=== PATIENT | female | born 1955 | race Caucasian/White ===

== ENCOUNTER 2020-03-09 13:46 | Emergency (ER) | payer MEDICARE, SELFPAY ==
--- NOTE | ~2020-03-09 | XR_ITS ---
XR humerus RT 03/09/2020 14:19 INDICATION: Right arm pain after fall PROCEDURE: 2 views right humerus COMPARISON: 11/25/2011 FINDINGS: Fracture, dislocation or subluxation is not identified. Osteopenia. The soft tissues appear within normal limits. No foreign bodies are identified. IMPRESSION: 1: NO ACUTE BONE OR JOINT ABNORMALITY IDENTIFIED. Reviewed, dictated and finalized at location A.
[2020-03-09 14:03] VITALS: BP 164/94; PULSE 110; RESP 16; O2SAT 99
--- NOTE | 2020-03-09 14:08 | ED.GENADULT ---
HPI - General Adult General Chief complaint: Extremity Injury, Upper Stated complaint: fell Right Shoulder pain Time Seen by Provider: 03/09/20 14:04 Source: patient and RN notes reviewed Mode of arrival: ambulatory Limitations: no limitations History of Present Illness HPI narrative: 64-year-old female presents with complaints of right shoulder and upper arm pain for 1 day. Fiorella says she fell at a gas station in [place], her foot got caught and she fell forward hitting her RT side. Denies numbness or tingling. Hurts with movement of shoulder. RT shoulder pain radiates down arm to elbow. No loss of mobility. No swelling. Exacerbating factor is movement and palpation. Relieving factor is rest. The dominant hand is the RIGHT HAND. Remains active. Denies fever, chills, headaches, weakness, fatigue, or myalgia. Denies chest pain or dyspnea. Denies cough, rhinorrhea, congestion, sore throat, nausea, vomiting, abdominal pain, and diarrhea. Tolerating po intake well. Denies recent traveling. Denies concerns for COVID-19 or exposures been home since [id number] order except for essential household needs and return home. Some parts of this dictation were generated by voice recognition software and may contain typographical and/or grammatical inaccuracies. Related Data Home Medications Medication Instructions Recorded Confirmed ketorolac 1 % OPHTHALMIC (EYE) DAILY 03/09/20 03/09/20 omeprazole 20 mg PO DAILY 03/09/20 03/09/20 triamcinolone acetonide 0.1 % TOPICAL DIRECTED 03/09/20 03/09/20 Allergies Allergy/AdvReac Type Severity Reaction Status Date / Time meperidine Allergy Mild Hives Verified 03/09/20 14:10 Review of Systems Review of Systems: Narrative: CONSTITUTIONAL: Denies fever, chills, sweats. EYES: Denies visual changes, redness, discharge. ENT: Denies rhinorrhea, congestion, sore throat, otalgia. CARDIOVASCULAR: Denies chest pain, palpitations, edema. RESPIRATORY: Denies dyspnea, wheezing, cough. GASTROINTESTINAL: Denies abdominal pain, nausea, vomiting, diarrhea. GENITOURINARY: Denies dysuria, hematuria, abnormal discharge. SKIN: Denies rash or itching. MUSCULOSKELETAL: Denies acute back pain or myalgia. Complains of RT shoulder and upper arm pain. NEUROLOGIC: Denies numbness or focal weakness. PSYCHIATRIC: Denies anxiety or depression. All other systems reviewed & are unremarkable except as noted in HPI and below. [facility] Past Medical History Medical History (Updated 03/13/20 @ 23:42 by ELIECER Dixon) Anxiety Back pain History of gastroesophageal reflux (GERD) Neck fracture Surgical History Surgical History (Updated 03/09/20 @ 14:14 by ELIECER Dixon) History of foot surgery Left History of hysterectomy Family History Family History (Updated 03/09/20 @ 14:17 by ELIECER Dixon) Father No problems noted. Mother Hypertension Social History Social History (Updated 03/09/20 @ 14:15 by ELIECER Dixon) Smoking status: Former smoker Tobacco type: cigarettes Second hand tobacco smoke exposure: No Smoking end date: 11/05/04 Alcohol intake: current Substance use: current Substance use type: marijuana Living arrangements: with family Gender identity (if verbalized by the patient): Female Comments At time of signature, agree with nurse past medical, surgical, social, and family history. There is no relevant family history pertinent to the presenting complaint. Exam Narrative: Exam Narrative: GENERAL: This is a well-nourished, well-developed patient, in no apparent distress. Talks in full sentences and ambulates with steady gait without dyspnea. HEAD: normocephalic, atraumatic. EYES: PERRL. Sclera clear/white. Vision is grossly intact. THROAT: Mucous membranes moist, posterior pharynx clear. NECK: Neck supple, non-tender without lymphadenopathy, masses or thyromegaly. Trachea is midline. Skin
[2020-03-09] MEDS: KETOROLAC (*BKC) 60 MG/2 ML VIAL IM (14:18)
[2020-03-09 15:08] VITALS: BP 142/78
== END 2020-03-09 14:48 | disposition home or self-care (01) ==
PROVIDERS: Emergency Provider Nurse Practitioner Family
DX: S43.401A Unspecified sprain of right shoulder joint, initial encounter (principal); Z87.891 Personal history of nicotine dependence; R03.0 Elevated blood-pressure reading, without diagnosis of hypertension; W01.0XXA Fall on same level from slipping, tripping and stumbling without subsequent striking against object, initial encounter
CPT/HCPCS: 73060; 99213; A4565; G0463; J1885

== ENCOUNTER 2021-04-19 09:14 | Emergency (ER) | payer MEDICARE, SELFPAY ==
--- NOTE | ~2021-04-19 | XR_ITS ---
[XR ribs RT 2V ] INDICATION: Right lateral rib pain after recent fall TECHNIQUE: Frontal projection of the upper right ribs, frontal projection of the lower right ribs, ob lique projection of all the right ribs, frontal inspiratory chest x-ray for interpretation. FINDINGS: There are no displaced rib fractures identified. There are no soft tissue abnormality see n. The lungs are clear. There are degenerative changes of the right shoulder. IMPRESSION: 1:No displaced rib fractures. Reviewed, dictated and finalized at location A.
[2021-04-19 09:41] VITALS: BP 150/89; PULSE 88; RESP 16; TEMP 36.8; O2SAT 99
--- NOTE | 2021-04-19 10:01 | ED.GENADULT ---
HPI - General Adult General Chief complaint: Unspecified Stated complaint: rib pain Time Seen by Provider: 04/19/21 09:55 Source: patient and RN notes reviewed Mode of arrival: ambulatory Limitations: no limitations History of Present Illness HPI narrative: 65-year-old female presents to [facility] with complaints of right lower lateral rib pain since tripping and falling March 27. Patient reports that she was camping and missed a step when she fell landing on her right side. Did not seek medical treatment at that time. States she had history of left-sided rib fractures and knows they cannot do much about it. Has been taking ibuprofen with some relief. States she needs something better for pain Related Data Home Medications Medication Instructions Recorded Confirmed alprazolam 1 mg PO DAILY 04/19/21 04/19/21 Allergies Allergy/AdvReac Type Severity Reaction Status Date / Time meperidine Allergy Mild Hives Verified 04/19/21 10:07 Review of Systems Review of Systems: All systems reviewed & are unremarkable except as noted in HPI and below Constitutional: Constitutional: Reports no additional constitutional complaints, Denies chills and Denies fever(s) Eyes: Eyes: Reports no additional eye complaints ENT: Reports system reviewed and no additional complaints, except as documented Cardiovascular: Cardiovascular: Reports as per HPI, Denies chest pain and Denies radiating jaw, neck or arm pain Comments: Right lower lateral rib pain Respiratory: Respiratory: Reports no additional respiratory complaints, Denies cough, Denies dyspnea and Denies wheezing Gastrointestinal: Gastrointestinal: Reports no additional gastrointestinal complaints, Denies abdominal pain, Denies nausea and Denies vomiting Genitourinary: Genitourinary: Reports no additional female genitourinary complaints Musculoskeletal: Musculoskeletal: Reports no additional musculoskeletal complaints, Denies back pain, Denies arthralgias and Denies joint swelling Integumentary/Breasts: Skin/Breast: Reports system reviewed and no additional complaints, except as docu Neurologic: Reports system reviewed and no additional complaints, except as documented Psychiatric: Psychiatric: Reports no additional psychiatric complaints Allergic/Immunologic: Allergic/Immunologic: Reports no additional allergic/immunologic complaints [facility] Past Medical History Medical History (Updated 04/19/21 @ 10:34 by Jovita Grimaldo) Anxiety Back pain History of gastroesophageal reflux (GERD) Neck fracture Surgical History Surgical History History of foot surgery Left History of hysterectomy Family History Family History Father No problems noted. Mother Hypertension Social History Social History Smoking status: Former smoker Tobacco type: cigarettes Second hand tobacco smoke exposure: No Smoking end date: 11/05/04 Alcohol intake: current Substance use: current Substance use type: marijuana Gender identity (if verbalized by the patient): Female Comments At the time of my signature, I reviewed and agree with the nursing past medical, surgical, social, and family history. There is no relevant family history pertinent to the patient complaint. Exam Const: General: no acute distress and alert Nutritional Appearance: thin Orientation/consciousness: patient oriented x3 HENMT: Head: normal to inspection Eyes: Pupils: Equal, round and reactive pupils present Neck: Neck: normal visual inspection, no lymphadenopathy and no meningeal signs Chest: Chest palpation & inspection: normal inspection of the chest Resp: Effort & Inspection: normal respiratory effort and no use of accessory muscles Auscultation: clear to auscultation bilaterally, no crackles, no rales, no rhonchi and no whe
== END 2021-04-19 10:43 | disposition home or self-care (01) ==
PROVIDERS: Emergency Provider Nurse Practitioner
DX: S20.211A Contusion of right front wall of thorax, initial encounter (principal); W10.9XXA Fall (on) (from) unspecified stairs and steps, initial encounter; K21.9 Gastro-esophageal reflux disease without esophagitis; F41.9 Anxiety disorder, unspecified
CPT/HCPCS: 71100; 99213; G0463

== ENCOUNTER 2021-10-03 11:29 | Emergency (ER) | payer MEDICARE, SELFPAY ==
[2021-10-03 11:36] VITALS: BP 147/88; PULSE 102; RESP 16; TEMP 36.9; O2SAT 100
--- NOTE | 2021-10-03 12:45 | ED.SKABFB ---
HPI - Skin/Abscess/Foreign Bdy General Chief complaint: Skin/Abscess/Foreign Body Stated complaint: Cyst on [place] Time Seen by Provider: 10/03/21 12:36 Source: patient and RN notes reviewed Mode of arrival: ambulatory Limitations: no limitations History of Present Illness HPI narrative: Patient presents today complaining of a bump to her left buttock that has been there for a month. States it started out as a pimple but has gotten larger and more painful. She has tried but has not gotten any drainage. Denies any pain at this time. Denies any history of abscesses, boils complaint: abscess/boil Related Data Home Medications Medication Instructions Recorded Confirmed alprazolam 1 mg PO DAILY 04/19/21 10/03/21 hydrochlorothiazide 12.5 mg PO DAILY 10/03/21 10/03/21 omeprazole 20 mg PO DAILY 10/03/21 10/03/21 Allergies Allergy/AdvReac Type Severity Reaction Status Date / Time No Known Allergies Allergy Verified 10/03/21 12:17 Review of Systems Review of Systems: CONSTITUTIONAL: Denies body aches, fever, chills, or sweats. EYES: Denies visual changes, redness, or discharge. ENT: Denies rhinorrhea, congestion, sore throat, or otalgia. CARDIOVASCULAR: Denies chest pain, palpitations, or edema. RESPIRATORY: Denies cough or dyspnea. GASTROINTESTINAL: Denies abdominal pain, nausea, vomiting, or diarrhea. GENITOURINARY: Denies dysuria or hematuria. SKIN: Denies rash, itching, or wounds.+ Abscess to left buttock MUSCULOSKELETAL: Denies back pain, joint pain, or myalgia. NEUROLOGIC: Denies headache, numbness, tingling, or weakness. PSYCH: Denies depression or anxiety. [facility] Past Medical History Medical History Anxiety Back pain History of gastroesophageal reflux (GERD) Neck fracture Surgical History Surgical History History of foot surgery Left History of hysterectomy Family History Family History Father No problems noted. Mother Hypertension Social History Social History Smoking status: Former smoker Tobacco type: cigarettes Second hand tobacco smoke exposure: No Smoking end date: 11/05/04 Alcohol intake: current Substance use: current Substance use type: marijuana Gender identity (if verbalized by the patient): Female Comments At time of signature, I have reviewed and agree with nursing past medical, surgical, social and family history unless otherwise noted. Please see nursing chart for further information. There is no relevant family history pertinent to the presenting complaint Exam Narrative: GENERAL: Well-appearing, well-nourished, and in no acute distress. HEAD: Normocephalic, atraumatic. EYES: EOMI. No redness or drainage. Conjunctivae normal. ENT: Mucous membranes pink and moist. NECK: Normal AROM. CHEST: No respiratory distress. EXTREMITIES: Normal range of motion. No edema. 1.5cm round fluctuant lesion surrounded in erythema to the left buttock that is non tender to palpation. SKIN: Warm, dry, no rash. Capillary refill normal. Normal skin turgor. NEURO: No focal deficits. Alert and oriented x3. Gait steady. PSYCH: Normal affect. No signs of depression or anxiety. Course Vital Signs Vital signs: Vital Signs Temperature 98.5 F 10/03/21 11:36 Pulse Rate 102 H 10/03/21 11:36 Respiratory Rate 16 10/03/21 11:36 Blood Pressure 147/88 H 10/03/21 11:36 Pulse Oximetry 100 10/03/21 11:36 Temperature 98.5 F 10/03/21 11:36 Pulse Rate 102 H 10/03/21 11:36 Respiratory Rate 16 10/03/21 11:36 Blood Pressure 147/88 H 10/03/21 11:36 Pulse Oximetry 100 10/03/21 11:36 Reviewed. Pt has been instructed to follow up with her PCP regarding her elevated blood pressure today. Tej
== END 2021-10-03 13:15 | disposition home or self-care (01) ==
PROVIDERS: Emergency Provider Nurse Practitioner
DX: L02.31 Cutaneous abscess of buttock (principal); Z87.891 Personal history of nicotine dependence; K21.9 Gastro-esophageal reflux disease without esophagitis; F41.9 Anxiety disorder, unspecified
CPT/HCPCS: 10060; 99213; G0463

== ENCOUNTER → 2022-04-08 10:09 | Outpatient (CLI) | payer MEDICARE, SELFPAY ==
--- NOTE | ~2022-04-08 | XR_ITS ---
EXAM: XR sacrum coccyx min 2V DATE: 04/08/2022 10:23 HISTORY: Contusion of lower back and pelvis . COMPARISON: None available. FINDINGS: Decreased mineralization. Anterior angulation positive transversely oriented fracture line through the distal sacral element. No other fracture. No lytic or blastic lesion. Osteitis pubis. Se fausto degenerative lumbar disc disease with a prominent right lateral marginal osteophyte. No erosion or periosteal change. Soft tissues within normal limits. IMPRESSION: Possible acute distal sacral fracture, correlate with pain/tenderness. An MR pelvis could be performed for confirmation. Reviewed, dictated and finalized at location K. IMPRESSION: Possible acute distal sacral fracture, correlate with pain/tenderne ss. An MR pelvis could be performed for confirmation.
== END ==
DX: S30.0XXA Contusion of lower back and pelvis, initial encounter (principal); M47.816 Spondylosis without myelopathy or radiculopathy, lumbar region
CPT/HCPCS: 72220

== ENCOUNTER → 2022-10-19 10:37 | Outpatient (CLI) | payer MEDICARE, SELFPAY ==
--- NOTE | ~2022-10-19 | XR_ITS ---
Clinical Indication: Cough PA and lateral views of the chest: Comparison: 04/11/2013 Findings: The lungs are clear, without evidence of focal consolidation or pleural effusion. Cardiome diastinal silhouette is within normal limits. Stable chronic left rib fracture deformities. Impression: No acute abnormality. Stable chronic left rib fracture deformities. Reviewed, dictated and finalized at location [] [facility] Impression: No acute abnormality. Stable chronic left rib fracture deformities.
== END ==
DX: R09.3 Abnormal sputum (principal)
CPT/HCPCS: 71046

== ENCOUNTER 2023-07-06 13:06 | Emergency (ER) | payer MEDICARE, SELFPAY ==
[2023-07-06 13:23] VITALS: BP 141/87; PULSE 98; RESP 16; TEMP 37; O2SAT 100
--- NOTE | 2023-07-06 14:20 | ED.SKABFB ---
HPI - Skin/Abscess/Foreign Bdy General Chief complaint: Skin/Abscess/Foreign Body Stated complaint: Insect Bite Time Seen by Provider: 07/06/23 14:14 Source: patient and RN notes reviewed Mode of arrival: ambulatory Limitations: no limitations History of Present Illness HPI narrative: Patient presents today complaining of redness and swelling to her left hand and wrist that started yesterday. She believe she may have gotten bit by an insect or spider. Currently rates her pain 3/10 and describes it as burning. She has been taking aspirin without relief. Related Data Home Medications Medication Instructions Recorded Confirmed hydrochlorothiazide 12.5 mg tablet 12.5 mg PO DAILY 10/03/21 07/06/23 omeprazole 20 mg capsule,delayed 20 mg PO DAILY 10/03/21 07/06/23 release paroxetine HCl 10 mg tablet 20 mg PO DAILY 07/06/23 07/06/23 Allergies Allergy/AdvReac Type Severity Reaction Status Date / Time No Known Allergies Allergy Verified 07/06/23 13:33 Review of Systems Review of Systems: CONSTITUTIONAL: Denies body aches, fever, chills, or sweats. EYES: Denies visual changes, redness, or discharge. ENT: Denies rhinorrhea, congestion, sore throat, or otalgia. CARDIOVASCULAR: Denies chest pain, palpitations, or edema. RESPIRATORY: Denies cough or dyspnea. GASTROINTESTINAL: Denies abdominal pain, nausea, vomiting, or diarrhea. GENITOURINARY: Denies dysuria or hematuria. SKIN: + redness and swelling to left hand. MUSCULOSKELETAL: Denies back pain, joint pain, or myalgia. NEUROLOGIC: Denies headache, numbness, tingling, or weakness. PSYCH: Denies depression or anxiety. [facility] Past Medical History Medical History Anxiety Back pain History of gastroesophageal reflux (GERD) Neck fracture Surgical History Surgical History History of foot surgery Left History of hysterectomy Family History Family History Father No problems noted. Mother Hypertension Social History Social History Smoking status: Former smoker Tobacco type: cigarettes Second hand tobacco smoke exposure: No Smoking end date: 11/05/04 Alcohol intake: current Substance use: current Substance use type: marijuana Living arrangements: with family Gender identity (if verbalized by the patient): Female Comments At time of signature, I have reviewed and agree with nursing past medical, surgical, social and family history unless otherwise noted. Please see nursing chart for further information. There is no relevant family history pertinent to the presenting complaint Exam Narrative: GENERAL: Well-appearing, well-nourished, and in no acute distress. HEAD: Normocephalic, atraumatic. EYES: EOMI. No redness or drainage. Conjunctivae normal. ENT: Mucous membranes pink and moist. NECK: Normal AROM. CHEST: No respiratory distress. EXTREMITIES: Left hand: Moderate erythema and mild edema to the thenar eminence extending to the dorsum of the hand to the base of the 2nd finger. The erythema extends proximally to the anterior wrist. Distal sensation intact. Capillary refill normal. Radial pulse normal. Full range of motion of all fingers and wrist. No obvious puncture wounds from insect or spider noted. No induration or fluctuance noted. SKIN: Warm, dry. Capillary refill normal. Normal skin turgor. NEURO: No focal deficits. Alert and oriented x3. Gait steady. PSYCH: Normal affect. No signs of depression or anxiety. Course Course Level of Care: Express Care Visit Vital Signs Vital signs: Vital Signs Temperature 98.6 F 07/06/23 13:23 Pulse Rate 98 07/06/23 13:23 Respiratory Rate 16 07/06/23 13:23 Blood Pressure 141/87 H 07/06/23 13:
== END 2023-07-06 14:26 | disposition home or self-care (01) ==
PROVIDERS: Emergency Provider Nurse Practitioner; PCP Family Medicine
DX: L03.114 Cellulitis of left upper limb (principal); Z87.891 Personal history of nicotine dependence
CPT/HCPCS: 99213; G0463

== ENCOUNTER 2023-07-26 10:45 | Emergency (ER) | payer MEDICARE, SELFPAY ==
--- NOTE | ~2023-07-26 | XR_ITS ---
EXAMINATION: XR ribs RT 2V DATE: 07/26/2023 11:04 INDICATION: Upper right rib pain post fall TECHNIQUE: 3 views of the right ribs were obtained. COMPARISON: Chest radiograph dated 10/19/2022 FINDINGS: 3 mm displacement of a fracture of the anterior right seventh rib and mildly angulated fracture of th e anterior right fifth and sixth ribs. Visualized portion of the lungs are clear. No right pleural ef fusion or pneumothorax. 18 degrees lumbar dextroscoliosis with moderate spondylosis. IMPRESSION: 1. Non to mildly displaced fractures of the anterior right fifth-seventh ribs without pneumothorax or other acute cardiopulmonary disease. Reviewed, dictated and finalized at location A. IMPRESSION: 1. Non to mildly displaced fractures of the anterior right fifth-seventh ribs w ithout pneumothorax or other acute cardiopulmonary disease.
[2023-07-26 10:54] VITALS: BP 135/90; PULSE 96; RESP 18; TEMP 36.9; O2SAT 100
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
== END 2023-07-26 11:43 | disposition home or self-care (01) ==
PROVIDERS: Emergency Provider Registered Nurse; PCP Family Medicine
DX: S22.41XA Multiple fractures of ribs, right side, initial encounter for closed fracture (principal); Z79.899 Other long term (current) drug therapy; Z87.891 Personal history of nicotine dependence; W19.XXXA Unspecified fall, initial encounter; Y92.009 Unspecified place in unspecified non-institutional (private) residence as the place of occurrence of the external cause
CPT/HCPCS: 71100; 99213; G0463

== ENCOUNTER 2023-12-18 11:40 | Emergency (ER) | payer MEDICARE, SELFPAY ==
--- NOTE | ~2023-12-18 | XR_ITS ---
XR ribs RT 2V DATE: 12/18/2023 12:30 INDICATION: Right anterior rib pain after a fall yesterday TECHNIQUE: 3 views COMPARISON: 07/26/2023 right ribs FINDINGS: There are healing fractures of the anterior right seventh, lateral right eighth and postero lateral right ninth ribs, with callus formation. No other rib fracture is noted. No right pulmonary infiltrate or consolidation, right pleural effusion or pneumothorax. Normal heart size. Bilateral hyperinflation, suggesting obstructive airways disease. Dextro scoliosis and degenerative change of the lumbar spine. Osteopenia. IMPRESSION: Healing right seventh through ninth rib fractures Reviewed, dictated and finalized at location L. RAM MANAGEMENT ANALYST
[2023-12-18 11:58] VITALS: BP 120/84; PULSE 97; RESP 16; TEMP 37.1; O2SAT 99
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
== END 2023-12-18 13:15 | disposition home or self-care (01) ==
PROVIDERS: Emergency Provider Nurse Practitioner Family; PCP Family Medicine
DX: R07.81 Pleurodynia (principal); W01.0XXA Fall on same level from slipping, tripping and stumbling without subsequent striking against object, initial encounter; Z87.891 Personal history of nicotine dependence
CPT/HCPCS: 71100; 99213; G0463

== ENCOUNTER 2024-01-11 08:59 | Emergency (ER) | payer MEDICARE, SELFPAY ==
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
[2024-01-11 09:19] VITALS: BP 130/84; PULSE 101; RESP 20; TEMP 36.6; O2SAT 99
== END 2024-01-11 09:18 | disposition short-term general hospital (02) ==
PROVIDERS: Emergency Provider Nurse Practitioner Family; PCP Family Medicine
DX: S01.81XA Laceration without foreign body of other part of head, initial encounter (principal); S05.11XA Contusion of eyeball and orbital tissues, right eye, initial encounter; Z79.899 Other long term (current) drug therapy; Z87.891 Personal history of nicotine dependence; W18.11XA Fall from or off toilet without subsequent striking against object, initial encounter
CPT/HCPCS: 99212; G0463

== ENCOUNTER 2024-01-11 09:37 | Inpatient (IN) | payer MEDICARE, SELFPAY ==
[2024-01-11] VITALS (24 sets, daily range): BP systolic 108–149; BP diastolic 70–99; PULSE 78–103; RESP 12–18; TEMP 36.6–37.3; O2SAT 98–100
--- NOTE | ~2024-01-11 | CT_ITS ---
EXAMINATION: CT thoracic spine wo con DATE: 01/11/2024 10:20 INDICATION: Right rib pain post fall TECHNIQUE: Computed tomography (CT) of the thoracic spine was performed without intravenous contrast. Automated exposure control and iterative reconstruction technique were employed. The dose-length pro duct was 253.73 mGy-cm. COMPARISON: None FINDINGS: Alignment is normal. Minimal chronic appearing anterior wedging at T8 with <10% anterior vertebral rocky dy height loss. Remaining vertebral body heights are normal. No acute fracture. There is multilevel m ild disc height loss with diffuse mild degenerative endplate changes throughout the thoracic spine. P revious noted . Extend beyond the endplate margins with no central canal stenosis. There is multileve l mild to moderate bilateral thoracic facet osteoarthritis but without significant neural foraminal s tenosis. Visualized portions of the lungs are clear. Small sliding-type hiatal hernia. Calcified left hilar lymph nodes consistent with old granulomatous disease. IMPRESSION: 1. Mild thoracic spondylosis with chronic appearing minimal anterior wedging at T8. No acute osseous abnormality. 2. Small sliding-type hiatal hernia. Reviewed, dictated and finalized at location A. ORT STAFF
--- NOTE | ~2024-01-11 | XR_ITS ---
AP and oblique views of the right ribs, and PA chest radiograph Clinical History: Pain Findings: There are acute fractures of the right eighth and ninth ribs. There are chronic left rib fr acture deformities.. Lungs are clear, without focal consolidation or pleural effusion. No pneumothora x. Cardiomediastinal contour is within normal limits. Soft tissues are unremarkable. Impression: Acute fractures of the right eighth and ninth ribs. Chronic left rib fracture deformities. Clear lungs. No pneumothorax. Reviewed, dictated and finalized at [facility]. F CUSTOMER OFFICER Impression: Acute fractures of the right eighth and ninth ribs. Chronic left rib fracture deformities. Clear lungs. No pneumothorax.
--- NOTE | ~2024-01-11 | CT_ITS ---
EXAMINATION: CT brain wo con DATE: 01/11/2024 10:20 INDICATION: Fall with head and facial injury TECHNIQUE: Computed tomography (CT) of the head was performed without intravenous contrast. Sagittal and coronal reconstructions were performed. The mA was adjusted according to patient size. Iterative reconstruction technique was employed. The dose-length product was 605.33 mGy-cm. COMPARISON: None FINDINGS: Large right frontal scalp hematoma with laceration and small focus of underlying soft tissue gas. Add itional soft tissue contusion along the lateral right orbital rim. No fracture. No acute intracranial hemorrhage, acute infarction or abnormal extra axial fluid collection. There is mild scattered white matter hypoattenuation consistent with chronic small vessel ischemic disease. Symmetric prominence o f the sulci consistent with mild age-appropriate diffuse cerebral volume loss. Ventricles are normal and symmetric. No mass/mass effect. The orbits, paranasal sinuses and mastoid air cells are normal. I ntracranial calcified cerebral atherosclerosis is noted. IMPRESSION: 1. No fracture or acute intracranial process. 2. Age related changes including mild diffuse volume loss and mild scattered white matter hypoattenua tion consistent with chronic small vessel ischemic disease. Reviewed, dictated and finalized at location A. L ARBITRATOR IMPRESSION: 1. No fracture or acute intracranial process. 2. Age related changes including mild diffuse volume loss and mild scattered wh ite matter hypoattenuation consistent with chronic small vessel ischemic diseas e.
--- NOTE | ~2024-01-11 | XR_ITS ---
EXAMINATION: XR chest 2V DATE: 01/14/2024 11:39 INDICATION: Hyponatremia. Right-sided rib fractures post fall TECHNIQUE: PA and lateral views of the chest were obtained. COMPARISON: Chest radiograph dated 12/18/2023 FINDINGS: The lungs are clear with no focal airspace opacities, pulmonary edema, pleural effusion or pneumothor ax. The cardiomediastinal silhouette is normal. Again seen are multiple old posterolateral left sided and lateral right-sided rib fractures. Mild thoracic spondylosis. No acute fractures identified. IMPRESSION: 1. No acute cardiopulmonary disease. 2. Several old bilateral rib fractures. No acute fractures identified. Reviewed, dictated and finalized at location B.
--- NOTE | ~2024-01-11 | CT_ITS ---
EXAMINATION: 1. CT facial & cervical spine wo DATE: 01/11/2024 10:20 INDICATION: Right periorbital bruising post fall with head injury and loss of consciousness TECHNIQUE: 1. Computed tomography (CT) of the maxillofacial region and of the cervical spine were performed with out intravenous contrast. Sagittal and coronal reconstructions of both regions were obtained. Automat ed exposure control and iterative reconstruction technique were employed. The dose-length product was 199.57 mGy-cm. COMPARISON: None. FINDINGS: Maxillofacial CT: Large right frontal scalp hematoma with additional smaller subcutaneous contusion the soft tissues al kirstin the lateral right periorbital rim and right malar region. No maxillofacial fractures. Specificall y the nasal bones, zygomatic arches, mandible and edwards of the orbits and paranasal sinuses are all i ntact. Orbits are normal with intact appearing globes and no post septal inflammatory stranding. Mild mucosal thickening at the left maxillary sinus and left frontoethmoidal recess. Nasal septum is midl ine. Maxilla is edentulous and there are multiple missing teeth along the mandible predominantly on t he left. Small amount of atherosclerotic calcifications at the bilateral carotid bulbs. Cervical spine CT: Mild cervical dextrocurvature. Sagittal alignment is normal. 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 Vertebral body heights are normal. No fracture. Moderate disc height loss with and de generative endplate changes and severe right and moderate left uncovertebral osteoarthritis at C6-C7. Mild disc height loss at C3-C4 and C5-C6. No evident central canal stenosis. There is multilevel mod erate to severe right and severe left cervical facet osteoarthritis. This contributes to moderate enrique ral foraminal stenosis on the left at C3-C4, mild to moderate neural from stenosis on the left at C4- C5 through C6-C7 and on the right at C6-C7 with mild neural from stenosis at many of the remaining ce rvical levels . Multinodular goiter with a few likely benign subcentimeter peripherally calcified thy roid nodules. Cervical soft tissues tissues are otherwise unremarkable. The visualized apices of the lungs are clear. IMPRESSION: 1. Prominent right frontal and right periorbital subcutaneous hematoma. No maxillofacial fractures. 2. Moderate cervical spondylosis. No acute osseous abnormality. Reviewed, dictated and finalized at location A. FILTER TANK TENDER IMPRESSION: 1. Prominent right frontal and right periorbital subcutaneous hematoma. No maxi llofacial fractures. 2. Moderate cervical spondylosis. No acute osseous abnormality.
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
--- NOTE | 2024-01-11 09:58 | ECG_ITS ---
Measurements Intervals [place] Rate: 81 P: 71 GA: 140 QRS: 17 QRSD: 104 T: 47 QT: 400 QTc: 465 Interpretive Statements SINUS RHYTHM POSSIBLE LEFT ATRIAL ENLARGEMENT INCOMPLETE RIGHT BUNDLE BRANCH BLOCK BORDERLINE T WAVE ABNORMALITY- ANTERIOR LEADS BASELINE ARTIFACT- I, III, AVR, AVL BORDERLINE ECG NO PREVIOUS ECG AVAILABLE FOR COMPARISON Electronically Signed On 01-11-2024 10:58:28 MOTION PICTURE PROJECTIONIST APPRENTICE by All Smith D.O.
[2024-01-11] MEDS: HYDROcodone/acetaminophen (*CRX) 5-325 MG TABLET 1 TAB PO ×3 (10:58→23:11)
[2024-01-11 11:13] LABS: Basophils Absolute Auto 0.1 K/mm3 (0.0-0.1); Basophils Percent Auto 0.5 % (0.2-1.2); Eosinophils Percent Auto 0.1 % (0-4.4); Hematocrit 40.1 % (37.0-47.0); Hemoglobin 14.2 g/dL (12.0-15.0); Immature Granulocyte Absolute 0.14 K/mm3 (0.00-0.031); Immature Granulocyte Percent A 1.4 % (0-0.5); Lymphocytes Absolute Auto 0.83 K/mm3 (0.9-3.2); Lymphocytes Percent Auto 8.4 % (18.3-44.2); Mean Corpuscular HGB Conc 35.4 g/dl (32-36); Mean Corpuscular Hemoglobin 33.6 pg (26-34); Mean Corpuscular Volume 94.8 fl (80-100); Mean Platelet Volume 9.3 fl (7.4-10.4); Monocytes Absolute Auto 0.5 K/mm3 (0.1-0.6); Monocytes Percent Auto 4.6 % (2.6-8.5); Neutrophils Absolute Auto 8.4 K/mm3 (1.3-6.7); Platelet Count Result 369 k/mm3 (150-375); Red Blood Count 4.23 M/mm3 (4.2-5.4); Red Cell Distribution Width 11.8 % (11.5-14.5); White Blood Count 9.8 K/mm3 (4.5-10.0)
[2024-01-11 11:14] LABS: Appearance Urine Cloudy (Clear); Bacteria Urine 4+ /hpf; Bilirubin Urine Negative (Negative); Color Urine Yellow (Yellow); Glucose Urine UA Negative (Negative); Ketones Urine Negative (Negative); Leukocyte Esterase Ur 3+ LEU/UL (Negative); Need Manual Microscopic Reviewed; Nitrate Urine Positive (Negative); Protein Urine Negative (Negative); RBC Urine 0-2 /hpf (0-2); Specific Grav Ur 1.007 (1.001-1.035); Squamous Epithelial Cell Urine Many /hpf (Few); WBC Urine >100 /hpf
[2024-01-11 11:16] LABS: Add Urine Microscopic? YES
[2024-01-11 11:30] LABS: Alanine Aminotransferase 63 U/L (6-35); Albumin Level 4.2 g/dL (3.5-5.1); Alkaline Phosphatase 245 U/L (38-126); Anion Gap 9 mmol/L (8-16); Aspartate Amino Transferase 60 U/L (14-36); Blood Urea Nitrogen 5 mg/dL (7-17); Calcium 9.5 mg/dL (8.4-10.2); Carbon Dioxide 32 mmol/L (22-30); Chloride 82 mmol/L (98-107); Estimated CRCL calculation 106 ml/min; Estimated Glomerular Filt Rate > 60; Glucose 107 mg/dL (65-110); Potassium 3.2 mmol/L (3.4-5.0); Sodium 123 mmol/L (137-145)
[2024-01-11] MEDS: LIDO 1%/EPINEPHRINE 1:100,000 20 ML VIAL 10 ML INFILTRATE (11:34)
[2024-01-11 13:19] LABS: Creatinine Urine 52.2 mg/dL
[2024-01-11 13:32] LABS: Thyroid Stimulating Hormone 0.717 uIU/mL (0.465-4.680)
--- NOTE | 2024-01-11 14:40 | PM.IMHP ---
H&P: HPI History of Present Illness Date/Time: 01/11/24 14:40 Chief Complaint: Fall. Narrative: This is a 68-year-old female with hypertension, gastroesophageal reflux disease, and anxiety who presented to the emergency department from home for evaluation after a fall. The patient provides the following history. She woke at 03:00 to use the restroom and after urinating she stood up at which time she began to fall forward. She landed on her right side and struck the right side of her head on the floor. She sustained a laceration and reports immediate swelling to the right side of her forehead as well as pain over the right ribs. She believes that she slipped on the bathroom floor and that caused her to fall however she told ED provider that she felt dizzy when she stood up and there were concerns for syncope. She tells me that ?I am 100% positive that I did not pass out.? Her significant other heard her fall and went to her up and back to bed. She reports that she has been feeling just fine and denies recent illness, vertigo, lightheadedness, visual changes, headache, confusion, chest and pleuritic pain, palpitations, racing heart, cough, shortness of breath, nausea, vomiting, diarrhea, and dysuria. In the ED: She was afebrile on arrival with stable vital signs. Labs were significant for sodium of 123, potassium 3.2, chloride 82, carbon dioxide 32, BUN 5, creatinine 0.40, calcium 9.5, total bilirubin 1.0, AST 60, ALT 63, alkaline phosphatase 245. Brain CT showed no acute findings. CT of the facial and cervical spine showed prominent right frontal and right periorbital subcutaneous hematoma without fracture. Chest and rib x-ray showed acute fractures of the right 8 and 9th ribs. She was given 10 mEq of potassium chloride and she is being admitted in this setting for further workup. Regarding her electrolyte abnormalities, she reports that she has been eating and drinking okay however has lost about 20 lb since last summer due to stressors regarding family problems. She tells me that she drinks at least 5 bottled fields a day in addition to at least 1 can of Sprite and a glass of tea with dinner. She does not drink alcohol every day but does occasionally have 2 to 3 beers on the weekends. She has been on hydrochlorothiazide and paroxetine since last fall. It is noted that she had a prescription for sodium bicarbonate tablets for a total of 15 days last September but she does not recall being told that she had low sodium levels. Review of Systems Review of Systems: Twelve systems were reviewed and are negative except for as per HPI. [facility] Past Medical History Medical History (Updated 01/11/24 @ 23:29 by Jannet Rojas PA-C) Anxiety Gastroesophageal reflux disease Hypertension Neck fracture Surgical History Surgical History History of arthroscopy of right knee History of foot surgery Left History of hysterectomy History of tonsillectomy History of vein stripping Family History Family History Father No problems noted. Mother Hypertension Social History Social History Social History: Surrogate medical decision maker: Blair Lopez, significant other. Code status: Full code. Smoking status: Former smoker Tobacco type: cigarettes Second hand tobacco smoke exposure: No Alcohol intake: current Drinks per week: 3 Substance use: former Substance use type: marijuana Do You Feel Safe in your Home?: Yes Lack of Transportation: No Lack of Food: Never True Current Housing: I Have Housing Concerned About Future Housing: No Difficulty Paying Gas/Electric Bills: No Difficulty Paying for Meds: No Currently Unemployed: No Education: High School Diploma/GED Difficulty w/ Childcare or Family Care: No Living arran
--- NOTE | 2024-01-11 15:58 | ADMGEN ---
This patient, Fiorella Baker, was admitted to Medical Room 254-01. Patient/family oriented to hospital policies and general routines including ID bracelet, bed and alarms, visiting hours, pain management, procedures, bathroom and other care routines, personal items, smoking policy, room service/diet, and visiting hours. Information on how to activate the Rapid Response Team has been discussed. Patient/Family are encouraged to report perceived risks to care and to ask questions if they do not understand what they are told or what they should do.
[2024-01-11] MEDS: POTASSIUM CHLORIDE 20 MEQ ER TABLET 40 MEQ PO ×2 (18:08→23:06)
[2024-01-11] MEDS: SODIUM CHLORIDE 0.9% IV 1,000 ML 999 ML IV CONT (18:08)
[2024-01-11 21:09] LABS: Anion Gap -1 mmol/L (8-16); Blood Urea Nitrogen 10 mg/dL (7-17); Calcium 8.3 mg/dL (8.4-10.2); Carbon Dioxide 35 mmol/L (22-30); Chloride 86 mmol/L (98-107); Creatine Kinase 42 U/L (30-135); Estimated CRCL calculation 87 ml/min; Estimated Glomerular Filt Rate > 60; Glucose 122 mg/dL (65-110); Magnesium 1.4 mg/dL (1.6-2.3); Potassium 3.1 mmol/L (3.4-5.0); Sodium 120 mmol/L (137-145)
[2024-01-11] MEDS: MAGNESIUM SULF 2 GM/WATER 50ML 2 GM/50 ML BAG IVPB (23:06)
[2024-01-11 23:16] LABS: Sodium Urine Random 15 meq/L
[2024-01-12] VITALS (13 sets, daily range): BP systolic 136–164; BP diastolic 65–93; PULSE 61–85; RESP 16; TEMP 36.6–36.8; O2SAT 100
[2024-01-12 01:14] LABS: Anion Gap -4 mmol/L (8-16); Blood Urea Nitrogen 9 mg/dL (7-17); Calcium 8.6 mg/dL (8.4-10.2); Carbon Dioxide 36 mmol/L (22-30); Chloride 88 mmol/L (98-107); Estimated CRCL calculation 106 ml/min; Estimated Glomerular Filt Rate > 60; Glucose 110 mg/dL (65-110); Potassium 3.5 mmol/L (3.4-5.0); Sodium 120 mmol/L (137-145)
[2024-01-12 01:35] LABS: Hepatitis B Surface Antigen Negative (Negative)
[2024-01-12 01:41] LABS: HAV RESULT Negative (Negative); Hepatitis B Core IgM Result Negative (Negative)
[2024-01-12 01:53] LABS: Hepatitis C Virus Antibody Negative (Negative)
[2024-01-12 05:30] LABS: Hematocrit 33.3 % (37.0-47.0); Hemoglobin 11.8 g/dL (12.0-15.0); Mean Corpuscular HGB Conc 35.4 g/dl (32-36); Mean Corpuscular Hemoglobin 34.3 pg (26-34); Mean Corpuscular Volume 96.8 fl (80-100); Mean Platelet Volume 9.5 fl (7.4-10.4); Platelet Count Result 299 k/mm3 (150-375); Red Blood Count 3.44 M/mm3 (4.2-5.4); Red Cell Distribution Width 11.9 % (11.5-14.5)
[2024-01-12 05:40] LABS: Alanine Aminotransferase 42 U/L (6-35); Albumin Level 3.3 g/dL (3.5-5.1); Alkaline Phosphatase 198 U/L (38-126); Anion Gap -1 mmol/L (8-16); Aspartate Amino Transferase 45 U/L (14-36); Bilirubin,Total 1.3 mg/dL (0.2-1.3); Blood Urea Nitrogen 7 mg/dL (7-17); Calcium 8.6 mg/dL (8.4-10.2); Carbon Dioxide 35 mmol/L (22-30); Chloride 89 mmol/L (98-107); Estimated CRCL calculation 103 ml/min; Estimated Glomerular Filt Rate > 60; Glucose 104 mg/dL (65-110); Potassium 3.5 mmol/L (3.4-5.0); Sodium 123 mmol/L (137-145)
[2024-01-12] MEDS: GABAPENTIN 100 MG CAPSULE PO (08:49)
[2024-01-12] MEDS: POTASSIUM CHLORIDE 10 MEQ ER TABLET PO (08:49)
[2024-01-12] MEDS: SODIUM CHLORIDE 0.9% IV 1,000 ML 150 ML IV CONT ×2 (08:49→20:30)
[2024-01-12] MEDS: PYRIDOXINE HCL 50 MG TABLET 100 MG PO (08:49)
[2024-01-12] MEDS: HYDROcodone/acetaminophen (*CRX) 5-325 MG TABLET 1 TAB PO ×3 (09:06→20:30)
--- NOTE | 2024-01-12 13:54 | PM.IMPN ---
Progress Note: A&P Assessment and Plan (1) Hyponatremia: Code(s): E87.1 - Hypo-osmolality and hyponatremia Status: Acute (2) Closed head injury: Code(s): S09.90XA - Unspecified injury of head, initial encounter Status: Acute (3) Fall: Code(s): W19.XXXA - Unspecified fall, initial encounter Status: Acute (4) Abnormal urinalysis: Code(s): R82.90 - Unspecified abnormal findings in urine Status: Acute (5) Right rib fracture: Code(s): S22.31XA - Fracture of one rib, right side, initial encounter for closed fracture Status: Acute (6) Elevated LFTs: Code(s): R79.89 - Other specified abnormal findings of blood chemistry Status: Acute (7) Hypertension: Code(s): I10 - Essential (primary) hypertension Status: Acute (8) Gastroesophageal reflux disease: Code(s): K21.9 - Gastro-esophageal reflux disease without esophagitis Status: Acute Plan Fall with head injury Unknown etiology cause of fall CT head with no acute intracranial process Echocardiogram pending Sodium 120 on admission Orthostatics negative Hyponatremia with hypo-osmolality NA 120 POA IV Fluids likely secondary to dehydration F/U NA 6HR possible cause of fall d/C hydrochlorothiazide UTI Urine cultures pending Nitrate/leukocyte positive Continue IV hydration. Monitor CBC, CMP watch for sepsis. Monitor vital signs. Ceftriaxone elevated Liver enzymes gentle hydration trending down hep panel negative HTN Mild hypertensive d/c HTCZ start Procardia RIB fractures 06/13 acute fractures pain control Incentive spirometer splint with pillow to cough Code status: Full code per patient DVT prophylaxis: scd's Stress ulcer prophylaxis: Protonix 40 daily PT/OT notes: PT/OT pending Disposition: Patient continues admission for treatment of UTI, fall, hyponatremia, and rib factures continue with current treatment plan will discharge to home when medically stable. Time Spent With Patient Time with patient: 25 - 35 minutes Subjective Date/time seen: 01/12/24 13:54 Interval history: (Medical Record) Chief Complaint: Fall. Narrative: This is a 68-year-old female with hypertension, gastroesophageal reflux disease, and anxiety who presented to the emergency department from home for evaluation after a fall. The patient provides the following history. She woke at 03:00 to use the restroom and after urinating she stood up at which time she began to fall forward. She landed on her right side and struck the right side of her head on the floor. She sustained a laceration and reports immediate swelling to the right side of her forehead as well as pain over the right ribs. She believes that she slipped on the bathroom floor and that caused her to fall however she told ED provider that she felt dizzy when she stood up and there were concerns for syncope. She tells me that ?I am 100% positive that I did not pass out.? Her significant other heard her fall and went to her up and back to bed. She reports that she has been feeling just fine and denies recent illness, vertigo, lightheadedness, visual changes, headache, confusion, chest and pleuritic pain, palpitations, racing heart, cough, shortness of breath, nausea, vomiting, diarrhea, and dysuria. In the ED: She was afebrile on arrival with stable vital signs. Labs were significant for sodium of 123, potassium 3.2, chloride 82, carbon dioxide 32, BUN 5, creatinine 0.40, calcium 9.5, total bilirubin 1.0, AST 60, ALT 63, alkaline phosphatase 245. Brain CT showed no acute findings. CT of the facial and cervical spine showed prominent right frontal and right periorbital subcutaneous hematoma without fracture. Chest and rib x-ray showed acute fractures of the right 8 and 9th ribs. She was given 10 mEq of potassium chloride and she is being admitted in this setting for furth
[2024-01-12 15:15] LABS: Anion Gap -1 mmol/L (8-16); Blood Urea Nitrogen 8 mg/dL (7-17); Calcium 8.3 mg/dL (8.4-10.2); Carbon Dioxide 31 mmol/L (22-30); Chloride 92 mmol/L (98-107); Estimated CRCL calculation 85 ml/min; Estimated Glomerular Filt Rate > 60; Glucose 112 mg/dL (65-110); Potassium 3.4 mmol/L (3.4-5.0); Sodium 122 mmol/L (137-145)
--- NOTE | 2024-01-12 15:26 | PC.NURSE ---
Patient sitting up in bed. Call light within reach. Patient seems a bit disoriented but answers questions appropriately. Family at bedside mid morning. Patient very focused on not liking her breakfast, ice, and putting ointment on her wounds. Vision in tact. Bed alarm on.
[2024-01-12] MEDS: NIFEdipine 30 MG TAB.ER.24 PO (15:53)
--- NOTE | 2024-01-12 18:07 | PC.NURSE ---
Patient has been repeatedly reminded and educated about the IV pump. She has not been able to comprehend that she needs to use the call light to alert the charge desk when it beeps for more than 30 seconds. Family returns this evening and he was educated about calling to get it restarted. Bag should have been infused by now.
--- NOTE | 2024-01-12 23:36 | ECHO_ITS ---
Patient Info Name: Fiorella Baker Age: 68 years : 1955 Gender: Female Ht: 69 in Wt: 135 lbs BSA: 1.72 m2 HR: 74 bpm BP: 136 / 65 mmHg Heart Rhythm: Sinus Rhythm Technical Quality: Fair Exam Date: 01/12/2024 7:43 AM Exam Location: Echo Lab Exam Room: 254 Patient Status: Outpatient Admit Date: 01/11/2024 Staff Ordering Physician: Jannet Rojas PA-C Stave Block Roller: Hillary Schmitt RDCS Attending Provider: Rene Wang MD Referring Physician: Crystal SMILEY; Exam Type: CA echo doppler color flow Study Info Indications - SYNCOPE Complete two-dimensional, color flow and Doppler transthoracic echocardiogram is performed. Summary 1. Complete two-dimensional, color flow and Doppler transthoracic echocardiogram is performed. 2. Left ventricular chamber dimension is normal. 3. Left ventricular systolic function is normal, estimated at >70%. 4. There is mildly increased left ventricular wall thickness. 5. The left ventricular diastolic function is grade I diastolic dysfunction. 6. Right ventricular systolic function is normal. 7. There is mild mitral valve regurgitation. 8. There is mild tricuspid valve regurgitation. Left Ventricle Left ventricular chamber dimension is normal. Left ventricular systolic function is normal, estimated at >70%. There is mildly increased left ventricular wall thickness. Left ventricular septal wall motion is abnormal with septal motion related to bundle branch block. The left ventricular diastolic function is grade I diastolic dysfunction. Right Ventricle Right ventricular chamber dimension is normal. Right ventricular systolic function is normal. Left Atria Left atrial chamber dimension is normal. Right Atria Right atrial chamber dimension is normal. Atrial Septum Intact interatrial septum visualized by color flow imaging. Aortic Valve The aortic valve is trileaflet. There is no aortic valve stenosis. There is no aortic valve regurgitation. There is mild aortic valve calcification. Pulmonic Valve The pulmonic valve is not well visualized. There is trace pulmonic regurgitation. Mitral Valve There is mild mitral valve regurgitation. Tricuspid Valve There is mild tricuspid valve regurgitation. Pericardium/Pleural There is no pericardial effusion. Inferior Vena Cava Normal inferior vena cava with >50% collapse upon inspiration consistent with normal right atrial pressure, 3 mmHg. Aorta The aortic root size at the sinus of Valsalva is normal. Left Ventricular Outflow Tract Name Value Normal LVOT 2D LVOT Diameter 2.0 cm LVOT Doppler LVOT Peak Gradient 4 mmHg LVOT Mean Gradient 2 mmHg LVOT VTI 21 cm LVOT VTI/AV VTI Ratio 0.8 LVOT Stroke Volume 68 ml LVOT CO 13.1 l/min LVOT CI 7.6 l/min/m2 Pulmonic Valve Name Value Normal JAMIE Contreras
[2024-01-13] VITALS (13 sets, daily range): BP systolic 116–143; BP diastolic 80–86; PULSE 73–120; RESP 16–18; TEMP 36.1–36.9; O2SAT 100
--- NOTE | 2024-01-13 03:07 | PC.NURSE ---
Daylight Savings Time For Daylight Savings Time Ending in the Fall - Clocks are moved back. For Daylight Savings Time Beginning in the Spring - Clocks are moved ahead. For [facility], the time of change occurs at 0200 hrs. Time is taken from the postbed stitcher. This entry on the patient's chart recognizes the change in time reflected during documentation. Example: 2 entries for vital signs may be charted for 0200 hrs.
[2024-01-13 05:09] LABS: Hematocrit 32.5 % (37.0-47.0); Hemoglobin 11.3 g/dL (12.0-15.0); Mean Corpuscular HGB Conc 34.8 g/dl (32-36); Mean Corpuscular Hemoglobin 34.1 pg (26-34); Mean Corpuscular Volume 98.2 fl (80-100); Mean Platelet Volume 9.3 fl (7.4-10.4); Platelet Count Result 289 k/mm3 (150-375); Red Blood Count 3.31 M/mm3 (4.2-5.4); White Blood Count 6.1 K/mm3 (4.5-10.0)
[2024-01-13 05:17] LABS: Alanine Aminotransferase 35 U/L (6-35); Albumin Level 3.1 g/dL (3.5-5.1); Alkaline Phosphatase 169 U/L (38-126); Anion Gap 0 mmol/L (8-16); Aspartate Amino Transferase 40 U/L (14-36); Bilirubin,Total 1.1 mg/dL (0.2-1.3); Blood Urea Nitrogen 2 mg/dL (7-17); Calcium 8.1 mg/dL (8.4-10.2); Carbon Dioxide 30 mmol/L (22-30); Chloride 94 mmol/L (98-107); Estimated CRCL calculation 131 ml/min; Estimated Glomerular Filt Rate > 60; Glucose 106 mg/dL (65-110); Magnesium 1.4 mg/dL (1.6-2.3); Potassium 3.1 mmol/L (3.4-5.0); Sodium 124 mmol/L (137-145)
[2024-01-13] MEDS: POTASSIUM CHLORIDE 10 MEQ ER TABLET PO (08:44)
[2024-01-13] MEDS: NIFEdipine 30 MG TAB.ER.24 PO (08:44)
[2024-01-13] MEDS: PYRIDOXINE HCL 50 MG TABLET 100 MG PO (08:44)
[2024-01-13] MEDS: GABAPENTIN 100 MG CAPSULE PO (08:44)
[2024-01-13] MEDS: SODIUM CHLORIDE 0.9% IV 1,000 ML 150 ML IV CONT (08:45)
[2024-01-13] MEDS: HYDROcodone/acetaminophen (*CRX) 5-325 MG TABLET 1 TAB PO ×2 (08:58→21:13)
[2024-01-13] MEDS: POTASSIUM CHLORIDE 20 MEQ ER TABLET 40 MEQ PO (09:10)
[2024-01-13] MEDS: MAGNESIUM SULF 1 GM/D5W 100 ML 1 GM/100 ML BAG IVPB (09:26)
--- NOTE | 2024-01-13 12:48 | PM.IMPN ---
Progress Note: A&P Assessment and Plan (1) Hyponatremia: Code(s): E87.1 - Hypo-osmolality and hyponatremia Status: Acute (2) Closed head injury: Code(s): S09.90XA - Unspecified injury of head, initial encounter Status: Acute (3) Fall: Code(s): W19.XXXA - Unspecified fall, initial encounter Status: Acute (4) Abnormal urinalysis: Code(s): R82.90 - Unspecified abnormal findings in urine Status: Acute (5) Right rib fracture: Code(s): S22.31XA - Fracture of one rib, right side, initial encounter for closed fracture Status: Acute (6) Elevated LFTs: Code(s): R79.89 - Other specified abnormal findings of blood chemistry Status: Acute (7) Hypertension: Code(s): I10 - Essential (primary) hypertension Status: Acute (8) Gastroesophageal reflux disease: Code(s): K21.9 - Gastro-esophageal reflux disease without esophagitis Status: Acute Plan Fall with head injury Unknown etiology cause of fall CT head with no acute intracranial process Echocardiogram pending Sodium 120 on admission Orthostatics negative Hyponatremia with hypo-osmolality 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 Monitor CBC, CMP watch for sepsis. Monitor vital signs. Ceftriaxone elevated Liver enzymes-IMPROVING gentle hydration trending down hep panel negative HTN Mild hypertensive d/c HTCZ start Procardia RIB fractures 06/13 acute fractures pain control Incentive spirometer splint with pillow to cough Code status: Full code per patient DVT prophylaxis: scd's Stress ulcer prophylaxis: Protonix 40 daily PT/OT notes: PT/OT pending Disposition: Patient continues admission for treatment of UTI, fall, hyponatremia, and rib factures continue with current treatment plan will discharge to home when medically stable. Time Spent With Patient Time with patient: 15 - 25 minutes Subjective Date/time seen: 01/13/24 12:48 Interval history: (Medical Record) Chief Complaint: Fall. Narrative: This is a 68-year-old female with hypertension, gastroesophageal reflux disease, and anxiety who presented to the emergency department from home for evaluation after a fall. The patient provides the following history. She woke at 03:00 to use the restroom and after urinating she stood up at which time she began to fall forward. She landed on her right side and struck the right side of her head on the floor. She sustained a laceration and reports immediate swelling to the right side of her forehead as well as pain over the right ribs. She believes that she slipped on the bathroom floor and that caused her to fall however she told ED provider that she felt dizzy when she stood up and there were concerns for syncope. She tells me that ?I am 100% positive that I did not pass out.? Her significant other heard her fall and went to her up and back to bed. She reports that she has been feeling just fine and denies recent illness, vertigo, lightheadedness, visual changes, headache, confusion, chest and pleuritic pain, palpitations, racing heart, cough, shortness of breath, nausea, vomiting, diarrhea, and dysuria. In the ED: She was afebrile on arrival with stable vital signs. Labs were significant for sodium of 123, potassium 3.2, chloride 82, carbon dioxide 32, BUN 5, creatinine 0.40, calcium 9.5, total bilirubin 1.0, AST 60, ALT 63, alkaline phosphatase 245. Brain CT showed no acute findings. CT of the facial and cervical spine showed prominent right frontal and right periorbital subcutaneous hematoma without fracture. Chest and rib x-ray showed acute fractures of the right 8 and 9th ribs. She was given 10 mEq of potassium chloride and she is being admitte
[2024-01-14] VITALS (15 sets, daily range): BP systolic 103–133; BP diastolic 74–87; PULSE 66–121; RESP 18; TEMP 36–36.6; O2SAT 100
[2024-01-14] MEDS: HYDROcodone/acetaminophen (*CRX) 5-325 MG TABLET 1 TAB PO ×3 (04:55→16:12)
[2024-01-14 05:19] LABS: Hematocrit 33.9 % (37.0-47.0); Hemoglobin 11.7 g/dL (12.0-15.0); Mean Corpuscular HGB Conc 34.5 g/dl (32-36); Mean Corpuscular Hemoglobin 33.8 pg (26-34); Mean Platelet Volume 9.5 fl (7.4-10.4); Platelet Count Result 331 k/mm3 (150-375); Red Blood Count 3.46 M/mm3 (4.2-5.4); Red Cell Distribution Width 11.9 % (11.5-14.5); White Blood Count 6.4 K/mm3 (4.5-10.0)
[2024-01-14 05:36] LABS: Alanine Aminotransferase 30 U/L (6-35); Albumin Level 3.4 g/dL (3.5-5.1); Alkaline Phosphatase 159 U/L (38-126); Anion Gap 3 mmol/L (8-16); Aspartate Amino Transferase 35 U/L (14-36); Bilirubin,Total 1.2 mg/dL (0.2-1.3); Blood Urea Nitrogen < 2 mg/dL (7-17); Calcium 8.8 mg/dL (8.4-10.2); Carbon Dioxide 28 mmol/L (22-30); Chloride 94 mmol/L (98-107); Estimated CRCL calculation 128 ml/min; Estimated Glomerular Filt Rate > 60; Glucose 100 mg/dL (65-110); Magnesium 1.6 mg/dL (1.6-2.3); Potassium 2.8 mmol/L (3.4-5.0); Sodium 125 mmol/L (137-145)
[2024-01-14] MEDS: POTASSIUM CHLORIDE INJ 40 MEQ in SODIUM CHLORIDE 0.9% IV 500 ML 130 MEQ IVPB ×2 (06:23→10:53)
--- NOTE | 2024-01-14 08:52 | P.PNIM_ITS ---
Progress Note: A&P Assessment and Plan (1) Hyponatremia: Code(s): E87.1 - Hypo-osmolality and hyponatremia Status: Acute (2) Closed head injury: Code(s): S09.90XA - Unspecified injury of head, initial encounter Status: Acute (3) Fall: Code(s): W19.XXXA - Unspecified fall, initial encounter Status: Acute (4) Abnormal urinalysis: Code(s): R82.90 - Unspecified abnormal findings in urine Status: Acute (5) Right rib fracture: Code(s): S22.31XA - Fracture of one rib, right side, initial encounter for closed fracture Status: Acute (6) Elevated LFTs: Code(s): R79.89 - Other specified abnormal findings of blood chemistry Status: Acute (7) Hypertension: Code(s): I10 - Essential (primary) hypertension Status: Acute (8) Gastroesophageal reflux disease: Code(s): K21.9 - Gastro-esophageal reflux disease without esophagitis Status: Acute (9) Syndrome of inappropriate ADH (SIADH) secretion: Code(s): E22.2 - Syndrome of inappropriate secretion of antidiuretic hormone Status: Acute Plan Fall with head injury * Unknown etiology cause of fall * CT head with no acute intracranial process * Echocardiogram EF 70% no abnormal findings * Sodium 120 on admission * Orthostatics negative Hyponatremia with hypo-osmolality appeared to be secondary to SIADH?? * could be secondary to head injury from fall * NA 120 POA * Fluid restriction 1.5 * serum osmos pending * Asymptomatic * possible cause of fall * d/C hydrochlorothiazide * Nephrology consulted * NA 125 today 01/13 Hypokalemia * 2.8 * replenished * F/U BMP UTI * Urine cultures Klebsiella * Nitrate/leukocyte positive * Continue IV hydration. * Monitor CBC, CMP watch for sepsis. * Monitor vital signs. * Ceftriaxone elevated Liver enzymes-IMPROVING * gentle hydration * trending down * hep panel negative HTN * Mild hypertensive * d/c HTCZ * start Procardia RIB fractures * 06/13 acute fractures * pain control * Incentive spirometer * splint with pillow to cough Code status: Full code per patient DVT prophylaxis: scd's Stress ulcer prophylaxis: Protonix 40 daily PT/OT notes: PT/OT pending Disposition: Patient continues admission for treatment of UTI, fall, hyponatremia, and rib factures nephrology consulted appreciated any recommendations continue with current treatment plan will discharge to home when medically stable. Time Spent With Patient Time with patient: 15 - 25 minutes Subjective Date/time seen: 01/14/24 08:52 Interval history: (Medical Record) Chief Complaint: Fall. Narrative: This is a 68-year-old female with hypertension, gastroesophageal reflux disease, and anxiety who presented to the emergency department from home for evaluation after a fall. The patient provides the following history. She woke at 03:00 to use the restroom and after urinating she stood up at which time she began to fall forward. She landed on her right side and struck the right side of her head on the floor. She sustained a laceration and reports immediate swelling to the right side of her forehead as well as pain over the right ribs. She believes that she slipped on the bathroom floor and that caused her to fall however she told ED provider that she felt dizzy when she stood up and there were concerns for syncope. Sh
--- NOTE | 2024-01-14 08:52 | PM.IMPN ---
Progress Note: A&P Assessment and Plan (1) Hyponatremia: Code(s): E87.1 - Hypo-osmolality and hyponatremia Status: Acute (2) Closed head injury: Code(s): S09.90XA - Unspecified injury of head, initial encounter Status: Acute (3) Fall: Code(s): W19.XXXA - Unspecified fall, initial encounter Status: Acute (4) Abnormal urinalysis: Code(s): R82.90 - Unspecified abnormal findings in urine Status: Acute (5) Right rib fracture: Code(s): S22.31XA - Fracture of one rib, right side, initial encounter for closed fracture Status: Acute (6) Elevated LFTs: Code(s): R79.89 - Other specified abnormal findings of blood chemistry Status: Acute (7) Hypertension: Code(s): I10 - Essential (primary) hypertension Status: Acute (8) Gastroesophageal reflux disease: Code(s): K21.9 - Gastro-esophageal reflux disease without esophagitis Status: Acute (9) Syndrome of inappropriate ADH (SIADH) secretion: Code(s): E22.2 - Syndrome of inappropriate secretion of antidiuretic hormone Status: Acute Plan Fall with head injury Unknown etiology cause of fall CT head with no acute intracranial process Echocardiogram EF 70% no abnormal findings Sodium 120 on admission Orthostatics negative Hyponatremia with hypo-osmolality appeared to be secondary to SIADH?? could be secondary to head injury from fall NA 120 POA Fluid restriction 1.5 serum osmos pending Asymptomatic possible cause of fall d/C hydrochlorothiazide Nephrology consulted NA 125 today 01/13 Hypokalemia 2.8 replenished F/U BMP UTI Urine cultures Klebsiella Nitrate/leukocyte positive Continue IV hydration. Monitor CBC, CMP watch for sepsis. Monitor vital signs. Ceftriaxone elevated Liver enzymes-IMPROVING gentle hydration trending down hep panel negative HTN Mild hypertensive d/c HTCZ start Procardia RIB fractures 06/13 acute fractures pain control Incentive spirometer splint with pillow to cough Code status: Full code per patient DVT prophylaxis: scd's Stress ulcer prophylaxis: Protonix 40 daily PT/OT notes: PT/OT pending Disposition: Patient continues admission for treatment of UTI, fall, hyponatremia, and rib factures nephrology consulted appreciated any recommendations continue with current treatment plan will discharge to home when medically stable. Time Spent With Patient Time with patient: 15 - 25 minutes Subjective Date/time seen: 01/14/24 08:52 Interval history: (Medical Record) Chief Complaint: Fall. Narrative: This is a 68-year-old female with hypertension, gastroesophageal reflux disease, and anxiety who presented to the emergency department from home for evaluation after a fall. The patient provides the following history. She woke at 03:00 to use the restroom and after urinating she stood up at which time she began to fall forward. She landed on her right side and struck the right side of her head on the floor. She sustained a laceration and reports immediate swelling to the right side of her forehead as well as pain over the right ribs. She believes that she slipped on the bathroom floor and that caused her to fall however she told ED provider that she felt dizzy when she stood up and there were concerns for syncope. She tells me that ?I am 100% positive that I did not pass out.? Her significant other heard her fall and went to her up and back to bed. She reports that she has been feeling just fine and denies recent illness, vertigo, lightheadedness, visual changes, headache, confusion, chest and pleuritic pain, palpitations, racing heart, cough, shortness of breath, nausea, vomiting, diarrhea, and dysuria. In the ED: She was afebrile on arrival with stable vital signs. Labs were significant for sodium of 123, potassium 3.2, chloride 82, carbon dioxide 32, BUN 5, crea
[2024-01-14] MEDS: GABAPENTIN 100 MG CAPSULE PO (09:34)
[2024-01-14] MEDS: PYRIDOXINE HCL 50 MG TABLET 100 MG PO (09:34)
[2024-01-14] MEDS: NIFEdipine 30 MG TAB.ER.24 PO (09:34)
[2024-01-14] MEDS: POTASSIUM CHLORIDE 10 MEQ ER TABLET PO (09:34)
[2024-01-14] MEDS: MAGNESIUM SULF 2 GM/WATER 50ML 2 GM/50 ML BAG IVPB (09:37)
--- NOTE | 2024-01-14 14:44 | PM.CNNEP ---
Assessment and Plan Assessment and plan (1) Hyponatremia: Code(s): E87.1 - Hypo-osmolality and hyponatremia Status: Acute Assessment and Plan: The patient has low sodium. It is unclear if this has been low in the past. She is on multiple medications which can do this. This includes the hydrochlorothiazide, SSRI, ppi, and her tramadol. These have all been discontinued. She is on some morphine but has not asked for any , and she is on hydrocodone which she is taking. Hypothyroidism and adrenal insufficiency can do this. Cancer can do this but she has no history of this. Lung disorders can do this but she has no history of this either. Her chest x-ray is okay. Brain disorders can do this as well. Her CT brain was negative. Her sodium level has not improved much. Will enhance fluid restriction [id number]. Will give Lasix plus saline to help bring the sodium back up. Goal is to bring sodium up to normal gradually with a 20 for improvement of less than or equal to 8 per day. I do not think she needs hypertonic saline at this point. (2) Abnormal urinalysis: Code(s): R82.90 - Unspecified abnormal findings in urine Status: Acute Assessment and Plan: The patient has leukocyturia. Her culture grew Klebsiella and she is on antibiotics. (3) Hypertension: Code(s): I10 - Essential (primary) hypertension Status: Acute Assessment and Plan: Blood pressure is under good control (4) Gastroesophageal reflux disease: Code(s): K21.9 - Gastro-esophageal reflux disease without esophagitis Status: Acute Assessment and Plan: she was on omeprazole. Will start her on famotidine if she starts getting symptoms. (5) Fall: Code(s): W19.XXXA - Unspecified fall, initial encounter Status: Acute Assessment and Plan: Possibly due to the sodium? History of Present Illness Reason for Consult Consult date: 01/14/24 Chief Complaint Chief complaint: UTI/Frequent Falls/Multiple Rib Fracture History of Present Illness Narrative: Fiorella is a very pleasant 68-year-old lady who has multiple medical problems including hypertension, GERD, anxiety, who came in the hospital because of a fall. She says that she got up at around 3:00 a.m. the night of admission and she was washing up after using the bathroom and slipped and fell. She hit her head and her right wrist. She came to the emergency room. X-rays were done which were negative. She had a laceration which was sewn up. Labs were done and showed a sodium of 123. She received some saline because she was felt to be dehydrated, and a fluid restriction, but the sodium has not corrected. So renal consultation was requested. Patient says that she has never had low sodium in the past she sees a doctor regularly but does remember having had blood drawn lately. She does not take nonsteroidal anti-inflammatory agents. She is on Tramadol, hydrochlorothiazide, paroxetine, and omeprazole. The tramadol is as needed and she does not take that much of it. Otherwise they are routine medications. She says she does drink plenty of fluid. She has been eating okay. she has not had any nausea vomiting or diarrhea. Review of Systems Constitutional: Constitutional: Reports no additional constitutional complaints Eyes: Eyes: Reports no additional eye complaints ENT: Reports system reviewed and no additional complaints, except as documented Cardiovascular: Cardiovascular: Reports no additional cardiovascular complaints Respiratory: Respiratory: Reports no additional respiratory complaints Gastrointestinal: Gastrointestinal: Reports no additional gastrointestinal complaints Genitourinary: Genitourinary: Reports no additional female genitourinary complaints Musculoskeletal: Musculoskeletal: Reports no additional musculoskeletal complaints Integumentary/Breasts: Skin/Breast: Reports system re
[2024-01-14] MEDS: FUROSEMIDE 20 MG TABLET PO (16:12)
[2024-01-14] MEDS: SODIUM CHLORIDE 1 GM TABLET PO (16:12)
[2024-01-14 18:14] LABS: Creatinine Urine 41.7 mg/dL; Total Protein Urine Random 15 mg/dL; Ur Ttl Prot Creatinine Ratio 0.36 mg/mg (0-0.20)
[2024-01-14 18:24] LABS: Sodium Urine Random 143 meq/L
[2024-01-14 18:30] LABS: Anion Gap 2 mmol/L (8-16); Blood Urea Nitrogen 4 mg/dL (7-17); Carbon Dioxide 27 mmol/L (22-30); Chloride 98 mmol/L (98-107); Estimated CRCL calculation 101 ml/min; Estimated Glomerular Filt Rate > 60; Glucose 150 mg/dL (65-110); Potassium 3.9 mmol/L (3.4-5.0); Sodium 127 mmol/L (137-145)
[2024-01-14 19:53] LABS: Osmolality, Urine 226 mOsm/kg (50-1200)
[2024-01-15] VITALS (11 sets, daily range): BP systolic 103–129; BP diastolic 70–86; PULSE 73–112; RESP 16–18; TEMP 36–36.3; O2SAT 100
[2024-01-15 05:31] LABS: Hematocrit 31.1 % (37.0-47.0); Hemoglobin 10.6 g/dL (12.0-15.0); Mean Corpuscular HGB Conc 34.1 g/dl (32-36); Mean Corpuscular Volume 99.7 fl (80-100); Mean Platelet Volume 9.5 fl (7.4-10.4); Platelet Count Result 325 k/mm3 (150-375); Red Blood Count 3.12 M/mm3 (4.2-5.4); Red Cell Distribution Width 12.2 % (11.5-14.5); White Blood Count 5.6 K/mm3 (4.5-10.0)
[2024-01-15 05:44] LABS: Alanine Aminotransferase 24 U/L (6-35); Albumin Level 3.1 g/dL (3.5-5.1); Alkaline Phosphatase 138 U/L (38-126); Anion Gap 0 mmol/L (8-16); Aspartate Amino Transferase 27 U/L (14-36); Bilirubin,Total 0.9 mg/dL (0.2-1.3); Blood Urea Nitrogen 6 mg/dL (7-17); Calcium 8.9 mg/dL (8.4-10.2); Carbon Dioxide 29 mmol/L (22-30); Chloride 97 mmol/L (98-107); Estimated CRCL calculation 103 ml/min; Estimated Glomerular Filt Rate > 60; Glucose 103 mg/dL (65-110); Magnesium 1.6 mg/dL (1.6-2.3); Potassium 3.6 mmol/L (3.4-5.0); Sodium 126 mmol/L (137-145)
[2024-01-15] MEDS: SODIUM CHLORIDE 1 GM TABLET PO ×2 (08:23→16:37)
[2024-01-15] MEDS: CEPHALEXIN 500 MG CAPSULE PO (08:23)
[2024-01-15] MEDS: PYRIDOXINE HCL 50 MG TABLET 100 MG PO (08:23)
[2024-01-15] MEDS: GABAPENTIN 100 MG CAPSULE PO (08:23)
[2024-01-15] MEDS: POTASSIUM CHLORIDE 10 MEQ ER TABLET PO (08:24)
[2024-01-15] MEDS: NIFEdipine 30 MG TAB.ER.24 PO (08:24)
[2024-01-15] MEDS: FUROSEMIDE 20 MG TABLET PO ×2 (08:24→16:37)
--- NOTE | 2024-01-15 12:37 | P.PNIM_ITS ---
Progress Note: A&P Assessment and Plan (1) Hyponatremia: Code(s): E87.1 - Hypo-osmolality and hyponatremia Status: Acute (2) Closed head injury: Code(s): S09.90XA - Unspecified injury of head, initial encounter Status: Acute (3) Fall: Code(s): W19.XXXA - Unspecified fall, initial encounter Status: Acute (4) Abnormal urinalysis: Code(s): R82.90 - Unspecified abnormal findings in urine Status: Acute (5) Right rib fracture: Code(s): S22.31XA - Fracture of one rib, right side, initial encounter for closed fracture Status: Acute (6) Elevated LFTs: Code(s): R79.89 - Other specified abnormal findings of blood chemistry Status: Acute (7) Hypertension: Code(s): I10 - Essential (primary) hypertension Status: Acute (8) Gastroesophageal reflux disease: Code(s): K21.9 - Gastro-esophageal reflux disease without esophagitis Status: Acute (9) Syndrome of inappropriate ADH (SIADH) secretion: Code(s): E22.2 - Syndrome of inappropriate secretion of antidiuretic hormone Status: Acute Plan Fall with head injury * Unknown etiology cause of fall * CT head with no acute intracranial process * Echocardiogram EF 70% no abnormal findings * Sodium 120 on admission * Orthostatics negative Hyponatremia with hypo-osmolality appeared to be secondary to SIADH?? * could be secondary to head injury from fall * NA 120 POA * Fluid restriction 1.5 * serum osmos pending * Asymptomatic * possible cause of fall * d/C hydrochlorothiazide * Nephrology consulted * NA 125 today 01/13 01/14 * NA 126 * changed fluid restriction to 1000 ML * continue with lasix BID * sodium chloride tabs Hypokalemia * 2.8 * replenished * F/U BMP UTI * Urine cultures Klebsiella * Nitrate/leukocyte positive * Continue IV hydration. * Monitor CBC, CMP watch for sepsis. * Monitor vital signs. * Ceftriaxone switched to PO Keflex elevated Liver enzymes-IMPROVING * gentle hydration * trending down * hep panel negative HTN * Mild hypertensive * d/c HTCZ * start Procardia RIB fractures * 06/13 acute fractures * pain control * Incentive spirometer * splint with pillow to cough Code status: Full code per patient DVT prophylaxis: scd's Stress ulcer prophylaxis: Protonix 40 daily PT/OT notes: PT/OT pending Disposition: Patient continues admission for treatment of UTI, fall, hyponatremia, and rib factures nephrology consulted appreciated any recommendations continue with current treatment plan will discharge to home when medically stable hope NA improved enough to discharge to home tomorrow patient re-educated on fluid restriction. Time Spent With Patient Time with patient: 15 - 25 minutes Subjective Date/time seen: 01/15/24 12:37 Interval history: (Medical Record) Chief Complaint: Fall. Narrative: This is a 68-year-old female with hypertension, gastroesophageal reflux disease, and anxiety who presented to the emergency department from home for evaluation after a fall. The patient provides the following history. She woke at 03:00 to use the restroom and after urinating she stood up at which time she began to fall forward. She landed on her right side and struck the right side of her head on the floor. She sustained a laceration and reports immediate swelling to the right side o
--- NOTE | 2024-01-15 12:37 | PM.IMPN ---
Progress Note: A&P Assessment and Plan (1) Hyponatremia: Code(s): E87.1 - Hypo-osmolality and hyponatremia Status: Acute (2) Closed head injury: Code(s): S09.90XA - Unspecified injury of head, initial encounter Status: Acute (3) Fall: Code(s): W19.XXXA - Unspecified fall, initial encounter Status: Acute (4) Abnormal urinalysis: Code(s): R82.90 - Unspecified abnormal findings in urine Status: Acute (5) Right rib fracture: Code(s): S22.31XA - Fracture of one rib, right side, initial encounter for closed fracture Status: Acute (6) Elevated LFTs: Code(s): R79.89 - Other specified abnormal findings of blood chemistry Status: Acute (7) Hypertension: Code(s): I10 - Essential (primary) hypertension Status: Acute (8) Gastroesophageal reflux disease: Code(s): K21.9 - Gastro-esophageal reflux disease without esophagitis Status: Acute (9) Syndrome of inappropriate ADH (SIADH) secretion: Code(s): E22.2 - Syndrome of inappropriate secretion of antidiuretic hormone Status: Acute Plan Fall with head injury Unknown etiology cause of fall CT head with no acute intracranial process Echocardiogram EF 70% no abnormal findings Sodium 120 on admission Orthostatics negative Hyponatremia with hypo-osmolality appeared to be secondary to SIADH?? could be secondary to head injury from fall NA 120 POA Fluid restriction 1.5 serum osmos pending Asymptomatic possible cause of fall d/C hydrochlorothiazide Nephrology consulted NA 125 today 01/13 01/14 NA 126 changed fluid restriction to 1000 ML continue with lasix BID sodium chloride tabs Hypokalemia 2.8 replenished F/U BMP UTI Urine cultures Klebsiella Nitrate/leukocyte positive Continue IV hydration. Monitor CBC, CMP watch for sepsis. Monitor vital signs. Ceftriaxone switched to PO Keflex elevated Liver enzymes-IMPROVING gentle hydration trending down hep panel negative HTN Mild hypertensive d/c HTCZ start Procardia RIB fractures 06/13 acute fractures pain control Incentive spirometer splint with pillow to cough Code status: Full code per patient DVT prophylaxis: scd's Stress ulcer prophylaxis: Protonix 40 daily PT/OT notes: PT/OT pending Disposition: Patient continues admission for treatment of UTI, fall, hyponatremia, and rib factures nephrology consulted appreciated any recommendations continue with current treatment plan will discharge to home when medically stable hope NA improved enough to discharge to home tomorrow patient re-educated on fluid restriction. Time Spent With Patient Time with patient: 15 - 25 minutes Subjective Date/time seen: 01/15/24 12:37 Interval history: (Medical Record) Chief Complaint: Fall. Narrative: This is a 68-year-old female with hypertension, gastroesophageal reflux disease, and anxiety who presented to the emergency department from home for evaluation after a fall. The patient provides the following history. She woke at 03:00 to use the restroom and after urinating she stood up at which time she began to fall forward. She landed on her right side and struck the right side of her head on the floor. She sustained a laceration and reports immediate swelling to the right side of her forehead as well as pain over the right ribs. She believes that she slipped on the bathroom floor and that caused her to fall however she told ED provider that she felt dizzy when she stood up and there were concerns for syncope. She tells me that ?I am 100% positive that I did not pass out.? Her significant other heard her fall and went to her up and back to bed. She reports that she has been feeling just fine and denies recent illness, vertigo, lightheadedness, visual changes, headache, confusion, chest and pleuritic pain, palpitations, racing heart, cough, shor
--- NOTE | 2024-01-15 13:32 | PM.PNNEP ---
Progress Note: A&P Assessment and Plan (1) Hyponatremia: Code(s): E87.1 - Hypo-osmolality and hyponatremia Status: Acute Assessment and Plan: The patient has low sodium. It is unclear if this has been low in the past. Cortisol and TSH are okay Serum and urine osmolality pending SPEP pending UA showed I saw us the A[facility] urine with a specific gravity 1.007 CT brain negative Chest x-ray negative No history of cancer Etiology is most likely related to poor intake compared with high fluid intake while on the hydrochlorothiazide, SSRI, ppi, and her tramadol. Currently she is on hydrocodone which can slow down the improvement. If there was a way to decrease this or possibly use Tylenol instead might help the sodium correct more quickly. She is not taking any morphine. Will continue fluid restriction 1000cc per day. It is noted in the hospitalist record that boyfriend was bring in sodas not realizing the problem with this. He has been educated. The patient is on salt tablets and furosemide bid. check another sodium tomorrow. (2) Abnormal urinalysis: Code(s): R82.90 - Unspecified abnormal findings in urine Status: Acute Assessment and Plan: The patient has leukocyturia. Her culture grew Klebsiella and she is on antibiotics. (3) Hypertension: Code(s): I10 - Essential (primary) hypertension Status: Acute Assessment and Plan: Blood pressure is under good control (4) Gastroesophageal reflux disease: Code(s): K21.9 - Gastro-esophageal reflux disease without esophagitis Status: Acute Assessment and Plan: she was on omeprazole. We can start her on famotidine if she starts getting symptoms. (5) Fall: Code(s): W19.XXXA - Unspecified fall, initial encounter Status: Acute Assessment and Plan: Possibly due to the sodium? Subjective Date/time seen: 01/15/24 13:32 Interval history: Fiorella is feeling about the same. No chest pain or shortness of breath Eager for discharge Review of Systems Cardiovascular: Cardiovascular: Reports no additional cardiovascular complaints Respiratory: Respiratory: Reports no additional respiratory complaints Gastrointestinal: Gastrointestinal: Reports no additional gastrointestinal complaints Genitourinary: Genitourinary: Reports no additional female genitourinary complaints Exam Narrative: WDWN in NAD skin no rash or subQ nodules head ncat lungs clear bilaterally cor reg no rub abd BS+ nontender and soft ext no edema or cyanosis. Objective Data Vital Signs Vital Signs: Vital Signs - 24 hr 01/14/24 14:00 01/14/24 16:00 01/14/24 20:00 Temperature 97.6 F 96.8 F L Pulse Rate 78 77 88 Respiratory Rate 18 18 Blood Pressure 119/74 124/78 Pulse Oximetry 100 100 Oxygen Delivery 01/14/24 20:41 01/14/24 20:00 01/14/24 20:37 Temperature 96.8 F L 96.8 F L 96.8 F L Pulse Rate 83 88 99 Respiratory Rate 18 18 18 Blood Pressure 124/78 124/78 112/75 Pulse Oximetry 100 100 100 Oxygen Delivery 01/14/24 20:39 01/14/24 20:43 01/14/24 20:43 Temperature 96.8 F L 96.8 F L 96.8 F L Pulse Rate 111 H 99 111 H Respiratory Rate 18 18 18 Blood Pressure 103/78 112/75 103/78 Pulse Oximetry 100 100 100 Oxygen Delivery 01/14/24 20:00 01/15/24 03:48 01/14/24 20:00 Temperature 97.4 F L Pulse Rate 73 83 Respiratory Rate 18 Blood Pressure 129/79 Pulse Oximetry 100 Oxygen Delivery Room Air 01/15/24 00:00 01/15/24 04:00 01/15/24 08:00 Temperature Pulse Rate 73 76 75 Respiratory Rate Blood Pressure Pulse Oximetry Oxygen Delivery 01/15/24 08:30 01/15/24 12:00 Temperature Pulse Rate 75 Respiratory Rate Blood Pressure Pulse Oximetry Oxygen Delivery Room Air Intake/Output Intake/Output: Intake & Output 01/12/24 01/13/24 01/14/24 01/15/24 22:59 23:59 23:59 23:59 Intake Total 632 480 Output Total
[2024-01-16 04:51] VITALS: BP 136/86; PULSE 80; RESP 18; TEMP 35.9; O2SAT 92
[2024-01-16 05:42] LABS: Hematocrit 32.9 % (37.0-47.0); Hemoglobin 11.1 g/dL (12.0-15.0); Mean Corpuscular HGB Conc 33.7 g/dl (32-36); Mean Corpuscular Hemoglobin 33.3 pg (26-34); Mean Corpuscular Volume 98.8 fl (80-100); Mean Platelet Volume 9.4 fl (7.4-10.4); Platelet Count Result 367 k/mm3 (150-375); Red Blood Count 3.33 M/mm3 (4.2-5.4); Red Cell Distribution Width 11.9 % (11.5-14.5); White Blood Count 5.5 K/mm3 (4.5-10.0)
[2024-01-16 06:00] LABS: Alanine Aminotransferase 23 U/L (6-35); Albumin Level 3.4 g/dL (3.5-5.1); Alkaline Phosphatase 127 U/L (38-126); Anion Gap 1 mmol/L (8-16); Aspartate Amino Transferase 29 U/L (14-36); Bilirubin,Total 0.9 mg/dL (0.2-1.3); Blood Urea Nitrogen 7 mg/dL (7-17); Calcium 9.1 mg/dL (8.4-10.2); Carbon Dioxide 31 mmol/L (22-30); Chloride 96 mmol/L (98-107); Estimated CRCL calculation 125 ml/min; Estimated Glomerular Filt Rate > 60; Glucose 100 mg/dL (65-110); Magnesium 1.5 mg/dL (1.6-2.3); Phosphorus 3.6 mg/dL (2.5-4.5); Potassium 3.2 mmol/L (3.4-5.0); Sodium 128 mmol/L (137-145)
[2024-01-16 08:00] VITALS: PULSE 93
--- NOTE | 2024-01-16 08:00 | PC.NURSE ---
[facility] shift lead RN, Sara Philip She stated she gave 2100 dose of cephalexin but scan did not save.
[2024-01-16] MEDS: CEPHALEXIN 500 MG CAPSULE PO ×2 (08:37→08:38)
[2024-01-16] MEDS: POTASSIUM CHLORIDE 20 MEQ ER TABLET 40 MEQ PO (08:38)
[2024-01-16] MEDS: GABAPENTIN 100 MG CAPSULE PO (08:38)
[2024-01-16] MEDS: NIFEdipine 30 MG TAB.ER.24 PO (08:38)
[2024-01-16] MEDS: PYRIDOXINE HCL 50 MG TABLET 100 MG PO (08:38)
[2024-01-16] MEDS: POTASSIUM CHLORIDE 10 MEQ ER TABLET PO (08:38)
[2024-01-16] MEDS: MAGNESIUM SULFATE 3GM/D5W100ML 3 GM/100 ML BAG IVPB (08:39)
--- NOTE | 2024-01-16 08:53 | PM.PNNEP ---
Progress Note: A&P Assessment and Plan (1) Hyponatremia: Code(s): E87.1 - Hypo-osmolality and hyponatremia Status: Acute Assessment and Plan: The patient has low sodium. It is unclear if this has been low in the past. Cortisol and TSH are okay Serum and urine osmolality pending SPEP pending UA showed I saw us the Aicha urine with a specific gravity 1.007 CT brain negative Chest x-ray negative No history of cancer Etiology is most likely related to poor intake compared with high fluid intake while on the hydrochlorothiazide, SSRI, ppi, and her tramadol. Currently she is on hydrocodone which can slow down the improvement. If there was a way to decrease this or possibly use Tylenol instead might help the sodium correct more quickly. The patient's sodium level is improved today. We can stop the Lasix and salt tablets. Ago by fluid restriction alone. Okay for discharge whenever others are ready. (2) Abnormal urinalysis: Code(s): R82.90 - Unspecified abnormal findings in urine Status: Acute Assessment and Plan: The patient has leukocyturia. Her culture grew Klebsiella and she is on oral antibiotics. (3) Hypertension: Code(s): I10 - Essential (primary) hypertension Status: Acute Assessment and Plan: Blood pressure is under good control (4) Gastroesophageal reflux disease: Code(s): K21.9 - Gastro-esophageal reflux disease without esophagitis Status: Acute Assessment and Plan: she was on omeprazole. We can start her on famotidine if she starts getting symptoms. (5) Fall: Code(s): W19.XXXA - Unspecified fall, initial encounter Status: Acute Assessment and Plan: Possibly due to the sodium? Subjective Date/time seen: 01/16/24 08:53 Interval history: Patient is feeling okay. Eager for discharge today. Exam Narrative: WDWN in NAD skin no rash or subQ nodules head ncat lungs clear to auscultation cor reg no rub or gallop abd BS+ nontender and soft ext no edema or cyanosis. Objective Data Vital Signs Vital Signs: Vital Signs - 24 hr 01/15/24 12:00 01/15/24 14:00 01/15/24 17:19 Temperature 97.3 F L Pulse Rate 75 84 98 Respiratory Rate 16 Blood Pressure 128/70 Pulse Oximetry 100 Oxygen Delivery 01/15/24 19:37 01/15/24 19:43 01/15/24 19:40 Temperature 96.8 F L 96.8 F L 96.8 F L Pulse Rate 97 97 100 Respiratory Rate 18 18 18 Blood Pressure 126/86 126/82 118/74 Pulse Oximetry 100 100 100 Oxygen Delivery 01/15/24 19:41 01/15/24 20:00 01/16/24 04:51 Temperature 96.8 F L 96.6 F L Pulse Rate 112 H 80 Respiratory Rate 18 18 Blood Pressure 103/73 136/86 Pulse Oximetry 100 92 Oxygen Delivery Room Air Intake/Output Intake/Output: Intake & Output 01/13/24 01/14/24 01/15/24 01/16/24 23:59 23:59 23:59 23:59 Intake Total 632 840 240 Output Total 600 Balance 32 840 240 Meds/Results Medications: Active Medications Generic Name Dose Route Start Last Admin Trade Name Freq PRN Reason Stop Dose Admin Acetaminophen 650 mg 01/11/24 18:04 Acetaminophen 325 Mg Tablet PO Q6H PRN Mild Pain (1-3) or Fever Hydrocodone Bitart/Acetaminophen 1 tab 01/15/24 14:49 Hydrocodone/Acetaminophen (*Crx) 5-325 Mg Tablet PO Q8HR PRN Pain Rated 6 or Greater Cephalexin HCl 500 mg 01/15/24 09:00 01/16/24 08:38 Cephalexin 500 Mg Capsule PO 01/16/24 21:01 500 mg Q12HR ELEAZAR Administration Furosemide 20 mg 01/14/24 17:00 01/15/24 16:37 Furosemide 20 Mg Tablet PO 20 mg BID ELEAZAR Administration Gabapentin 100 mg 01/12/24 09:00 01/16/24 08:38 Gabapentin 100 Mg Capsule PO 100 mg DAILY ELEAZAR Administration Magnesium Sulfate/Dextrose 3 gm in 100 mls @ 33.333 mls/hr 01/16/24 07:45 01/16/24 08:39 Magnesium Sulfate 3gm/[id number] IVPB 01/16/24 10:44 33.33 mls/hr ONCE ONE Administration Morphine Sulfate 4 mg 03
--- NOTE | 2024-01-16 10:03 | PC.NURSE ---
Dr. Abrams saw patient while this RN in room doing morning med pass. Verbal orders to hold lasix and sodium tablet. See nephrology progress note.
[2024-01-16 10:43] VITALS: BP 151/80; PULSE 73; RESP 16; TEMP 36.2; O2SAT 100
[2024-01-16 10:48] VITALS: BP 145/90; PULSE 74; RESP 16; TEMP 36.3; O2SAT 100
[2024-01-16 10:53] VITALS: BP 131/97; PULSE 97; RESP 16; TEMP 36.3; O2SAT 100
--- NOTE | 2024-01-16 11:20 | PM.DS ---
DS: Admitting Diagnosis Discharge Date 01/16/24 Admitting Diagnosis Fall, hyponatremia, rib fractures, UTI DS: Discharge Diagnosis Discharge Diagnosis (1) Hyponatremia: Code(s): E87.1 - Hypo-osmolality and hyponatremia Status: Acute (2) Closed head injury: Code(s): S09.90XA - Unspecified injury of head, initial encounter Status: Acute (3) Fall: Code(s): W19.XXXA - Unspecified fall, initial encounter Status: Acute (4) Abnormal urinalysis: Code(s): R82.90 - Unspecified abnormal findings in urine Status: Acute (5) Right rib fracture: Code(s): S22.31XA - Fracture of one rib, right side, initial encounter for closed fracture Status: Acute (6) Elevated LFTs: Code(s): R79.89 - Other specified abnormal findings of blood chemistry Status: Acute (7) Hypertension: Code(s): I10 - Essential (primary) hypertension Status: Acute (8) Gastroesophageal reflux disease: Code(s): K21.9 - Gastro-esophageal reflux disease without esophagitis Status: Acute (9) Syndrome of inappropriate ADH (SIADH) secretion: Code(s): E22.2 - Syndrome of inappropriate secretion of antidiuretic hormone Status: Acute DS: Summary Hospital Course Hospital Course: This is an 68-year-old female with past medical history of hypertension, GERD and anxiety the presented to the ED after having a fall at home. She sustained laceration on the right side of her forehead as well on the right side of her ribs. Patient denies syncope. In the ED: She was afebrile on arrival with stable vital signs. Labs were significant for sodium of 123, potassium 3.2, chloride 82, carbon dioxide 32, BUN 5, creatinine 0.40, calcium 9.5, total bilirubin 1.0, AST 60, ALT 63, alkaline phosphatase 245. Brain CT showed no acute findings. CT of the facial and cervical spine showed prominent right frontal and right periorbital subcutaneous hematoma without fracture. Chest and rib x-ray showed acute fractures of the right 8 and 9th ribs. Urine suspicious for infection. Patient was also found to have a sodium of 120. Patient's hydrochlorothiazide was discontinued and she was put on a fluid restriction. Antibiotics started the patient for UTI. Patient's sodium improved with salt tabs and fluid restriction. Nephrology did consult on patient's case.Discharge patient to complete antibiotics. Sodium tabs discontinued. Needs repeat labs in a week. Discontinue hydrochlorothiazide and start Procardia. Patient is stable her labs and vital signs stable and medically clear for discharge. Time Spent with Patient Time attestation: Total time spent providing and/or coordinating discharge services: Exam Narrative: GENERAL: Comfortable, no acute distress HENMT: moist mucous membranes, ecchymosis on bilateral eyes and forehead. EYES: EOM intact b/l NECK: no lymphadenopathy RESPIRATORY: clear to auscultation CARDIO: RRR GI: soft, nontender, bowel sounds present SKIN: no rashes EXTREMITIES: no edema, redness or tenderness DS: Data Data Completed and Pending Labs on day of discharge: Labs from last 24 hours 01/16/24 05:17 WBC 5.5 RBC 3.33 L Hgb 11.1 L Hct 32.9 L MCV 98.8 MCH 33.3 MCHC 33.7 RDW 11.9 Plt Count 367 MPV 9.4 Sodium 128 L Potassium 3.2 L Chloride 96 L Carbon Dioxide 31 H Anion Gap 1 L BUN 7 Creatinine 0.30 L Estim Creat Clear Calc 125 Estimated GFR > 60 Glucose 100 Calcium 9.1 Phosphorus 3.6 Magnesium 1.5 L Total Bilirubin 0.9 AST 29 ALT 23 Alkaline Phosphatase 127 H Total Protein 6.0 L Albumin 3.4 L Discharge Plan Discharge Attending physician on discharge: Shan Storm Consulting providers: Zach Palmer; Abner Abrams Discharging Clinician: Maxine Fairchild Patient Disposition: Home Health Service Activity: as tolerated Diet: regular Discharge Instructions: Per Care Coordination: Abhijit
[2024-01-16 13:24] LABS: Osmolality, Urine 413 mOsm/kg (50-1200)
== END 2024-01-16 13:20 | disposition home health service (06) | DRG 644 ==
LOC: ANHED 11:58 → ANH3MEDSUR 14:09 → ANH2MED 15:44
PROVIDERS: Internal Medicine Nephrology; Nurse Practitioner Family; Physician Assistant; Admitting Provider Internal Medicine; Emergency Provider Physician Assistant; PCP Family Medicine; Visit Provider Internal Medicine Critical Care Medicine
DX: E22.2 Syndrome of inappropriate secretion of antidiuretic hormone (principal); N39.0 Urinary tract infection, site not specified; S22.41XA Multiple fractures of ribs, right side, initial encounter for closed fracture; S01.81XA Laceration without foreign body of other part of head, initial encounter; E87.6 Hypokalemia; W19.XXXA Unspecified fall, initial encounter; F41.9 Anxiety disorder, unspecified; B96.1 Klebsiella pneumoniae [K. pneumoniae] as the cause of diseases classified elsewhere; K21.9 Gastro-esophageal reflux disease without esophagitis; I10 Essential (primary) hypertension; E86.0 Dehydration; Z87.891 Personal history of nicotine dependence
CPT/HCPCS: 12011; 36415; 70450; 70486; 71046; 71101; 72125; 72128; 80048; 80053; 80074; 81001; 82533; 82550; 82570; 83735; 83930; 83935; 84100; 84156; 84300; 84443; 85025; 85027; 87077; 87086; 87088; 87186; 93005; 93306; 96361; 96374; 97161; 97165; 99212; 99285; A9270; G0378; G0463; J0696; J3475; J3480; J7030; J7040

== ENCOUNTER 2024-01-23 09:25 | Outpatient (CLI) | payer MEDICARE, SELFPAY ==
[2024-01-23 10:13] LABS: Anion Gap 4 mmol/L (8-16); Blood Urea Nitrogen 5 mg/dL (7-17); Calcium 9.5 mg/dL (8.4-10.2); Carbon Dioxide 30 mmol/L (22-30); Chloride 99 mmol/L (98-107); Estimated Glomerular Filt Rate > 60; Glucose 86 mg/dL (65-110); Sodium 133 mmol/L (137-145)
== END 2024-01-23 09:26 | disposition home or self-care (01) ==
LOC: ANHLAB 09:27
PROVIDERS: PCP Family Medicine; Visit Provider Internal Medicine Critical Care Medicine
DX: E87.1 Hypo-osmolality and hyponatremia (principal)
CPT/HCPCS: 36415; 80048

== ENCOUNTER 2024-04-03 13:42 | Emergency (ER) | payer MEDICARE, SELFPAY ==
[2024-04-03] VITALS (24 sets, daily range): BP systolic 165–179; BP diastolic 102–128; PULSE 83–105; RESP 11–21; TEMP 36.8; O2SAT 93–100
--- NOTE | ~2024-04-03 | CT_ITS ---
EXAMINATION: CT abdomen pelvis w con DATE: 04/03/2024 15:10 INDICATION: Abnormal liver function tests. TECHNIQUE: Computed tomography (CT) of the abdomen and pelvis was performed with 100 mL Omnipaque 350 intravenous contrast. Automated exposure control and iterative reconstruction technique were employe d. The dose-length product was 220.43 mGy-cm. COMPARISON: Thoracic spine CT 01/11/2024 FINDINGS: The visualized portions of the lung bases demonstrate mild atelectasis. A calcified left ely ng nodule is consistent with old granulomatous disease. No pleural effusion. The heart size is normal . No pericardial effusion. There is a moderate-sized sliding hiatal hernia. There is diffuse hepatic steatosis. The gallbladder is normal. Calcifications in the spleen are consistent with old granulomat ous disease. The pancreas and adrenal glands are normal. There is a 6 mm cyst in right kidney. Left k idney is normal. There is calcified atherosclerosis of the aorta and many of the other arteries. Ther e is diverticulosis of the colon without evidence of diverticulitis. There are no dilated loops of [place]. The appendix is normal. There are no pathologically enlarged lymph nodes. There is no free intra peritoneal fluid. There is lumbar dextroscoliosis and severe spondylosis. There is a chronic compress ion fracture of L2. IMPRESSION: 1. Diffuse hepatic steatosis. 2. Moderate-sized sliding hiatal hernia. Reviewed, dictated and finalized at location A.
--- NOTE | 2024-04-03 13:48 | ECG_ITS ---
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 Measurements Intervals [place] Rate: 99 P: 54 NV: 152 QRS: 9 QRSD: 94 T: 40 QT: 358 QTc: 460 Interpretive Statements SINUS RHYTHM INCOMPLETE RIGHT BUNDLE BRANCH BLOCK BORDERLINE T WAVE ABNORMLITY- ANTERIOR LEADS BASELINE ARTIFACT- I, II, III, AVR, AVL, AVF, V1-V3 BORDERLINE ECG No previous ECG available for comparison Electronically Signed On 04-03-2024 16:47:39 CDT by All Smith D.O.
[2024-04-03 14:17] LABS: Basophils Percent Auto 0.4 % (0.2-1.2); Eosinophils Percent Auto 0.1 % (0-4.4); Hematocrit 37.7 % (37.0-47.0); Immature Granulocyte Absolute 0.02 K/mm3 (0.00-0.031); Immature Granulocyte Percent A 0.3 % (0-0.5); Lymphocytes Absolute Auto 0.93 K/mm3 (0.9-3.2); Lymphocytes Percent Auto 12.8 % (18.3-44.2); Mean Corpuscular HGB Conc 34.5 g/dl (32-36); Mean Corpuscular Hemoglobin 33.3 pg (26-34); Mean Corpuscular Volume 96.7 fl (80-100); Mean Platelet Volume 9.5 fl (7.4-10.4); Monocytes Absolute Auto 0.4 K/mm3 (0.1-0.6); Monocytes Percent Auto 5.8 % (2.6-8.5); Neutrophils Absolute Auto 5.9 K/mm3 (1.3-6.7); Neutrophils Percent Auto 80.6 % (45.5-73.1); Platelet Count Result 240 k/mm3 (150-375); Red Cell Distribution Width 12.8 % (11.5-14.5); White Blood Count 7.3 K/mm3 (4.5-10.0)
--- NOTE | 2024-04-03 14:24 | ED.SYNCOPE ---
HPI - Syncope General Chief Complaint: Syncope Stated Complaint: pt states she blackouted Time Seen by Provider: 04/03/24 13:44 History of Present Illness HPI narrative: 68-year-old female presenting to the emergency department for evaluation for a near syncopal episode. Patient states that for the last few days she has been eating and drinking well and has had no episodes of illness. Patient states after walking into a convenience store she felt dizzy and lightheaded. Patient states she did fall down to her bottom but had no loss of consciousness. Patient was able to be assisted to her feet by her boyfriend was brought in by private transport to the emergency department. Upon arrival the ED patient states she feels tired but denies any pain or injury. Patient denies any chest pain or shortness of breath. Patient denies any nausea vomiting or diarrhea. Patient denies any previous cardiac history. Patient is not a smoker Related Data Home Medications Medication Instructions Recorded Confirmed omeprazole 20 mg capsule,delayed 20 mg PO DAILY 10/03/21 01/11/24 release paroxetine HCl 10 mg tablet 10 mg PO DAILY 07/06/23 01/11/24 gabapentin 100 mg capsule 100 mg PO DAILY 01/11/24 01/11/24 hydrochlorothiazide 25 mg tablet 12.5 mg PO DAILY 01/11/24 01/11/24 potassium chloride 10 mEq 10 meq PO DAILY 01/11/24 01/11/24 tablet,extended release pyridoxine (vitamin B6) 100 mg 100 mg PO DAILY 01/11/24 01/11/24 tablet tramadol 50 mg tablet 50 mg PO Q6H PRN Pain 01/11/24 01/11/24 Allergies Allergy/AdvReac Type Severity Reaction Status Date / Time No Known Allergies Allergy Verified 04/03/24 13:52 Review of Systems Review of Systems: All systems reviewed & are unremarkable except as noted in HPI and below PMFSH Past Medical History Medical History Anxiety Gastroesophageal reflux disease Hypertension Neck fracture Surgical History Surgical History History of arthroscopy of right knee History of foot surgery Left History of hysterectomy History of tonsillectomy History of vein stripping Family History Family History Father No problems noted. Mother Hypertension Social History Social History Social History: Surrogate medical decision maker: Blair Lopez, significant other. Code status: Full code. Smoking status: Former smoker Tobacco type: cigarettes Second hand tobacco smoke exposure: No Alcohol intake: current Drinks per week: 3 Substance use: former Substance use type: marijuana Do You Feel Safe in your Home?: Yes Lack of Transportation: No Lack of Food: Never True Current Housing: I Have Housing Concerned About Future Housing: No Difficulty Paying Gas/Electric Bills: No Difficulty Paying for Meds: No Currently Unemployed: No Education: High School Diploma/GED Difficulty w/ Childcare or Family Care: No Living arrangements: with family Spiritual care concerns: No Exam Narrative: APPEARANCE: Well appearing, no pain, no distress, well-nourished. HEAD: normocephalic, atraumatic. EYES: PERRLA/EOMI, conjunctivae clear. NOSE: Normal no drainage EARS:TMS clear with good light reflex. THROAT: Pharynx clear, no exudate. NECK: Supple. No adenopathy, no masses. RESPIRATORY: Airway patent, respirations nonlabored. Clear to auscultation bilaterally, no rales, rhonchi, wheezing. CARDIOVASCULAR: Regular rate and rhythm without murmurs rubs or gallops. ABDOMINAL: Soft, nontender, nondistended, normal bowel sounds MUSCULOSKELETAL: Moves all extremities. Strength/ROM intact, No edema, No calf tenderness. NEURO: Alert. Cranial nerves II through XII intact. Grossly intact SKIN: Warm, dry. Normal Color Course Course Emergen
[2024-04-03 14:28] LABS: INR 0.9; Prothrombin Time 12.6 Seconds (11.1-14.7)
[2024-04-03 14:29] LABS: Partial Thromboplastin Time 30.4 Seconds (22.3-36.8)
[2024-04-03 14:30] LABS: Alanine Aminotransferase 135 U/L (6-35); Albumin Level 4.4 g/dL (3.5-5.1); Alkaline Phosphatase 81 U/L (38-126); Anion Gap 9 mmol/L (4-12); Aspartate Amino Transferase 308 U/L (14-36); Bilirubin,Total 0.7 mg/dL (0.2-1.3); Blood Urea Nitrogen 7 mg/dL (7-17); Carbon Dioxide 28 mmol/L (22-30); Chloride 89 mmol/L (98-107); Estimated CRCL calculation 90 ml/min; Estimated Glomerular Filt Rate > 60; Glucose 111 mg/dL (65-110); Potassium 3.5 mmol/L (3.4-5.0); Sodium 126 mmol/L (137-145)
[2024-04-03 14:35] LABS: Lactic Acid Reflex 2.6 mmol/L (0.7-2.0)
[2024-04-03 14:53] LABS: Influenza A QL RT-PCR Negative (Negative); Influenza B QL RT-PCR Negative (Negative); RSV RNA, RT-PCR Negative (Negative); SARS-CoV-2 RNA PCR Negative (Negative)
[2024-04-03] MEDS: SODIUM CHLORIDE 0.9% IV 1,000 ML 999 ML IV CONT ×2 (15:25→16:31)
[2024-04-03 15:29] LABS: Appearance Urine Cloudy (Clear); Bacteria Urine 4+ /hpf; Bilirubin Urine Negative (Negative); Blood Urine Negative (Negative); Color Urine Yellow (Yellow); Glucose Urine UA Negative (Negative); Ketones Urine Negative (Negative); Leukocyte Esterase Ur 2+ LEU/UL (Negative); Nitrate Urine Positive (Negative); Non Pathogenic Casts 0-2; Protein Urine Negative (Negative); RBC Urine 0-2 /hpf (0-2); Specific Grav Ur 1.008 (1.001-1.035); Squamous Epithelial Cell Urine Few /hpf (Few); pH Urine 7.5 (5.0-9.0)
[2024-04-03 15:33] LABS: Add Urine Microscopic? YES
[2024-04-03 15:42] LABS: Ethanol 41 mg/dL (<10)
[2024-04-03 15:53] LABS: Amphetamine Screen Urine Negative (Negative); Barbiturate Screen Urine Negative (Negative); Benzodiazepines Screen Urine Negative (Negative); Cannabinoid Screen Urine Negative (Negative); Cocaine Screen Urine Negative (Negative); Methadone Screen Urine Negative (Negative); Opiate Screen Urine Negative (Negative); Phencyclidine Screen Urine Negative (Negative)
[2024-04-03 17:21] LABS: Reflex Lactic Acid Yes or No Add Lactic
== END 2024-04-03 18:05 | disposition home or self-care (01) ==
PROVIDERS: Emergency Provider Emergency Medicine; PCP Family Medicine
DX: N39.0 Urinary tract infection, site not specified (principal); I95.1 Orthostatic hypotension; Z20.822 Contact with and (suspected) exposure to COVID-19; I10 Essential (primary) hypertension; K21.9 Gastro-esophageal reflux disease without esophagitis; F41.9 Anxiety disorder, unspecified; Z79.899 Other long term (current) drug therapy; Z90.710 Acquired absence of both cervix and uterus; Z87.891 Personal history of nicotine dependence; K44.9 Diaphragmatic hernia without obstruction or gangrene; K76.0 Fatty (change of) liver, not elsewhere classified
CPT/HCPCS: 36415; 74177; 80053; 80307; 81001; 83605; 85025; 85610; 85730; 87077; 87086; 87088; 87186; 87637; 93005; 96361; 96365; 99284; J0696; J7030; Q9967

== ENCOUNTER 2024-04-10 09:54 | Outpatient (CLI) | payer MEDICARE, SELFPAY ==
--- NOTE | ~2024-04-10 | XR_ITS ---
Left ankle Technique: AP, oblique, and lateral views were obtained. Clinical History: Sprain Findings: No acute fracture or dislocation is seen. Osseous alignment is anatomic. Ankle mortise and other visualized joint spaces are preserved. Soft tissues are otherwise unremarkable. Impression: Unremarkable left ankle. Reviewed, dictated and finalized at location . Impression: Unremarkable left ankle.
== END 2024-04-10 09:55 ==
PROVIDERS: PCP Family Medicine; Visit Provider Family Medicine
DX: S93.402A Sprain of unspecified ligament of left ankle, initial encounter (principal)
CPT/HCPCS: 73610

== ENCOUNTER 2024-04-29 12:00 | Outpatient (CLI) | payer MEDICARE, SELFPAY ==
--- NOTE | ~2024-04-29 | XR_ITS ---
Left Shoulder Technique: AP and scapular Y views were obtained. Clinical History: Pain Findings: No acute fracture or dislocation is seen. Old, healed left rib fracture deformities are not ed. Osseous alignment is anatomic. Small enchondroma present at the proximal humerus. The glenohumera l joint is intact. There is mild AC joint degenerative change. Soft tissues are unremarkable. Impression: Mild AC joint degenerative change. Reviewed, dictated and finalized at location . Impression: Mild AC joint degenerative change.
== END 2024-04-29 12:01 ==
LOC: MICIMG 12:02
PROVIDERS: PCP Family Medicine; Visit Provider Family Medicine
DX: M19.012 Primary osteoarthritis, left shoulder (principal); Z91.81 History of falling
CPT/HCPCS: 73030

== ENCOUNTER 2024-06-16 14:42 | Emergency (ER) | payer MEDICARE, SELFPAY ==
--- NOTE | ~2024-06-16 | XR_ITS ---
XR tibia fibula RT 2V Ordering provider: Reyna Urbina III, DO History: . MID SHAFT ANTERIOR PAIN AFTER FALL . Comparison: None. FINDINGS: BONES: No acute fracture or dislocation. JOINT SPACES: Normal. SOFT TISSUES: Normal. Radiopaque shadow is projected over the lateral view may be artifacts or soft tissue calcifications. IMPRESSION: No acute osseous abnormality right leg. Reviewed, dictated and finalized at location A.
--- NOTE | ~2024-06-16 | CT_ITS ---
EXAMINATION: 1. CT facial & cervical spine wo DATE: 06/16/2024 16:02 INDICATION: Fall with facial injury and abrasions about the right eye. TECHNIQUE: 1. Computed tomography (CT) of the maxillofacial region and of the cervical spine were performed with out intravenous contrast. Sagittal and coronal reconstructions of both regions were obtained. Automat ed exposure control and iterative reconstruction technique were employed. The dose-length product was 167.09 mGy-cm. COMPARISON: 01/11/2024 FINDINGS: Maxillofacial CT: Nondisplaced fracture involving the lateral wall of the right orbit. There are also minimally displac ed fractures involving the anterior and lateral edwards of the right maxillary sinus, the former extend ing cephalad to involve the superior wall/floor of the right orbit along the infraorbital canal. Ther e is no evident herniation of the inferior rectus muscle which extends along the fracture. There is a lso a nondisplaced fracture along the lamina papyracea/medial wall of the right orbit. Minimal amount of intraorbital gas along the inferior and medial wall fractures. The right globe appears intact. Mo derate amount of blood in the dependent aspect of the right maxillary sinus and in the right ethmoid air cell along side the lamina papyracea fracture. No other acute maxillofacial fractures identified. Unchanged possible old healed fracture of the left nasal bone. Nasal septum is midline. Small amount of mucosal thickening at the floor of the left maxillary sinus and at the right frontoethmoidal rece ss. Left orbit is normal. Visualized portion of the mastoid air cells and middle ear cavities are aileen ar. There is soft tissue swelling in the right malar region. Cervical spine CT: Mild cervical dextrocurvature. Sagittal alignment is normal. 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 Vertebral body heights are normal. No fracture. Moderate disc height loss with and de generative endplate changes and severe right and moderate left uncovertebral osteoarthritis at C6-C7. Mild disc height loss at C3-C4 and C5-C6. No evident central canal stenosis. There is multilevel moderate to severe right and severe left cervical facet osteoarthritis. This con tributes to moderate neural foraminal stenosis on the left at C3-C4, mild to moderate neural from alana nosis on the left at C4-C5 through C6-C7 and on the right at C6-C7 with mild neural foraminal stenosi s at many of the remaining cervical levels. Atherosclerotic calcification is at the bilateral carotid bulbs. Multinodular goiter with a few likely benign subcentimeter peripherally calcified thyroid nodules. Cervical soft tissues tissues are otherwise unremarkable. The visualized apices of the lungs are clear. IMPRESSION: 1. Non to minimally displaced fractures of the inferior and medial edwards of the right orbit and the s uperior, anterior and lateral edwards of the right maxillary sinus. No evident herniation of the adjace nt right inferior rectus muscle but would correlate for evidence of entrapment on ophthalmic exam. 2. Moderate cervical spondylosis. No acute osseous abnormality. Reviewed, dictated and finalized at location A. IMPRESSION: 1. Non to minimally displaced fractures of the inferior and medial edwards of the right orbit and the superior, anterior and lateral edwards of the right maxillar y sinus. No evident herniation of the adjacent right inferior rectus muscle but would correlate for evidence of entrapment on ophthalmic exam. 2. Moderate cervical spondylosis. No acute osseous abnormality.
--- NOTE | ~2024-06-16 | CT_ITS ---
EXAMINATION: CT brain wo con DATE: 06/16/2024 17:40 INDICATION: fall, head injury . TECHNIQUE: Computed tomography (CT) of the head was performed without intravenous contrast. The mA wa s adjusted according to patient size. Iterative reconstruction technique was employed. The dose-lengt h product was 605.33 mGy-cm. COMPARISON: 01/11/2024. FINDINGS: No acute intracranial hemorrhage or extra-axial fluid collection. No hydrocephalus, mass, or herniation. No acute ischemic infarct. Unremarkable dural venous sinus attenuation. Possible minimally displaced fracture of the right anterior maxillary wall, right lateral maxillary w all, and right orbital floor. Soft tissue swelling over the right cheek. Mild ethmoid mucosal thickening, mucosal thickening and an air-fluid level in the right maxillary sin us, the remaining aerated spaces are clear. Moderate atrophy and chronic white matter change. Atherosclerotic intracranial calcification. IMPRESSION: No acute intracranial process. Possible right orbital floor, anterior maxillary wall, and lateral maxillary wall fractures, air-flui d level in the right maxillary sinus, likely hemorrhage in the setting of trauma. Consider CT of the face for further evaluation Reviewed, dictated and finalized at location K. IMPRESSION: No acute intracranial process. Possible right orbital floor, anterior maxillary wall, and lateral maxillary wa ll fractures, air-fluid level in the right maxillary sinus, likely hemorrhage i n the setting of trauma. Consider CT of the face for further evaluation
[2024-06-16 15:41] VITALS: BP 142/91; PULSE 96; RESP 18; TEMP 36.7; O2SAT 100
--- NOTE | 2024-06-16 17:10 | ED.FALL ---
HPI - Fall General Chief Complaint: Fall <SUGEY Cuellar Last Filed: 06/16/24 17:19> Stated Complaint: fall <SUGEY Cuellar Last Filed: 06/16/24 17:19> Time Seen by Provider: 06/16/24 17:10 <SUGEY Cuellar Last Filed: 06/16/24 17:19> Focused HPI: Patient is a 69 y/o female who presents to the ED with report of head injury. Patient reports she had a fall around 1:00 a.m. this morning which she was walking throughout her bedroom an slipped on the foot upon rocking chair. She fell forward hitting her right-sided face on the ground. Sustain injury to her right-sided face. at bedside did here the fall and reported that patient had a positive LOC for approximately 15-20 seconds. Patient also sustained injury to her right gilbert. She is not on any blood thinners. Denies dizziness, lightheadedness, vision changes. GENERAL: Elderly, well-nourished, and in no acute distress. HEAD: Normocephalic. Diffuse ecchymosis to right-sided face and periorbital region. EYES: PERRL/EOMI, no significant discomfort with extra ocular movements. R eye conjunctiva injection. ENT: R lower lac contusion with bruising and swelling. CHEST: Clear to auscultation. ?No respiratory distress. HEART: Regular rate and rhythm.? NEURO: ?Alert and oriented x2, unsure of year or president. Patient screened in triage and initial orders placed.? ?Additional care and disposition to be based upon?diagnostic testing and treatment. <SUGEY Cuellar Last Filed: 06/16/24 17:19> Source: patient <SUGEY Cuellar Last Filed: 06/16/24 17:19> Mode of arrival: ambulatory <SUGEY Cuellar Last Filed: 06/16/24 17:19> Limitations: no limitations <SUGEY Cuellar Last Filed: 06/16/24 17:19> Related Data Home Medications: Home Medications Medication Instructions Recorded Confirmed omeprazole 20 mg capsule,delayed 20 mg PO DAILY 10/03/21 01/11/24 release paroxetine HCl 10 mg tablet 10 mg PO DAILY 07/06/23 01/11/24 gabapentin 100 mg capsule 100 mg PO DAILY 01/11/24 01/11/24 hydrochlorothiazide 25 mg tablet 12.5 mg PO DAILY 01/11/24 01/11/24 potassium chloride 10 mEq 10 meq PO DAILY 01/11/24 01/11/24 tablet,extended release pyridoxine (vitamin B6) 100 mg 100 mg PO DAILY 01/11/24 01/11/24 tablet tramadol 50 mg tablet 50 mg PO Q6H PRN Pain 01/11/24 01/11/24 <Christina Barahona PA-C - Last Filed: 06/16/24 17:19> Allergies/Adverse Reactions: Allergies Allergy/AdvReac Type Severity Reaction Status Date / Time No Known Allergies Allergy Verified 04/03/24 13:52 <Christina Barahona PA-C - Last Filed: 06/16/24 17:19> [facility] Past Medical History Medical History: Medical History Anxiety Gastroesophageal reflux disease Hypertension Neck fracture <SUGEY Cuellar Last Filed: 06/16/24 17:19> Surgical History Surgical History: Surgical History History of arthroscopy of right knee History of foot surgery Left History of hysterectomy History of tonsillectomy History of vein stripping <Christina Barahona PA-C - Last Filed: 06/16/24 17:19> Family History Family History: Family History Father No problems noted. Mother Hypertension <Christina Barahona PA-C - Last Filed: 06/16/24 17:19> Social History Social History: Social History Social History: Surrogate medical decision maker: Blair Lopez, significant other. Code status: Full code. Smoking status: Former smoker Tobacco type: cigarettes Second hand tobacco smoke exposure: No Alcohol intake: current Drinks per week: 3 Substance use: former Substance use typ
[2024-06-16 19:28] VITALS: BP 119/75; PULSE 77; RESP 14; O2SAT 99
[2024-06-16 20:38] VITALS: BP 118/73; PULSE 69; RESP 15; TEMP 36.7; O2SAT 100
== END 2024-06-16 20:39 | disposition home or self-care (01) ==
PROVIDERS: Emergency Provider Emergency Medicine; PCP Family Medicine
DX: S02.31XA Fracture of orbital floor, right side, initial encounter for closed fracture (principal); S02.831A Fracture of medial orbital wall, right side, initial encounter for closed fracture; S02.40CA Maxillary fracture, right side, initial encounter for closed fracture; S80.11XA Contusion of right lower leg, initial encounter; I10 Essential (primary) hypertension; K21.9 Gastro-esophageal reflux disease without esophagitis; F41.9 Anxiety disorder, unspecified; Z87.891 Personal history of nicotine dependence; Z90.710 Acquired absence of both cervix and uterus; Z79.899 Other long term (current) drug therapy; M47.812 Spondylosis without myelopathy or radiculopathy, cervical region; W01.0XXA Fall on same level from slipping, tripping and stumbling without subsequent striking against object, initial encounter
CPT/HCPCS: 70450; 70486; 72125; 73590; 99284

== ENCOUNTER 2024-07-26 13:19 | Emergency (ER) | payer MEDICARE, SELFPAY ==
--- NOTE | ~2024-07-26 | XR_ITS ---
EXAMINATION: XR foot RT min 3V DATE: 07/26/2024 13:48 INDICATION: Right foot pain. Fall. TECHNIQUE: 4 views of right foot were obtained. COMPARISON: None. FINDINGS: There is moderate hallux valgus. There is an old healed fracture of fifth proximal phalanx. No acute fracture. There is mild osteoarthritis of first metatarsophalangeal joint and some of the m idfoot joints. There is an enthesophyte at plantar aspect of calcaneal tuberosity. IMPRESSION: 1. Mild polyarticular osteoarthritis. 2. Moderate hallux valgus. Reviewed, dictated and finalized at location A.
[2024-07-26 13:35] VITALS: BP 132/83; PULSE 87; RESP 16; TEMP 36.9; O2SAT 99
--- NOTE | 2024-07-26 13:53 | ED.LOWEXIN ---
HPI - Extremity Injury (Lower) General Chief Complaint: Extremity Injury, Lower Stated Complaint: FALL Time Seen by Provider: 07/26/24 13:53 Source: patient, RN notes reviewed and old records reviewed Mode of arrival: ambulatory Limitations: no limitations History of Present Illness HPI Narrative: 69-year-old female presents to the [facility] with complaints of right foot bruising, swelling and discomfort. States that she was walking, stumbled over a rocking chair and fell on her foot last night. Related Data Home Medications Medication Instructions Recorded Confirmed omeprazole 20 mg capsule,delayed 20 mg PO DAILY 10/03/21 07/26/24 release paroxetine HCl 10 mg tablet 10 mg PO DAILY 07/06/23 07/26/24 gabapentin 100 mg capsule 100 mg PO DAILY 01/11/24 07/26/24 hydrochlorothiazide 25 mg tablet 12.5 mg PO DAILY 01/11/24 07/26/24 potassium chloride 10 mEq 10 meq PO DAILY 01/11/24 07/26/24 tablet,extended release pyridoxine (vitamin B6) 100 mg 100 mg PO DAILY 01/11/24 07/26/24 tablet tramadol 50 mg tablet 50 mg PO Q6H PRN Pain 01/11/24 07/26/24 Allergies Allergy/AdvReac Type Severity Reaction Status Date / Time No Known Allergies Allergy Verified 07/26/24 13:57 Review of Systems Review of Systems: All systems reviewed & are unremarkable except as noted in HPI and below Constitutional: Constitutional: Reports no additional constitutional complaints Eyes: Eyes: Reports no additional eye complaints ENT: Reports system reviewed and no additional complaints, except as documented Cardiovascular: Cardiovascular: Reports no additional cardiovascular complaints, Denies chest pain and Denies dyspnea Respiratory: Respiratory: Reports no additional respiratory complaints, Denies chest congestion, Denies cough and Denies dyspnea Gastrointestinal: Gastrointestinal: Reports no additional gastrointestinal complaints, Denies abdominal pain, Denies nausea and Denies vomiting Musculoskeletal: Musculoskeletal: Reports as per HPI Integumentary/Breasts: Skin/Breast: Reports system reviewed and no additional complaints, except as docu Neurologic: Reports system reviewed and no additional complaints, except as documented Psychiatric: Psychiatric: Reports no additional psychiatric complaints Allergic/Immunologic: Allergic/Immunologic: Reports no additional allergic/immunologic complaints PMFSH Past Medical History Medical History Anxiety Gastroesophageal reflux disease Hypertension Neck fracture Surgical History Surgical History History of arthroscopy of right knee History of foot surgery Left History of hysterectomy History of tonsillectomy History of vein stripping Family History Family History Father No problems noted. Mother Hypertension Social History Social History Social History: Surrogate medical decision maker: Blair Lopez, significant other. Code status: Full code. Smoking status: Former smoker Tobacco type: cigarettes Second hand tobacco smoke exposure: No Alcohol intake: current Drinks per week: 3 Substance use: former Substance use type: marijuana Do You Feel Safe in your Home?: Yes Lack of Transportation: No Lack of Food: Never True Current Housing: I Have Housing Concerned About Future Housing: No Difficulty Paying Gas/Electric Bills: No Difficulty Paying for Meds: No Currently Unemployed: No Education: High School Diploma/GED Difficulty w/ Childcare or Family Care: No Living arrangements: with family Spiritual care concerns: No Comments At the time of my signature, I reviewed and agree with the nursing past medical, surgical, social, and family history. There is no relevant family history pertinent to t
== END 2024-07-26 14:05 | disposition home or self-care (01) ==
PROVIDERS: Emergency Provider Nurse Practitioner; PCP Family Medicine
DX: S90.31XA Contusion of right foot, initial encounter (principal); W18.09XA Striking against other object with subsequent fall, initial encounter; I10 Essential (primary) hypertension; K21.9 Gastro-esophageal reflux disease without esophagitis; F41.9 Anxiety disorder, unspecified; Z87.891 Personal history of nicotine dependence
CPT/HCPCS: 73630; 99213; G0463

== ENCOUNTER 2025-05-04 08:41 | Outpatient (CLI) | payer MEDICARE, SELFPAY ==
--- NOTE | ~2025-05-04 | US_ITS ---
RIGHT UPPER QUADRANT ABDOMINAL ULTRASOUND (Doppler ultrasound interrogation techniques used as needed for this exam.) Ordering provider: Eri Summers, [employer] History: . Abn laboratory tests . Comparison: None. FINDINGS: PANCREAS: Normal echotexture and size of the visualized portions. PORTAL VEIN: Hepatopedal flow demonstrated. LIVER: Normal size and increased echogenicity. No focal hepatic lesions or perihepatic fluid collecti ons are identified. BILIARY DUCTS: No intra or extrahepatic biliary dilation. Common bile duct measures 5 mm in diameter which is normal for patient's age. GALLBLADDER: Distended. No stones, sludge, gallbladder wall thickening or pericholecystic fluid. Wall thicknesses 2.9 mm. Negative sonographic Taylro's sign. RIGHT KIDNEY: Normal size. Measures 9.6 cm. No hydronephrosis, solid renal mass, renal calculi or per inephric fluid collections. No renal cysts. Plaques are seen in the aorta. IVC is not well demonstrated. FREE FLUID: None visualized within the upper abdomen. IMPRESSION: Fat infiltration of the liver. Otherwise, normal right upper quadrant ultrasound. Reviewed, dictated and finalized at location A. IMPRESSION: Fat infiltration of the liver. Otherwise, normal right upper quadrant ultrasoun d.
== END 2025-05-04 08:42 | disposition home or self-care (01) ==
LOC: MICIMG 08:42
PROVIDERS: PCP Family Medicine; Visit Provider Midwife
DX: K76.0 Fatty (change of) liver, not elsewhere classified (principal); R79.89 Other specified abnormal findings of blood chemistry; R29.6 Repeated falls
CPT/HCPCS: 76705

== ENCOUNTER 2025-05-11 11:20 | Outpatient (CLI) | payer MEDICARE, SELFPAY ==
--- NOTE | ~2025-05-11 | XR_ITS ---
Left ankle Technique: AP, oblique, and lateral views were obtained. Clinical History: Pain Findings: No acute fracture or dislocation is seen. Osseous alignment is anatomic. Ankle mortise and other visualized joint spaces are preserved. Soft tissues are otherwise unremarkable. Impression: Unremarkable left ankle. Reviewed, dictated and finalized at location . Impression: Unremarkable left ankle.
== END 2025-05-11 11:21 | disposition home or self-care (01) ==
LOC: MICIMG 11:22
PROVIDERS: PCP Family Medicine; Visit Provider Midwife
DX: M25.572 Pain in left ankle and joints of left foot (principal)
CPT/HCPCS: 73610

== ENCOUNTER 2025-06-18 12:11 | Inpatient (IN) | payer MEDICARE, SELFPAY ==
--- NOTE | ~2025-06-18 | CT_ITS ---
EXAMINATION: CT chest abdomen pelvis w con DATE: 06/18/2025 17:02 INDICATION: Weakness, failure to thrive . TECHNIQUE: Computed tomography (CT) of the chest, abdomen, and pelvis was performed with 100 mL Omnip aque-350 intravenous contrast. Automated exposure control and iterative reconstruction technique were employed. The dose-length product was 266.33 mGy-cm. COMPARISON: X-ray chest, same date; CT abdomen pelvis 04/03/2024 FINDINGS: CHEST: Scan performed with normal portal venous timing however resulting images are mostly arterial phase. Thoracic aorta: Mild dilation of the descending thoracic aorta to 3.2 cm. No dissection. Atherosclero tic calcifications. Lung parenchyma and airways: Emphysematous change. Granulomatous calcifications. Left lower lobe scar . Scattered sub-6 mm pulmonary nodules. Patent airways. Thoracic inlet, axillae and chest wall: Calcified thyroid nodules. No axillary lymphadenopathy. Mediastinum: No mass or lymphadenopathy. Esophageal wall edema. Heart and pericardium: Normal heart size. No pericardial effusion. Coronary artery calcifications: Absent. Pleura: No effusion or mass. Thoracic bones: No acute osseous finding in the chest. ABDOMEN/PELVIS: Liver: Hepatomegaly. Irregular and geographic areas of hyperenhancement along the falciform ligament and adjacent to the gallbladder fossa. Heterogeneous liver parenchymal enhancement, without well-defi shirley mass. Biliary/Gallbladder: Hyperemic gallbladder wall in an otherwise normal-appearing gallbladder. No bile duct dilation or inflammatory changes. Pancreas: Moderate atrophy. Spleen: Normal. Adrenals:No mass. Kidneys: No suspicious mass, obstructing stone, or hydronephrosis. Subcentimeter right upper pole hyp odensity, too small to characterize but likely represents a cyst. GI tract: Moderate hiatal hernia. Moderate gastric wall edema. No small or large bowel dilation. Norm al appendix. Diverticulosis without diverticulitis. Mesentery/Peritoneum: No ascites, mass, or free air. Retroperitoneum: No mass Atherosclerotic calcifications of intra-abdominal arterial vessels. Pelvis: Distended urinary bladder with moderate wall edema. Absent uterus. Bilateral ovaries not conf idently identified. Soft Tissues: Possible soft tissue defect overlying the sacrum. Abdominopelvic bones: Lumbar scoliosis. Multilevel severe degenerative disc disease and facet arthro dionna. Severe left neural foraminal narrowing at L2-3, severe right neural foraminal narrowing at L5- S1, and severe central canal narrowing at L4-5, all secondary to degenerative changes. Chronic inferi or endplate deformity at L2. Chronic angular deformity at L5. IMPRESSION: Mild descending thoracic aortic ectasia. Scattered sub-6 mm pulmonary nodules, requiring no additional follow-up unless the patient is at high risk, in which case consider low-dose noncontrast CT of the chest in one year. Diffuse esophagitis. Moderate gastritis. Hepatomegaly. Hyperenhancing areas along the falciform ligament and gallbladder fossa may represent t ransient hepatic attenuation differences and/or irregular parenchymal enhancement from steatosis. No discrete mass identified. Recommend MRI of the liver. Hyperemic gallbladder wall may reflect a component of mild/early inflammatory change versus artifact from contrast phase. No biliary duct dilatation or inflammation to suggest cholangitis. Cystitis. Possible sacral soft tissue defect, correlate clinically for decubitus ulcer. Reviewed, dictated and finalized at [facility]. IMPRESSION: Mild descending thoracic aortic ectasia. Scattered sub-6 mm pulmonary nodules, requiring no additional follow-up unless the patient is at high risk, in which case consider low-dose noncontrast CT of the chest in one year. Diffuse esophagitis. Moderate gastritis. Hepatomegaly. Hyperenhancing areas along the falciform ligament and gallbladder fossa may represent transient hepatic attenuation differences and/or irregular parenchymal enhancement from steatosis. No discrete mass identified. Recommend MRI of the liver. Hyperemic gallbladder wall may reflect a component of mild/early inflammatory c hange versus artifact from contrast phase. No biliary duct dilatation or inflam mation to suggest cholangitis. Cystitis. Possible sacral soft tissue defect, correlate clinically for decubitus ulcer.
--- NOTE | ~2025-06-18 | CT_ITS ---
EXAMINATION: CT thoracic spine wo con DATE: 06/22/2025 15:54 CDT INDICATION: Fall. TECHNIQUE: Computed tomography (CT) of the thoracic spine was performed without intravenous contrast. The dose-length product was 169.93 mGy-cm. COMPARISON: CT chest, abdomen and pelvis 06/18/2025 FINDINGS: Thoracic vertebral body heights and alignment are within normal limits. No compression fracture in th e thoracic spine. Evaluation of the spinal canal contents and bilateral neural foramen is limited due to CT technique.Bones appear osteopenic. No CT evidence for significant narrowing of the spinal madeline l or bilateral neural foramen. Liver is heterogeneous. Mild degenerative change scattered throughout the thoracic spine. IMPRESSION: 1. No compression fracture in the thoracic spine. 2. Mild degenerative change scattered throughout the thoracic spine. If symptoms persist or worsen, consider an MRI of the thoracic spine for further assessment. Reviewed, dictated and finalized at location A. IMPRESSION: 1. No compression fracture in the thoracic spine. 2. Mild degenerative change scattered throughout the thoracic spine. If symptoms persist or worsen, consider an MRI of the thoracic spine for furthe r assessment.
--- NOTE | ~2025-06-18 | US_ITS ---
EXAMINATION: US biopsy liver DATE: 06/29/2025 11:56 INDICATION: Hepatic lesion concerning for cholangiocarcinoma TECHNIQUE: The procedure including the risks and benefits was discussed with the patient. Risks discussed included bleeding and infection. The patient understood the risks and agreed to proceed. The skin overlying the liver was prepped and draped in usual sterile fashion. Anesthetic was administered with 1% lidocaine subcutaneously. An 18 gauge core biopsy needle was advanced under continuous ultrasound observation to the lesion of interest. 3 core biopsy specimens were obtained. The needle was removed and the entry site was cleaned and dressed. Post procedure ultrasound demonstrated no hemorrhage. FINDINGS: Ultrasound images demonstrate hepatic steatosis with diffuse increased parenchymal echogenicity. There is a geographic region of decreased echogenicity in segment 4A and 4B of the liver corresponding to the lesion of concern on prior ultrasound and MRI subsequent images demonstrate biopsy needle advanced into this hypoechoic region. IMPRESSION: 1. Successful Ultrasound-guided biopsy of an indeterminate hypoechoic region in segment 4A and 4B of the liver along the falciform ligament. Reviewed, dictated and finalized at location A.
--- NOTE | ~2025-06-18 | XR_ITS ---
EXAMINATION: XR chest 1V Exam Date/Time: 06/18/2025 15:40 CDT HISTORY: Weakness Comparison: 01/14/2024. RESULT: Lines, tubes, and devices: None. Lungs and pleura: Clear. Cardiomediastinal silhouette: Stable. Other: No acute osseous or upper abdominal finding. Degenerative changes in the bilateral shoulders. Multiple old healed bilateral rib fractures. Small enchondroma versus bone infarct in the left humer al head. IMPRESSION: No acute cardiopulmonary process. Reviewed, dictated and finalized at location K.
--- NOTE | ~2025-06-18 | MR_ITS ---
MRI of the cervical spine Clinical History: Multiple falls, urinary retention Technique: Axial T2-weighted and gradient images, and sagittal T1-weighted, T2- weighted, and STIR images were acquired. Following intravenous administration of 9 cc ProHance gadolinium, T1-weighted fat-sat imaging was performed in the axial and sagittal planes. Findings: There is no fracture or subluxation of the cervical spine. Vertebral bodies maintain normal height and alignment. No bone marrow signal abnormality seen. There is advanced degenerative changes at the articulation of the odontoid process with the anterior arch of C1. At C2-C3, there is no disc bulge or herniation. No spinal canal stenosis, cord compression, or neural foraminal narrowing identified. C3-C4, there is no disc bulge or herniation. There is bilateral facet arthropathy. There is probable bilateral neural foraminal narrowing, left worse than right. No canal stenosis or cord compression. At C4-C5, there is no significant disc bulge or herniation. There is bilateral facet arthropathy. There is mild bilateral neural foraminal narrowing. No spinal canal stenosis or cord compression. At C5-C6, there is minimal disc osteophyte complex with bilateral facet arthropathy. There is mild bilateral neural foraminal narrowing, right worse than left. No canal stenosis or cord compression. At C6-C7, there is degenerative disc narrowing without significant disc bulge or herniation. No spinal canal stenosis, cord compression, or neural foraminal narrowing. No abnormal signal seen in the spinal cord. Paravertebral soft tissues are unremarkable. No abnormal postcontrast enhancement. Impression: Mild degenerative spondylitic changes overall, as detailed above. Reviewed, dictated and finalized at location M. Impression: Mild degenerative spondylitic changes overall, as detailed above.
--- NOTE | ~2025-06-18 | MR_ITS ---
MRI of the lumbar spine Clinical History: Radiculopathy Technique: Axial T2-weighted images, and sagittal T1-weighted, T2-weighted, and T2 fat-sat images were acquired. Following intravenous administration of 9 cc ProHance gadolinium, T1-weighted fat-sat imaging was performed in the axial and sagittal planes. Findings: There is acute, mild compression fracture deformity at the supervision of L5, with mild loss of height and associated marrow edema and postcontrast enhancement.. There is a chronic mild compression deformity of the inferior endplate of L2, and at the superior endplate of L5. There is 6 mm retrolisthesis of L2 over L3. No suspicious bone marrow signal abnormality seen. At L1-L2, there is no disc bulge or herniation. There is mild to moderate facet arthropathy. No central canal stenosis or neural foraminal narrowing. At L2-L3, there is minimal disc bulge with moderate facet arthropathy. No central canal stenosis. There is severe left neural foraminal narrowing. There is mild right neural foraminal narrowing. At L3-L4, there is disc bulge and severe facet arthropathy. No central canal stenosis. There is moderate left neural foraminal narrowing and advanced right neural foraminal narrowing. At L4-L5, there is degenerative disc narrowing with diffuse disc bulge and severe facet arthropathy. There is mild central canal stenosis. There is severe right neural foraminal narrowing. Left neural foramen mildly narrowed. At L5-S1, there is minimal disc bulge with moderate facet arthropathy. No central canal stenosis. There is severe right neural foraminal narrowing, and mild left neural foraminal narrowing. Paravertebral soft tissues are unremarkable. Impression: Acute mild compression fracture at the superior endplate region of L5, as detailed above. Mild chronic compression deformity of L2, as detailed above. 6 mm retrolisthesis of L2 over L3. Moderate degenerative spondylosis overall throughout the lumbar spine, as above. Reviewed, dictated and finalized at location M. Impression: Acute mild compression fracture at the superior endplate region of L5, as detai led above. Mild chronic compression deformity of L2, as detailed above. 6 mm retrolisthesis of L2 over L3. Moderate degenerative spondylosis overall throughout the lumbar spine, as above .
--- NOTE | ~2025-06-18 | MR_ITS ---
MRI of the thoracic spine Clinical History: Weakness Technique: Axial T2-weighted and gradient images, and sagittal T1-weighted, T2- weighted, and STIR images were acquired. Following intravenous administration of 9 cc ProHance gadolinium, T1-weighted fat-sat imaging was performed in the axial and sagittal planes. Findings: There is no fracture or subluxation of the thoracic spine. Vertebral bodies maintain normal height and alignment. No suspicious bone marrow signal abnormality seen. Intervertebral disc spaces are relatively well preserved throughout the thoracic spine with multilevel minimal degenerative disc narrowing. No significant disc bulge or herniation seen at any thoracic level. No spinal canal stenosis or cord compression identified. Neural foramina are preserved throughout the thoracic spine. No abnormal signal seen in the spinal cord. Paravertebral soft tissues are unremarkable. No suspicious postcontrast enhancement identified. Impression: No significant abnormality. Reviewed, dictated and finalized at [facility]. Impression: No significant abnormality.
--- NOTE | ~2025-06-18 | MR_ITS ---
MRI of the sacrum Clinical history multiple falls, urinary retention TECHNIQUE: Sagittal proton-density fat-sat images, axial T1-weighted and T2- weighted images, and coronal T2-weighted and T2 fat-sat images were performed. Following intravenous administration of 9 cc MultiHance gadolinium, T1-weighted fat-sat imaging was performed in the axial and coronal planes. FINDINGS: There is acute mild compression fracture deformity at the superior endplate region of L5, hypodense fracture line, minimal loss of height, and extensive marrow edema. No sacral fracture identified. SI joints are intact. There is mild heterogeneous marrow signal the sacrum, compatible areas of red marrow conversion, but no suspicious bone marrow signal abnormality seen. Visualized musculature about the sacrum and visualized pelvis is unremarkable. No soft tissue mass or fluid collection evident. There is enhancement at the area of the compression fracture L5. No other abnormal postcontrast enhancement identified. IMPRESSION: Acute, mild compression fracture deformity of L5, as above. No other significant findings. Reviewed, dictated and finalized at [facility].
--- NOTE | ~2025-06-18 | CT_ITS ---
EXAMINATION: CT brain wo con DATE: 06/18/2025 15:45 INDICATION: Weakness . TECHNIQUE: Computed tomography (CT) of the head was performed without intravenous contrast. The mA wa s adjusted according to patient size. Iterative reconstruction technique was employed. The dose-lengt h product was 605.33 mGy-cm. COMPARISON: 06/16/2024. FINDINGS: No acute intracranial hemorrhage or extra-axial fluid collection. No hydrocephalus, mass, or herniation. No acute ischemic infarct. Unremarkable dural venous sinus attenuation. No acute osseous abnormality. The aerated spaces are clear. Moderate atrophy and chronic white matter change. Atherosclerotic intracranial calcification. Minimal right basal ganglia calcification. IMPRESSION: No acute intracranial process. Reviewed, dictated and finalized at location K.
--- NOTE | ~2025-06-18 | US_ITS ---
EXAMINATION: US Abdomen limited INDICATION: Fatty liver PROCEDURE: Realtime High Resolution abdomen ultrasound. COMPARISON: No prior studies for comparison FINDINGS: The liver is hyperechoic likely due to fatty infiltration and/or hepatocellular disease.There is a 2.9 x 2.2 cm hypoechoic region in the left lobe of the liver. Differential includes focal fatty sparing versus liver mass. A liver mass MRI is recommended. No sonographic Taylor's sign indicated by the technologist. The study is limited due to the patient's imaging characteristics an overlying bowel gas. Pancreas was not adequately visualized for evaluation. No gallbladder wall thickening.No gallstones. Common duct measures 6 mm. IMPRESSION: 1: The liver is hyperechoic likely due to fatty infiltration and/or hepatocellular disease. 2. There is a 2.9 x 2.2 cm hypoechoic region in the left lobe of the liver. Differential includes focal fatty sparing versus liver mass. A liver mass MRI is recommended. Reviewed, dictated and finalized at location A. IMPRESSION: 1: The liver is hyperechoic likely due to fatty infiltration and/or hepatocellu lar disease. 2. There is a 2.9 x 2.2 cm hypoechoic region in the left lobe of the liver. Dif ferential includes focal fatty sparing versus liver mass. A liver mass MRI is r ecommended.
--- NOTE | ~2025-06-18 | MR_ITS ---
EXAMINATION: MR abdomen wo/w con DATE: 06/26/2025 09:12 INDICATION: Liver mass TECHNIQUE: Magnetic resonance imaging (MRI) of the abdomen was performed without and with 9 mL Multihance intravenous contrast. Sequences included coronal T2- weighted SS-FSE, coronal and axial FS [id number], axial STIR FSE, axial T2- weighted SS-FSE, axial T2-weighted FS SS-FSE, axial diffusion-weighted SE, axial dual-echo T1-weighted FSPGR, and axial and coronal T1-weighted LAVA. Postcontrast axial T1-weighted LAVA images were obtained in a time course. Postcontrast coronal T1-weighted LAVA images were obtained. COMPARISON: Ultrasound dated 06/23/[address] dated 06/18/2025 FINDINGS: Small right and tiny left dependent layering bilateral pleural effusions with adjacent mild dependent atelectasis in the lower lobes. Heart size is normal. No pericardial or pleural effusion. Small sliding-type hiatal hernia. Diffuse hepatic steatosis with increased T1 signal and signal dropout on opposed phase imaging. There is a geographic region of relatively decreased T1 signal, subtly increased T2 signal and without associated signal dropout along the right side of the ligamentum teres and extending caudally along the gallbladder fossa. This measures approximately 4.4 x 3.3 cm entrance axial dimensions along the ligamentum teres and approximately 3.4 x 1.9 cm more caudally along the gallbladder fossa. This is a typical location for focal fatty sparing. There is however associated increased enhancement which persists and becomes progressively more prominent on the 5 and 10 minute delayed images. This would be difficult to explain by hepatic steatosis but could be seen with focal nodular hyperplasia or cholangiocarcinoma. No enhancing lesions demonstrating washout on the delayed imaging. Gallbladder, spleen, pancreas, bilateral adrenal glands and kidneys are normal. Common bile duct measures up to 6 and 7 mm which is within normal limits for age. No evident cholelithiasis or choledocholith iasis. Visualized portions of bowels are unremarkable. No pathologically enlarged abdominal lymphadenopathy. Mild lumbar dextroscoliosis with severe spondylosis. There is marrow edema and enhancement extending along a recent transverse compression fracture plane underlying the superior endplate of L5. No bone lesions suspicious for metastatic disease. IMPRESSION: 1. Diffuse hepatic steatosis with geographic region differing signal intensity on T1 and T2 imaging and without the signal loss on opposed phase imaging as a be seen with hepatic steatosis. This would be atypical pattern for focal fatty sparing however there is significant enhancement persisting well beyond all be expected for focal transient hepatic intensity difference which persists through the 5 and 10 minutes of imaging which would not be atypical feature for focal hepatic steatosis for which differential would include focal nodular hyperplasia or cholangiocarcinoma. Recommend ultrasound-guided biopsy for more definitive determination. 2. Acute to subacute L5 compression fracture. 3. Small right and tiny left pleural effusions. Reviewed, dictated and finalized at location A. IMPRESSION: 1. Diffuse hepatic steatosis with geographic region differing signal intensity on T1 and T2 imaging and without the signal loss on opposed phase imaging as a be seen with hepatic steatosis. This would be atypical pattern for focal fatty sparing however there is significant enhancement persisting well beyond all be expected for focal transient hepatic intensity difference which persists throug h the 5 and 10 minutes of imaging which would not be atypical feature for focal hepatic steatosis for which differential would include focal nodular hyperplas ia or cholangiocarcinoma. Recommend ultrasound-guided biopsy for more definitiv e determination. 2. Acute to subacute L5 compression fracture. 3. Small right and tiny left pleural effusions.
--- OUTSIDE RECORDS SUMMARY | 2025-06-18 12:15 | XMS_ITS | Encounter Summary ---
Author Organization [facility] Address [address] [place] [address] Phone Care Team Providers Care Endocrinology Nurse Name Role Phone ParentRadha Unavailable [phone] Blair Littlejohn MD Primary Care Provider [phone] Reason for Visit * Consultation (Routine) - Closed Specialty Diagnoses / Procedures Referred By Contac t Referred To Contact Neurosurgery Diagnoses Abnormal findings on diagnostic imaging of other specified body structures Blair Littlejohn MD [address] [address] Phone: tel: fax: [facility] (All Locations) Referral ID Status Reason Start Date Expiration Date V isits Requested Visits Authorized [id number] Closed Specialty Services Required 05/28/2025 06/27/2026 1 1 Encounter Details Date Type Department Care Team (Late st Contact Info) Description 06/17/2025 9:30 AM CDT Telemedicine [facility] Neurosurgery [address] [facility] 6th [place] [address] [place] [id number] Liliana Lowry NP [address] [place] [address] Stenosis of right vertebral artery (Primary Dx) Social History Tobacco Use Types Packs/Day Years Used Date Smoking Tobacco: Former AUDIT-C Answer Date Recorded Q1: How often do you have a drink containing alcohol? 4 or more times a week 05/21/2025 Q2: How many drinks containi ng alcohol do you have on a typical day when you are drinking? 10 or more Frequency of Binge Drinking Not on file 05/05 Comments No Sex and Gender Information Value Date Recorded Sex Assigned at Not on file Legal Sex Female 1:00 AM [employer] Gender Identity Female 05/25/2020 12:54 PM CDT Sexual Orientation Not on file documented as of this encounter Progress Notes * Liliana Lowry, MIS - 06/17/2025 9:30 AM CDT Images from the original note were not included. Department of Neurological Surgery Return Patient Visit Patient Name: Fiorella Baker Medical Record Number (MRN): [id number] Date of (): 1955 Encounter Date: 06/17/2025 PRIMARY CARE PROVIDER: Blair Littlejohn MD REFERRING PROVIDER: Blair Littlejohn MD [address] [place] [address] HISTORY OF THE PRESENT ILLNESS Fiorella Baker is a 70 y.o. female with a history of right vertebral artery stenosis, who presents today for follow up. Clinically, the patient and her state that she has been the same in regards to her dizziness and falls. Her also states that her memory has very much declined, and she is quite weak and has a decreased appetite. She is to undergo a CT of her abdomen incomingweeks, and presents today with an MRA for evaluation. Allergies Allergen Reactions Hydrochlorothiazide Other (See comments) Hyponatremia hydrochlorothiazide Nifedipine Edema Meperidine Mental status changes and Other (See comments) Reaction: Confusion, Reaction: Other Methylprednisolone Redness Tramadol Dizziness Current Outpatient Medications on File Prior to Visit Medication Sig Dispense Refill ALPRAZolam (XANAX) 0.25 mg tablet TK 1 T PO D PRN (Patient not taking: Reported on 02/27/2022) 5 ALPRAZolam (XANAX) 0.5 mg tablet Take 1 tablet (0.5 mg total) by mouth nightly as needed for anxiety 2 tablet 0 amoxicillin 500 mg tablet TAKE 1 TABLET BY MOUTH EVERY 6 HOURS UNTIL ALL GONE calcium carbonate-vitamin D3 (CALTRATE 600 + D) 1500 mg (600 mg elemental) -400 units per tablet Take 2 tablets by mouth daily folic acid (FOLVITE) 1 mg tablet Take 1 tablet every day by oral route for 30 days. gabapentin (NEURONTIN) 100 mg capsule Take 1 capsule (100 mg total) by mouth 3 (three) times a day ibuprofen (ADVIL,MOTRIN) 600 mg tablet Take by mouth every 6 (six) hours as needed losartan (COZAAR) 50 mg tablet Take 1 tablet (50 mg total) by mouth daily metoprolol XL (TOPROL-XL) 50 mg extended release tablet TAKE 1 TABLET EVERY DAY BY ORAL ROUTE, FOR BLOOD PRESSURE. omeprazole (PriLOSEC) 20 mg capsule TAKE 1 CAPSULE BY MOUTH TWICE A DAY *NEEDS APPT* PARoxetine (PAXIL) 10 mg tablet Take 1 tablet (10 mg total) by mouth daily potassium chloride ER 10 mEq CR tablet Take 1 tablet/capsule (10 mEq total) by mouth daily potassium chloride ER 10 mEq CR tablet Take 1 tablet/capsule (10 mEq total) by mouth daily predniSONE (DELTASONE) 20 mg tablet pyridoxine (VITAMIN B-6) 100 mg tablet Take 1 tablet (100 mg total) by mouth daily sodium chloride 1 gram tablet Take 1 tablet (1 g total) by mouth 2 (two) times a day sodium chloride 1,000 mg tablet TAKE 1 TABLET (1 GRAM TOTAL) BY MOUTH IN THE MORNING AND IN THE EVENING sucralfate (CARAFATE) 1 gram tablet TAKE 1 TABLET BY MOUTH THREE TIMES A DAY DIRECTED traMADoL (ULTRAM) 50 mg tablet TAKE 1 TABLET 3 TIMES A DAY BY ORAL ROUTE NEEDED, FOR PAIN. traMADoL 100 mg tablet Take 1 tablet every 4-6 hours by oral route. triamcinolone (KENALOG) 0.1 % ointment APPLY THIN LAYER TO THE AFFECTED AREA(S) 2 TIMES DAILY NEEDED FOR LESS THAN 2 WEEKS (Patient not taking: Reported on 02/27/2022) No current facility-administered medications on file prior to visit. 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 with pain Primary hypertension Abscess of right foot Cellulitis of right lower limb Arteriosclerotic vascular disease Brachial neuritis Cellulitis of left foot Cervical spondylosis without myelopathy Contusion Edema of foot Disorder of bursae of shoulder region Disorder of rotator cuff Enthesopathy Fibromyositis Ganglion of joint Gastro-esophageal reflux disease with esophagitis Hematoma of right lower leg Low bone density Hyponatremia Infection of skin and subcutaneous tissue Methicillin resistant Staphylococcus aureus infection Multiple open wounds of lower leg Nonvenomous insect bite of face Onychomycosis of toenail Open wound of finger Pain in left foot Pain in right foot Recurrent dislocation of shoulder region Residual foreign body in soft tissue Shoulder joint pain Spondylosis Syndrome of inappropriate vasopressin secretion Vasospasm Past Medical History: Diagnosis Date 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 (Added by TW Conv) Fracture of cervical vertebra (HCC) Closed fracture of cervical vertebra - nondisplaced stress injury to the base of the odontoid process (Added by TW Conv) Gastric reflux Mass of breast Breast lump in female - (Added by TW Conv) Other nonspecific abnormal finding HPV test positive - (Added by TW Conv) Past Surgical History: Procedure Laterality Date FOOT SURGERY Foot Repair - nerve taken from back of left leg and repaired cut in foot 1992 (Added by TW Conv) HYSTERECTOMY 2015 LOOP ELECTROSURGICAL EXCISION PROCEDURE Cervical Loop Electrosurgical Excision (LEEP) - 03/15/2016 (Added by TW Conv) [place] BX BREAST NEEDLE CORE W/O IMAGING GUIDANCE SPX Biopsy Breast Percutaneous Needle Core - Right (2002) (Added by TW Conv) [place] DILATION & CURETTAGE DX&/THER NONOBSTETRIC Dilation And Curettage - 03/15/2016 (Added by TW Conv) [place] LAPS TOTAL HYSTERECT 250 GM/< W/RMVL TUBE/OVARY Lap Total Hysterect Uterus < 250g With Removal Of Tubes/Ovary - 05/2016 (Added by TW Conv) [place] LIG/TRNSXJ FLP TUBE ABDL/VAG APPR UNI/BI Tubal Ligation - 1980 (Added by TW Conv) [place] LIGJ DIVJ &/EXCJ VARICOSE VEIN CLUSTER 1 LEG Varicose Vein Ligation - with laser/07-08-09 (Added by TW Conv) [place] TONSILLECTOMY PRIMARY/SECONDARY <AGE 12 Tonsillectomy - 1961 (Added by TW Conv) TUBAL LIGATION Family History Problem Relation Age of Onset Breast cancer Neg Hx Ovarian cancer Neg Hx Social History Tobacco Use Smoking status: Former Smokeless tobacco: Not on file Substance and Sexual Activity Drug use: Defer Sexual activity: Defer Alcohol Use: Alcohol Misuse (05/21/2025) AUDIT-C Frequency of Alcohol Consumption: 4 or more times a week Average Number of Drinks: 10 or more Frequency of Binge Drinking: Not on file VITAL SIGNS There were no vitals filed for this visit. PHYSICAL EXAM -Unable to assess due to telemedicine visit via telephone OBJECTIVE: REVIEW OF IMAGING: I have available for my independent review a MRA of head and neck dated 06/14/2025 and brain MRI dated 05/07/2025. I also reviewed the patient's impression of the imaging per the radiology report. 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 Dictated by: Mook Hurst MD The radiology attending physician has personally reviewed this study, and had reviewed and/or edited this written report and agrees with it. Electronically signed by: Duy eLach M.D, PHD ASSESSMENT AND PLAN: Fiorella Baker is a 70 y.o. female being seen today in our neurosurgery clinic for follow up. Clinically, the patient appears to be doing the same as she was when I last evaluated her. In reviewing her most recent MRA of her head and neck, as well as her brain MRI from early May, I do not note any reason for her symptoms. There is some stenosis within the right vertebral artery, however, this is not dominant, and is likely not contributing to her dizziness. She has an appointment with Neurology coming up soon, I have reinforced the importance of this appointment. She is also continuing to follow with her PCP. Patient can return to us on an as-needed basis. I discussed with the patientand her , and they are agreeable to this plan. Strict return precautions were reviewed with the patient. Thank you for allowing me to participate in the care of your patient. If you have any questions, feel free to contact me at [phone]. Liliana Lowry [facility] I have spent at least 29 minutes in reviewing the patient's electronic medical chart, reviewing intake paperwork, interviewing and assessing patient, documentation, interpreting imaging, and making further recommendations in terms of developing an individualized care plan for the patient. This was a telemedicine visit with Fiorella Baker and her which took place via Telephone No Internet/Computer. During the visit, I was located in the office and the patient was located at home in the state of [place]. The patient visit started at 0930 and ended at 0940. My total encounter time on 06/17/2025 was 29 minutes which was spent in the activities documented in the note. This includes time spent prior to the visit and after the visit in direct care of the patient. This time does not include time spent in any separately reportable services. The patient: has been informed that the visit may not be secure and acknowledged the information. The option of participating in a telephone or video visit during the [address] emergencywas explained to them. After being given an opportunity to ask questions about and discuss this type of visit, they verbally consented to proceeding with the telephone/video visit and understand thatthis service replaces an office visit. documented in this encounter Plan of Treatment Not on file documented as of this encounter Visit Diagnoses Diagnosis Stenosis of right vertebral artery- Primary documented in this encounter Orders Outpatient Referral Count Last Ordered Date Fir st Ordered Date AMB REFERRAL TO NEUROSURGERY 1 06/17/2025 documented in this encounter Care Teams Endocrinology Nurse Relationship Specialty Start Date End Date Blair Littlejohn MD [address] [address] PCP - General Emergency Medicine 01/21/24 Radha Hilliard PA Family Practice 04/23/20 documented as of this encounter
--- OUTSIDE RECORDS SUMMARY | 2025-06-18 12:15 | XMS_ITS | Clinical Summary ---
Author Organization [facility] Address [facility] [place] [address] Care Team Providers Care Flight Control Tower Operator Name Role Phone Blair Littlejohn MD Primary Care Provider [phone] Encounters Date Type Department Care Team Description 05/07/2025 2:00 PM CDT - 05/07/2025 11:59 PM CDT Hospital Encounter [facility] [place] [place] [address] Chiquis Walters, ELIECER Discharge Disposition: Home or Self Care (Routine Discharge) 05/07/2025 Travel from Last 3 Months Social History Tobacco Use Types Packs/Day Years Used Date Smoking Tobacco: Never Assessed Comments Unknown Sex and Gender Information Value Date Recorded Sex Assigned at Female 05/07/2025 2:04 PM CDT Legal Sex Female 5:54 PM CDT Gender Identity Not on file Sexual Orientation Not on file Last Filed Vital Signs Vital Sign Reading Time Taken Comments Blood Pressure 118/105 02/21/2013 10:40 AM CDT Pulse 86 02/21/2013 10:40 AM CDT Temperature - - Respiratory Rate - - Oxygen Saturation - - Inhaled Oxygen Concentration - - Weight 72.6 kg (160 lb) 02/21/2013 10:40 AM CDT Height 175.3 cm (5' 9) 02/21/2013 10:40 AM CDT Body Mass Index 23.63 02/21/2013 10:40 AM CDT Plan of Treatment Health Maintenance Due Date Last Done Comments Colorectal Cancer Screening Colonoscopy (10 Years) 1955 Hepatitis C 1973 Mammogram Screening 1995 Zoster Vaccines (2 of 2) 02/15/2023 12/21/2022 DTaP, Tdap and Td Vaccines ( 2 - Td or Tdap) 01/06/2025 01/06/2015, 08/04/2005 COVID-19 Vaccine (2 - 2023-2 5 season) 2025 07/29/2024 RSV Immunization or 60+ Years (1 - 1-dose 75+ series) 2030 Pneumococcal Vaccine: 50+ Years Completed 08/10/2021, 08/09/2020 Dexa Scan (General) Completed 03/19/2024, 03/19/2024 Meningococcal B Vaccine Aged Out No l onger eligible based on patient's age to complete this topic Meningococcal Vaccine Aged Out No myke jessica eligible based on patient's age to complete this topic RSV Immunizations Under 20 Months Aged Out No longer eligible b ased on patient's age to complete this topic Procedures Procedure Name Priority Date/Time Associated Diagnosis Comments MRI BRAIN WO CON Routine 05/07/2025 3:18 PM CDT Other specified forms of tremor from Last 3 Months Results * MRI BRAIN WO CON (05/07/2025 3:18 PM CDT) Anatomical Region Laterality Modality Head Magnetic Resonan ce 05/08/2025 8:52 AM CDT Impressions 05/08/2025 8:58 AM CDT IMPRESSION: 1. No acute intracranial abnormality. 2. Generalized atrophy, slightly greater than expected for age. 3. Mild nonspecific chronic periventricular and deep cerebral white matter microvascular disease in bilateral cerebral hemispheres. 4. Diminutive intracranial right vertebral artery may be due to developmental hypoplasia or proximal right vertebral artery stenosis. Referred By: CHIQUIS WALTERS Interpreted By: Shaneka Christine MD, 05/08/2025 8:52 AM Narrative 05/08/2025 8:58 AM CDT [address] [address] EXAMINATION: MRI BRAIN WO CONTRAST. Multiplanar, multisequence MR imaging of the brain was performed without intravenous contrast. INDICATION: Resting tremor. COMPARISON: None. FINDINGS: No acute ischemia, infarct, or intracranial hemorrhage. No mass effect, midline shift, or acute osseous abnormality. Generalized prominence of ventricles and sulci related to atrophy, which may be slightly greater than expected for age. No abnormal extra-axial fluid collections. Mild nonspecific confluent and nodular foci of FLAIR and T2 hyperintensity in the periventricular and deep cerebral white matter in bilateral cerebral hemispheres without edema or mass effect, likely nonspecific chronic white matter microvascular disease. Diminutive intracranial right vertebral artery may be due to developmental hypoplasia or proximal right vertebral artery stenosis. 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 Appropriate flow-voids are seen in the remaining major vessels of the [place]. No significant paranasal sinus or mastoid air cell disease. Postoperative changes of bilateral lens replacement surgery in the orbits. Procedure Note Shaneka Christine MD - 05/08/2025 [place] [address] EXAMINATION: MRI BRAIN WO CONTRAST. Multiplanar, multisequence MR imagingof the brain was performed without intravenous contrast. INDICATION: Resting tremor. COMPARISON: None. FINDINGS: No acute ischemia, infarct, or intracranial hemorrhage. No masseffect, midline shift, or acute osseous abnormality. Generalizedprominence of ventricles and sulci related to atrophy, which may beslightly greater than expected for age. No abnormal extra-axial fluidcollections. Mild nonspecific confluent and nodular foci of FLAIR and [id number] in the periventricular and deep cerebral white matter inbilateral cerebral hemispheres without edema or mass effect, likelynonspecific chronic white matter microvascular disease. Diminutiveintracranial right vertebral artery may be due to developmental hypoplasiaor proximal right vertebral artery stenosis. Mild developmentalhypoplasia of A1 segment of the right anterior cerebral artery.Appropriate flow-voids are seen in the remaining major vessels of the[place] of [place]. No significant paranasal sinus or mastoid air celldisease. Postoperative changes of bilateral lens replacement surgery inthe orbits. IMPRESSION: 1. No acute intracranial abnormality. 2. Generalized atrophy, slightly greater than expected for age. 3. Mild nonspecific chronic periventricular and deep cerebral whitematter microvascular disease in bilateral cerebral hemispheres. 4. Diminutive intracranial right vertebral artery may be due todevelopmental hypoplasia or proximal right vertebral artery stenosis. Referred By: CHIQUIS WALTERS Interpreted By: Shaneka Christine MD, 05/08/2025 8:52 AM us Chiquis Walters [employer] MRI Final Resul t from Last 3 Months Insurance [employer] Care Teams Flight Control Tower Operator Relationship Specialty Start Date End Date Blair Littlejohn MD [address] [id number] PCP - General FAMILY PRACTICE 05/07/25
--- OUTSIDE RECORDS SUMMARY | 2025-06-18 12:15 | XMS_ITS | Clinical Summary ---
Author Organization [facility] [address] Address [address] [address] [facility] [place] [address] Care Team Providers Care Treating Engineer Helper Name Role Phone Parent, Radha BARCENAS Unavailable [phone] Blair Littlejohn MD Primary Care Provider [phone] Allergies Active Allergy Reactions Criticality Noted Date Comments Hydrochlorothiazide Other (See comments) High 2023 Hyponatremia hydrochlorothiazide Meperidine Mental status changes,Other (See comments) Low Reaction: Confusion, Reaction: Other Methylprednisolone Redness Low 03/20/2019 Nifedipine Edema Medium 07/14/2024 Tramadol Dizziness Low 03/20/2019 Medications ALPRAZolam (XANAX) 0.25 mg tablet TK 1 T PO D PRN 5 9 Active omeprazole (PriLOSEC) 20 mg capsule TAKE 1 CAPSULE BY MOUTH TWICE A DAY *NEEDS APPT* Active ALPRAZolam (XANAX) 0.5 mg tablet Take 1 tablet (0.5 mg total) by mouth nightly as needed for anxiety 2 tablet 2 Active amoxicillin 500 mg tablet TAKE 1 TABLET BY MOUTH EVERY 6 HOURS UNTIL ALL GONE 2 Active ibuprofen (ADVIL,MOTRIN) 600 mg tablet Take by mouth every 6 (six) hours as needed 2 Active triamcinolone (KENALOG) 0.1 % ointment APPLY THIN LAYER TO THE AFFECTED AREA(S) 2 TIMES DAILY NEEDED FOR LESS THAN 2 WEEKS 2 Active calcium carbonate-nando min D3 (CALTRATE 600 + D) 1500 mg (600 mg elemental) -400 units per tablet Take 2 tablets by mouth daily Active folic acid (FOLVITE) 1 mg tablet Take 1 tablet every day by oral route for 30 days. 5 Active gabapentin (NEURONTIN) 100 mg capsule Take 1 capsule (100 mg total) by mouth 3 (three) times a day Active losartan (COZAAR) 50 mg tablet Take 1 tablet (50 mg total) by mouth daily Active metoprolol XL (TOPROL-XL) 50 mg extended release tablet TAKE 1 TABLET EVERY DAY BY ORAL ROUTE, FOR BLOOD PRESSURE. Active PARoxetine (PAXIL) 10 mg tablet Take 1 tablet (10 mg total) by mouth daily Active potassium chloride ER 10 mEq CR tablet Take 1 tablet/capsule (10 mEq total) by mouth daily 5 Active potassium chloride ER 10 mEq CR tablet Take 1 tablet/capsule (10 mEq total) by mouth daily Active predniSONE (DELTASONE) 20 mg tablet Active pyridoxine (VITAMIN B-6) 100 mg tablet Take 1 tablet (100 mg total) by mouth daily Active sodium chloride 1,000 mg tablet TAKE 1 TABLET (1 GRAM TOTAL) BY MOUTH IN THE MORNING AND IN THE EVENING Active sodium chloride 1 gram tablet Take 1 tablet (1 g total) by mouth 2 (two) times a day 4 Active sucralfate (CARAFATE) 1 gram tablet TAKE 1 TABLET BY MOUTH THREE TIMES A DAY DIRECTED Active traMADoL 100 mg tablet Take 1 tablet every 4-6 hours by oral route. 5 Active traMADoL (ULTRAM) 50 mg tablet TAKE 1 TABLET 3 TIMES A DAY BY ORAL ROUTE NEEDED, FOR PAIN. Active hydroCHLOROthi azide (HYDRODIURIL) 12.5 mg tablet Take 1 tablet by mouth daily 05/21/20 25 Discontin ued(Other ) albuterol HFA (PROVENTIL HFA,VENTOLIN HFA,PROAIR HFA) 90 mcg/actuation inhaler Inhale 2 puffs 4 times a day by inhalation route as needed. 05/21/20 25 Discontin ued(Other ) amoxicillin-cl avulanate (AUGMENTIN) 500-125 mg per tablet Take 1 tablet by mouth every 12 (twelve) hours 05/21/20 25 Discontin ued(Other ) azithromycin (ZITHROMAX) 500 mg tablet 05/21/20 25 Discontin ued(Other ) baclofen (LIORESAL) 10 mg tablet 05/21/20 25 Discontin ued(Other ) cefadroxil (DURICEF) 500 mg capsule 05/21/20 25 Discontin ued(Other ) cephalexin (KEFLEX) 500 mg capsule TAKE 1 CAPSULE BY MOUTH EVERY 8 HOURS FOR 7 DAYS 05/21/20 25 Discontin ued(Other ) clindamycin (CLEOCIN) 150 mg capsule 05/21/20 Discontin ued(Other ) diazePAM (VALIUM) 10 mg tablet TK 1 T PO 30 MINUTES PRIOR TO PROCEDURE 05/21/20 Discontin ued(Other ) fluconazole (DIFLUCAN) 150 mg tablet Take 1 tablet (150 mg total) by mouth once a week 05/21/20 Discontin ued(Other ) fluticasone propionate (FLONASE) 50 mcg/actuation nasal spray 05/21/20 Discontin ued(Other ) gabapentin (NEURONTIN) 300 mg capsule TAKE 1 CAPSULE BY MOUTH EVERY DAY NEEDED AT BEDTIME FOR FOOT PAIN 05/21/20 Discontin ued(Other ) gentamicin (GARAMYCIN) 0.1 % cream APPLY 1 APPLICATION ONTO THE AFFECTED AREA(S) ON THE SKIN 3 TIMES DAILY 05/21/20 Discontin ued(Other ) gentamicin (GARAMYCIN) 0.1 % ointment APPLY A SMALL AMOUNT TO THE AFFECTED AREA BY TOPICAL ROUTE 3 TIMES PER DAY 5 05/21/20 25 Discontin ued(Other ) HYDROcodone-ac etaminophen (NORCO) 5-325 mg per tablet 3 05/21/20 25 Discontin ued(Other ) HYDROcodone-ac etaminophen (NORCO) 7.5-325 mg per tablet Take 1 tablet every 6 hours by oral route as needed. 5 05/21/20 25 Discontin ued(Other ) ketorolac (TORADOL) 10 mg tablet 05/21/20 25 Discontin ued(Other ) losartan (COZAAR) 100 mg tablet Take 1 tablet (100 mg total) by mouth daily 05/21/20 25 Discontin ued(Other ) NIFEdipine (NIFEdipine XL) 30 mg 24 hr tablet Take 1 tablet (30 mg total) by mouth every morning 05/21/20 25 Discontin ued(Other ) predniSONE (DELTASONE) 10 mg tablet TK 6 TS PO WITH FOOD D FOR 3 DAYS THEN 4 TS FOR 3 DAYS THEN 2 TS FOR 3 DAYS THEN 1 T D FOR 3 DAYS 05/21/20 25 Discontin ued(Other ) polyethylene glycol (polyethylene glycol-electro lytes) 236-22.74-6.74 -5.86 gram solution 05/21/20 25 Discontin ued(Other ) Active Problems Problem Noted Date Diagnosed Date Cellulitis of right lower limb 05/20/2025 Brachial neuritis 05/20/2025 Methicillin resistant Staphylococcus aureus infe ction 05/20/2025 Recurrent dislocation of shoulder region 025 Multiple open wounds of lower leg 01/15/2025 Cellulitis of left foot 11/23/2024 Pain in left foot 11/23/2024 Infection of skin and subcutaneous tissue 2024 Abscess of right foot 11/02/2024 Arteriosclerotic vascular disease 10/21/2024 Vasospasm 10/21/2024 Pain in right foot 08/26/2024 Onychomycosis of toenail 08/25/2024 Edema of foot 08/21/2024 Hematoma of right lower leg 08/21/2024 Hyponatremia 07/14/2024 Low bone density 03/27/2024 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 She is doing well and her phlebectomy sites well healed. She can follow-up as needed. Assessment & Plan (11/14/2021 12:24 PM OFFICE TECHNOLOGY INSTRUCTOR): Patient has varicose veins of the right lower extremity with dilation or reflux of the great saphenous vein. Plan will be for right great saphenous vein endovenous laser ablation and phlebectomies. I discussed this with the patient and she understands and is willing to proceed. She will continue to wear her compression stockings. Risks, benefits and alternatives of the procedure were explained to the patient which include but are not limited to: Bleeding, infection, damage to the vein or nerve, risk of DVT or PE and therefore possible need for further intervention or blood thinners. Patient understands and is willing to proceed. Assessment & Plan (10/26/2021 12:00 PM OFFICE TECHNOLOGY INSTRUCTOR): Patient had previously varicose veins of the right lower extremity and phlebectomies done at an outside facility. She is now noticing more veins of her right lower extremity that are bothering her. I will have her get a standing venous reflux study and will determine what needs to be done. I told her if the great saphenous vein is dilated refluxing she would be a good candidate for laser ablation along with phlebectomies and if not then just phlebectomies. She understands and will follow up in 2 weeks with a venous reflux study. Primary hypertension 10/26/2021 Assessment & Plan (02/27/2022 9:27 AM CDT): Followed by her PCP. Chronic and stable. I recommend she continue her hydrochlorothiazide for blood pressure control. Assessment & Plan (11/14/2021 12:22 PM OFFICE TECHNOLOGY INSTRUCTOR): Followed by her PCP and chronic and stable. I recommend she continue her hydrochlorothiazide as per her PCP. Assessment & Plan (10/26/2021 12:00 PM OFFICE TECHNOLOGY INSTRUCTOR): Patient has hypertension that is chronic and stable. She will continue her hydrochlorothiazide as per her PCP. Chronic contact dermatitis 12/08/2020 Corneal ulcer 04/26/2020 Assessment & Plan (05/25/2020 1:23 PM CDT): Patient with history of CTL misuse, slept in contacts and over next several days developed corneal ulcer left eye (OS). Doing well today. Discontinue PF and moxifloxacin. Okay to follow up locally at regular eyecare provider Dr. Abida Peoples in [place], [place]. Consider scleral CL fitting given likely irregular astigmatism. Call if any worsening of vision or new concerns. 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 Doing well today without epi defect. Will start PF qid OS and continue moxifloxacin qid OS. Can d/c erythromycin emery or use qhs prn. Return in 2 weeks for IOP, K check. 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 - Continue Moxi QID - Add E-mycin emery bid Plan for course of PF once epithelium is smoothed out/fully healed. 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 --Started initially on Besivance q1h by outside optom. Seen by Dr. 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 --Started initially on Besivance q1h by outside optom. Seen by Dr. Kamara 04/23 where cultures were obtained and patient started on fortified cefazolin and tobramycin q1 hours, q2 hrs overnight --Cultures NGTD --Decrease Cef/Tobra to 8x per day for two days, then decrease to 6x/day until f/u. If runs out of drops (gtts) start Moxifloxacin drops (gtts). --F/U for K check. Neck pain 02/11/2019 Chondromalacia, left knee 01/16/2019 Complex tear of medial menis cus of left knee as current injury 01/16/2019 Synovial cyst of left popliteal space 01/16/2019 Chronic anxiety 08/27/2018 Generalized anxiety disorder 10/02/2016 Primary malignant neoplasm of cervix 07/07/2016 Nonvenomous insect bite of face 04/07/2016 Overview (05/20/2025): Location: None;Severity: Moderate;Progress: Stable;Added By: Heather Kunz;Add to Current Problems: YES Open wound of finger 03/10/2016 Overview (05/20/2025): Location: None;Severity: Moderate;Progress: Stable;Added By: Radha Hilliard;Add to Current Problems: YES Residual foreign body in soft tissue 03/10/2016 Overview (05/20/2025): Location: None;Severity: Moderate;Progress: Stable;Added By: Radha Hilliard;Add to Current Problems: YES Arthritis 02/22/2016 Anxiety 02/22/2016 Assessment & Plan (11/14/2021 12:25 PM OFFICE TECHNOLOGY INSTRUCTOR): Followed by her PCP and chronic and stable. She takes Xanax as needed which controlled her anxiety. Assessment & Plan (10/26/2021 12:00 PM OFFICE TECHNOLOGY INSTRUCTOR): Followed by her PCP. Chronic and stable and she will continue taking her Xanax and Valium as needed. Gastroesophageal reflux disease 02/17/2016 Disorder of rotator cuff 08/02/2015 Overview (05/20/2025): Location: None;Severity: Moderate;Progress: Stable;Added By: Avinash Myers;Add to Current Problems: YES Shoulder joint pain 08/02/2015 Overview (05/20/2025): Location: None;Severity: Moderate;Progress: Stable;Added By: Estrellita Kamara;Add to Current Problems: YES Generalized osteoarthritis 06/25/2015 Disorder of bursae of shoulder region 09/20/2014 Overview (05/20/2025): Location: None;Severity: Moderate;Progress: Stable;Added By: Avinash Myers;Add to Current Problems: YES Enthesopathy 12/21/2013 Overview (05/20/2025): Location: None;Severity: Moderate;Progress: Stable;Added By: Avinash Myers;Add to Current Problems: NO Fibromyositis 11/16/2013 Overview (05/20/2025): Location: None;Severity: Moderate;Progress: Stable;Added By: Yessica Shaw;Add to Current Problems: NO Contusion 06/10/2013 Overview (05/20/2025): Location: None;Severity: Moderate;Progress: Stable;Added By: Elvi Guadarrama;Add to Current Problems: NO Ganglion of joint 11/26/2012 Overview (05/20/2025): Location: None;Severity: Moderate;Progress: Stable;Added By: Avinash Myers;Add to Current Problems: NO Cervical spondylosis without myelopathy 07/24/20 Overview (05/20/2025): Location: None;Severity: Moderate;Progress: Stable;Added By: Avinash Myers;Add to Current Problems: YES Spondylosis 05/21/2012 Overview (05/20/2025): Location: None;Severity: Moderate;Progress: Stable;Added By: Kiesha Mayen;Add to Current Problems: YES Encounters Date Type Department Care Team Description 06/17/2025 9:30 AM CDT Telemedicine [facility] Neuro[facility] [address] [place] [address] Advanced Medicine 6th [place] [address] [place] [address] Liliana Lowry NP Stenosis of right vertebral artery (Primary Dx) 06/14/2025 2:12 PM CDT - 06/14/2025 11:59 PM CDT Hospital Encounter [facility] ([facility]) [address] [place] [id number] Stenosis of right vertebral artery Discharge Disposition: Discharge to home or self care 05/21/2025 8:44 PM CDT - 05/21/2025 11:59 PM CDT Hospital Encounter [facility] ([facility]) [address] [place] [address] Discharge Disposition: Discharge to home or self care 05/21/2025 12:30 PM CDT Office Visit [facility] [address] [facility] Medicine 6th [place] [address] [place] [id number] Liliana Lowry NP Stenosis of right vertebral artery (Primary Dx); Abnormal findings on diagnostic imaging of other specified body structures 05/21/2025 Telephone [facility] [address]th [place] [address] [place] [address] Liliana Lowry NP 05/15/2025 Telephone [facility] Scheduling [address] [place], [place] [id number] Elsa Mcpherson from Last 3 Months Immunizations Immunization Administration Dates Next Due Influenza Virus Vaccine Trivalent Mdv 07/29/2024 Influenza, Quadrivalent, Split, Intramuscular Influenza, Trivalent, IM (MDV) 08/17/2014,2009 Influenza, Unspecified 08/05/2022 Pneumococcal Conjugate PCV 13 08/09/2020 Pneumococcal Polysaccharide PPV23 08/10/2021 Td, adsorbed 08/04/2005 Tdap 01/06/2015 ZOSTER Recombinant 12/21/2022 Surgical History Surgery Date Site/Laterality Comments SD LIG/TRNSXJ FLP TUBE ABDL/VAG APPR UNI/BI Tubal Ligation - 1980 (Added by TW Conv) SD LIGJ DIVJ &/EXCJ VARICOSE VEIN CLUSTER 1 LEG Varicose Vein Ligation - with laser/07-08-09 (Added by TW Conv) SD TONSILLECTOMY PRIMARY/SECONDARY <AGE 12 Tonsillectomy - 1961 (Added by TW Conv) FOOT SURGERY Foot Repair - nerve taken from back of left leg and repaired cut in foot 1992 (Added by TW Conv) SD BX BREAST NEEDLE CORE W/O IMAGING GUIDANCE SPX Biopsy Breast Percutaneous Needle Core - Right (2002) (Added by TW Conv) SD DILATION & CURETTAGE DX&/THER NONOBSTETRIC Dilation And Curettage - 03/15/2016 (Added by TW Conv) LOOP ELECTROSURGICAL EXCISION PROCEDURE Cervical Loop Electrosurgical Excision (LEEP) - 03/15/2016 (Added by TW Conv) SD LAPS TOTAL HYSTERECT 250 GM/< W/RMVL TUBE/OVARY Lap Total Hysterect Uterus < 250g With Removal Of Tubes/Ovary - 05/2016 (Added by TW Conv) TUBAL LIGATION HYSTERECTOMY 11/05/2014 - 11/04/2015 Medical History Medical History Date Comments Mass of breast Breast lump in f emale - (Added by TW Conv) Fracture of cervical vertebra (HCC) Closed fracture of cervical vertebra - nondisplaced stress injury to the base of the odontoid process (Added by TW Conv) 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 (Added by TW Conv) Other nonspecific abnormal finding HPV test positive - (Added by TW Conv) Gastric reflux Family History Medical History Relation Name Comments Breast cancer Neg Hx Ovarian cancer Neg Hx Social History Tobacco Use Types Packs/Day Years [...] on file Legal Sex Female 1:00 AM OFFICE TECHNOLOGY INSTRUCTOR Gender Identity Female 05/25/2020 12:54 PM CDT Sexual Orientation Not on file Obstetrics History Para Term AB IAB SAB Ectopic Multiple Livin g Live Births 3 2 1 1 Date Outcome GA Total Labor Labor/2nd/3rd Weight Sex Type Anes PTL Giovana A1 A5 Name Clin Para Para SAB Comments Last Filed Vital Signs Vital Sign Reading Time Taken Comments Blood Pressure 109/78 05/21/2025 12:46 PM CDT Pulse 64 05/21/2025 12:46 PM CDT Temperature - - Respiratory Rate - - Oxygen Saturation 97% 05/17/2016 7:24 AM CDT Inhaled Oxygen Concentration - - Weight 47.6 kg (105 lb) 06/14/2025 2:15 PM CDT Height 172.7 cm (5' 8) 06/14/2025 2:15 PM CDT Body Mass Index 15.97 06/14/2025 2:15 PM CDT Plan of Treatment Health Maintenance Due Date Last Done Comments Breast Cancer Screening-Mammogram 1955 Colon Cancer Screening-Colonoscopy 1955 Depression Screening 1955 Fall Risk Assessment 1955 Hepatitis C Screening 1955 Hepatitis B Screening 1973 Well Visit 65+ 2020 Zoster Vaccine (2 of 2) 02/15/2023 12/21/2022 DTaP/Tdap/Td Vaccine (2 - Td or Tdap) 01/06/2025 01/06/2015, 08/04/2005 Influenza Vaccine (#1) 2025 , 08/05/2022, 08/09/2020, Additional history exists Osteoporosis Screening-Bone Density Scan 03/19/2026 03/19/2024 Pneumococcal vaccine 65+ Completed 08/10/2021, 03/2020 Procedures Procedure Name Priority Date/Time Associated Diagnosis Comments MRA NECK W WO CONTRAST Schedule Routine, Read Routine (OP Routine) 06/14/2025 3:20 PM CDT Stenosis of right vertebral artery MRA HEAD W WO CONTRAST Schedule Routine, Read Routine (OP Routine) 06/14/2025 3:20 PM CDT Stenosis of right vertebral artery NEURO MR OUTSIDE REFERENCE Routine 05/21/2025 8:45 PM CDT DEXA AXIAL SKELETON BONE DENSITY 1 OR MORE SITES Schedule Routine, Read Routine (OP Routine) 03/19/2024 11:06 AM CDT Encounter for screening for osteoporosis from Last 3 Months or Most Recently Relevant to Health Maintenance Results * MRA Neck W WO Contrast (06/14/2025 3:20 PM CDT) Anatomical Region Laterality Modality Head and Neck N/A Magnetic Resonan ce 06/15/2025 10:5 4 AM CDT Impressions 06/15/2025 11:02 AM CDT Stenosis within the nondominant right vertebral artery mid V4 segment with preserved signal within the basilar artery and bilateral posterior cerebral arteries. Dictated by: Mook Hurst MD The radiology attending physician has personally reviewed this study, and had reviewed and/or edited this written report and agrees with it. Electronically signed by: Duy Leach M.D, PHD Narrative 06/15/2025 11:02 AM CDT EXAMINATION: 1. Magnetic resonance angiography (MRA) of the qdfopm-xl-Oibrya without and with contrast 2. Magnetic resonance angiography (MRA) of the neck without and with contrast HISTORY: Dizziness and falls. Hypoplastic versus stenosis of the right vertebral artery. TECHNIQUE: Magnetic resonance angiography of the bgvmnq-qx-Enofns was performed using a separate data acquisition with a non-contrast bbnr-uq-uyomrg technique and a post-contrast technique to produce axial thin-slice source images. These images were then used to generate maximum intensity projection (MIP) images. Magnetic resonance angiography of the neck was performed using a separate data acquisition with a non-contrast vubc-cg-yuuocq technique and a post-contrast technique to produce thin-slice source images. These images were then used to generate maximum intensity projection (MIP) images. Contrast information: 8 mL Gadoterate Meglumine IV COMPARISON: No prior MRA available for comparison. Comparison is made to MRI 05/07/2025. FINDINGS: NECK: The aortic arch and origins of the great vessels are normal. A typical three-vessel arch is present. The common carotid and cervical internal carotid arteries of the neck are of normal caliber. The carotid bifurcations are of normal caliber without vascular narrowing. Cervical vertebral arteries are of normal caliber. The vertebral arteries are codominant. Although MRA is a screening examination, catheter angiography remains the definitive study for small aneurysms, vasculitis, and other vascular abnormalities. There is no soft tissue abnormality in the neck on limited imaging of the neck included in this MR angiogram. HEAD: There is diminished kqoo-wq-gtmbit signal within the right distal V3 and proximal to mid right V4 segment. This corresponds to an area of diminished signal on the postcontrast time resolved MRA sequences within the mid right V4 segment. The left vertebral artery is dominant. There is no distal oligemia within the posterior circulation. The internal carotid arteries in the head are of normal caliber. The hucekp-rp-Xsentq is complete. The anterior and middle cerebral arteries are normal. The basilar artery is normal. The posterior cerebral arteries are normal. There is no aneurysm or vascular malformation identified. Although MRA is a screening examination, catheter angiography remains the definitive study for small aneurysms, vasculitis, and other vascular abnormalities. Procedure Note Duy Leach MD PhD - 06/15/2025 EXAMINATION: 1. Magnetic resonance angiography (MRA) of the dncloi-ff-Pgjokb without and with contrast 2. Magnetic resonance angiography (MRA) of the neck without and with contrast HISTORY: Dizziness and falls. Hypoplastic versus stenosis of the right vertebral artery. TECHNIQUE: Magnetic resonance angiography of the ibkkap-yl-Bazlyw was performed using a separate data acquisition with a non-contrast ihuu-oj-yiyyht technique and a post-contrast technique to produce axial thin-slice source images. These images were then used to generate maximum intensity projection (MIP) images. Magnetic resonance angiography of the neck was performed using a separate data acquisition with a non-contrast rird-me-vxcres technique and a post-contrast technique to produce thin-slice source images. These images were then used to generate maximum intensity projection (MIP) images. Contrast information: 8 mL Gadoterate Meglumine IV COMPARISON: No prior MRA available for comparison. Comparison is made to MRI 05/07/2025. FINDINGS: NECK: The aortic arch and origins of the great vessels are normal. A typical three-vessel arch is present. The common carotid and cervical internal carotid arteries of the neck are of normal caliber. The carotid bifurcations are of normal caliber without vascular narrowing. Cervical vertebral arteries are of normal caliber. The vertebral arteries are codominant. Although MRA is a screening examination, catheter angiography remains the definitive study for small aneurysms, vasculitis, and other vascular abnormalities. There is no soft tissue abnormality in the neck on limited imaging of the neck included in this MR angiogram. HEAD: There is diminished ghcm-zr-oxwnwu signal within the right distal V3 and proximal to mid right V4 segment. This corresponds to an area of diminished signal on the postcontrast time resolved MRA sequences within the mid right V4 segment. The left vertebral artery is dominant. There is no distal oligemia within the posterior circulation. The internal carotid arteries in the head are of normal caliber. The wtgigu-pv-Exbpsd is complete. The anterior and middle cerebral arteries are normal. The basilar artery is normal. The posterior cerebral arteries are normal. There is no aneurysm or vascular malformation identified. Although MRA is a screening examination, catheter angiography remains the definitive study for small aneurysms, vasculitis, and other vascular abnormalities. 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 Dictated by: Mook Hurst MD The radiology attending physician has personally reviewed this study, and had reviewed and/or edited this written report and agrees with it. Electronically signed by: Duy Leach M.D, PHD Liliana Lowry NP IM MRI PROCEDURES Final R esult * MRA Head W WO Contrast (06/14/2025 3:20 PM CDT) Anatomical Region Laterality Modality Head and Neck N/A Magnetic Resonan ce 06/15/2025 10:5 4 AM CDT Impressions 06/15/2025 11:02 AM CDT Stenosis within the nondominant right vertebral artery mid V4 segment with preserved signal within the basilar artery and bilateral posterior cerebral arteries. Dictated by: Mook Hurst MD The radiology attending physician has personally reviewed this study, and had reviewed and/or edited this written report and agrees with it. Electronically signed by: Duy Leach M.D, PHD Narrative 06/15/2025 11:02 AM CDT EXAMINATION: 1. Magnetic resonance angiography (MRA) of the kllsln-jo-Etklyn without and with contrast 2. Magnetic resonance angiography (MRA) of the neck without and with contrast HISTORY: Dizziness and falls. Hypoplastic versus stenosis of the right vertebral artery. TECHNIQUE: Magnetic resonance angiography of the hvpicb-qp-Clpivj was performed using a separate data acquisition with a non-contrast mhpx-xc-jsduua technique and a post-contrast technique to produce axial thin-slice source images. These images were then used to generate maximum intensity projection (MIP) images. Magnetic resonance angiography of the neck was performed using a separate data acquisition with a non-contrast ckim-yt-erymdl technique and a post-contrast technique to produce thin-slice source images. These images were then used to generate maximum intensity projection (MIP) images. Contrast information: 8 mL Gadoterate Meglumine IV COMPARISON: No prior MRA available for comparison. Comparison is made to MRI 05/07/2025. FINDINGS: NECK: The aortic arch and origins of the great vessels are normal. A typical three-vessel arch is present. The common carotid and cervical internal carotid arteries of the neck are of normal caliber. The carotid bifurcations are of normal caliber without vascular narrowing. Cervical vertebral arteries are of normal caliber. The vertebral arteries are codominant. Although MRA is a screening examination, catheter angiography remains the definitive study for small aneurysms, vasculitis, and other vascular abnormalities. There is no soft tissue abnormality in the neck on limited imaging of the neck included in this MR angiogram. HEAD: There is diminished rppb-uu-zloork signal within the right distal V3 and proximal to mid right V4 segment. This corresponds to an area of diminished signal on the postcontrast time resolved MRA sequences within the mid right V4 segment. The left vertebral artery is dominant. There is no distal oligemia within the posterior circulation. The internal carotid arteries in the head are of normal caliber. The qraljh-ng-Buknez is complete. The anterior and middle cerebral arteries are normal. The basilar artery is normal. The posterior cerebral arteries are normal. There is no aneurysm or vascular malformation identified. Although MRA is a screening examination, catheter angiography remains the definitive study for small aneurysms, vasculitis, and other vascular abnormalities. Procedure Note Duy Leach MD PhD - 06/15/2025 EXAMINATION: 1. Magnetic resonance angiography (MRA) of the thijaq-zk-Edwakv without and with contrast 2. Magnetic resonance angiography (MRA) of the neck without and with contrast HISTORY: Dizziness and falls. Hypoplastic versus stenosis of the right vertebral artery. TECHNIQUE: Magnetic resonance angiography of the ovpxfb-bz-Shfrou was performed using a separate data acquisition with a non-contrast yafk-uz-wpcves technique and a post-contrast technique to produce axial thin-slice source images. These images were then used to generate maximum intensity projection (MIP) images. Magnetic resonance angiography of the neck was performed using a separate data acquisition with a non-contrast qppf-xo-athouo technique and a post-contrast technique to produce thin-slice source images. These images were then used to generate maximum intensity projection (MIP) images. Contrast information: 8 mL Gadoterate Meglumine IV COMPARISON: No prior MRA available for comparison. Comparison is made to MRI 05/07/2025. FINDINGS: NECK: The aortic arch and origins of the great vessels are normal. A typical three-vessel arch is present. The common carotid and cervical internal carotid arteries of the neck are of normal caliber. The carotid bifurcations are of normal caliber without vascular narrowing. Cervical vertebral arteries are of normal caliber. The vertebral arteries are codominant. Although MRA is a screening examination, catheter angiography remains the definitive study for small aneurysms, vasculitis, and other vascular abnormalities. There is no soft tissue abnormality in the neck on limited imaging of the neck included in this MR angiogram. HEAD: There is diminished wtot-rh-wenngl signal within the right distal V3 and proximal to mid right V4 segment. This corresponds to an area of diminished signal on the postcontrast time resolved MRA sequences within the mid right V4 segment. The left vertebral artery is dominant. There is no distal oligemia within the posterior circulation. The internal carotid arteries in the head are of normal caliber. The opzxah-gp-Wksmme is complete. The anterior and middle cerebral arteries are normal. The basilar artery is normal. The posterior cerebral arteries are normal. There is no aneurysm or vascular malformation identified. Although MRA is a screening examination, catheter angiography remains the definitive study for small aneurysms, vasculitis, and other vascular abnormalities. 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 Dictated by: Mook Hurst MD The radiology attending physician has personally reviewed this study, and had reviewed and/or edited this written report and agrees with it. Electronically signed by: Duy Leach M.D, PHD Liliana Lowry NP IMG MRI PROCEDURES Final R esult * Neuro MR Outside Reference (05/21/2025 8:45 PM CDT) Impressions [facility] - 05/21/2025 8:45 PM CDT These images are for Reference purposes only and have not been reviewed by [facility]. There will be no report generated by a [facility] Radiologist. Narrative [facility] - 05/21/2025 8:45 PM CDT EXAMINATION: Images For Reference Purposes Only us Liliana Lowry NP IMG MRI PROCEDURES Final R esult RAD_PACS_[facility] * Dexa Axial Skeleton Bone Density 1 or 2 Site (03/19/2024 11:06 AM CDT) Anatomical Region Laterality Modality Body N/A Mammography 03/19/2024 7:38 PM CDT Narrative 03/19/2024 7:39 PM CDT EXAM DESCRIPTION: DEXA AXIAL SKELETON BONE DENSITY 1 OR MORE SITES REASON FOR STUDY: 68 y/o year old F with given history of: Z13.820 Postmenopausal Warrant Clerk/Model: DermApproved A (S/N [id number]) CLINICAL INFORMATION: Current height: 67.4 inches Maximum height: 69 inches Weight: 129 pounds Risk factors: Postmenopausal COMPARISON: None available FINDINGS: AP LUMBAR SPINE L1-L4: Total BMD is 1.111 g/cm2 T-score is 0.6 LEFT HIP: Total BMD is 0.762 g/cm2 T-score is -1.5 Femoral neck BMD is 0.745 g/cm2 T-score is -0.9 FRAX: 10 year risk for a major osteoporotic fracture is 7.3 %, 10 year risk for a hip fracture is 0.7 % IMPRESSION: Low Bone Mass. REFERENCE: Bone mineral density: T-Score: Normal (T-score above or = -1.0) Low bone mass (T-score between -1.0 and -2.5) replaces the previously used term osteopenia Osteoporosis (T-score = or below -2.5) Z-Score: Within the expected range for age (Z-score above -2.0) Below the expected range for age (Z-score is -2.0 or below) Please see below follow up recommendations. Medical evaluation for secondary causes of low bone mineral density may be appropriate. FRAX is a World Health Organization validated fracture risk assessment tool that calculates a person's 10 year probability of a major osteoporosis related fracture and hip fracture. According to the National Osteoporosis Foundation guidelines, postmenopausal women and men age 50 or older with low bone mass and a 10 year probability of a major osteoporosis related fracture = or greater than 20% or a 10 year probability of a hip fracture = or greater than 3% should be considered for pharmacological treatment for the prevention of osteoporosis. For further information, including treatment recommendations, please refer to the 2019 ISCD Official Positions (http://www.iscd.org) and the NOF's Clinician's Guide to Prevention and Treatment of Osteoporosis (http://www.nof.org/professionals/clinical-guidelines) THIS IS AN ELECTRONICALLY VERIFIED FINAL REPORT 03/19/2024 7:39 PM - Electronically signed by Atif Gonzalez M.D. MF: TERRI Report ID: [id number] Reading Location: [id number] [facility] Note Atif Gonzalez MD - 03/19/2024 EXAM DESCRIPTION: DEXA AXIAL SKELETON BONE DENSITY 1 OR MORE SITES REASON FOR STUDY: 68 y/o year old F with given history of: Z13.820 Postmenopausal Warrant Clerk/Model: DermApproved A (S/N [id number]) CLINICAL INFORMATION: Current height: 67.4 inches Maximum height: 69 inches Weight: 129 pounds Risk factors: Postmenopausal COMPARISON: None available FINDINGS: AP LUMBAR SPINE L1-L4: Total BMD is 1.111 g/cm2 T-score is 0.6 LEFT HIP: Total BMD is 0.762 g/cm2 T-score is -1.5 Femoral neck BMD is 0.745 g/cm2 T-score is -0.9 FRAX: 10 year risk for a major osteoporotic fracture is 7.3 %, 10 year risk fora hip fracture is 0.7 % IMPRESSION: Low Bone Mass. REFERENCE: Bone mineral density: T-Score: Normal (T-score above or = -1.0) Low bone mass (T-score between -1.0 and -2.5) replaces thepreviously used term osteopenia Osteoporosis (T-score = or below -2.5) Z-Score: Within the expected range for age (Z-score above -2.0) Below the expected range for age (Z-score is -2.0 or below) Please see below follow up recommendations. Medical evaluation forsecondary causes of low bone mineral density may be appropriate. FRAX is a World Health Organization validated fracture risk assessmenttool that calculates a person's 10 year probability of a major osteoporosisrelated fracture and hip fracture. According to the National OsteoporosisFoundation guidelines, postmenopausal women and men age 50 or older with low bonemass and a 10 year probability of a major osteoporosis related fracture = or greater than 20% or a 10 year probability of a hip fracture = or greaterthan 3% should be considered for pharmacological treatment for the preventionof osteoporosis. For further information, including treatment recommendations, please referto the 2019 ISCD Official Positions (http://www.iscd.org) and the NOF's Clinician's Guide to Prevention and Treatment of Osteoporosis (http://www.nof.org/professionals/clinical-guidelines) THIS IS AN ELECTRONICALLY VERIFIED FINAL REPORT 03/19/2024 7:39 PM - Electronically signed by Atif Gonzalez M.D. MF: TERRI Report ID: [id number] Reading Location: [place] [address] Blair Littlejohn MD IMG DXA PROCEDURES Final Resu lt from Last 3 Months or Most Recently Relevant to Health Maintenance Insurance TNA MEDICARE GOLD AETNA MEDICARE GOLD AETNA MEDICARE GOLD Care Teams Treating Engineer Helper Relationship Specialty Start Date End Date Blair Littlejohn MD [address] [address] PCP - General Emergency Medicine 01/21/24 Radha Hilliard PA Family Practice 04/23/20
--- OUTSIDE RECORDS SUMMARY | 2025-06-18 12:15 | XMS_ITS | Clinical Summary ---
Author Organization [facility] Address [address], [place] [address] Phone Care Team Providers Care Funeral Car Chauffeur Name Role Phone Blair Littlejohn MD Primary Care Provider [phone] Allergies Active Allergy Reactions Criticality Noted Date Comments Codeine nausea Medium 07/14/2024 Meperidine 07/14/2024 Fluticasone Headache 07/14/2024 Hydrochlorothiazide Hypokalemia High 07/14/2024 Hyponatremia Nifedipine Edema Low 07/14/2024 Medications Calcium Carbonate-Vitam in D 600-10 MG-MCG tablet Take 2 tablets by mouth 1 (one) time each day Active potassium chloride (KLOR-CON M10) 10 MEQ CR tablet Take 10 mEq by mouth 1 (one) time each day Active pyridoxine (VITAMIN B-6) 100 MG tablet Take 100 mg by mouth 1 (one) time each day Active sodium chloride 1 g tabletIndicatio ns:Hyponatremia Take 1 tablet (1 g total) by mouth in the morning and 1 tablet (1 g total) in the evening. 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/16/2024 Hyponatremia 07/14/2024 Resolved Problems Problem Noted Date Diagnosed Date Resolved Date Essential hypertension 07/14/202412/15 Family History Medical History Relation Comments Hypertension Father Dementia Mother Osteoporosis Mother Depression Sister Disorder of thyroid gland Sister Relation Status Comments Father Mother Sister Social History Tobacco Use Types Packs/Day Years Used Date Smoking Tobacco: Every Day Cigarettes 1 30 Tobacco Cessation:Ready to Q uit: Not Asked; Counseling Given: Not Answered Alcohol Use Standard Drinks/Week Comments Yes 0 (1 standard drink = 0.6 oz pur e alcohol) occasional Comments Unknown Sex and Gender Information Value Date Recorded Sex Assigned at Not on file Legal Sex Female 9:05 AM MDT Gender Identity Not on file Sexual Orientation Not on file Last Filed Vital Signs Vital Sign Reading Time Taken Comments Blood Pressure 127/89 12/16/2024 11:12 AM DENTAL TREATMENT COORDINATOR Pulse 79 12/16/2024 11:12 AM DENTAL TREATMENT COORDINATOR Temperature - - Respiratory Rate - - Oxygen Saturation - - Inhaled Oxygen Concentration - - Weight 54.4 kg (120 lb) 12/16/2024 11:12 AM DENTAL TREATMENT COORDINATOR Height 175.3 cm (5' 9) 12/16/2024 11:12 AM DENTAL TREATMENT COORDINATOR Body Mass Index 17.72 12/16/2024 11:12 AM DENTAL TREATMENT COORDINATOR Plan of Treatment Upcoming Encounters Date Type Department Care Team (Late st Contact Info) Description 08/18/2025 1:40 PM CDT Office Visit [facility] [address], [address] [place] [address] Serg Lam MD [address] [address] Health Maintenance Due Date Last Done Comments Pneumococcal PPSV23/PCV13 65 + Years / High and Highest Risk (2 of 4 - PPSV23, PCV20, or PCV21) 10/04/2020 08/09/2020 Influenza Vaccine (#1) 2025 4, 08/05/2022, 08/17/2014, Additional history exists Insurance PM INTERFACED INSURANCE Care Teams Funeral Car Chauffeur Relationship Specialty Start Date End Date Blair Littlejohn MD [address] [place] [address] PCP - General 05/22/24
--- OUTSIDE RECORDS SUMMARY | 2025-06-18 12:15 | XMS_ITS | Continuity of Care Document ---
Author Organization [facility] Address [address] [place] [address] Phone Care Team Providers Care Graduate Research Assistant Name Role Phone Calvin Carrasco DO Unavailable Unavailable Advance Directives Directive Yes / No Effective Date File Name No Information Encounters Encounter Description Practice Location Reason(s) For Visit Diagnoses Date Provider Providers Copied on Encounter [facility], [address], [place], [place], [id number], [place] tel:[phone] [facility] No Information Luna Meire. [address] [place], [address], [place]. tel: [phone] Family History Family Member Type Diagnosis Age At Onset No Information Payers Payer name Insurance type Covered democrat ID Authoriza tion(s) No Information Social History Type Description Quantity Date Captured Comments Sex Female Smoking Status No Information Chief Complaint And Reason For Visit No Information Reason For Referral Reason For Referral No Information History Of Present Illness Encounter Date Complaint History Of Prese nt Illness No Information Functional Status Date Functional Assessmen t No Information Instructions Date Instruction Additional Infor mation No Information Assessments Type Assessment Date No Information Patient Care Teams Name Effective Dates (start - stop) Status Members No Information
--- OUTSIDE RECORDS SUMMARY | 2025-06-18 12:15 | XMS_ITS | Clinical Summary ---
Author Organization [facility] Address [address] [place] [address] Care Team Providers Care Central Office Technician Name Role Phone Blair Littlejohn MD Primary Care Provider [phone] Source Comments [facility],non-owned Affiliates and Associated Physician Practices is amultiple site organization consisting of ambulatory clinics and hospital sitesin [place], [place], [place] and [place]. This disclosure is being madepursuant to the Care Everywhere program and may not contain all information available regarding this patient. Last updated 18.[facility] [place] Allergies No known active allergies Medications * Be aware that medications may not be up to date on this document. Alwaysverify current medications with the patient. diclofenac sodium (VOLTAREN) 1 % gel Apply 2 g to affected area 4 times daily. APPLY 2g to afftected area 3-4x/daily 3 5 0 Active diazepam (VALIUM) 2 MG tabletIndicatio ns:Muscle Spasm Take 1 Tab by mouth 3 times daily as needed. Indications: Muscle Spasm 90 Tab 3 2 Active Social History Tobacco Use Types Packs/Day Years Used Date Smoking Tobacco: Never Assessed Comments Unknown Sex and Gender Information Value Date Recorded Sex Assigned at Not on file Legal Sex Female 9:07 AM ROADS AND PARKING LOTS SWEEPER OPERATOR Gender Identity Not on file Sexual Orientation Not on file Last Filed Vital Signs Vital Sign Reading Time Taken Comments Blood Pressure 172/105 08/07/2024 4:00 PM CDT Pulse 79 08/07/2024 12:01 PM CDT Temperature 36.3 C (97.4 F) 08/07/2024 12:01 PM CDT Respiratory Rate 16 08/07/2024 12:01 PM CDT Oxygen Saturation 99% 08/07/2024 4:00 PM CDT Inhaled Oxygen Concentration - - Weight 54.4 kg (120 lb) 08/07/2024 10:34 AM CDT Height 175.3 cm (5' 9) 08/07/2024 10:34 AM CDT Body Mass Index 17.72 08/07/2024 10:34 AM CDT Plan of Treatment Health Maintenance Due Date Last Done Comments COLON MONITORING 1955 COLONOSCOPY - COLON CA SCREENING 1955 CT COLONOGRAPHY - COLON CA SCREENING 1955 FIT - COLON CA SCREENING 1955 FLEX SIG - COLON CA SCREENING 1955 LIPID TESTING 1955 MAMMOGRAM 1955 HEPATITIS C SCREENING 05/31/1973 DTAP/TDAP/TD VACCINES (1 - Tdap) 1974 PNEUMOCOCCAL VACCINE 50+ (1 of 1 - PCV) 2005 ZOSTER VACCINE (1 of 2) 2005 DEPRESSION SCREENING 11/05/2024 MEDICARE AWV CALENDAR YEAR 2024 COVID-19 VACCINE (2 - 2023- season) 2025 07/29/2024 INFLUENZA VACCINE (#1) 2025 4, 08/15/2022, 08/05/2022, Additional history exists COLOGUARD (AGES 45-75) - COLON CA SCREENING 10/19/2026 10/19/2023 Colorectal Cancer Screening 10/19/2026 Respiratory Syncytial Virus (RSV) Vaccine Pt: or over 60 yrs (1 - 1-dose 75+ series) 2030 BONE DENSITY TESTING Completed 03/19/2024 HEPATITIS B VACCINE Aged Out No longe r eligible based on patient's age to complete this topic HIB VACCINE Aged Out No longer eligi ble based on patient's age to complete this topic HPV VACCINE Aged Out No longer eligi ble based on patient's age to complete this topic MENINGOCOCCAL (Group B) VACCINE SHARED DECISION-MAKING Aged Out No longer eligible based on patient's age to complete this topic MENINGOCOCCAL GROUPS A/C/Y/W VACCINE Aged Out No longer eligible based on patient's age to complete this topic Insurance AETNA MEDICARE ADV Care Teams Central Office Technician Relationship Specialty Start Date End Date Blair Littlejohn MD [address] [address] PCP - General Emergency Medicine 08/07/24
[2025-06-18 12:24] VITALS: BP 113/82; PULSE 88; RESP 18; TEMP 36.1; O2SAT 100
--- NOTE | 2025-06-18 15:29 | ECG_ITS ---
Test Date: 2025-06-18 16:24:04 Measurements Intervals [place] Rate: 73 P: 70 NE: 151 QRS: -30 QRSD: 84 T: 229 QT: 400 QTc: 442 Interpretive Statements SINUS RHYTHM POSSIBLE LEFT ATRIAL ENLARGEMENT POSSIBLE RIGHT VENTRICULAR CONDUCTION DELAY ST-T WAVE ABNORMALITY IN ANTEROLAT/INF LEADS- CONSIDER ISCHEMIA BASELINE ARTIFACT- I, II, III, AVR, AVL, AVF, V1-V6 ABNORMAL ECG Compared to ECG 04/03/2024 13:55:14 HEART RATE HAS DECREASED ST-T WAVE ABNORMALITY NOW PRESENT POSSIBLE ISCHEMIA NOW PRESENT Electronically Signed On 06-18-2025 18:59:40 CDT by All Smith D.O.
--- OUTSIDE RECORDS SUMMARY | 2025-06-18 15:30 | XMS_ITS | Clinical Summary ---
Author Organization [facility] Address [facility] [place] [address] Care Team Providers Care Geospatial Systems Integrator Name Role Phone Blair Littlejohn MD Primary Care Provider [phone] Encounters Date Type Department Care Team Description 05/07/2025 2:00 PM CDT - 05/07/2025 11:59 PM CDT Hospital Encounter [facility] [place] [address] Chiquis Walters, ELIECER Discharge Disposition: Home or [...] 8:52 AM Narrative 05/08/2025 8:58 AM CDT [address] [address] EXAMINATION: MRI BRAIN WO CONTRAST. Multiplanar, multisequence [...] in the remaining major vessels of the [place]. No significant paranasal sinus or mastoid air cell disease. Postoperative changes of bilateral lens replacement surgery in the orbits. Procedure Note Shaneka Christine MD - 05/08/2025 [place] [address] EXAMINATION: MRI BRAIN WO CONTRAST. Multiplanar, multisequence [...] confluent and nodular foci of FLAIR and [id number] in the periventricular and deep cerebral white [...] MD, 05/08/2025 8:52 AM us Chiquis Walters DARKROOM TECHNICIAN MRI Final Resul t from Last 3 Months Insurance AETNA Care Teams Geospatial Systems Integrator Relationship Specialty Start Date End Date Blair Littlejohn MD [address] [phone] PCP - General FAMILY PRACTICE 05/07/25
--- OUTSIDE RECORDS SUMMARY | 2025-06-18 15:30 | XMS_ITS | Clinical Summary ---
Author Organization [facility] Address [address] [place] [address] Care Team Providers Care Veterinary Medicine Teacher Name Role Phone Blair Littlejohn MD Primary Care Provider [phone] Source Comments [facility],non-owned Affiliates and Associated Physician Practices is amultiple site organization consisting of ambulatory clinics and hospital sitesin [place], [place], [place] and [place]. This disclosure is being madepursuant to the Care Everywhere program and may not contain all information available regarding this patient. Last updated 18.[facility] [employer] Allergies No known active allergies Medications * [...] on file Legal Sex Female 9:07 AM PRACTICE CONSULTANT Gender Identity Not on file Sexual Orientation [...] topic Insurance AETNA MEDICARE ADV Care Teams Veterinary Medicine Teacher Relationship Specialty Start Date End Date Blair Littlejohn MD [address] [phone] PCP - General Emergency Medicine 08/07/24
--- OUTSIDE RECORDS SUMMARY | 2025-06-18 15:30 | XMS_ITS | Encounter Summary ---
Author Organization [facility] Address [address] [place] [address] Phone Care Team Providers Care Pre School Manager Name Role Phone ParentRadha Unavailable [phone] Blair Littlejohn MD Primary Care Provider [phone] Reason for Visit * Consultation (Routine) - Closed Specialty Diagnoses / Procedures Referred By Contac t Referred To Contact Neurosurgery Diagnoses Abnormal findings on diagnostic imaging of other specified body structures Blair Littlejohn MD [address] [address] Phone: tel: fax: [facility] (All Locations) Referral ID Status Reason Start Date Expiration Date V isits Requested Visits Authorized [id number] Closed Specialty Services Required 05/28/2025 06/27/2026 1 1 Encounter Details Date Type Department Care Team (Late st Contact Info) Description 06/17/2025 9:30 AM CDT Telemedicine [facility] Neurosurgery [address] [facility] Advanced Medicine 6th [place] [address] [place] [id number] Liliana Lowry NP [address] [place] [address] Stenosis of right vertebral artery [...] on file Legal 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 Department of Neurological Surgery Return Patient Visit Patient Name: Fiorella Baker Medical Record Number (MRN): [id number] Date of (): 1955 Encounter Date: 06/17/2025 PRIMARY CARE PROVIDER: Blair Littlejohn MD REFERRING PROVIDER: Blair Littlejohn MD [address] [place] [address] HISTORY OF THE PRESENT ILLNESS Fiorella Baker [...] (LEEP) - 03/15/2016 (Added by TW Conv) [place] BX BREAST NEEDLE CORE W/O IMAGING GUIDANCE SPX Biopsy Breast Percutaneous Needle Core - Right (2002) (Added by TW Conv) [place] DILATION & CURETTAGE DX&/THER NONOBSTETRIC Dilation And Curettage - 03/15/2016 (Added by TW Conv) [place] LAPS TOTAL HYSTERECT 250 GM/< W/RMVL TUBE/OVARY Lap Total Hysterect Uterus < 250g With Removal Of Tubes/Ovary - 05/2016 (Added by TW Conv) [place] LIG/TRNSXJ FLP TUBE ABDL/VAG APPR UNI/BI Tubal Ligation - 1980 (Added by TW Conv) [place] LIGJ DIVJ &/EXCJ VARICOSE VEIN CLUSTER 1 LEG Varicose Vein Ligation - with laser/07-08-09 (Added by TW Conv) [place] TONSILLECTOMY PRIMARY/SECONDARY <AGE 12 Tonsillectomy - 1961 [...] Electronically signed by: Duy Leach M.D, PHD ASSESSMENT AND PLAN: Fiorella Baker [...] questions, feel free to contact me at [phone]. Liliana Lowry [facility] I have spent at least 29 [...] located [place]. The patient visit started at 0930 and [...] a telephone or video visit during the [address]was explained to them. After being [...] 06/17/2025 documented in this encounter Care Teams Pre School Manager Relationship Specialty Start Date End Date Blair Littlejohn MD [address] [address] PCP - General Emergency Medicine 01/21/24 Radha Hilliard PA Family Practice 04/23/20 documented as of this encounter
--- OUTSIDE RECORDS SUMMARY | 2025-06-18 15:30 | XMS_ITS | Continuity of Care Document ---
Author Organization [facility] Address [address] [place] [address] Phone Care Team Providers Care Mine Engineering Manager Name Role Phone Calvin Carrasco DO Unavailable Unavailable Advance Directives Directive Yes / No Effective Date File Name No Information Encounters Encounter Description Practice Location Reason(s) For Visit Diagnoses Date Provider Providers Copied on Encounter [facility], [address], [place], [place], [id number], [place] tel:[phone] [facility] No Information Luna Meier. [address] [place], [address], [place]. tel: [phone] Family History Family Member Type Diagnosis Age At Onset No Information Payers Payer name Insurance type Covered republican [place] Authoriza tion(s) No Information Social History [...]
--- OUTSIDE RECORDS SUMMARY | 2025-06-18 15:30 | XMS_ITS | Clinical Summary ---
Author Organization [facility] Address [address] [facility] [place] [address] Care Team Providers Care Typing Secretary Name Role Phone Parent, Radha BARCENAS Unavailable Blair Littlejohn MD Primary Care Provider [phone] Allergies Active Allergy Reactions Criticality Noted Date [...] needed. Assessment & Plan (11/14/2021 12:24 PM WINDOW REPAIRER): Patient has varicose veins of the right [...] proceed. Assessment & Plan (10/26/2021 12:00 PM WINDOW REPAIRER): Patient had previously varicose veins of the [...] control. Assessment & Plan (11/14/2021 12:22 PM WINDOW REPAIRER): Followed by her PCP and chronic and stable. I recommend she continue her hydrochlorothiazide as per her PCP. Assessment & Plan (10/26/2021 12:00 PM WINDOW REPAIRER): Patient has hypertension that is chronic and [...] regular eyecare provider Dr. Abida Peoples in [place], [place]. Consider scleral CL fitting given likely [...] or worsening symptoms- pt will be in [place], [place] for the weekend RTC Sunday for [...] 02/22/2016 Assessment & Plan (11/14/2021 12:25 PM WINDOW REPAIRER): Followed by her PCP and chronic and stable. She takes Xanax as needed which controlled her anxiety. Assessment & Plan (10/26/2021 12:00 PM WINDOW REPAIRER): Followed by her PCP. Chronic and stable [...] Team Description 06/17/2025 9:30 AM CDT Telemedicine [facility] Neurosurgery [address] [place] [address] Advanced Medicine 6th [place] [address] [place] [address] Liliana Lowry NP Stenosis of right vertebral artery (Primary Dx) 06/14/2025 2:12 PM CDT - 06/14/2025 11:59 PM CDT Hospital Encounter [facility] [address] [place] [address] Stenosis of right vertebral artery Discharge Disposition: Discharge to home or self care 05/21/2025 8:44 PM CDT - 05/21/2025 11:59 PM CDT Hospital Encounter [facility] ([facility]) [address] [place] [address] Discharge Disposition: Discharge to home or self care 05/21/2025 12:30 PM CDT Office Visit [facility] Neurosurgery [address] [facility] Medicine 6th [place] [address] [place] [address] Liliana Lowry NP Stenosis of right vertebral artery (Primary Dx); Abnormal findings on diagnostic imaging of other specified body structures 05/21/2025 Telephone [facility] 6th [place] [address] [place] [address] Liliana Lowry NP 05/15/2025 Telephone [facility] Scheduling [address] [place], [place] [id number] Elsa Mcpherson from Last 3 Months Immunizations Immunization Administration Dates Next Due Influenza Virus Vaccine Trivalent Mdv 07/29/2024 Influenza, Quadrivalent, Split, Intramuscular Influenza, Trivalent, IM (MDV) 08/17/2014,2009 Influenza, Unspecified 08/05/2022 Pneumococcal Conjugate PCV 13 08/09/2020 Pneumococcal Polysaccharide PPV23 08/10/2021 Td, adsorbed 08/04/2005 Tdap 01/06/2015 ZOSTER Recombinant 12/21/2022 Surgical History Surgery Date Site/Laterality Comments [place] LIG/TRNSXJ FLP TUBE ABDL/VAG APPR UNI/BI Tubal Ligation - 1980 (Added by TW Conv) [place] LIGJ DIVJ &/EXCJ VARICOSE VEIN CLUSTER 1 LEG Varicose Vein Ligation - with laser/07-08-09 (Added by TW Conv) [place] TONSILLECTOMY PRIMARY/SECONDARY <AGE 12 Tonsillectomy - 1961 (Added by TW Conv) FOOT SURGERY Foot Repair - nerve taken from back of left leg and repaired cut in foot 1992 (Added by TW Conv) [place] BX BREAST NEEDLE CORE W/O IMAGING GUIDANCE SPX Biopsy Breast Percutaneous Needle Core - Right (2002) (Added by TW Conv) [place] DILATION & CURETTAGE DX&/THER NONOBSTETRIC Dilation And Curettage - 03/15/2016 (Added by TW Conv) LOOP ELECTROSURGICAL EXCISION PROCEDURE Cervical Loop Electrosurgical Excision (LEEP) - 03/15/2016 (Added by TW Conv) [place] LAPS TOTAL HYSTERECT 250 GM/< W/RMVL TUBE/OVARY [...] on file Legal Sex Female 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 Magnetic resonance angiography (MRA) of the hdbwmi-lx-Qeihds without and with contrast 2. Magnetic resonance angiography (MRA) of the neck without and with contrast HISTORY: Dizziness and falls. Hypoplastic versus stenosis of the right vertebral artery. TECHNIQUE: Magnetic resonance angiography of the edajey-sh-Dkkzrv was performed using a separate data acquisition with a non-contrast wvjj-pc-wmosgz technique and a post-contrast technique to produce axial thin-slice source images. These images were then used to generate maximum intensity projection (MIP) images. Magnetic resonance angiography of the neck was performed using a separate data acquisition with a non-contrast clwr-hb-udlaif technique and a post-contrast technique to produce [...] this MR angiogram. HEAD: There is diminished lzbf-xo-dxnkvd signal within the right distal V3 and proximal to mid right V4 segment. This corresponds to an area of diminished signal on the postcontrast time resolved MRA sequences within the mid right V4 segment. The left vertebral artery is dominant. There is no distal oligemia within the posterior circulation. The internal carotid arteries in the head are of normal caliber. The efnloi-cd-Zhhyry is complete. The anterior and middle cerebral [...] 1. Magnetic resonance angiography (MRA) of the rrwvir-dd-Dttsvo without and with contrast 2. Magnetic resonance angiography (MRA) of the neck without and with contrast HISTORY: Dizziness and falls. Hypoplastic versus stenosis of the right vertebral artery. TECHNIQUE: Magnetic resonance angiography of the wtylyf-ft-Qljvfp was performed using a separate data acquisition with a non-contrast sajc-mw-slcmlp technique and a post-contrast technique to produce axial thin-slice source images. These images were then used to generate maximum intensity projection (MIP) images. Magnetic resonance angiography of the neck was performed using a separate data acquisition with a non-contrast treq-mv-cfvgaq technique and a post-contrast technique to produce [...] this MR angiogram. HEAD: There is diminished gkwx-kk-ercxjj signal within the right distal V3 and proximal to mid right V4 segment. This corresponds to an area of diminished signal on the postcontrast time resolved MRA sequences within the mid right V4 segment. The left vertebral artery is dominant. There is no distal oligemia within the posterior circulation. The internal carotid arteries in the head are of normal caliber. The saacid-rn-Akmwjs is complete. The anterior and middle cerebral [...] 1. Magnetic resonance angiography (MRA) of the wmegcy-ah-Cpmknj without and with contrast 2. Magnetic resonance angiography (MRA) of the neck without and with contrast HISTORY: Dizziness and falls. Hypoplastic versus stenosis of the right vertebral artery. TECHNIQUE: Magnetic resonance angiography of the myqkng-ke-Tlcwqr was performed using a separate data acquisition with a non-contrast dvbx-mx-brbvub technique and a post-contrast technique to produce axial thin-slice source images. These images were then used to generate maximum intensity projection (MIP) images. Magnetic resonance angiography of the neck was performed using a separate data acquisition with a non-contrast tjqg-ac-eaujnj technique and a post-contrast technique to produce [...] this MR angiogram. HEAD: There is diminished iohn-wn-snigdx signal within the right distal V3 and proximal to mid right V4 segment. This corresponds to an area of diminished signal on the postcontrast time resolved MRA sequences within the mid right V4 segment. The left vertebral artery is dominant. There is no distal oligemia within the posterior circulation. The internal carotid arteries in the head are of normal caliber. The usobwz-if-Iuvljf is complete. The anterior and middle cerebral [...] 1. Magnetic resonance angiography (MRA) of the ddxrqq-ew-Lnqnqm without and with contrast 2. Magnetic resonance angiography (MRA) of the neck without and with contrast HISTORY: Dizziness and falls. Hypoplastic versus stenosis of the right vertebral artery. TECHNIQUE: Magnetic resonance angiography of the rgyxak-ba-Ywiuud was performed using a separate data acquisition with a non-contrast dfjt-rf-tbjjok technique and a post-contrast technique to produce axial thin-slice source images. These images were then used to generate maximum intensity projection (MIP) images. Magnetic resonance angiography of the neck was performed using a separate data acquisition with a non-contrast bdye-xm-jjsgos technique and a post-contrast technique to produce [...] this MR angiogram. HEAD: There is diminished dkbz-zb-bonqzs signal within the right distal V3 and proximal to mid right V4 segment. This corresponds to an area of diminished signal on the postcontrast time resolved MRA sequences within the mid right V4 segment. The left vertebral artery is dominant. There is no distal oligemia within the posterior circulation. The internal carotid arteries in the head are of normal caliber. The alaeon-hp-Zoifzl is complete. The anterior and middle cerebral [...] Outside Reference (05/21/2025 8:45 PM CDT) Impressions [facility] - 05/21/2025 8:45 PM CDT These images are for Reference purposes only and have not been reviewed by [facility] Radiology. There will be no report generated by a [facility] Radiologist. 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 MF: TERRI Report ID: [id number] Reading Location: [place] [address] Blair Littlejohn MD IMG DXA PROCEDURES Final Resu lt from Last 3 Months or Most Recently Relevant to Health Maintenance Insurance TNA MEDICARE GOLD AETNA MEDICARE GOLD AETNA MEDICARE GOLD Care Teams Typing Secretary Relationship Specialty Start Date End Date Blair Littlejohn MD [address] [address] PCP - General Emergency Medicine 01/21/24 Radha Hilliard PA Family Practice 04/23/20
--- OUTSIDE RECORDS SUMMARY | 2025-06-18 15:30 | XMS_ITS | Clinical Summary ---
Author Organization [facility] Address [address], [place] [address] Phone Care Team Providers Care Blue Leather Setter Name Role Phone Blair Littlejohn MD Primary Care Provider [phone] Allergies Active Allergy Reactions Criticality Noted Date [...] Comments Blood Pressure 127/89 12/16/2024 11:12 AM ARTIST REPRESENTATIVE Pulse 79 12/16/2024 11:12 AM ARTIST REPRESENTATIVE Temperature - - Respiratory Rate - - Oxygen Saturation - - Inhaled Oxygen Concentration - - Weight 54.4 kg (120 lb) 12/16/2024 11:12 AM ARTIST REPRESENTATIVE Height 175.3 cm (5' 9) 12/16/2024 11:12 AM ARTIST REPRESENTATIVE Body Mass Index 17.72 12/16/2024 11:12 AM ARTIST REPRESENTATIVE Plan of Treatment Upcoming Encounters Date Type Department Care Team (Late st Contact Info) Description 08/18/2025 1:40 PM CDT Office Visit [facility] [address] [facility], [address] [place] [address] Serg Lam MD [address] [address] Health Maintenance Due Date Last Done Comments Pneumococcal PPSV23/PCV13 65 + Years / High and Highest Risk (2 of 4 - PPSV23, PCV20, or PCV21) 10/04/2020 08/09/2020 Influenza Vaccine (#1) 2025 4, 08/05/2022, 08/17/2014, Additional history exists Insurance PM [employer] INSURANCE Care Teams Blue Leather Setter Relationship Specialty Start Date End Date Blair Littlejohn MD [address] [place] [address] PCP - General 05/22/24
--- NOTE | 2025-06-18 16:00 | ED.GENADULT ---
HPI - General Adult General Chief complaint: Weakness Stated complaint: hasn't eaten in 3 days, dehydrated Time Seen by Provider: 06/18/25 15:11 History of Present Illness HPI narrative: This is a 70-year-old female presenting for failure to thrive. The patient's boyfriend of 22 years is at bedside. He says that he is very concerned because she has stopped eating or drinking over the last 3-4 months. She has lost close to 50 lb. He tries to feed her and then he will turn around in the food will be a fed to the dogs. The patient herself says that she thinks that she is eating the food. She cannot give any reason for why she is not eating. Patient is A&O times 1-2. She is being evaluated by 4 [facility] dementia by her primary care physician. She had an outpatient MRI at [facility] one week previous which the family reports as normal. The patient denies any complaints at this time. She is A&O times 1-2. Related Data Home Medications ?Medication ?Instructions ?Recorded ?Confirmed ?Last Taken ?Type omeprazole 20 mg capsule,delayed 20 mg PO DAILY 10/03/21 02/19/25 Unknown History release paroxetine HCl 10 mg tablet 10 mg PO DAILY 07/06/23 02/19/25 Unknown History gabapentin 100 mg capsule 100 mg PO DAILY 01/11/24 02/19/25 Unknown History hydrochlorothiazide 25 mg tablet 12.5 mg PO DAILY 01/11/24 02/19/25 Unknown History potassium chloride 10 mEq 10 meq PO DAILY 01/11/24 02/19/25 Unknown History tablet,extended release pyridoxine (vitamin B6) 100 mg 100 mg PO DAILY 01/11/24 02/19/25 Unknown History tablet tramadol 50 mg tablet 50 mg PO Q6H PRN Pain 01/11/24 02/19/25 Unknown History Allergies Allergy/AdvReac Type Severity Reaction Status Date / Time No Known Allergies Allergy Verified 07/26/24 13:57 [facility] Past Medical History Medical History Gastroesophageal reflux disease Hypertension Anxiety Neck fracture Surgical History Surgical History History of vein stripping History of arthroscopy of right knee History of tonsillectomy History of foot surgery Left History of hysterectomy Family History Family History Father No problems noted. Mother Hypertension Social History Social History Social History: Surrogate medical decision maker: Blair Lopez, significant other. Code status: Full code. Smoking status: Former smoker Tobacco type: cigarettes Second hand tobacco smoke exposure: No Alcohol intake: current Drinks per week: 3 Substance use: former Substance use type: marijuana Do You Feel Safe in your Home?: Yes Lack of Transportation: No Lack of Food: Never True Current Housing: I Have Housing Concerned About Future Housing: No Difficulty Paying Gas/Electric Bills: No Difficulty Paying for Meds: No Currently Unemployed: No Education: High School Diploma/GED Difficulty w/ Childcare or Family Care: No Living arrangements: with family Spiritual care concerns: No Exam Narrative: APPEARANCE: No apparent distress. emaciated, AO x1-2 Head: atraumatic. EYES: EOMI, NOSE: Atraumatic NECK: Trachea midline RESPIRATORY: No increased rate of breathing, CTAB CARDIOVASCULAR: RRR, no peripheral edema ABDOMINAL: Non-distended soft nontender MUSCULOSKELETAl: No obvious deformities, muscle wasting NEURO: Alert. Moving 4/4 extremities SKIN:: Warm, dry. Normal color Course Vital Signs Vital signs: Vital Signs Temperature 97.0 F L 06/18/25 12:24 Pulse Rate 88 06/18/25 12:24 Respiratory Rate 18 06/18/25 12:24 Blood Pressure 113/82 06/18/25 12:24 Pulse Oximetry 100 06/18/25 12:24 Oxygen Delivery Room Air 06/18/25 12:24 Temperature 97.0 F L 06/18/25 12:24 Pulse Rate 70 06/18/25 16:26 Respiratory Rate 13 06/18/25 16:26 Blood Pressure 128/95 H 06/18/25 16:26 Pulse Oximetry 100 06/18/25 16:26 Oxygen Delivery Room Air 06/18/25 16:26 Medical Decision Making MDM Narrative Medical decision making narrative: -Course: 70-year-old female presenting with failure to thrive. Broad workup obtained. Patient given 30 cc/kilogram fluid bolus. Workup showed multiple lecture light abnormalities which are being repleted. Urinalysis was indicative of infection. Patient be started on ceftriaxone. Patient also had elevation in her liver enzymes. No pain over the right quadrant is likely due to her dehydration. Will continue to monitor. Patient will be admitted the hospital for failure to thrive, dehydration urinary tract infection. -DDX includes but is not limited to: Failure to thrive, dementia, urinary tract infection Vital Signs Vital Signs: Vital Signs Temperature 97.0 F L 06/18/25 12:24 Pulse Rate 88 06/18/25 12:24 Respiratory Rate 18 06/18/25 12:24 Blood Pressure 113/82 06/18/25 12:24 Pulse Oximetry 100 06/18/25 12:24 Oxygen Delivery Room Air 06/18/25 12:24 Temperature 97.0 F L 06/18/25 12:24 Pulse Rate 70 06/18/25 16:26 Respiratory Rate 13 06/18/25 16:26 Blood Pressure 128/95 H 06/18/25 16:26 Pulse Oximetry 100 06/18/25 16:26 Oxygen Delivery Room Air 06/18/25 16:26 Lab Data 06/18/25 16:17 06/18/25 16:46 Labs: Lab Results 06/18/25 06/18/25 06/18/25 Range/Units 16:17 16:46 17:01 WBC 7.7 (4.5-10.0) K/mm3 RBC 3.52 L (4.2-5.4) M/mm3 Hgb 12.4 (12.0-15.0) g/dL Hct 35.2 L (37.0-47.0) % MCV 100.0 (80-100) fl MCH 35.2 H (26-34) pg MCHC 35.2 (32-36) g/dl RDW 13.6 (11.5-14.5) % Plt Count 373 D (150-375) k/mm3 MPV 10.4 (7.4-10.4) fl Immature Gran % (Auto) 0.3 (0-0.5) % Neut % (Auto) 83.9 H (45.5-73.1) % Lymph % (Auto) 11.5 L (18.3-44.2) % [place] % (Auto) 4.0 (2.6-8.5) % Eos % (Auto) 0.0 (0-4.4) % Baso % (Auto) 0.3 (0.2-1.2) % Lymph # (Auto) 0.88 L (0.9-3.2) K/mm3 [place] # (Auto) 0.3 (0.1-0.6) K/mm3 Eos # (Auto) 0.0 (0-0.3) K/mm3 Baso # (Auto) 0.0 (0.0-0.1) K/mm3 Abs Immat Gran (auto) 0.02 (0.00-0.031) K/mm3 Absolute Neuts (auto) 6.5 (1.3-6.7) K/mm3 Absolute Nucleated RBC 0.000 (0.0-0.012) K/mm3 Nucleated RBC % 0.0 (0.0-0.2) % PT 14.0 (11.1-14.7) Seconds INR 1.1 APTT 30.5 (22.3-36.8) Seconds Sodium 124 L (137-145) mmol/L Potassium 3.3 L (3.4-5.0) mmol/L Chloride 86 L (98-107) mmol/L Carbon Dioxide 26 (22-30) mmol/L Anion Gap 12 (4-12) mmol/L BUN 12 D (7-17) mg/dL Creatinine 0.43 L 0.50 L (0.7-1.0) mg/dL Estim Creat Clear Calc 71 62 ml/min Estimated GFR > 60 > 60 (59 - ) Glucose 97 (65-110) mg/dL POC Capillary Glucose 81 (65-105) mg/dl Lactic Acid 2.2 H (0.7-2.0) mmol/L Calcium 9.8 (8.4-10.2) mg/dL Phosphorus 3.2 (2.5-4.5) mg/dL Magnesium 1.5 L (1.6-2.3) mg/dL Total Bilirubin 2.9 H (0.2-1.3) mg/dL AST 85 H (14-36) U/L ALT 51 H (6-35) U/L Alkaline Phosphatase 171 H (38-126) U/L Troponin I 0.039 H* (0.000-0.034) ng/mL Total Protein 6.7 (6.3-8.2) g/dL Albumin 4.1 (3.5-5.1) g/dL Lipase 138 (23-300) U/L TSH (Reflex) Pending Urine Color (Yellow) Urine Appearance (Clear) Urine pH (5.0-9.0) Ur Specific [place] (1.001-1.035) Urine Protein (Negative) mg/dL Urine Glucose (UA) (Negative) mg/dL Urine Ketones (Negative) mg/dL Ur Blood (Man) (Negative) Urine Nitrate (Negative) Urine Bilirubin (Negative) Urine Urobilinogen (<2.0) mg/dL Add Ur Microanalysis Leukocyte Esterase Rfl (Negative) URIEL/UL Urine RBC (0-2) /hpf Urine WBC (0-3) /hpf Ur Squamous Epith Cells (Few) /hpf Urine Bacteria /hpf Urine Casts Urine Opiates Screen (Negative) Urine Methadone Screen (Negative) Ur Barbiturates Screen (Negative) Ur Phencyclidine Scrn (Negative) Ur Amphetamine Screen (Negative) U Benzodiazepines Scrn (Negative) Urine Cocaine Screen (Negative) U Cannabinoids Screen (Negative) Ethyl Alcohol < 10 (<10) mg/dL Influenza A (RT-PCR) Negative (Negative) Influenza B (RT-PCR) Negative (Negative) RSV (RT-PCR) Negative (Negative) SARS-CoV-2 RNA (RT-PCR) Negative (Negative) 06/18/25 Range/Units 17:08 WBC (4.5-10.0) K/mm3 RBC (4.2-5.4) M/mm3 Hgb (12.0-15.0) g/dL Hct (37.0-47.0) % MCV (80-100) fl MCH (26-34) pg MCHC (32-36) g/dl RDW (11.5-14.5) % Plt Count (150-375) k/mm3 MPV (7.4-10.4) fl Immature Gran % (Auto) (0-0.5) % Neut % (Auto) (45.5-73.1) % Lymph % (Auto) (18.3-44.2) % [place] % (Auto) (2.6-8.5) % Eos % (Auto) (0-4.4) % Baso % (Auto) (0.2-1.2) % Lymph # (Auto) (0.9-3.2) K/mm3 [place] # (Auto) (0.1-0.6) K/mm3 Eos # (Auto) (0-0.3) K/mm3 Baso # (Auto) (0.0-0.1) K/mm3 Abs Immat Gran (auto) (0.00-0.031) K/mm3 Absolute Neuts (auto) (1.3-6.7) K/mm3 Absolute Nucleated RBC (0.0-0.012) K/mm3 Nucleated RBC % (0.0-0.2) % PT (11.1-14.7) Seconds INR APTT (22.3-36.8) Seconds Sodium (137-145) mmol/L Potassium (3.4-5.0) mmol/L Chloride (98-107) mmol/L Carbon Dioxide (22-30) mmol/L Anion Gap (4-12) mmol/L BUN (7-17) mg/dL Creatinine (0.7-1.0) mg/dL Estim Creat Clear Calc ml/min Estimated GFR (59 - ) Glucose (65-110) mg/dL POC Capillary Glucose (65-105) mg/dl Lactic Acid (0.7-2.0) mmol/L Calcium (8.4-10.2) mg/dL Phosphorus (2.5-4.5) mg/dL Magnesium (1.6-2.3) mg/dL Total Bilirubin (0.2-1.3) mg/dL AST (14-36) U/L ALT (6-35) U/L Alkaline Phosphatase (38-126) U/L Troponin I (0.000-0.034) ng/mL Total Protein (6.3-8.2) g/dL Albumin (3.5-5.1) g/dL Lipase (23-300) U/L TSH (Reflex) Urine Color Yellow (Yellow) Urine Appearance Cloudy H (Clear) Urine pH >=9.0 H (5.0-9.0) Ur Specific [place] 1.007 (1.001-1.035) Urine Protein 1+ H (Negative) mg/dL Urine Glucose (UA) Negative (Negative) mg/dL Urine Ketones Negative (Negative) mg/dL Ur Blood (Man) 2+ H (Negative) Urine Nitrate Negative (Negative) Urine Bilirubin Negative (Negative) Urine Urobilinogen 2.0 H (<2.0) mg/dL Add Ur Microanalysis Reviewed Leukocyte Esterase Rfl 3+ H (Negative) URIEL/UL Urine RBC 0-2 (0-2) /hpf Urine WBC >100 H (0-3) /hpf Ur Squamous Epith Cells None seen (Few) /hpf Urine Bacteria 4+ /hpf Urine Casts 0-2 Urine Opiates Screen Negative (Negative) Urine Methadone Screen Negative (Negative) Ur Barbiturates Screen Negative (Negative) Ur Phencyclidine Scrn Negative (Negative) Ur Amphetamine Screen Negative (Negative) U Benzodiazepines Scrn Negative (Negative) Urine Cocaine Screen Negative (Negative) U Cannabinoids Screen Negative (Negative) Ethyl Alcohol (<10) mg/dL Influenza A (RT-PCR) (Negative) Influenza B (RT-PCR) (Negative) RSV (RT-PCR) (Negative) SARS-CoV-2 RNA (RT-PCR) (Negative) ABG Data ABG results: 06/18/25 16:15 VBG pH 7.461 H* VBG pCO2 34.8 L VBG pO2 < 27.0 L VBG HCO3 24.3 O2 Delivery Device Room air O2 Liters/Min Not Reportable FiO2 21 Critical Care Time Critical Care Time Critical Care Time: Yes Total Critical Care Time: 35 Discharge Plan Discharge Clinical Impression: Adult failure to thrive, Acute UTI, Acute dehydration, Electrolyte abnormality Patient Disposition: Still a Patient Condition: Stable Patient Language: Irish Prescriptions: No Action paroxetine HCl 10 mg tablet 10 mg PO DAILY potassium chloride 10 mEq tablet extended release 10 meq PO DAILY hydrochlorothiazide 25 mg tablet 12.5 mg PO DAILY pyridoxine (vitamin B6) 100 mg tablet 100 mg PO DAILY gabapentin 100 mg capsule 100 mg PO DAILY omeprazole 20 mg capsule,delayed release(DR/EC) 20 mg PO DAILY tramadol 50 mg Tablet 50 mg PO Q6H PRN (Reason: Pain) nifedipine [Procardia XL] 30 mg Tablet Extended Release 24hr 30 mg PO QAM Qty: 30 0RF Follow-up/Referrals: Annetta,Blair Calvin MD [Primary Care Provider] -
[2025-06-18 16:18] LABS: Fractional Inspired Oxygen 21 %; HCO3 VBG 24.3 mEq/l (24.0-30.0); PCO2 VBG 34.8 mmHg (42.0-48.0)
[2025-06-18] MEDS: SODIUM CHLORIDE 0.9% IV 1,500 ML 999 ML IV CONT (16:24)
[2025-06-18 16:26] VITALS: BP 128/95; PULSE 70; RESP 13; O2SAT 100
[2025-06-18 16:28] LABS: PO2 VBG < 27.0 mmHg (35.0-45.0); pH VBG 7.461 (7.300-7.400)
[2025-06-18 16:47] LABS: Estimated CRCL calculation 62 ml/min; Estimated Glomerular Filt Rate > 60
[2025-06-18 17:07] LABS: Alanine Aminotransferase 51 U/L (6-35); Albumin Level 4.1 g/dL (3.5-5.1); Alkaline Phosphatase 171 U/L (38-126); Anion Gap 12 mmol/L (4-12); Aspartate Amino Transferase 85 U/L (14-36); Bilirubin,Total 2.9 mg/dL (0.2-1.3); Blood Urea Nitrogen 12 mg/dL (7-17); Calcium 9.8 mg/dL (8.4-10.2); Carbon Dioxide 26 mmol/L (22-30); Chloride 86 mmol/L (98-107); Estimated CRCL calculation 71 ml/min; Estimated Glomerular Filt Rate > 60; Glucose 97 mg/dL (65-110); Lipase 138 U/L (23-300); Magnesium 1.5 mg/dL (1.6-2.3); Potassium 3.3 mmol/L (3.4-5.0); Sodium 124 mmol/L (137-145); Total Protein 6.7 g/dL (6.3-8.2)
[2025-06-18 17:10] LABS: Hematocrit 35.2 % (37.0-47.0); Hemoglobin 12.4 g/dL (12.0-15.0); Immature Granulocyte Percent A 0.3 % (0-0.5); Lymphocytes Absolute Auto 0.88 K/mm3 (0.9-3.2); Mean Corpuscular HGB Conc 35.2 g/dl (32-36); Mean Corpuscular Hemoglobin 35.2 pg (26-34); Mean Corpuscular Volume 100.0 fl (80-100); Nucleated Red Blood Cells Absolute Auto 0.000 K/mm3 (0.0-0.012); Nucleated Red Blood Cells Perc 0.0 % (0.0-0.2); Platelet Count Result 373 k/mm3 (150-375); Red Blood Count 3.52 M/mm3 (4.2-5.4); White Blood Count 7.7 K/mm3 (4.5-10.0)
[2025-06-18 17:15] LABS: INR 1.1; Partial Thromboplastin Time 30.5 Seconds (22.3-36.8); Prothrombin Time 14.0 Seconds (11.1-14.7)
[2025-06-18 17:24] LABS: Troponin I 0.039 ng/mL (0.000-0.034)
[2025-06-18 17:26] LABS: Add Urine Microscopic? YES; Appearance Urine Cloudy (Clear); Glucose Urine UA Negative (Negative); Leukocyte Esterase Ur 3+ LEU/UL (Negative); Need Manual Microscopic Reviewed; Nitrate Urine Negative (Negative); Non Pathogenic Casts 0-2; Specific Grav Ur 1.007 (1.001-1.035)
[2025-06-18 17:35] LABS: Influenza A QL RT-PCR Negative (Negative); Influenza B QL RT-PCR Negative (Negative); RSV RNA, RT-PCR Negative (Negative); SARS-CoV-2 RNA PCR Negative (Negative)
[2025-06-18 17:46] LABS: Cannabinoid Screen Urine Negative (Negative)
[2025-06-18 18:04] LABS: Thyroid Stimulating Hormone Reflex 1.420 uIU/mL (0.465-4.68)
[2025-06-18] MEDS: POTASSIUM CHLORIDE 20 MEQ PACKET (FOR LIQUID) 40 MEQ PO (18:15)
[2025-06-18] MEDS: cefTRIAXone 1 GM in SODIUM CHLORIDE 0.9% IV 50 ML 100 ML IVPB (18:18)
--- NOTE | 2025-06-18 18:49 | ECG_ITS ---
Test Date: 2025-06-18 18:54:25 Measurements Intervals Holt Rate: 87 P: 75 MN: 146 QRS: -28 QRSD: 87 T: 141 QT: 374 QTc: 451 Interpretive Statements SINUS RHYTHM POSSIBLE LEFT ATRIAL ENLARGEMENT POSSIBLE RIGHT VENTRICULAR CONDUCTION DELAY ST-T WAVE ABNORMALITY IN ANTEROLAT/INF LEADS- CONSIDER ISCHEMIA BASELINE ARTIFACT- I, II, III, AVR, AVL, AVF, V1-V6 ABNORMAL ECG Compared to ECG 06/18/2025 16:24:04 No significant changes Electronically Signed On 06-18-2025 18:57:55 CDT by All Smith D.O.
[2025-06-18] MEDS: MAGNESIUM SULF 2 GM/WATER 50ML 2 GM/50 ML BAG IVPB (19:05)
[2025-06-18 19:27] VITALS: BP 144/82; PULSE 85; RESP 19; O2SAT 97
[2025-06-18 19:38] LABS: Troponin I 0.046 ng/mL (0.000-0.034)
[2025-06-18] MEDS: PANTOPRAZOLE SODIUM IV 40 MG VIAL IV PUSH (21:31)
[2025-06-18 21:44] VITALS: BP 136/79; PULSE 79; RESP 16; O2SAT 98
[2025-06-18 22:00] VITALS: PULSE 99
[2025-06-18 22:01] VITALS: BMI 14.3
[2025-06-18 22:02] VITALS: BP 136/95; PULSE 92; RESP 16; TEMP 36.6; O2SAT 98
--- NOTE | 2025-06-18 22:04 | ADMGEN ---
This patient, Fiorella Baker, was admitted to IMU Room 209-01. Patient/family oriented to hospital policies and general routines including ID bracelet, bed and alarms, visiting hours, pain management, procedures, bathroom and other care routines, personal items, smoking policy, room service/diet, and visiting hours. Information on how to activate the Rapid Response Team has been discussed. Patient/Family are encouraged to report perceived risks to care and to ask questions if they do not understand what they are told or what they should do. Received report from VALERIO Philippe in ED. Patient arrived to floor at 2150.
--- NOTE | 2025-06-18 22:39 | P.HP_ITS ---
H&P: HPI History of Present Illness Date/Time: 06/18/25 22:39 Chief Complaint: Fall yesterday and today due to legs being weak Narrative: 70-year-old female with a medical history of essential hypertension, peripheral neuropathy, GERD, chronic hyponatremia due to SIADH and suspected dementia who was brought to the ER by her due to a fall yesterday and again today. The patient's reports that the patient has lost over 50 lb and fell yesterday and today due to her legs giving out. Patient is evidently been undergoing outpatient evaluation for dementia and recent outpatient MRI the brain that was reportedly negative for significant process. At the time of my evaluation the patient was alert oriented only to self. She states that she goes by Cherise instead of Kristin. She asked nursing staff to her ex- instead of calling Blair who is her life partner. She could not recall her life partner's name. She thought the month was January and could not gas as to the year. She could not tell me who the president was and actually told nursing staff that the president was neck is in. She reports that she just does not have an appetite. She denies any pain in his pleasantly confused. She is otherwise unable to provide any meaningful history. Remainder of history was obtained from review of past medical records ER report and nursing report. Labs in the ER demonstrated normal white count and hemoglobin with respiratory alkalosis on VBG, stable chronic hyponatremia, mild hypokalemia, hypo magnesemia, chronic transaminitis and mildly elevated bilirubin. Her urine was also suspicious for possible UTI with greater than 100 wbc's 3+ leukocyte esterase and 4+ bacteria. Her urine drug screen was negative under alcohol level is less than 10. The patient reports that she does like to drink alcohol in drinks beer but she cannot tell me how much beer that she drinks. Review of Systems 2 Review of Systems: Review of systems is not reliable due to the patient's mental status. [facility] Past Medical History Medical History (Updated 06/19/25 @ 09:38 by Lori Carias DO) Syndrome of inappropriate ADH (SIADH) secretion Chronic hyponatremia Gastroesophageal reflux disease Hypertension Anxiety Neck fracture Surgical History Surgical History History of vein stripping History of arthroscopy of right knee History of tonsillectomy History of foot surgery Left History of hysterectomy Family History Family History Father No problems noted. Mother Hypertension Social History Social History Social History: Surrogate medical decision maker: Blair Lopez, significant other. Code status: Full code. Smoking packs per day: 0.5 Smoking cigarettes per day: 10.0 Years smoked: 20 Smoking pack-years: 10.00 Smoking status: Former smoker Tobacco type: cigarettes Second hand tobacco smoke exposure: No Alcohol intake: current Drinks per week: 14 Substance use: never Substance use type: does not use Do You Feel Safe in your Home?: Yes Lack of Transportation: No Lack of Food: Never True Current Housing: I Have Housing Concerned About Future Housing: No Difficulty Paying Gas/Electric Bills: No Difficulty Paying for Meds: No Currently Unemployed: No Education: High School Diploma/GED Difficulty w/ Childcare or Family Care: No Living arrangements: with family Spiritual care concerns: No Meds Home Medications and Allergies Home Medications ?Medication ?Instructions ?Recorded ?Confirmed ?Type omeprazole 20 mg capsule,delayed 20 mg PO DAILY 10/03/21 06/19/25 History release paroxetine HCl 10 mg tablet 10 mg PO DAILY 07/06/23 06/19/25 History potassium chloride 10 mEq 10 meq PO DAILY 01/11/24 06/19/25 History tablet,extended release pyridoxine (vitamin B6) 100 mg 100 mg PO DAILY 01/11/24 06/19/25 History tablet tramadol 50 mg tablet 50 mg PO Q6H PRN Pain 01/11/24 06/19/25 History metoprolol succinate 50 mg 50 mg PO DAILY 06/19/25 06/19/25 History tablet,extended release 24 hr sodium chloride 1,000 mg soluble 1,000 mg PO BID 06/19/25 06/19/25 History tablet sucralfate 1 gram tablet 1 g PO TIDWM 06/19/25 06/19/25 History Allergies Allergy/AdvReac Type Severity Reaction Status Date / Time No Known Allergies Allergy Verified 07/26/24 13:57 Vital Signs Vital Signs - 24 hr 06/18/25 12:24 06/18/25 16:26 06/18/25 19:27 Temperature 97.0 F L Pulse Rate 88 70 85 Respiratory Rate 18 13 19 Blood Pressure 113/82 128/95 H 144/82 H Pulse Oximetry 100 100 97 Oxygen Delivery Room Air Room Air 06/18/25 21:44 06/18/25 21:44 06/18/25 22:02 Temperature 98 F Pulse Rate 79 79 92 Respiratory Rate 16 16 16 Blood Pressure 136/79 136/79 136/95 H Pulse Oximetry 98 98 98 Oxygen Delivery Exam 2 Narrative: Weight 43.9 kg BMI 14.3 Const: Other: Chronically ill-appearing, frail, appears older than stated age HENMT: Other: Upper and lower dentures in place, mucous membranes are tacky, no oral pharyngeal erythema, head is normocephalic atraumatic, temporal wasting Eyes: Other: Pupils are equal and reactive, no scleral icterus, positive conjunctival pallor Neck: Other: No JVD, no lymphadenopathy, trachea midline Resp: Other: Clear to auscultation bilaterally, no increased work of breathing Cardio: Other: Regular rate, regular rhythm, no murmurs, 2+ bilateral radial and pedal pulses, no JVD GI: Other: Soft, nontender, nondistended, normoactive bowel sounds Skin: Other: Generalized pallor, non jaundice, cold to touch feet greater than hands Neuro: Other: Alert oriented to self only, conversational and pleasantly confused, follow simple commands, no localizing neurologic deficits noted, normal tone Extrem: Other: Generalized muscle wasting, moves all extremities equally Psych: Other: Pleasantly confused, cooperative, poor judgment and insight H&P: Results Labs Labs: Laboratory Tests 06/18/25 16:17 06/18/25 16:46 06/18/25 06/18/25 06/18/25 16:15 16:17 16:46 WBC 7.7 RBC 3.52 L Hgb 12.4 Hct 35.2 L MCV 100.0 MCH 35.2 H MCHC 35.2 RDW 13.6 Plt Count 373 D MPV 10.4 Immature Gran % (Auto) 0.3 Neut % (Auto) 83.9 H Lymph % (Auto) 11.5 L [place] % (Auto) 4.0 Eos % (Auto) 0.0 Baso % (Auto) 0.3 Lymph # (Auto) 0.88 L [place] # (Auto) 0.3 Eos # (Auto) 0.0 Baso # (Auto) 0.0 Abs Immat Gran (auto) 0.02 Absolute Neuts (auto) 6.5 Absolute Nucleated RBC 0.000 Nucleated RBC % 0.0 PT 14.0 INR 1.1 APTT 30.5 VBG pH 7.461 H* VBG pCO2 34.8 L VBG pO2 < 27.0 L VBG HCO3 24.3 O2 Delivery Device Room air O2 Liters/Min Not Reportable FiO2 21 Sodium 124 L Potassium 3.3 L Chloride 86 L Carbon Dioxide 26 Anion Gap 12 BUN 12 D Creatinine 0.43 L 0.50 L Estim Creat Clear Calc 71 62 Estimated GFR > 60 > 60 Glucose 97 POC Capillary Glucose Lactic Acid 2.2 H Calcium 9.8 Phosphorus 3.2 Magnesium 1.5 L Total Bilirubin 2.9 H AST 85 H ALT 51 H Alkaline Phosphatase 171 H Troponin I 0.039 H* Total Protein 6.7 Albumin 4.1 Lipase 138 TSH (Reflex) 1.420 Urine Color Urine Appearance Urine pH Ur Specific [place] Urine Protein Urine Glucose (UA) Urine Ketones Ur Blood (Man) Urine Nitrate Urine Bilirubin Urine Urobilinogen Add Ur Microanalysis Leukocyte Esterase Rfl Urine RBC Urine WBC Ur Squamous Epith Cells Urine Bacteria Urine Casts Urine Opiates Screen Urine Methadone Screen Ur Barbiturates Screen Ur Phencyclidine Scrn Ur Amphetamine Screen U Benzodiazepines Scrn Urine Cocaine Screen U Cannabinoids Screen Ethyl Alcohol < 10 Influenza A (RT-PCR) Negative Influenza B (RT-PCR) Negative RSV (RT-PCR) Negative SARS-CoV-2 RNA (RT-PCR) Negative 06/18/25 06/18/25 06/18/25 17:01 17:08 18:52 WBC RBC Hgb Hct MCV MCH MCHC RDW Plt Count MPV Immature Gran % (Auto) Neut % (Auto) Lymph % (Auto) [place] % (Auto) Eos % (Auto) Baso % (Auto) Lymph # (Auto) [place] # (Auto) Eos # (Auto) Baso # (Auto) Abs Immat Gran (auto) Absolute Neuts (auto) Absolute Nucleated RBC Nucleated RBC % PT INR APTT VBG pH VBG pCO2 VBG pO2 VBG HCO3 O2 Delivery Device O2 Liters/Min FiO2 Sodium Potassium Chloride Carbon Dioxide Anion Gap BUN Creatinine Estim Creat Clear Calc Estimated GFR Glucose POC Capillary Glucose 81 Lactic Acid 2.2 H Calcium Phosphorus Magnesium Total Bilirubin AST ALT Alkaline Phosphatase Troponin I 0.046 H* Total Protein Albumin Lipase TSH (Reflex) Urine Color Yellow Urine Appearance Cloudy H Urine pH >=9.0 H Ur Specific [place] 1.007 Urine Protein 1+ H Urine Glucose (UA) Negative Urine Ketones Negative Ur Blood (Man) 2+ H Urine Nitrate Negative Urine Bilirubin Negative Urine Urobilinogen 2.0 H Add Ur Microanalysis Reviewed Leukocyte Esterase Rfl 3+ H Urine RBC 0-2 Urine WBC >100 H Ur Squamous Epith Cells None seen Urine Bacteria 4+ Urine Casts 0-2 Urine Opiates Screen Negative Urine Methadone Screen Negative Ur Barbiturates Screen Negative Ur Phencyclidine Scrn Negative Ur Amphetamine Screen Negative U Benzodiazepines Scrn Negative Urine Cocaine Screen Negative U Cannabinoids Screen Negative Ethyl Alcohol Influenza A (RT-PCR) Influenza B (RT-PCR) RSV (RT-PCR) SARS-CoV-2 RNA (RT-PCR) Impressions Head CT 06/18/25 15:47 IMPRESSION: No acute intracranial process. Chest X-Ray 06/18/25 15:51 IMPRESSION: No acute cardiopulmonary process. Chest/Abdomen/Pelvis CT 06/18/25 17:06 IMPRESSION: Mild descending thoracic aortic ectasia. Scattered sub-6 mm pulmonary nodules, requiring no additional follow-up unless the patient is at high risk, in which case consider low-dose noncontrast CT of the chest in one year. Diffuse esophagitis. Moderate gastritis. Hepatomegaly. Hyperenhancing areas along the falciform ligament and gallbladder fossa may represent transient hepatic attenuation differences and/or irregular parenchymal enhancement from steatosis. No discrete mass identified. Recommend MRI of the liver. Hyperemic gallbladder wall may reflect a component of mild/early inflammatory change versus artifact from contrast phase. No biliary duct dilatation or inflammation to suggest cholangitis. Cystitis. Possible sacral soft tissue defect, correlate clinically for decubitus ulcer. EKG:Test Date: 2025-06-18 18:54:25 Measurements Intervals [place] Rate: 87 P: 75 CO: 146 QRS: -28 QRSD: 87 T: 141 QT: 374 QTc: 451 Interpretive Statements SINUS RHYTHM POSSIBLE LEFT ATRIAL ENLARGEMENT POSSIBLE RIGHT VENTRICULAR CONDUCTION DELAY ST-T WAVE ABNORMALITY IN ANTEROLAT/INF LEADS- CONSIDER ISCHEMIA BASELINE ARTIFACT- I, II, III, AVR, AVL, AVF, V1-V6 ABNORMAL ECG Compared to ECG 06/18/2025 16:24:04 No significant changes All imaging and EKGs personally reviewed and interpreted. And unless stated otherwise agree with radiologic and cardiology interpretation. Assessment and Plan Assessment and plan (1) Adult failure to thrive: Code(s): R62.7 - Adult failure to thrive Status: Acute (2) Severe protein-calorie malnutrition: Code(s): E43 - Unspecified severe protein-calorie malnutrition Status: Acute (3) Acute UTI: Code(s): N39.0 - Urinary tract infection, site not specified Status: Acute (4) Hypomagnesemia: Code(s): E83.42 - Hypomagnesemia Status: Acute (5) Chronic hyponatremia: Code(s): E87.1 - Hypo-osmolality and hyponatremia Status: Acute (6) Syndrome of inappropriate ADH (SIADH) secretion: Code(s): E22.2 - Syndrome of inappropriate secretion of antidiuretic hormone Status: Acute (7) Lactic acidosis: Code(s): E87.20 - Acidosis, unspecified Status: Acute (8) Acute hypokalemia: Code(s): E87.6 - Hypokalemia Status: Acute (9) Transaminitis: Code(s): R74.01 - Elevation of levels of liver transaminase levels Status: Acute (10) Hyperbilirubinemia: Code(s): E80.6 - Other disorders of bilirubin metabolism Status: Acute (11) Elevated troponin: Code(s): R79.89 - Other specified abnormal findings of blood chemistry Status: Acute (12) Urinary retention with incomplete bladder emptying: Code(s): R33.9 - Retention of urine, unspecified Status: Acute (13) GERD (gastroesophageal reflux disease): Qualifiers: Esophagitis presence: with esophagitis Esophagitis bleeding: without hemorrhage Qualified Code(s): K21.00 - Gastro-esophageal reflux disease with esophagitis, without bleeding Code(s): K21.9 - Gastro-esophageal reflux disease without esophagitis Status: Acute Plan Patient has failure to thrive with severe protein calorie malnutrition. Underlying causes likely multifactorial due to memory loss from likely dementia and or some component of gastritis and esophagitis given findings on CT scan. Will place patient on Protonix 40 mg p.o. b.i.d. and Carafate. Will request dietitian consult for nutritional supplements. Patient does have some hyponatremia likely due to SIADH in component of hypovolemic hyponatremia. Will place patient on maintenance IV fluids at 100 mL hour for 1 bag then repeat electrolyte panel and re-evaluate fluid status. Patient does have evidence of transaminitis with hyperbilirubinemia. Her transaminitis including AST and ALT appear to be chronically elevated in somewhat improved from prior values. However bilirubin is acutely elevated. Patient does have hepatomegaly with some hyper enhancing areas. Patient may benefit from MRI of liver if values do not improve with hydration. Patient also has some hyperemia to the gallbladder but no localizing pain to the right upper quadrant to suggest acute cholecystitis or cholangitis. Could be due to phase of contrast on imaging. Will repeat CMP in a.m.. Patient does have evidence of cystitis on imaging and abnormal urinalysis. She has been placed on empiric antibiotic therapy with Rocephin. Urine cultures have been obtained and are pending. Patient does have some lactic acidosis which could be due to her hepatomegaly and or starvation ketosis/dehydration. Will place patient on IV fluid hydration and repeat lactic acid level with a.m. labs. Will liberalize diet to regular diet. Patient did have hypo magnesium and hypokalemia with replacement given in the ER. Will repeat levels in a.m. give further supplementation if indicated Patient does have some mildly elevated troponin but troponin profile is flat. Values not indicative of acute myocardial ischemia. The patient was reporting that she felt like she needed to urinate but was unable to urinate. Bladder scan demonstrated 700 mL of retained urine. Nursing staff reports immediate return of 1.2 L of urine after Fuentes catheter placement. director of instruction protocol has been ordered. Patient's home medication reconciliation was not available for my review at the time of finishing this documentation. Will defer further management to daytime hospitalist service. MEDICAL DECISION MAKING NARRATIVE -Spoke with the ED provider in detail regarding patient's evaluation, workup and management -Patient seen and examined at bedside -Collaborated with patient's nurse at the bedside in detail and addressed all concerns -Labs, electrolytes, radiology, investigations and test results reviewed -ED/Consult/Nursing/Ancilliary notes on the chart reviewed and appreciated Quality VTE Prophylaxis VTE prophylaxis: mechanical ordered (SCDs) Hospitalist MIPS Advance Care Plan I have confirmed that the patient's Advanced Care Plan is present, code status is documented, or surrogate decision maker is listed in patient medical record.: Yes Medication Reconciliation I have utilized all available resources to obtain, update and review the patients current medications (includes all prescriptions, OTC, herbals, cannabis, and nutritional supplements).: Yes
[2025-06-18 23:19] LABS: Alanine Aminotransferase 46 U/L (6-35); Albumin Level 3.5 g/dL (3.5-5.1); Alkaline Phosphatase 135 U/L (38-126); Anion Gap 14 mmol/L (4-12); Aspartate Amino Transferase 74 U/L (14-36); Bilirubin,Total 2.3 mg/dL (0.2-1.3); Blood Urea Nitrogen 10 mg/dL (7-17); Calcium 8.4 mg/dL (8.4-10.2); Carbon Dioxide 19 mmol/L (22-30); Chloride 93 mmol/L (98-107); Estimated CRCL calculation 81 ml/min; Estimated Glomerular Filt Rate > 60; Glucose 94 mg/dL (65-110); Magnesium 2.3 mg/dL (1.6-2.3); Potassium 3.2 mmol/L (3.4-5.0); Sodium 126 mmol/L (137-145); Total Protein 5.8 g/dL (6.3-8.2)
[2025-06-18 23:29] LABS: Troponin I 0.049 ng/mL (0.000-0.034)
--- NOTE | 2025-06-18 23:43 | PM.IMHP ---
H&P: HPI History of Present Illness Date/Time: 06/18/25 23:43 Chief Complaint: Increased weakness with fall PMFSH Past Medical History Medical History (Updated 06/18/25 @ 22:51 by Lori Carias DO) Syndrome of inappropriate ADH (SIADH) secretion Chronic hyponatremia Gastroesophageal reflux disease Hypertension Anxiety Neck fracture Surgical History Surgical History History of vein stripping History of arthroscopy of right knee History of tonsillectomy History of foot surgery Left History of hysterectomy Family History Family History Father No problems noted. Mother Hypertension Social History Social History Social History: Surrogate medical decision maker: Blair Lopez, significant other. Code status: Full code. Smoking packs per day: 0.5 Smoking cigarettes per day: 10.0 Years smoked: 20 Smoking pack-years: 10.00 Smoking status: Former smoker Tobacco type: cigarettes Second hand tobacco smoke exposure: No Alcohol intake: current Drinks per week: 14 Substance use: never Substance use type: does not use Do You Feel Safe in your Home?: Yes Lack of Transportation: No Lack of Food: Never True Current Housing: I Have Housing Concerned About Future Housing: No Difficulty Paying Gas/Electric Bills: No Difficulty Paying for Meds: No Currently Unemployed: No Education: High School Diploma/GED Difficulty w/ Childcare or Family Care: No Living arrangements: with family Spiritual care concerns: No Meds Home Medications and Allergies Home Medications ?Medication ?Instructions ?Recorded ?Confirmed ?Type omeprazole 20 mg capsule,delayed 20 mg PO DAILY 10/03/21 02/19/25 History release paroxetine HCl 10 mg tablet 10 mg PO DAILY 07/06/23 02/19/25 History gabapentin 100 mg capsule 100 mg PO DAILY 01/11/24 02/19/25 History hydrochlorothiazide 25 mg tablet 12.5 mg PO DAILY 01/11/24 02/19/25 History potassium chloride 10 mEq 10 meq PO DAILY 01/11/24 02/19/25 History tablet,extended release pyridoxine (vitamin B6) 100 mg 100 mg PO DAILY 01/11/24 02/19/25 History tablet tramadol 50 mg tablet 50 mg PO Q6H PRN Pain 01/11/24 02/19/25 History nifedipine 30 mg tablet,extended 30 mg PO QAM #30 tabs 01/16/24 02/19/25 Rx release 24 hr (Procardia XL) Allergies Allergy/AdvReac Type Severity Reaction Status Date / Time No Known Allergies Allergy Verified 07/26/24 13:57 Vital Signs Vital Signs - 24 hr 06/18/25 12:24 06/18/25 16:26 06/18/25 19:27 Temperature 97.0 F L Pulse Rate 88 70 85 Respiratory Rate 18 13 19 Blood Pressure 113/82 128/95 H 144/82 H Pulse Oximetry 100 100 97 Oxygen Delivery Room Air Room Air 06/18/25 21:44 06/18/25 21:44 06/18/25 22:02 Temperature 98 F Pulse Rate 79 79 92 Respiratory Rate 16 16 16 Blood Pressure 136/79 136/79 136/95 H Pulse Oximetry 98 98 98 Oxygen Delivery H&P: Results Labs Labs: Short CBC 06/18/25 Range/Units 16:17 WBC 7.7 (4.5-10.0) K/mm3 Hgb 12.4 (12.0-15.0) g/dL Hct 35.2 L (37.0-47.0) % Plt Count 373 D (150-375) k/mm3 BMP 06/18/25 06/18/25 06/18/25 16:17 16:46 22:53 Sodium 124 L 126 L Potassium 3.3 L 3.2 L Chloride 86 L 93 L Carbon Dioxide 26 19 L BUN 12 D 10 Creatinine 0.43 L 0.50 L 0.36 L Glucose 97 94 Calcium 9.8 8.4 Cardiac Enzymes 06/18/25 06/18/25 06/18/25 Range/Units 16:17 18:52 22:53 Troponin I 0.039 H* 0.046 H* 0.049 H* (0.000-0.034) ng/mL Liver Function 06/18/25 06/18/25 Range/Units 16:17 22:53 Total Bilirubin 2.9 H 2.3 H (0.2-1.3) mg/dL AST 85 H 74 H (14-36) U/L ALT 51 H 46 H (6-35) U/L Alkaline Phosphatase 171 H 135 H (38-126) U/L Albumin 4.1 3.5 (3.5-5.1) g/dL Urine 06/18/25 Range/Units 17:08 Urine Color Yellow (Yellow) Urine Appearance Cloudy H (Clear) Urine pH >=9.0 H (5.0-9.0) Ur Specific [place] 1.007 (1.001-1.035) Urine Protein 1+ H (Negative) mg/dL Urine Glucose (UA) Negative (Negative) mg/dL
[2025-06-19] VITALS (16 sets, daily range): BP systolic 123–141; BP diastolic 80–90; PULSE 68–103; RESP 15–18; TEMP 36.6–37; O2SAT 95–100; BMI 14.4
[2025-06-19] MEDS: SUCRALFATE SUSP 100 MG/ML 10 ML UDC 1000 MG PO ×5 (00:56→20:25)
[2025-06-19] MEDS: SODIUM CHLORIDE 0.9% IV 1,000 ML 100 ML IV CONT (00:57)
[2025-06-19 05:51] LABS: Hematocrit 27.8 % (37.0-47.0); Hemoglobin 9.6 g/dL (12.0-15.0); Immature Granulocyte Percent A 0.4 % (0-0.5); Lymphocytes Absolute Auto 0.85 K/mm3 (0.9-3.2); Mean Corpuscular HGB Conc 34.5 g/dl (32-36); Mean Corpuscular Hemoglobin 34.5 pg (26-34); Mean Corpuscular Volume 100.0 fl (80-100); Nucleated Red Blood Cells Absolute Auto 0.000 K/mm3 (0.0-0.012); Nucleated Red Blood Cells Perc 0.0 % (0.0-0.2); Platelet Count Result 311 k/mm3 (150-375); Red Blood Count 2.78 M/mm3 (4.2-5.4); White Blood Count 11.2 K/mm3 (4.5-10.0)
[2025-06-19 06:00] LABS: Alanine Aminotransferase 37 U/L (6-35); Albumin Level 2.8 g/dL (3.5-5.1); Alkaline Phosphatase 117 U/L (38-126); Anion Gap 8 mmol/L (4-12); Aspartate Amino Transferase 65 U/L (14-36); Bilirubin,Total 1.5 mg/dL (0.2-1.3); Blood Urea Nitrogen 9 mg/dL (7-17); Calcium 8.2 mg/dL (8.4-10.2); Carbon Dioxide 23 mmol/L (22-30); Chloride 96 mmol/L (98-107); Estimated CRCL calculation 78 ml/min; Estimated Glomerular Filt Rate > 60; Glucose 89 mg/dL (65-110); Potassium 3.1 mmol/L (3.4-5.0); Sodium 127 mmol/L (137-145); Total Protein 5.0 g/dL (6.3-8.2)
[2025-06-19] MEDS: PANTOPRAZOLE SODIUM IV 40 MG VIAL IV PUSH ×2 (08:50→20:25)
[2025-06-19] MEDS: POTASSIUM CHLORIDE 20 MEQ PACKET (FOR LIQUID) 40 MEQ PO (10:47)
[2025-06-19] MEDS: SODIUM CHLORIDE 1 GM TABLET PO ×2 (10:48→17:01)
[2025-06-19] MEDS: THIAMINE HCL 100 MG TABLET PO (10:48)
[2025-06-19] MEDS: PYRIDOXINE HCL 50 MG TABLET 100 MG PO (10:48)
[2025-06-19] MEDS: VITAMIN B COMPLEX CAPSULE 1 CAP PO (10:48)
[2025-06-19 11:26] LABS: Vitamin B12 > 1000.0 pg/mL (239-931)
[2025-06-19] MEDS: cefTRIAXone 1 GM in SODIUM CHLORIDE 0.9% IV 50 ML 100 ML IVPB (17:02)
--- NOTE | 2025-06-19 18:41 | P.PNIM_ITS ---
Progress Note: A&P Assessment and Plan (1) Adult failure to thrive: Code(s): R62.7 - Adult failure to thrive Status: Acute (2) Severe protein-calorie malnutrition: Code(s): E43 - Unspecified severe protein-calorie malnutrition Status: Acute (3) Acute UTI: Code(s): N39.0 - Urinary tract infection, site not specified Status: Acute (4) Hypomagnesemia: Code(s): E83.42 - Hypomagnesemia Status: Acute (5) Chronic hyponatremia: Code(s): E87.1 - Hypo-osmolality and hyponatremia Status: Acute (6) Syndrome of inappropriate ADH (SIADH) secretion: Code(s): E22.2 - Syndrome of inappropriate secretion of antidiuretic hormone Status: Acute (7) Lactic acidosis: Code(s): E87.20 - Acidosis, unspecified Status: Acute (8) Acute hypokalemia: Code(s): E87.6 - Hypokalemia Status: Acute (9) Transaminitis: Code(s): R74.01 - Elevation of levels of liver transaminase levels Status: Acute (10) Hyperbilirubinemia: Code(s): E80.6 - Other disorders of bilirubin metabolism Status: Acute (11) Elevated troponin: Code(s): R79.89 - Other specified abnormal findings of blood chemistry Status: Acute (12) Urinary retention with incomplete bladder emptying: Code(s): R33.9 - Retention of urine, unspecified Status: Acute (13) GERD (gastroesophageal reflux disease): Qualifiers: Esophagitis presence: with esophagitis Esophagitis bleeding: without hemorrhage Qualified Code(s): K21.00 - Gastro-esophageal reflux disease with esophagitis, without bleeding Code(s): K21.9 - Gastro-esophageal reflux disease without esophagitis Status: Acute Plan Patient has failure to thrive with severe protein calorie malnutrition. Underlying causes likely multifactorial due to memory loss from likely dementia and or some component of gastritis and esophagitis given findings on CT scan. Will place patient on Protonix 40 mg p.o. b.i.d. and Carafate. Will request dietitian consult for nutritional supplements. Patient does have some hyponatremia likely due to SIADH in component of hypovolemic hyponatremia. Will place patient on maintenance IV fluids at 100 mL hour for 1 bag then repeat electrolyte panel and re-evaluate fluid status. Patient does have evidence of transaminitis with hyperbilirubinemia. Her transaminitis including AST and ALT appear to be chronically elevated in somewhat improved from prior values. However bilirubin is acutely elevated. Patient does have hepatomegaly with some hyper enhancing areas. Patient may benefit from MRI of liver if values do not improve with hydration. Patient also has some hyperemia to the gallbladder but no localizing pain to the right upper quadrant to suggest acute cholecystitis or cholangitis. Could be due to phase of contrast on imaging. Will repeat CMP in a.m.. Patient does have evidence of cystitis on imaging and abnormal urinalysis. She has been placed on empiric antibiotic therapy with Rocephin. Urine cultures have been obtained and are pending. Patient does have some lactic acidosis which could be due to her hepatomegaly and or starvation ketosis/dehydration. Will place patient on IV fluid hydration and repeat lactic acid level with a.m. labs. Will liberalize diet to regular diet. Patient did have hypo magnesium and hypokalemia with replacement given in the ER. Will repeat levels in a.m. give further supplementation if indicated Patient does have some mildly elevated troponin but troponin profile is flat. Values not indicative of acute myocardial ischemia. The patient was reporting that she felt like she needed to urinate but was unable to urinate. Bladder scan demonstrated 700 mL of retained urine. Nursing staff reports immediate return of 1.2 L of urine after Fuentes catheter placement. director of plant operations protocol has been ordered. Patient's home medication reconciliation was not available for my review at the time of finishing this documentation. Will defer further management to daytime hospitalist service. Patient appears undernourished, stats just does not feel like eating and no appetite, patient is encourage to increase food intake to gain strength seen by bone char kiln operator and added ensure and will add mulitple vitamins, denies any pain, patient urine is suspicious for UTI and being treated with ceftriaxone, will follow up on urine culture. Subjective Date/time seen: 06/19/25 18:41 Interval history: Fall yesterday and today due to legs being weak Narrative: 70-year-old female with a medical history of essential hypertension, peripheral neuropathy, GERD, chronic hyponatremia due to SIADH and suspected dementia who was brought to the ER by her due to a fall yesterday and again today. The patient's reports that the patient has lost over 50 lb and fell yesterday and today due to her legs giving out. Patient is evidently been undergoing outpatient evaluation for dementia and recent outpatient MRI the brain that was reportedly negative for significant process. At the time of my evaluation the patient was alert oriented only to self. She states that she goes by Cherise instead of Kristin. She asked nursing staff to her ex- instead of calling Blair who is her life partner. She could not recall her life partner's name. She thought the month was January and could not gas as to the year. She could not tell me who the president was and actually told nursing staff that the president was neck is in. She reports that she just does not have an appetite. She denies any pain in his pleasantly confused. She is otherwise unable to provide any meaningful history. Remainder of history was obtained from review of past medical records ER report and nursing report. Labs in the ER demonstrated normal white count and hemoglobin with respiratory alkalosis on VBG, stable chronic hyponatremia, mild hypokalemia, hypo magnesem ia, chronic transaminitis and mildly elevated bilirubin. Her urine was also suspicious for possible UTI with greater than 100 wbc's 3+ leukocyte esterase and 4+ bacteria. Her urine drug screen was negative under alcohol level is less than 10. The patient reports that she does like to drink alcohol in drinks beer but she cannot tell me how much beer that she drinks. Patient appears undernourished, stats just does not feel like eating and no appetite, patient is encourage to increase food intake to gain strength seen by bone char kiln operator and added ensure and will add mulitple vitamins, denies any pain, patient urine is suspicious for UTI and being treated with ceftriaxone, will follow up on urine culture. Review of Systems Review of Systems: Review of systems is not reliable due to the patient's mental status. Exam Narrative: Appears malnourished Patient is comfortable, NAD HEENT: eyes are clear and none icteric LUNGS:CTA HEART: RR S1S2 ABD: BS+, Soft and nontender Lower extremities: no edema SKIN: nonjaundiced Neuro: grossly intact. Somewhat confused Objective Data Vital Signs Vital Signs: Vital Signs - 24 hr 06/18/25 19:27 06/18/25 21:44 06/18/25 21:44 Temperature Pulse Rate 85 79 79 Respiratory Rate 19 16 16 Blood Pressure 144/82 H 136/79 136/79 Pulse Oximetry 97 98 98 Oxygen Delivery 06/18/25 22:00 06/18/25 22:02 06/19/25 00:00 Temperature 36.6 C 36.6 C Pulse Rate 99 92 83 Respiratory Rate 16 16 Blood Pressure 136/95 H 136/85 Pulse Oximetry 98 100 Oxygen Delivery 06/19/25 00:00 06/19/25 04:00 06/19/25 05:04 Temperature 36.6 C Pulse Rate 88 88 88 Respiratory Rate 16 Blood Pressure 123/82 Pulse Oximetry 100 Oxygen Delivery 06/19/25 06:00 06/19/25 08:00 06/19/25 08:00 Temperature 36.6 C Pulse Rate 68 94 Respiratory Rate 16 Blood Pressure 133/90 Pulse Oximetry 100 100 Oxygen Delivery Room Air 06/19/25 08:00 06/19/25 10:00 06/19/25 11:47 Temperature 37.0 C Pulse Rate 92 90 90 Respiratory Rate 18 Blood Pressure 129/80 Pulse Oximetry 100 Oxygen Delivery 06/19/25 12:00 06/19/25 12:00 06/19/25 14:00 Temperature Pulse Rate 97 94 Respiratory Rate Blood Pressure Pulse Oximetry 100 Oxygen Delivery Room Air 06/19/25 16:00 06/19/25 16:00 06/19/25 16:00 Temperature 36.8 C Pulse Rate 103 H 94 Respiratory Rate 16 Blood Pressure 134/88 Pulse Oximetry 100 100 Oxygen Delivery Room Air 06/19/25 18:00 Temperature Pulse Rate 96 Respiratory Rate Blood Pressure Pulse Oximetry Oxygen Delivery Intake/Output Intake/Output: Intake & Output 06/16/25 06/17/25 06/18/25 06/19/25 23:59 23:59 23:59 23:59 Intake Total 1600 60 Output Total 1000 Balance 1600 -940 Meds/Results Medications: Active Medications Generic Name Dose Route Start Last Admin Trade Name Freq PRN Reason Stop Dose Admin Ceftriaxone Sodium 1 gm/ 50 mls @ 100 mls/hr 06/19/25 18:00 06/19/25 17:02 Sodium Chloride IVPB 100 mls/hr Q24H ELEAZAR Administration Pantoprazole Sodium 40 mg 06/18/25 21:00 06/19/25 08:50 Pantoprazole Sodium Iv 40 Mg Vial IV PUSH 40 mg Q12HR ELEAZAR Administration Paroxetine HCl 10 mg 06/19/25 10:00 06/19/25 10:48 Paroxetine 10 Mg Tablet PO 10 mg DAILY ELEAZAR Administration Potassium Chloride 10 meq 06/19/25 10:00 06/19/25 10:45 Potassium Chloride 10 Meq Er Tablet PO Not Given DAILY ELEAZAR Pyridoxine HCl 100 mg 06/19/25 10:05 06/19/25 10:48 Pyridoxine Hcl 50 Mg Tablet PO 07/20/25 10:04 100 mg DAILY ELEAZAR Administration Sodium Chloride 1 gm 06/19/25 10:05 06/19/25 17:01 Sodium Chloride 1 Gm Tablet PO 1 gm BID ELEAZAR Administration Sucralfate 1,000 mg 06/18/25 21:00 06/19/25 17:01 Sucralfate Susp 100 Mg/Ml 10 Ml Udc PO 1,000 mg ACHS ELEAZAR Administration Thiamine HCl 100 mg 06/19/25 09:45 06/19/25 10:48 Thiamine Hcl 100 Mg Tablet PO 100 mg QAM ELEAZAR Administration Vitamin B Complex 1 cap 06/19/25 09:45 06/19/25 10:48 Vitamin B Complex Capsule PO 1 cap QAM ELEAZAR Administration Radiology Results: ITS Impressions Head CT 06/18/25 15:47 IMPRESSION: No acute intracranial process. Chest X-Ray 06/18/25 15:51 IMPRESSION: No acute cardiopulmonary process. Chest/Abdomen/Pelvis CT 06/18/25 17:06 IMPRESSION: Mild descending thoracic aortic ectasia. Scattered sub-6 mm pulmonary nodules, requiring no additional follow-up unless the patient is at high risk, in which case consider low-dose noncontrast CT of the chest in one year. Diffuse esophagitis. Moderate gastritis. Hepatomegaly. Hyperenhancing areas along the falciform ligament and gallbladder fossa may represent transient hepatic attenuation differences and/or irregular parenchymal enhancement from steatosis. No discrete mass identified. Recommend MRI of the liver. Hyperemic gallbladder wall may reflect a component of mild/early inflammatory change versus artifact from contrast phase. No biliary duct dilatation or inflammation to suggest cholangitis. Cystitis. Possible sacral soft tissue defect, correlate clinically for decubitus ulcer. Labs Labs: Laboratory Results - last 24 hr 06/18/25 06/18/25 06/19/25 18:52 22:53 03:58 WBC RBC Hgb Hct MCV MCH MCHC RDW Plt Count MPV Immature Gran % (Auto) Neut % (Auto) Lymph % (Auto) [place] % (Auto) Eos % (Auto) Baso % (Auto) Lymph # (Auto) [place] # (Auto) Eos # (Auto) Baso # (Auto) Abs Immat Gran (auto) Absolute Neuts (auto) Absolute Nucleated RBC Nucleated RBC % Sodium 126 L Potassium 3.2 L Chloride 93 L Carbon Dioxide 19 L Anion Gap 14 H BUN 10 Creatinine 0.36 L Estim Creat Clear Calc 81 Estimated GFR > 60 Glucose 94 Lactic Acid 2.2 H 2.3 H Calcium 8.4 Phosphorus 2.6 Magnesium 2.3 Total Bilirubin 2.3 H AST 74 H ALT 46 H Alkaline Phosphatase 135 H Troponin I 0.046 H* 0.049 H* Total Protein 5.8 L Albumin 3.5 Vitamin B12 > 1000.0 H Folate 3.1 06/19/25 05:00 WBC 11.2 H RBC 2.78 L Hgb 9.6 L Hct 27.8 L MCV 100.0 MCH 34.5 H MCHC 34.5 RDW 13.2 Plt Count 311 MPV 10.4 Immature Gran % (Auto) 0.4 Neut % (Auto) 86.8 H Lymph % (Auto) 7.6 L [place] % (Auto) 4.8 Eos % (Auto) 0.1 Baso % (Auto) 0.3 Lymph # (Auto) 0.85 L [place] # (Auto) 0.5 Eos # (Auto) 0.0 Baso # (Auto) 0.0 Abs Immat Gran (auto) 0.04 H Absolute Neuts (auto) 9.8 H Absolute Nucleated RBC 0.000 Nucleated RBC % 0.0 Sodium 127 L Potassium 3.1 L Chloride 96 L Carbon Dioxide 23 Anion Gap 8 BUN 9 Creatinine 0.38 L Estim Creat Clear Calc 78 Estimated GFR > 60 Glucose 89 Lactic Acid Calcium 8.2 L Phosphorus Magnesium Total Bilirubin 1.5 H AST 65 H ALT 37 H Alkaline Phosphatase 117 Troponin I Total Protein 5.0 L Albumin 2.8 L Vitamin B12 Folate Quality VTE Prophylaxis VTE prophylaxis: mechanical ordered (SCDs)
[2025-06-20] VITALS (10 sets, daily range): BP systolic 135–145; BP diastolic 89–94; PULSE 82–94; RESP 15–18; TEMP 36.5–36.8; O2SAT 99–100
[2025-06-20 04:11] LABS: Hematocrit 27.8 % (37.0-47.0); Hemoglobin 9.6 g/dL (12.0-15.0); Mean Corpuscular HGB Conc 34.5 g/dl (32-36); Mean Corpuscular Hemoglobin 34.9 pg (26-34); Mean Corpuscular Volume 101.1 fl (80-100); Platelet Count Result 294 k/mm3 (150-375); Red Blood Count 2.75 M/mm3 (4.2-5.4); White Blood Count 5.3 K/mm3 (4.5-10.0)
[2025-06-20 04:36] LABS: Alanine Aminotransferase 36 U/L (6-35); Albumin Level 2.9 g/dL (3.5-5.1); Alkaline Phosphatase 118 U/L (38-126); Anion Gap 5 mmol/L (4-12); Aspartate Amino Transferase 74 U/L (14-36); Bilirubin,Total 1.3 mg/dL (0.2-1.3); Blood Urea Nitrogen 9 mg/dL (7-17); Calcium 8.7 mg/dL (8.4-10.2); Carbon Dioxide 28 mmol/L (22-30); Chloride 98 mmol/L (98-107); Estimated CRCL calculation 88 ml/min; Estimated Glomerular Filt Rate > 60; Glucose 93 mg/dL (65-110); Magnesium 1.7 mg/dL (1.6-2.3); Potassium 3.0 mmol/L (3.4-5.0); Sodium 131 mmol/L (137-145); Total Protein 5.0 g/dL (6.3-8.2)
[2025-06-20] MEDS: SUCRALFATE SUSP 100 MG/ML 10 ML UDC 1000 MG PO ×4 (05:47→22:45)
[2025-06-20] MEDS: VITAMIN B COMPLEX CAPSULE 1 CAP PO (09:17)
[2025-06-20] MEDS: PYRIDOXINE HCL 50 MG TABLET 100 MG PO (09:17)
[2025-06-20] MEDS: PANTOPRAZOLE SODIUM IV 40 MG VIAL IV PUSH ×2 (09:17→22:14)
[2025-06-20] MEDS: POTASSIUM CHLORIDE 10 MEQ ER TABLET PO (09:17)
[2025-06-20] MEDS: SODIUM CHLORIDE 1 GM TABLET PO ×2 (09:18→16:51)
[2025-06-20] MEDS: THIAMINE HCL 100 MG TABLET PO (09:18)
[2025-06-20] MEDS: POTASSIUM CHLORIDE 20 MEQ ER TABLET 40 MEQ PO (12:29)
--- NOTE | 2025-06-20 16:14 | P.PNIM_ITS ---
Progress Note: A&P Assessment and Plan (1) Adult failure to thrive: Code(s): R62.7 - Adult failure to thrive Status: Acute (2) Severe protein-calorie malnutrition: Code(s): E43 - Unspecified severe protein-calorie malnutrition Status: Acute (3) Acute UTI: Code(s): N39.0 - Urinary tract infection, site not specified Status: Acute (4) Hypomagnesemia: Code(s): E83.42 - Hypomagnesemia Status: Acute (5) Chronic hyponatremia: Code(s): E87.1 - Hypo-osmolality and hyponatremia Status: Acute (6) Syndrome of inappropriate ADH (SIADH) secretion: Code(s): E22.2 - Syndrome of inappropriate secretion of antidiuretic hormone Status: Acute (7) Lactic acidosis: Code(s): E87.20 - Acidosis, unspecified Status: Acute (8) Acute hypokalemia: Code(s): E87.6 - Hypokalemia Status: Acute (9) Transaminitis: Code(s): R74.01 - Elevation of levels of liver transaminase levels Status: Acute (10) Hyperbilirubinemia: Code(s): E80.6 - Other disorders of bilirubin metabolism Status: Acute (11) Elevated troponin: Code(s): R79.89 - Other specified abnormal findings of blood chemistry Status: Acute (12) Urinary retention with incomplete bladder emptying: Code(s): R33.9 - Retention of urine, unspecified Status: Acute (13) GERD (gastroesophageal reflux disease): Qualifiers: Esophagitis presence: with esophagitis Esophagitis bleeding: without hemorrhage Qualified Code(s): K21.00 - Gastro-esophageal reflux disease with esophagitis, without bleeding Code(s): K21.9 - Gastro-esophageal reflux disease without esophagitis Status: Acute Plan Patient has failure to thrive with severe protein calorie malnutrition. Underlying causes likely multifactorial due to memory loss from likely dementia and or some component of gastritis and esophagitis given findings on CT scan. Will place patient on Protonix 40 mg p.o. b.i.d. and Carafate. Will request dietitian consult for nutritional supplements. Patient does have some hyponatremia likely due to SIADH in component of hypovolemic hyponatremia. Will place patient on maintenance IV fluids at 100 mL hour for 1 bag then repeat electrolyte panel and re-evaluate fluid status. Patient does have evidence of transaminitis with hyperbilirubinemia. Her transaminitis including AST and ALT appear to be chronically elevated in somewhat improved from prior values. However bilirubin is acutely elevated. Patient does have hepatomegaly with some hyper enhancing areas. Patient may benefit from MRI of liver if values do not improve with hydration. Patient also has some hyperemia to the gallbladder but no localizing pain to the right upper quadrant to suggest acute cholecystitis or cholangitis. Could be due to phase of contrast on imaging. Will repeat CMP in a.m.. Patient does have evidence of cystitis on imaging and abnormal urinalysis. She has been placed on empiric antibiotic therapy with Rocephin. Urine cultures have been obtained and are pending. Patient does have some lactic acidosis which could be due to her hepatomegaly and or starvation ketosis/dehydration. Will place patient on IV fluid hydration and repeat lactic acid level with a.m. labs. Will liberalize diet to regular diet. Patient did have hypo magnesium and hypokalemia with replacement given in the ER. Will repeat levels in a.m. give further supplementation if indicated Patient does have some mildly elevated troponin but troponin profile is flat. Values not indicative of acute myocardial ischemia. The patient was reporting that she felt like she needed to urinate but was unable to urinate. Bladder scan demonstrated 700 mL of retained urine. Nursing staff reports immediate return of 1.2 L of urine after Fuentes catheter placement. supplier relationship director protocol has been ordered. Patient's home medication reconciliation was not available for my review at the time of finishing this documentation. Will defer further management to daytime hospitalist service. Patient appears undernourished, stats just does not feel like eating and no appetite, patient is encourage to increase food intake to gain strength seen by packager or packer and weigher and added ensure and will add multiple vitamins, encourage family members to bring food from home, denies any pain, patient urine is suspicious for UTI and being treated with ceftriaxone, will follow up on urine culture. patient has history of depression and taking Paxil 10mg PO qd, will consult psychiatrist for further recommendation, will monitor. Subjective Date/time seen: 06/20/25 16:14 Interval history: Fall yesterday and today due to legs being weak Narrative: 70-year-old female with a medical history of essential hypertension, peripheral neuropathy, GERD, chronic hyponatremia due to SIADH and suspected dementia who was brought to the ER by her due to a fall yesterday and again today. The patient's reports that the patient has lost over 50 lb and fell yesterday and today due to her legs giving out. Patient is evidently been undergoing outpatient evaluation for dementia and recent outpatient MRI the brain that was reportedly negative for significant process. At the time of my evaluation the patient was alert oriented only to self. She states that she goes by Cherise instead of Kristin. She asked nursing staff to her ex- instead of calling Blair who is her life partner. She could not recall her life partner's name. She thought the month was January and could not gas as to the year. She could not tell me who the president was and actually told nursing staff that the president was neck is in. She reports that she just does not have an appetite. She denies any pain in his pleasantly confused. She is otherwise unable to provide any meaningful history. Remainder of history was obtained from review of past medical records ER report and nursing report. Labs in the ER demonstrated normal white count and hemoglobin with respiratory alkalosis on VBG, stable chronic hyponatremia, mild hypokalemia, hypo magnesemia, chronic transaminitis and mildly elevated bilirubin. Her urine was also suspicious for possible UTI with greater than 100 wbc's 3+ leukocyte esterase and 4+ bacteria. Her urine drug screen was negative under alcohol level is less than 10. The patient reports that she does like to drink alcohol in drinks beer but she cannot tell me how much beer that she drinks. Patient appears undernourished, stats just does not feel like eating and no appetite, patient is encourage to increase food intake to gain strength seen by packager or packer and weigher and added ensure and will add multiple vitamins, encourage family members to bring food from home, denies any pain, patient urine is suspicious for UTI and being treated with ceftriaxone, will follow up on urine culture. patient has history of depression and taking Paxil 10mg PO qd, will consult psychiatrist for further recommendation, will monitor. Review of Systems Review of Systems: Review of systems is not reliable due to the patient's mental status. Exam Narrative: Appears malnourished Patient is comfortable, NAD HEENT: eyes are clear and none icteric LUNGS:CTA HEART: RR S1S2 ABD: BS+, Soft and nontender Lower extremities: no edema SKIN: nonjaundiced Neuro: grossly intact. Somewhat confused Objective Data Vital Signs Vital Signs: Vital Signs - 24 hr 06/19/25 18:00 06/19/25 20:00 06/19/25 20:18 Temperature 37.0 C Pulse Rate 96 98 99 Respiratory Rate 15 Blood Pressure 138/87 Pulse Oximetry 100 Oxygen Delivery 06/19/25 22:00 06/19/25 23:25 06/19/25 23:48 Temperature 36.7 C Pulse Rate 91 93 Respiratory Rate 16 Blood Pressure 141/90 H Pulse Oximetry 95 99 Oxygen Delivery Room Air 06/20/25 00:00 06/20/25 02:00 06/20/25 04:00 Temperature Pulse Rate 91 85 82 Respiratory Rate Blood Pressure Pulse Oximetry Oxygen Delivery 06/20/25 04:24 06/20/25 06:00 06/20/25 07:21 Temperature 36.5 C 36.8 C Pulse Rate 88 88 89 Respiratory Rate 15 18 Blood Pressure 135/94 H 139/89 Pulse Oximetry 100 99 Oxygen Delivery 06/20/25 08:00 06/20/25 08:00 06/20/25 10:00 Temperature Pulse Rate 88 84 Respiratory Rate Blood Pressure Pulse Oximetry Oxygen Delivery Room Air 06/20/25 12:00 06/20/25 16:00 Temperature 36.6 C 36.5 C Pulse Rate 94 89 Respiratory Rate 18 18 Blood Pressure 145/92 H 141/94 H Pulse Oximetry 100 100 Oxygen Delivery Intake/Output Intake/Output: Intake & Output 06/17/25 06/18/25 06/19/25 06/20/25 23:59 23:59 23:59 23:59 Intake Total 1600 110 75 Output Total 1000 350 Balance 9014 -406 -314 Meds/Results Medications: Active Medications Generic Name Dose Route Start Last Admin Trade Name Freq PRN Reason Stop Dose Admin Ceftriaxone Sodium 1 gm/ 50 mls @ 100 mls/hr 06/19/25 18:00 06/19/25 17:02 Sodium Chloride IVPB 100 mls/hr Q24H ELEAZAR Administration Pantoprazole Sodium 40 mg 06/18/25 21:00 06/20/25 09:17 Pantoprazole Sodium Iv 40 Mg Vial IV PUSH 40 mg Q12HR ELEAZAR Administration Paroxetine HCl 10 mg 06/19/25 10:00 06/20/25 09:17 Paroxetine 10 Mg Tablet PO 10 mg DAILY ELEAZAR Administration Potassium Chloride 10 meq 06/19/25 10:00 06/20/25 09:17 Potassium Chloride 10 Meq Er Tablet PO 10 meq DAILY ELEAZAR Administration Pyridoxine HCl 100 mg 06/19/25 10:05 06/20/25 09:17 Pyridoxine Hcl 50 Mg Tablet PO 07/20/25 10:04 100 mg DAILY ELEAZAR Administration Sodium Chloride 1 gm 06/19/25 10:05 06/20/25 09:18 Sodium Chloride 1 Gm Tablet PO 1 gm BID ELEAZAR Administration Sucralfate 1,000 mg 06/18/25 21:00 06/20/25 12:29 Sucralfate Susp 100 Mg/Ml 10 Ml Udc PO 1,000 mg ACHS ELEAZAR Administration Thiamine HCl 100 mg 06/19/25 09:45 06/20/25 09:18 Thiamine Hcl 100 Mg Tablet PO 100 mg QAM ELEAZAR Administration Vitamin B Complex 1 cap 06/19/25 09:45 06/20/25 09:17 Vitamin B Complex Capsule PO 1 cap QAM ELEAZAR Administration Radiology Results: ITS Impressions Head CT 06/18/25 15:47 IMPRESSION: No acute intracranial process. Chest X-Ray 06/18/25 15:51 IMPRESSION: No acute cardiopulmonary process. Chest/Abdomen/Pelvis CT 06/18/25 17:06 IMPRESSION: Mild descending thoracic aortic ectasia. Scattered sub-6 mm pulmonary nodules, requiring no additional follow-up unless the patient is at high risk, in which case consider low-dose noncontrast CT of the chest in one year. Diffuse esophagitis. Moderate gastritis. Hepatomegaly. Hyperenhancing areas along the falciform ligament and gallbladder fossa may represent transient hepatic attenuation differences and/or irregular parenchymal enhancement from steatosis. No discrete mass identified. Recommend MRI of the liver. Hyperemic gallbladder wall may reflect a component of mild/early inflammatory change versus artifact from contrast phase. No biliary duct dilatation or inflammation to suggest cholangitis. Cystitis. Possible sacral soft tissue defect, correlate clinically for decubitus ulcer. Labs Labs: Laboratory Results - last 24 hr 06/20/25 03:54 WBC 5.3 RBC 2.75 L Hgb 9.6 L Hct 27.8 L MCV 101.1 H MCH 34.9 H MCHC 34.5 RDW 13.8 Plt Count 294 MPV 9.7 Sodium 131 L Potassium 3.0 L Chloride 98 Carbon Dioxide 28 Anion Gap 5 BUN 9 Creatinine 0.33 L Estim Creat Clear Calc 88 Estimated GFR > 60 Glucose 93 Calcium 8.7 Magnesium 1.7 Total Bilirubin 1.3 AST 74 H ALT 36 H Alkaline Phosphatase 118 Total Protein 5.0 L Albumin 2.9 L Quality VTE Prophylaxis VTE prophylaxis: mechanical ordered (SCDs)
[2025-06-20] MEDS: cefTRIAXone 1 GM in SODIUM CHLORIDE 0.9% IV 50 ML 100 ML IVPB (16:51)
--- NOTE | 2025-06-20 20:40 | PC.NURSE ---
Received this patient form IMU, stable with all vital signs stable, langley catheter in place and draining well. No pain reported on admission.
--- NOTE | 2025-06-20 20:59 | PC.NURSE ---
This patient, Fiorella Baker, was transferred to [facility][ ] on 06/20/25 at 2036. Personal belongings sent with patient. Report given to [Jubi ]. Appropriate documentation sent with patient.
[2025-06-21 06:00] VITALS: BP 154/98; PULSE 85; RESP 18; TEMP 36.6; O2SAT 100
[2025-06-21] MEDS: SUCRALFATE SUSP 100 MG/ML 10 ML UDC 1000 MG PO ×4 (06:09→20:27)
[2025-06-21 06:39] LABS: Hematocrit 26.9 % (37.0-47.0); Hemoglobin 9.1 g/dL (12.0-15.0); Mean Corpuscular HGB Conc 33.8 g/dl (32-36); Mean Corpuscular Hemoglobin 35.0 pg (26-34); Mean Corpuscular Volume 103.5 fl (80-100); Platelet Count Result 315 k/mm3 (150-375); Red Blood Count 2.60 M/mm3 (4.2-5.4); White Blood Count 5.7 K/mm3 (4.5-10.0)
[2025-06-21 07:03] LABS: Alanine Aminotransferase 36 U/L (6-35); Albumin Level 2.8 g/dL (3.5-5.1); Alkaline Phosphatase 113 U/L (38-126); Anion Gap 2 mmol/L (4-12); Aspartate Amino Transferase 64 U/L (14-36); Bilirubin,Total 1.3 mg/dL (0.2-1.3); Blood Urea Nitrogen 5 mg/dL (7-17); Calcium 8.4 mg/dL (8.4-10.2); Carbon Dioxide 28 mmol/L (22-30); Chloride 97 mmol/L (98-107); Estimated CRCL calculation 102 ml/min; Estimated Glomerular Filt Rate > 60; Glucose 81 mg/dL (65-110); Magnesium 1.6 mg/dL (1.6-2.3); Potassium 3.1 mmol/L (3.4-5.0); Sodium 127 mmol/L (137-145); Total Protein 4.8 g/dL (6.3-8.2)
[2025-06-21] MEDS: PYRIDOXINE HCL 50 MG TABLET 100 MG PO (09:10)
[2025-06-21] MEDS: POTASSIUM CHLORIDE 10 MEQ ER TABLET PO (09:10)
[2025-06-21] MEDS: THIAMINE HCL 100 MG TABLET PO (09:10)
[2025-06-21] MEDS: VITAMIN B COMPLEX CAPSULE 1 CAP PO (09:10)
[2025-06-21] MEDS: SODIUM CHLORIDE 1 GM TABLET PO ×2 (09:10→17:08)
[2025-06-21] MEDS: PANTOPRAZOLE SODIUM IV 40 MG VIAL IV PUSH ×2 (09:11→20:27)
--- NOTE | 2025-06-21 11:11 | P.PSYCH_ITS ---
Assessment and Plan Assessment and plan (1) Altered mental state: Qualifiers: Altered mental status type: delirium Qualified Code(s): R41.0 - Disorientation, unspecified Code(s): R41.82 - Altered mental status, unspecified Status: Acute Assessment and Plan: Assessment: Patient demonstrates significant cognitive deficits, including disorientation to time, place, and situation. 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 Unable to identify the current year or president. Demonstrates impaired recent memory, failing to recall any of 5 objects after a brief delay. Shows deficits in attention and calculation. Exhibits poor recall of a brief story. Patient lacks insight into her memory difficulties, stating I don't think I have difficulty remembering, actually. These symptoms are concerning for possible dementia or delirium, though further evaluation is needed to determine the etiology. likely causes: -cystitis -abnormal urinalysis -dehydration -electrolyte imbalance -urinary retention plan: - treat underlying causes of acute mental status change. - have patient follow up as outpatient to reassess diagnosis of dementia- unable to determine until medical causes ruled out. - Implement fall precautions and provide supervision as needed - Monitor for changes in mental status - Ensure safe environment during hospitalization HPI Data of Consult Date/Time: 06/21/25 11:11 Requesting Physician: Ac Lawrence MD Primary Care Provider: Blair Littlejohn, Consult Narrative Narrative: Fiorella Baker is a 70 year old female that presents with confusion and disorientation. She appears to have significant cognitive impairment, as evidenced by her inability to recognize that she is a patient in the hospital and her belief that she works there. Cherise demonstrates difficulty with orientation to time, person, and situation. She is unable to recall the current year or the name of the president. hCerise's cognitive deficits extend to her memory function. She struggles to remember recent events, such as what she ate for breakfast, and has difficulty with short-term recall tasks. When asked to remember five objects (apple, pen, tie, house, car), she was unable to recall any of them after a brief delay. She also showed impaired ability to comprehend and retain information from a short story that was read to her. Despite these apparent cognitive issues, Cherise does not believe she has any difficulty remembering things, stating, I don't think I have difficulty remembering, actually. This lack of insight into her condition is noteworthy. She was able to perform some cognitive tasks, such as spelling world forwards and backward. Cherise reports living alone, though she mentions someone who is there majority of the days. She correctly identified that she is in [place]. When asked about her educational background, she reported that she completed high school. Cherise denies any history of mental illness diagnoses such as depression, anxiety, or dementia. She also denies feelings of hopelessness or helplessness in the past two weeks, as well as any thoughts of harming herself or others. Cherise reports feeling safe at home and does not express any concerns when asked. she denied anxiety/depression/SI/HI/AH/VH/Safety concerns. Review of Systems 2 Constitutional: Constitutional: Reports frequent falls Psychiatric: Psychiatric: Reports confusion, Reports difficulty concentrating and Reports memory loss PMFSH Past Medical History Medical History (Updated 06/21/25 @ 11:15 by Evelio Schreiber APRN) Syndrome of inappropriate ADH (SIADH) secretion Chronic hyponatremia Gastroesophageal reflux disease Hypertension Anxiety Neck fracture Surgical History Surgical History History of vein stripping History of arthroscopy of right knee History of tonsillectomy History of foot surgery Left History of hysterectomy Family History Family History Father No problems noted. Mother Hypertension Social History Social History Social History: Surrogate medical decision maker: Blair Lopez, significant other. Code status: Full code. Smoking packs per day: 0.5 Smoking cigarettes per day: 10.0 Years smoked: 20 Smoking pack-years: 10.00 Smoking status: Former smoker Tobacco type: cigarettes Second hand tobacco smoke exposure: No Alcohol intake: current Drinks per week: 14 Substance use: never Substance use type: does not use Do You Feel Safe in your Home?: Yes Lack of Transportation: No Lack of Food: Never True Current Housing: I Have Housing Concerned About Future Housing: No Difficulty Paying Gas/Electric Bills: No Difficulty Paying for Meds: No Currently Unemployed: No Education: High School Diploma/GED Difficulty w/ Childcare or Family Care: No Living arrangements: with family Spiritual care concerns: No Meds Home Medications and Allergies Home Medications ?Medication ?Instructions ?Recorded ?Confirmed ?Type omeprazole 20 mg capsule,delayed 20 mg PO DAILY 10/03/21 06/19/25 History release paroxetine HCl 10 mg tablet 10 mg PO DAILY 07/06/23 06/19/25 History potassium chloride 10 mEq 10 meq PO DAILY 01/11/24 06/19/25 History tablet,extended release pyridoxine (vitamin B6) 100 mg 100 mg PO DAILY 01/11/24 06/19/25 History tablet tramadol 50 mg tablet 50 mg PO Q6H PRN Pain 01/11/24 06/19/25 History metoprolol succinate 50 mg 50 mg PO DAILY 06/19/25 06/19/25 History tablet,extended release 24 hr sodium chloride 1,000 mg soluble 1,000 mg PO BID 06/19/25 06/19/25 History tablet sucralfate 1 gram tablet 1 g PO TIDWM 06/19/25 06/19/25 History Allergies Allergy/AdvReac Type Severity Reaction Status Date / Time No Known Allergies Allergy Verified 07/26/24 13:57 Vital Signs Vital Signs - 24 hr 06/20/25 12:00 06/20/25 16:00 06/20/25 20:00 Temperature 98 F 97.7 F Pulse Rate 94 89 Respiratory Rate 18 18 Blood Pressure 145/92 H 141/94 H Pulse Oximetry 100 100 Oxygen Delivery Room Air 06/21/25 06:00 06/21/25 08:00 Temperature 97.9 F Pulse Rate 85 Respiratory Rate 18 Blood Pressure 154/98 H Pulse Oximetry 100 Oxygen Delivery Room Air Exam 2 Const: General: cooperative, comfortable, awake and confusion O rientation/consciousness: oriented to person Limitations: altered mental status Neuro: General: oriented to person and confusion Cognition (Neuro): a bnormal cognition Speech: normal speech Psych: Speech and movement: Normal speech and movement present and Clear speech present Affect: normal affect Attitude: cooperative Thought content: Yes Normal thought content present Insight: Poor insight present (Psych) Judgement: Limited judgement present (Psych) Other: Patient is in a hospital gown. Patient appears confused about their status as a patient. Some evidence of disorganized thinking, as patient believes they work at the hospital rather than being a patient. Cognition: Disoriented to time (unable to state current year). Oriented to place (correctly identifies being in [place]). Attention and concentration intact (able to spell WORLD forwards and backwards). Immediate recall impaired (unable to remember any of the 5 objects). Remote memory appears impaired (unable to name current president). Insight: Poor insight. Patient does not believe they have difficulty remembering things, despite evidence to the contrary. Results Labs 06/21/25 06:14 06/21/25 06:14 Labs: Short CBC 06/21/25 Range/Units 06:14 WBC 5.7 (4.5-10.0) K/mm3 Hgb 9.1 L (12.0-15.0) g/dL Hct 26.9 L (37.0-47.0) % Plt Count 315 (150-375) k/mm3 BMP 06/21/25 06:14 Sodium 127 L Potassium 3.1 L Chloride 97 L Carbon Dioxide 28 BUN 5 L Creatinine 0.28 L Glucose 81 Calcium 8.4 Liver Function 06/21/25 Range/Units 06:14 Total Bilirubin 1.3 (0.2-1.3) mg/dL AST 64 H (14-36) U/L ALT 36 H (6-35) U/L Alkaline Phosphatase 113 (38-126) U/L Albumin 2.8 L (3.5-5.1) g/dL
[2025-06-21] MEDS: POTASSIUM CHLORIDE 20 MEQ ER TABLET 40 MEQ PO (12:14)
--- NOTE | 2025-06-21 13:09 | P.PNIM_ITS ---
Progress Note: A&P Assessment and Plan (1) Adult failure to thrive: Code(s): R62.7 - Adult failure to thrive Status: Acute (2) Severe protein-calorie malnutrition: Code(s): E43 - Unspecified severe protein-calorie malnutrition Status: Acute (3) Acute UTI: Code(s): N39.0 - Urinary tract infection, site not specified Status: Acute (4) Hypomagnesemia: Code(s): E83.42 - Hypomagnesemia Status: Acute (5) Chronic hyponatremia: Code(s): E87.1 - Hypo-osmolality and hyponatremia Status: Acute (6) Syndrome of inappropriate ADH (SIADH) secretion: Code(s): E22.2 - Syndrome of inappropriate secretion of antidiuretic hormone Status: Acute (7) Lactic acidosis: Code(s): E87.20 - Acidosis, unspecified Status: Acute (8) Acute hypokalemia: Code(s): E87.6 - Hypokalemia Status: Acute (9) Transaminitis: Code(s): R74.01 - Elevation of levels of liver transaminase levels Status: Acute (10) Hyperbilirubinemia: Code(s): E80.6 - Other disorders of bilirubin metabolism Status: Acute (11) Elevated troponin: Code(s): R79.89 - Other specified abnormal findings of blood chemistry Status: Acute (12) Urinary retention with incomplete bladder emptying: Code(s): R33.9 - Retention of urine, unspecified Status: Acute (13) GERD (gastroesophageal reflux disease): Qualifiers: Esophagitis presence: with esophagitis Esophagitis bleeding: without hemorrhage Qualified Code(s): K21.00 - Gastro-esophageal reflux disease with esophagitis, without bleeding Code(s): K21.9 - Gastro-esophageal reflux disease without esophagitis Status: Acute Plan Patient has failure to thrive with severe protein calorie malnutrition. Underlying causes likely multifactorial due to memory loss from likely dementia and or some component of gastritis and esophagitis given findings on CT scan. Will place patient on Protonix 40 mg p.o. b.i.d. and Carafate. Will request dietitian consult for nutritional supplements. Patient does have some hyponatremia likely due to SIADH in component of hypovolemic hyponatremia. Will place patient on maintenance IV fluids at 100 mL hour for 1 bag then repeat electrolyte panel and re-evaluate fluid status. Patient does have evidence of transaminitis with hyperbilirubinemia. Her transaminitis including AST and ALT appear to be chronically elevated in somewhat improved from prior values. However bilirubin is acutely elevated. Patient does have hepatomegaly with some hyper enhancing areas. Patient may benefit from MRI of liver if values do not improve with hydration. Patient also has some hyperemia to the gallbladder but no localizing pain to the right upper quadrant to suggest acute cholecystitis or cholangitis. Could be due to phase of contrast on imaging. Will repeat CMP in a.m.. Patient does have evidence of cystitis on imaging and abnormal urinalysis. She has been placed on empiric antibiotic therapy with Rocephin. Urine cultures have been obtained and are pending. Patient does have some lactic acidosis which could be due to her hepatomegaly and or starvation ketosis/dehydration. Will place patient on IV fluid hydration and repeat lactic acid level with a.m. labs. Will liberalize diet to regular diet. Patient did have hypo magnesium and hypokalemia with replacement given in the ER. Will repeat levels in a.m. give further supplementation if indicated Patient does have some mildly elevated troponin but troponin profile is flat. Values not indicative of acute myocardial ischemia. The patient was reporting that she felt like she needed to urinate but was unable to urinate. Bladder scan demonstrated 700 mL of retained urine. Nursing staff reports immediate return of 1.2 L of urine after Fuentes catheter placement. director of sleep protocol has been ordered. Patient's home medication reconciliation was not available for my review at the time of finishing this documentation. Will defer further management to daytime hospitalist service. Patient appears undernourished, stats just does not feel like eating and no appetite, patient is encourage to increase food intake to gain strength seen by gas welding equipment mechanic and added ensure and will add multiple vitamins, encourage family members to bring food from home, denies any pain, patient urine is suspicious for UTI and being treated with ceftriaxone, will follow up on urine culture. patient has history of depression and taking Paxil 10mg PO qd, patient was seen by a psychiatrist and suspect patient has dementia and lacks insight of her current illness, CT scan of the head was negative, will consult neurologist for further recommendation. patient is present in the room. Subjective Date/time seen: 06/21/25 13:09 Interval history: Fall yesterday and today due to legs being weak Narrative: 70-year-old female with a medical history of essential hypertension, peripheral neuropathy, GERD, chronic hyponatremia due to SIADH and suspected dementia who was brought to the ER by her due to a fall yesterday and again today. The patient's reports that the patient has lost over 50 lb and fell yesterday and today due to her legs giving out. Patient is evidently been undergoing outpatient evaluation for dementia and recent outpatient MRI the brain that was reportedly negative for significant process. At the time of my evaluation the patient was alert oriented only to self. She states that she goes by Cherise instead of Kristin. She asked nursing staff to her ex- instead of calling Blair who is her life partner. She could not recall her life partner's name. She thought the month was January and could not gas as to the year. She could not tell me who the president was and actually told nursing staff that the president was neck is in. She reports that she just does not have an appetite. She denies any pain in his pleasantly confused. She is otherwise unable to provide any meaningful history. Remainder of history was obtained from review of past medical records ER report and nursing report. Labs in the ER demonstrated normal white count and hemoglobin with respiratory alkalosis on VBG, stable chronic hyponatremia, mild hypokalemia, hypo magnesemia, chronic transaminitis and mildly elevated bilirubin. Her urine was also suspicious for possible UTI with greater than 100 wbc's 3+ leukocyte esterase and 4+ bacteria. Her urine drug screen was negative under alcohol level is less than 10. The patient reports that she does like to drink alcohol in drinks beer but she cannot tell me how much beer that she drinks. Patient appears undernourished, stats just does not feel like eating and no appetite, patient is encourage to increase food intake to gain strength seen by gas welding equipment mechanic and added ensure and will add multiple vitamins, encourage family members to bring food from home, denies any pain, patient urine is suspicious for UTI and being treated with ceftriaxone, will follow up on urine culture. patient has history of depression and taking Paxil 10mg PO qd, patient was seen by a psychiatrist and suspect patient has dementia and lacks insight of her current illness, CT scan of the head was negative, will consult neurologist for further recommendation. patient is present in the room. Review of Systems Review of Systems: Review of systems is not reliable due to the patient's mental status. Exam Narrative: Appears malnourished Patient is comfortable, NAD HEENT: eyes are clear and none icteric LUNGS:CTA HEART: RR S1S2 ABD: BS+, Soft and nontender Lower extremities: no edema SKIN: nonjaundiced Neuro: grossly intact. Somewhat confused Objective Data Vital Signs Vital Signs: Vital Signs - 24 hr 06/20/25 16:00 06/20/25 20:00 06/21/25 06:00 Temperature 36.5 C 36.6 C Pulse Rate 89 85 Respiratory Rate 18 18 Blood Pressure 141/94 H 154/98 H Pulse Oximetry 100 100 Oxygen Delivery Room Air 06/21/25 08:00 Temperature Pulse Rate Respiratory Rate Blood Pressure Pulse Oximetry Oxygen Delivery Room Air Intake/Output Intake/Output: Intake & Output 06/18/25 06/19/25 06/20/25 06/21/25 23:59 23:59 23:59 23:59 Intake Total 1600 160 175 220 Output Total 1000 1000 900 Balance 1600 -840 -825 -680 Meds/Results Medications: Active Medications Generic Name Dose Route Start Last Admin Trade Name Freq PRN Reason Stop Dose Admin Ceftriaxone Sodium 1 gm/ 50 mls @ 100 mls/hr 06/19/25 18:00 06/20/25 16:51 Sodium Chloride IVPB 100 mls/hr Q24H ELEAZAR Administration Pantoprazole Sodium 40 mg 06/18/25 21:00 06/21/25 09:11 Pantoprazole Sodium Iv 40 Mg Vial IV PUSH 40 mg Q12HR ELEAZAR Administration Paroxetine HCl 10 mg 06/19/25 10:00 06/21/25 09:10 Paroxetine 10 Mg Tablet PO 10 mg DAILY ELEAZAR Administration Potassium Chloride 10 meq 06/19/25 10:00 06/21/25 09:10 Potassium Chloride 10 Meq Er Tablet PO 10 meq DAILY ELEAZAR Administration Pyridoxine HCl 100 mg 06/19/25 10:05 06/21/25 09:10 Pyridoxine Hcl 50 Mg Tablet PO 07/20/25 10:04 100 mg DAILY ELEAZAR Administration Sodium Chloride 1 gm 06/19/25 10:05 06/21/25 09:10 Sodium Chloride 1 Gm Tablet PO 1 gm BID ELEAZAR Administration Sucralfate 1,000 mg 06/18/25 21:00 06/21/25 12:14 Sucralfate Susp 100 Mg/Ml 10 Ml Udc PO 1,000 mg ACHS ELEAZAR Administration Thiamine HCl 100 mg 06/19/25 09:45 06/21/25 09:10 Thiamine Hcl 100 Mg Tablet PO 100 mg QAM ELEAZAR Administration Vitamin B Complex 1 cap 06/19/25 09:45 06/21/25 09:10 Vitamin B Complex Capsule PO 1 cap QAM ELEAZAR Administration Radiology Results: ITS Impressions Head CT 06/18/25 15:47 IMPRESSION: No acute intracranial process. Chest X-Ray 06/18/25 15:51 IMPRESSION: No acute cardiopulmonary process. Chest/Abdomen/Pelvis CT 06/18/25 17:06 IMPRESSION: Mild descending thoracic aortic ectasia. Scattered sub-6 mm pulmonary nodules, requiring no additional follow-up unless the patient is at high risk, in which case consider low-dose noncontrast CT of the chest in one year. Diffuse esophagitis. Moderate gastritis. Hepatomegaly. Hyperenhancing areas along the falciform ligament and gallbladder fossa may represent transient hepatic attenuation differences and/or irregular parenchymal enhancement from steatosis. No discrete mass identified. Recommend MRI of the liver. Hyperemic gallbladder wall may reflect a component of mild/early inflammatory change versus artifact from contrast phase. No biliary duct dilatation or inflammation to suggest cholangitis. Cystitis. Possible sacral soft tissue defect, correlate clinically for decubitus ulcer. Labs Labs: Laboratory Results - last 24 hr 06/21/25 06:14 WBC 5.7 RBC 2.60 L Hgb 9.1 L Hct 26.9 L MCV 103.5 H MCH 35.0 H MCHC 33.8 RDW 13.8 Plt Count 315 MPV 9.6 Sodium 127 L Potassium 3.1 L Chloride 97 L Carbon Dioxide 28 Anion Gap 2 L BUN 5 L Creatinine 0.28 L Estim Creat Clear Calc 102 Estimated GFR > 60 Glucose 81 Calcium 8.4 Magnesium 1.6 Total Bilirubin 1.3 AST 64 H ALT 36 H Alkaline Phosphatase 113 Total Protein 4.8 L Albumin 2.8 L Quality VTE Prophylaxis VTE prophylaxis: mechanical ordered (SCDs)
[2025-06-21 14:00] VITALS: BP 135/97; PULSE 91; RESP 16; TEMP 36.8; O2SAT 99
--- NOTE | 2025-06-21 14:10 | P.CONNEU_ITS ---
Consult date: 06/21/25 [facility] Past Medical History Medical History (Updated 06/21/25 @ 11:15 by Evelio Schreiber APRN) Syndrome of inappropriate ADH (SIADH) secretion Chronic hyponatremia Gastroesophageal reflux disease Hypertension Anxiety Neck fracture Surgical History Surgical History History of vein stripping History of arthroscopy of right knee History of tonsillectomy History of foot surgery Left History of hysterectomy Family History Family History Father No problems noted. Mother Hypertension Social History Social History Social History: Surrogate medical decision maker: Blair Lopez, significant other. Code status: Full code. Smoking packs per day: 0.5 Smoking cigarettes per day: 10.0 Years smoked: 20 Smoking pack-years: 10.00 Smoking status: Former smoker Tobacco type: cigarettes Second hand tobacco smoke exposure: No Alcohol intake: current Drinks per week: 14 Substance use: never Substance use type: does not use Do You Feel Safe in your Home?: Yes Lack of Transportation: No Lack of Food: Never True Current Housing: I Have Housing Concerned About Future Housing: No Difficulty Paying Gas/Electric Bills: No Difficulty Paying for Meds: No Currently Unemployed: No Education: High School Diploma/GED Difficulty w/ Childcare or Family Care: No Living arrangements: with family Spiritual care concerns: No Meds Home Medications and Allergies Home Medications ?Medication ?Instructions ?Recorded ?Confirmed ?Type omeprazole 20 mg capsule,delayed 20 mg PO DAILY 10/03/21 06/19/25 History release paroxetine HCl 10 mg tablet 10 mg PO DAILY 07/06/23 06/19/25 History potassium chloride 10 mEq 10 meq PO DAILY 01/11/24 06/19/25 History tablet,extended release pyridoxine (vitamin B6) 100 mg 100 mg PO DAILY 01/11/24 06/19/25 History tablet tramadol 50 mg tablet 50 mg PO Q6H PRN Pain 01/11/24 06/19/25 History metoprolol succinate 50 mg 50 mg PO DAILY 06/19/25 06/19/25 History tablet,extended release 24 hr sodium chloride 1,000 mg soluble 1,000 mg PO BID 06/19/25 06/19/25 History tablet sucralfate 1 gram tablet 1 g PO TIDWM 06/19/25 06/19/25 History Allergies Allergy/AdvReac Type Severity Reaction Status Date / Time No Known Allergies Allergy Verified 07/26/24 13:57 Vital Signs Vital Signs - 24 hr 06/20/25 16:00 06/20/25 20:00 06/21/25 06:00 Temperature 36.5 C 36.6 C Pulse Rate 89 85 Respiratory Rate 18 18 Blood Pressure 141/94 H 154/98 H Pulse Oximetry 100 100 Oxygen Delivery Room Air 06/21/25 08:00 Temperature Pulse Rate Respiratory Rate Blood Pressure Pulse Oximetry Oxygen Delivery Room Air Results Labs 06/21/25 06:14 06/21/25 06:14 Labs: Short CBC 06/21/25 Range/Units 06:14 WBC 5.7 (4.5-10.0) K/mm3 Hgb 9.1 L (12.0-15.0) g/dL Hct 26.9 L (37.0-47.0) % Plt Count 315 (150-375) k/mm3 [facility] 06/21/25 06:14 Sodium 127 L Potassium 3.1 L Chloride 97 L Carbon Dioxide 28 BUN 5 L Creatinine 0.28 L Glucose 81 Calcium 8.4 Liver Function 06/21/25 Range/Units 06:14 Total Bilirubin 1.3 (0.2-1.3) mg/dL AST 64 H (14-36) U/L ALT 36 H (6-35) U/L Alkaline Phosphatase 113 (38-126) U/L Albumin 2.8 L (3.5-5.1) g/dL
[2025-06-21] MEDS: cefTRIAXone 1 GM in SODIUM CHLORIDE 0.9% IV 50 ML 100 ML IVPB (17:08)
[2025-06-21 22:00] VITALS: BP 144/99; PULSE 93; RESP 18; TEMP 36.3; O2SAT 100
[2025-06-22 06:00] VITALS: BP 149/98; PULSE 88; RESP 16; TEMP 36.3; O2SAT 99
[2025-06-22] MEDS: SUCRALFATE SUSP 100 MG/ML 10 ML UDC 1000 MG PO ×3 (06:13→20:55)
[2025-06-22 07:29] LABS: Hematocrit 28.8 % (37.0-47.0); Hemoglobin 10.0 g/dL (12.0-15.0); Mean Corpuscular HGB Conc 34.7 g/dl (32-36); Mean Corpuscular Hemoglobin 34.8 pg (26-34); Mean Corpuscular Volume 100.3 fl (80-100); Platelet Count Result 357 k/mm3 (150-375); Red Blood Count 2.87 M/mm3 (4.2-5.4); White Blood Count 6.8 K/mm3 (4.5-10.0)
[2025-06-22 07:49] LABS: Alanine Aminotransferase 38 U/L (6-35); Albumin Level 3.0 g/dL (3.5-5.1); Alkaline Phosphatase 106 U/L (38-126); Anion Gap 2 mmol/L (4-12); Aspartate Amino Transferase 63 U/L (14-36); Bilirubin,Total 1.1 mg/dL (0.2-1.3); Blood Urea Nitrogen 4 mg/dL (7-17); Calcium 8.6 mg/dL (8.4-10.2); Carbon Dioxide 29 mmol/L (22-30); Chloride 93 mmol/L (98-107); Estimated CRCL calculation 93 ml/min; Estimated Glomerular Filt Rate > 60; Glucose 90 mg/dL (65-110); Magnesium 1.5 mg/dL (1.6-2.3); Potassium 3.9 mmol/L (3.4-5.0); Sodium 124 mmol/L (137-145); Total Protein 5.2 g/dL (6.3-8.2)
[2025-06-22] MEDS: MAGNESIUM SULF 2 GM/WATER 50ML 2 GM/50 ML BAG IVPB (09:36)
[2025-06-22] MEDS: THIAMINE HCL 100 MG TABLET PO (09:36)
[2025-06-22] MEDS: VITAMIN B COMPLEX CAPSULE 1 CAP PO (09:36)
[2025-06-22] MEDS: PYRIDOXINE HCL 50 MG TABLET 100 MG PO (09:36)
[2025-06-22] MEDS: PANTOPRAZOLE SODIUM IV 40 MG VIAL IV PUSH ×2 (09:36→20:55)
[2025-06-22] MEDS: POTASSIUM CHLORIDE 10 MEQ ER TABLET PO (09:36)
[2025-06-22] MEDS: SODIUM CHLORIDE 1 GM TABLET PO ×2 (09:36→16:04)
--- NOTE | 2025-06-22 12:23 | WPDNEURCNPN ---
Assessment and Plan Assessment and plan (1) Dementia: Code(s): F03.90 - Unspecified dementia, unspecified severity, without behavioral disturbance, psychotic disturbance, mood disturbance, and anxiety Status: Acute Assessment and Plan: the patient memory has declined over the last 1/2 years according to her boyfriend. MRI of the brain was performed at [facility] and 1 not available for me to review. The family was told that there was nothing significant. This does raise possibility of primary degenerative dementia such as Alzheimer's disease as at least 1 of the possibilities. Her vitamin B12 was within normal limits. (2) Frequent falls: Code(s): R29.6 - Repeated falls Status: Acute Assessment and Plan: The patient has had falls and also retention of urine and hence MRI of the cervical thoracic and lumbosacral spine are recommended. (3) Severe protein-calorie malnutrition: Code(s): E43 - Unspecified severe protein-calorie malnutrition Status: Acute Assessment and Plan: The patient has lost 57 lb in weight over the past year or so. Possibility of underlying malignancy should be considered. Other systemic problem also should be explored. I believe this is already in progress. (4) Syndrome of inappropriate ADH (SIADH) secretion: Code(s): E22.2 - Syndrome of inappropriate secretion of antidiuretic hormone Status: Acute Assessment and Plan: Her serum sodium has ranged from 124-127 on this admission. (5) Hyponatremia: Code(s): E87.1 - Hypo-osmolality and hyponatremia Status: Acute (6) Urinary retention with incomplete bladder emptying: Code(s): R33.9 - Retention of urine, unspecified Status: Acute Assessment and Plan: Patient has retention of urine and upon catheterizations 700 cc of urine was obtained. (7) Abnormal liver enzymes: Code(s): R74.8 - Abnormal levels of other serum enzymes Status: Acute Assessment and Plan: I noted that her AST and ALT elevated at today 63 in 38 respectively. Total bilirubin was initially high at 1.5 but is now 1.1. Total protein was low at 5 2 and total albumin was also low at 3.0. At the time of admission her a history of a high as 308 ALT was high at 135. Plan the patient has been following up with a neurologist in [place] and they have done some investigation so [facility]. I would suggest MRI of the cervical thoracic and lumbosacral spine in view of the weakness and retention of urine although I do not see a clear evidence for myelopathy this possibility cannot be ruled out. The degree of weight loss does make me wonder about underlying malignancy and a of course this is being investigated by the hospitalist group. Consult date: 06/22/25 HPI: Fiorella Baker is a 70 year old female With history of difficulty with ambulation, deterioration the memory and significant weight loss over the last 1/2 years. She has been to see a neurologist at [facility] and has a pending appointment with Them later this week. In the meanwhile the patient was admitted to the hospital on account of significant deterioration in her condition. It was noted that she has had MRI of the brain done at [facility] which according to the or significant other there told the was no significant [address] scan of brain was performed which did not show any abnormality. The patient feels weak. Her boyfriend has to help her with dressing and showering and to get around. Her memory has been declining over the last 1/2 years. No diagnosis or treatment has been offered so far Through the other neurologists. However the waiting for follow-up. Current medications include Paxil 10 mg a day and a vitamin supplements and magnesium. Patient does not offer much in the way of history but a her boyfriend was very helpful. Review of Systems Review of Systems: Lack of appetite and she has lost about 57 lb in her weight over the past year or so. She used to be 155 lb. No nausea or vomiting. She is known to have SIADH and her serum sodium on admission was low at 2 127 and today is 124. She has retention of urine and when a catheter was placed 700 cc was released. Her AST and ALT have been elevated and a bilirubin has also been high. All systems reviewed & are unremarkable except as noted in HPI and below PMFSH Past Medical History Medical History (Updated 06/22/25 @ 12:38 by Meliza Joseph MD) Abnormal liver enzymes Frequent falls Dementia Syndrome of inappropriate ADH (SIADH) secretion Chronic hyponatremia Gastroesophageal reflux disease Hypertension Anxiety Neck fracture Surgical History Surgical History History of vein stripping History of arthroscopy of right knee History of tonsillectomy History of foot surgery Left History of hysterectomy Family History Family History Father No problems noted. Mother Hypertension Social History Social History Social History: Surrogate medical decision maker: Blair Lopez, significant other. Code status: Full code. Smoking packs per day: 0.5 Smoking cigarettes per day: 10.0 Years smoked: 20 Smoking pack-years: 10.00 Smoking status: Former smoker Tobacco type: cigarettes Second hand tobacco smoke exposure: No Alcohol intake: current Drinks per week: 14 Substance use: never Substance use type: does not use Do You Feel Safe in your Home?: Yes Lack of Transportation: No Lack of Food: Never True Current Housing: I Have Housing Concerned About Future Housing: No Difficulty Paying Gas/Electric Bills: No Difficulty Paying for Meds: No Currently Unemployed: No Education: High School Diploma/GED Difficulty w/ Childcare or Family Care: No Living arrangements: with family Spiritual care concerns: No Meds Home Medications and Allergies Home Medications ?Medication ?Instructions ?Recorded ?Confirmed ?Type omeprazole 20 mg capsule,delayed 20 mg PO DAILY 10/03/21 06/19/25 History release paroxetine HCl 10 mg tablet 10 mg PO DAILY 07/06/23 06/19/25 History potassium chloride 10 mEq 10 meq PO DAILY 01/11/24 06/19/25 History tablet,extended release pyridoxine (vitamin B6) 100 mg 100 mg PO DAILY 01/11/24 06/19/25 History tablet tramadol 50 mg tablet 50 mg PO Q6H PRN Pain 01/11/24 06/19/25 History metoprolol succinate 50 mg 50 mg PO DAILY 06/19/25 06/19/25 History tablet,extended release 24 hr sodium chloride 1,000 mg soluble 1,000 mg PO BID 06/19/25 06/19/25 History tablet sucralfate 1 gram tablet 1 g PO TIDWM 06/19/25 06/19/25 History Allergies Allergy/AdvReac Type Severity Reaction Status Date / Time No Known Allergies Allergy Verified 07/26/24 13:57 Vital Signs Vital Signs - 24 hr 06/21/25 14:00 06/21/25 20:00 06/21/25 22:00 Temperature 98.3 F 97.4 F L Pulse Rate 91 93 Respiratory Rate 16 18 Blood Pressure 135/97 H 144/99 H Pulse Oximetry 99 100 Oxygen Delivery Room Air 06/22/25 06:00 06/22/25 08:00 Temperature 97.4 F L Pulse Rate 88 Respiratory Rate 16 Blood Pressure 149/98 H Pulse Oximetry 99 Oxygen Delivery Room Air Exam Narrative: The patient is awake and alert however has a flat affect. Unable to tell me the month or the year. She has significant cognitive impairment. No aphasia or dysarthria. When asked to name 5 colors she managed to do so. When asked to name 5 cities she managed to give me too she has sent [facility] and [place]. Examination head and neck shows no evidence of external trauma. No carotid bruit. Heart sounds were normal. The nerves pupils were equal react to light. Visual [place] by confrontation were normal. There is no facial asymmetry. Tongue was midline. Other cranial nerves within normal limits. Motor system normal power and tone in both upper and lower limbs. Deep tendon reflexes appear decreased at ankles and were 0 to 1/4 on both sides without any significant asymmetry. No spasticity or involuntary movements or cogwheeling or tremor were noted. However told that she can walk with supervision and a walker. Results Labs 06/22/25 07:22 06/22/25 07:22 Labs: Short CBC 06/22/25 Range/Units 07:22 WBC 6.8 (4.5-10.0) K/mm3 Hgb 10.0 L (12.0-15.0) g/dL Hct 28.8 L (37.0-47.0) % Plt Count 357 (150-375) k/mm3 BMP 06/22/25 07:22 Sodium 124 L Potassium 3.9 Chloride 93 L Carbon Dioxide 29 BUN 4 L Creatinine 0.31 L Glucose 90 Calcium 8.6 Liver Function 06/22/25 Range/Units 07:22 Total Bilirubin 1.1 (0.2-1.3) mg/dL AST 63 H (14-36) U/L ALT 38 H (6-35) U/L Alkaline Phosphatase 106 (38-126) U/L Albumin 3.0 L (3.5-5.1) g/dL Imaging Attestation: I personally reviewed and interpreted this imaging study as follows: ( CT scan of brain) My impression: CT scan of brain shows atrophy however no other acute findings were noted. No hydrocephalus. Radiologist's impression: Same
--- NOTE | 2025-06-22 12:38 | PCNFU ---
Nutrition Follow-Up Complete: Severe protein calorie malnutrition related to loss of appetite as evidenced by intakes <75% needs >1 month; weight loss 30%/4 months; severe muscle wasting and fat loss Improve PO intake at least 50% - Not progressing. Continue with same goal Goal: Pt current nutrition is Regular diet, Ensure +HP TID (350 kcal, 20 g protein) and nutritional ice cream TID (270 kcal, 9 g protein each). Nutrition recommendation: No new recommendations. May consider appetite stimulant if appropriate. Last recorded weight is 44.5 kg. Bowel Motility: +1 BM 06/22 Labs Reviewed: Hgb 10.0, Hct 28.8, Alb 3.0, Na 124, BUN 4, Cre 0.31 Meds Not ed: Protonix, carafate, B complex, B6, thiamine Skin: No pressure injuries Additional Notes: Appetite and intakes remain poor, 0-30. Pt says she does not feel like eating. Drinking some Ensure HP+. Continue current orders. Monitoring intakes, weights, labs, supplement intake, plan of care Follow up in 3 days
[2025-06-22 14:00] VITALS: BP 135/98; PULSE 98; RESP 16; TEMP 36.8; O2SAT 100
--- NOTE | 2025-06-22 15:19 | PM.IMPN ---
Progress Note: A&P Assessment and Plan (1) Adult failure to thrive: Code(s): R62.7 - Adult failure to thrive Status: Acute (2) Severe protein-calorie malnutrition: Code(s): E43 - Unspecified severe protein-calorie malnutrition Status: Acute (3) Acute UTI: Code(s): N39.0 - Urinary tract infection, site not specified Status: Acute (4) Hypomagnesemia: Code(s): E83.42 - Hypomagnesemia Status: Acute (5) Chronic hyponatremia: Code(s): E87.1 - Hypo-osmolality and hyponatremia Status: Acute (6) Syndrome of inappropriate ADH (SIADH) secretion: Code(s): E22.2 - Syndrome of inappropriate secretion of antidiuretic hormone Status: Acute (7) Lactic acidosis: Code(s): E87.20 - Acidosis, unspecified Status: Acute (8) Acute hypokalemia: Code(s): E87.6 - Hypokalemia Status: Acute (9) Transaminitis: Code(s): R74.01 - Elevation of levels of liver transaminase levels Status: Acute (10) Hyperbilirubinemia: Code(s): E80.6 - Other disorders of bilirubin metabolism Status: Acute (11) Elevated troponin: Code(s): R79.89 - Other specified abnormal findings of blood chemistry Status: Acute (12) Urinary retention with incomplete bladder emptying: Code(s): R33.9 - Retention of urine, unspecified Status: Acute (13) GERD (gastroesophageal reflux disease): Qualifiers: Esophagitis presence: with esophagitis Esophagitis bleeding: without hemorrhage Qualified Code(s): K21.00 - Gastro-esophageal reflux disease with esophagitis, without bleeding Code(s): K21.9 - Gastro-esophageal reflux disease without esophagitis Status: Acute Plan Patient has failure to thrive with severe protein calorie malnutrition. Underlying causes likely multifactorial due to memory loss from likely dementia and or some component of gastritis and esophagitis given findings on CT scan. Will place patient on Protonix 40 mg p.o. b.i.d. and Carafate. Will request dietitian consult for nutritional supplements. Patient does have some hyponatremia likely due to SIADH in component of hypovolemic hyponatremia. Will place patient on maintenance IV fluids at 100 mL hour for 1 bag then repeat electrolyte panel and re-evaluate fluid status. Patient does have evidence of transaminitis with hyperbilirubinemia. Her transaminitis including AST and ALT appear to be chronically elevated in somewhat improved from prior values. However bilirubin is acutely elevated. Patient does have hepatomegaly with some hyper enhancing areas. Patient may benefit from MRI of liver if values do not improve with hydration. Patient also has some hyperemia to the gallbladder but no localizing pain to the right upper quadrant to suggest acute cholecystitis or cholangitis. Could be due to phase of contrast on imaging. Will repeat CMP in a.m.. Patient does have evidence of cystitis on imaging and abnormal urinalysis. She has been placed on empiric antibiotic therapy with Rocephin. Urine cultures have been obtained and are pending. Patient does have some lactic acidosis which could be due to her hepatomegaly and or starvation ketosis/dehydration. Will place patient on IV fluid hydration and repeat lactic acid level with a.m. labs. Will liberalize diet to regular diet. Patient did have hypo magnesium and hypokalemia with replacement given in the ER. Will repeat levels in a.m. give further supplementation if indicated Patient does have some mildly elevated troponin but troponin profile is flat. Values not indicative of acute myocardial ischemia. The patient was reporting that she felt like she needed to urinate but was unable to urinate. Bladder scan demonstrated 700 mL of retained urine. Nursing staff reports immediate return of 1.2 L of urine after Fuentes catheter placement. hr director protocol has been ordered. Patient's home medication reconciliation was not available for my review at the time of finishing this documentation. Will defer further management to daytime hospitalist service. Patient appears undernourished, stats just does not feel like eating and no appetite, patient is encourage to increase food intake to gain strength seen by vp legal affairs and added ensure and will add multiple vitamins, encourage family members to bring food from home, denies any pain, patient urine is suspicious for UTI and being treated with ceftriaxone, will follow up on urine culture. patient has history of depression and taking Paxil 10mg PO qd, patient was seen by a psychiatrist and suspect patient has dementia and lacks insight of her current illness, CT scan of the head was negative, will consult neurologist for further recommendation. patient is present in the room. Patient remain at her baseline and was seen by the neurologist suspect patient has dementia, also concerning for recent fall and urinary retention recommended to MRI of Cervical and thoracic spine, will follow up and further recommendation to follow. Subjective Date/time seen: 06/22/25 15:19 Interval history: Fall yesterday and today due to legs being weak Narrative: 70-year-old female with a medical history of essential hypertension, peripheral neuropathy, GERD, chronic hyponatremia due to SIADH and suspected dementia who was brought to the ER by her due to a fall yesterday and again today. The patient's reports that the patient has lost over 50 lb and fell yesterday and today due to her legs giving out. Patient is evidently been undergoing outpatient evaluation for dementia and recent outpatient MRI the brain that was reportedly negative for significant process. At the time of my evaluation the patient was alert oriented only to self. She states that she goes by Cherise instead of Kristin. She asked nursing staff to her ex- instead of calling Blair who is her life partner. She could not recall her life partner's name. She thought the month was January and could not gas as to the year. She could not tell me who the president was and actually told nursing staff that the president was neck is in. She reports that she just does not have an appetite. She denies any pain in his pleasantly confused. She is otherwise unable to provide any meaningful history. Remainder of history was obtained from review of past medical records ER report and nursing report. Labs in the ER demonstrated normal white count and hemoglobin with respiratory alkalosis on VBG, stable chronic hyponatremia, mild hypokalemia, hypo magnesemia, chronic transaminitis and mildly elevated bilirubin. Her urine was also suspicious for possible UTI with greater than 100 wbc's 3+ leukocyte esterase and 4+ bacteria. Her urine drug screen was negative under alcohol level is less than 10. The patient reports that she does like to drink alcohol in drinks beer but she cannot tell me how much beer that she drinks. Patient appears undernourished, stats just does not feel like eating and no appetite, patient is encourage to increase food intake to gain strength seen by vp legal affairs and added ensure and will add multiple vitamins, encourage family members to bring food from home, denies any pain, patient urine is suspicious for UTI and being treated with ceftriaxone, will follow up on urine culture. patient has history of depression and taking Paxil 10mg PO qd, patient was seen by a psychiatrist and suspect patient has dementia and lacks insight of her current illness, CT scan of the head was negative, will consult neurologist for further recommendation. patient is present in the room. Patient remain at her baseline and was seen by the neurologist suspect patient has dementia, also concerning for recent fall and urinary retention recommended to MRI of Cervical and thoracic spine, will follow up and further recommendation to follow. Review of Systems Review of Systems: Review of systems is not reliable due to the patient's mental status. Exam Narrative: Appears malnourished Patient is comfortable, NAD HEENT: eyes are clear and none icteric LUNGS:CTA HEART: RR S1S2 ABD: BS+, Soft and nontender Lower extremities: no edema SKIN: nonjaundiced Neuro: grossly intact. Somewhat confused Objective Data Vital Signs Vital Signs: Vital Signs - 24 hr 06/21/25 20:00 06/21/25 22:00 06/22/25 06:00 Temperature 36.3 C L 36.3 C L Pulse Rate 93 88 Respiratory Rate 18 16 Blood Pressure 144/99 H 149/98 H Pulse Oximetry 100 99 Oxygen Delivery Room Air 06/22/25 08:00 06/22/25 14:00 Temperature 36.8 C Pulse Rate 98 Respiratory Rate 16 Blood Pressure 135/98 H Pulse Oximetry 100 Oxygen Delivery Room Air Intake/Output Intake/Output: Intake & Output 06/19/25 06/20/25 06/21/25 06/22/25 23:59 23:59 23:59 23:59 Intake Total 160 225 280 520 Output Total 1000 1000 1400 600 [facility] -840 -775 -1120 -80 Meds/Results Medications: Active Medications Generic Name Dose Route Start Last Admin Trade Name Freq PRN Reason Stop Dose Admin Ceftriaxone Sodium 1 gm/ 50 mls @ 100 mls/hr 06/19/25 18:00 06/21/25 17:08 Sodium Chloride IVPB 100 mls/hr Q24H ELEAZAR Administration Pantoprazole Sodium 40 mg 06/18/25 21:00 06/22/25 09:36 Pantoprazole Sodium Iv 40 Mg Vial IV PUSH 40 mg Q12HR ELEAZAR Administration Paroxetine HCl 10 mg 06/19/25 10:00 06/22/25 09:36 Paroxetine 10 Mg Tablet PO 10 mg DAILY ELEAZAR Administration Potassium Chloride 10 meq 06/19/25 10:00 06/22/25 09:36 Potassium Chloride 10 Meq Er Tablet PO 10 meq DAILY ELEAZAR Administration Pyridoxine HCl 100 mg 06/19/25 10:05 06/22/25 09:36 Pyridoxine Hcl 50 Mg Tablet PO 07/20/25 10:04 100 mg DAILY ELEAZAR Administration Sodium Chloride 1 gm 06/19/25 10:05 06/22/25 09:36 Sodium Chloride 1 Gm Tablet PO 1 gm BID ELEAZAR Administration Sucralfate 1,000 mg 06/18/25 21:00 06/22/25 10:53 Sucralfate Susp 100 Mg/Ml 10 Ml Udc PO Not Given ACHS ELEAZAR Thiamine HCl 100 mg 06/19/25 09:45 06/22/25 09:36 Thiamine Hcl 100 Mg Tablet PO 100 mg QAM ELEAZAR Administration Vitamin B Complex 1 cap 06/19/25 09:45 06/22/25 09:36 Vitamin B Complex Capsule PO 1 cap QAM ELEAZAR Administration Radiology Results: ITS Impressions Head CT 06/18/25 15:47 IMPRESSION: No acute intracranial process. Chest X-Ray 06/18/25 15:51 IMPRESSION: No acute cardiopulmonary process. Chest/Abdomen/Pelvis CT 06/18/25 17:06 IMPRESSION: Mild descending thoracic aortic ectasia. Scattered sub-6 mm pulmonary nodules, requiring no additional follow-up unless the patient is at high risk, in which case consider low-dose noncontrast CT of the chest in one year. Diffuse esophagitis. Moderate gastritis. Hepatomegaly. Hyperenhancing areas along the falciform ligament and gallbladder fossa may represent transient hepatic attenuation differences and/or irregular parenchymal enhancement from steatosis. No discrete mass identified. Recommend MRI of the liver. Hyperemic gallbladder wall may reflect a component of mild/early inflammatory change versus artifact from contrast phase. No biliary duct dilatation or inflammation to suggest cholangitis. Cystitis. Possible sacral soft tissue defect, correlate clinically for decubitus ulcer. Labs Labs: Laboratory Results - last 24 hr 06/22/25 07:22 WBC 6.8 RBC 2.87 L Hgb 10.0 L Hct 28.8 L MCV 100.3 H MCH 34.8 H MCHC 34.7 RDW 13.8 Plt Count 357 MPV 9.4 Sodium 124 L Potassium 3.9 Chloride 93 L Carbon Dioxide 29 Anion Gap 2 L BUN 4 L Creatinine 0.31 L Estim Creat Clear Calc 93 Estimated GFR > 60 Glucose 90 Calcium 8.6 Magnesium 1.5 L Total Bilirubin 1.1 AST 63 H ALT 38 H Alkaline Phosphatase 106 Total Protein 5.2 L Albumin 3.0 L Quality VTE Prophylaxis VTE prophylaxis: mechanical ordered (SCDs)
[2025-06-22] MEDS: cefTRIAXone 1 GM in SODIUM CHLORIDE 0.9% IV 50 ML 100 ML IVPB (17:15)
[2025-06-22 21:59] VITALS: BP 155/81; PULSE 69; RESP 18; TEMP 36.6; O2SAT 95
[2025-06-23] MEDS: SUCRALFATE SUSP 100 MG/ML 10 ML UDC 1000 MG PO ×4 (05:29→20:10)
[2025-06-23 06:00] VITALS: BP 124/97; PULSE 94; RESP 18; TEMP 36.6; O2SAT 99
[2025-06-23 06:15] LABS: Hematocrit 32.1 % (37.0-47.0); Hemoglobin 10.9 g/dL (12.0-15.0); Mean Corpuscular HGB Conc 34.0 g/dl (32-36); Mean Corpuscular Hemoglobin 34.5 pg (26-34); Mean Corpuscular Volume 101.6 fl (80-100); Platelet Count Result 397 k/mm3 (150-375); Red Blood Count 3.16 M/mm3 (4.2-5.4); White Blood Count 6.3 K/mm3 (4.5-10.0)
[2025-06-23 06:47] LABS: Alanine Aminotransferase 37 U/L (6-35); Albumin Level 3.1 g/dL (3.5-5.1); Alkaline Phosphatase 116 U/L (38-126); Anion Gap 3 mmol/L (4-12); Aspartate Amino Transferase 63 U/L (14-36); Bilirubin,Total 0.9 mg/dL (0.2-1.3); Blood Urea Nitrogen 8 mg/dL (7-17); Calcium 8.8 mg/dL (8.4-10.2); Carbon Dioxide 27 mmol/L (22-30); Chloride 96 mmol/L (98-107); Estimated CRCL calculation 81 ml/min; Estimated Glomerular Filt Rate > 60; Glucose 91 mg/dL (65-110); Magnesium 1.8 mg/dL (1.6-2.3); Potassium 3.7 mmol/L (3.4-5.0); Sodium 126 mmol/L (137-145); Total Protein 5.5 g/dL (6.3-8.2)
[2025-06-23] MEDS: SODIUM CHLORIDE 1 GM TABLET PO ×2 (09:37→16:22)
[2025-06-23] MEDS: PYRIDOXINE HCL 50 MG TABLET 100 MG PO (09:37)
[2025-06-23] MEDS: VITAMIN B COMPLEX CAPSULE 1 CAP PO (09:37)
[2025-06-23] MEDS: PANTOPRAZOLE SODIUM IV 40 MG VIAL IV PUSH ×2 (09:37→20:10)
[2025-06-23] MEDS: THIAMINE HCL 100 MG TABLET PO (09:38)
[2025-06-23] MEDS: POTASSIUM CHLORIDE 10 MEQ ER TABLET PO (09:38)
[2025-06-23] MEDS: MAGNESIUM OXIDE 400 MG TABLET PO (09:38)
--- NOTE | 2025-06-23 13:18 | PM.IMPN ---
Progress Note: A&P Assessment and Plan (1) Adult failure to thrive: Code(s): R62.7 - Adult failure to thrive Status: Acute (2) Severe protein-calorie malnutrition: Code(s): E43 - Unspecified severe protein-calorie malnutrition Status: Acute (3) Acute UTI: Code(s): N39.0 - Urinary tract infection, site not specified Status: Acute (4) Hypomagnesemia: Code(s): E83.42 - Hypomagnesemia Status: Acute (5) Chronic hyponatremia: Code(s): E87.1 - Hypo-osmolality and hyponatremia Status: Acute (6) Syndrome of inappropriate ADH (SIADH) secretion: Code(s): E22.2 - Syndrome of inappropriate secretion of antidiuretic hormone Status: Acute (7) Lactic acidosis: Code(s): E87.20 - Acidosis, unspecified Status: Acute (8) Acute hypokalemia: Code(s): E87.6 - Hypokalemia Status: Acute (9) Transaminitis: Code(s): R74.01 - Elevation of levels of liver transaminase levels Status: Acute (10) Hyperbilirubinemia: Code(s): E80.6 - Other disorders of bilirubin metabolism Status: Acute (11) Elevated troponin: Code(s): R79.89 - Other specified abnormal findings of blood chemistry Status: Acute (12) Urinary retention with incomplete bladder emptying: Code(s): R33.9 - Retention of urine, unspecified Status: Acute (13) GERD (gastroesophageal reflux disease): Qualifiers: Esophagitis presence: with esophagitis Esophagitis bleeding: without hemorrhage Qualified Code(s): K21.00 - Gastro-esophageal reflux disease with esophagitis, without bleeding Code(s): K21.9 - Gastro-esophageal reflux disease without esophagitis Status: Acute Plan Patient has failure to thrive with severe protein calorie malnutrition. Underlying causes likely multifactorial due to memory loss from likely dementia and or some component of gastritis and esophagitis given findings on CT scan. Will place patient on Protonix 40 mg p.o. b.i.d. and Carafate. Will request dietitian consult for nutritional supplements. Patient does have some hyponatremia likely due to SIADH in component of hypovolemic hyponatremia. Will place patient on maintenance IV fluids at 100 mL hour for 1 bag then repeat electrolyte panel and re-evaluate fluid status. Patient does have evidence of transaminitis with hyperbilirubinemia. Her transaminitis including AST and ALT appear to be chronically elevated in somewhat improved from prior values. However bilirubin is acutely elevated. Patient does have hepatomegaly with some hyper enhancing areas. Patient may benefit from MRI of liver if values do not improve with hydration. Patient also has some hyperemia to the gallbladder but no localizing pain to the right upper quadrant to suggest acute cholecystitis or cholangitis. Could be due to phase of contrast on imaging. Will repeat CMP in a.m.. Patient does have evidence of cystitis on imaging and abnormal urinalysis. She has been placed on empiric antibiotic therapy with Rocephin. Urine cultures have been obtained and are pending. Patient does have some lactic acidosis which could be due to her hepatomegaly and or starvation ketosis/dehydration. Will place patient on IV fluid hydration and repeat lactic acid level with a.m. labs. Will liberalize diet to regular diet. Patient did have hypo magnesium and hypokalemia with replacement given in the ER. Will repeat levels in a.m. give further supplementation if indicated Patient does have some mildly elevated troponin but troponin profile is flat. Values not indicative of acute myocardial ischemia. The patient was reporting that she felt like she needed to urinate but was unable to urinate. Bladder scan demonstrated 700 mL of retained urine. Nursing staff reports immediate return of 1.2 L of urine after Fuentes catheter placement. creative services director protocol has been ordered. Patient's home medication reconciliation was not available for my review at the time of finishing this documentation. Will defer further management to daytime hospitalist service. Patient appears undernourished, stats just does not feel like eating and no appetite, patient is encourage to increase food intake to gain strength seen by strategic partnership representative and added ensure and will add multiple vitamins, encourage family members to bring food from home, denies any pain, patient urine is suspicious for UTI and being treated with ceftriaxone, will follow up on urine culture. patient has history of depression and taking Paxil 10mg PO qd, patient was seen by a psychiatrist and suspect patient has dementia and lacks insight of her current illness, CT scan of the head was negative, will consult neurologist for further recommendation. patient is present in the room. Patient remain at her baseline and was seen by the neurologist suspect patient has dementia, also concerning for recent fall and urinary retention recommended to MRI of Cervical and thoracic spine, which are pending, CT scan of thoracic spine was concerning for a liver mass, to further evaluate will do MRI of the liver will follow up and further recommendation to follow. patient's is present in the room gave updates. Subjective Date/time seen: 06/23/25 13:18 Interval history: Fall yesterday and today due to legs being weak Narrative: 70-year-old female with a medical history of essential hypertension, peripheral neuropathy, GERD, chronic hyponatremia due to SIADH and suspected dementia who was brought to the ER by her due to a fall yesterday and again today. The patient's reports that the patient has lost over 50 lb and fell yesterday and today due to her legs giving out. Patient is evidently been undergoing outpatient evaluation for dementia and recent outpatient MRI the brain that was reportedly negative for significant process. At the time of my evaluation the patient was alert oriented only to self. She states that she goes by Cherise instead of Kristin. She asked nursing staff to her ex- instead of calling Blair who is her life partner. She could not recall her life partner's name. She thought the month was January and could not gas as to the year. She could not tell me who the president was and actually told nursing staff that the president was neck is in. She reports that she just does not have an appetite. She denies any pain in his pleasantly confused. She is otherwise unable to provide any meaningful history. Remainder of history was obtained from review of past medical records ER report and nursing report. Labs in the ER demonstrated normal white count and hemoglobin with respiratory alkalosis on VBG, stable chronic hyponatremia, mild hypokalemia, hypo magnesemia, chronic transaminitis and mildly elevated bilirubin. Her urine was also suspicious for possible UTI with greater than 100 wbc's 3+ leukocyte esterase and 4+ bacteria. Her urine drug screen was negative under alcohol level is less than 10. The patient reports that she does like to drink alcohol in drinks beer but she cannot tell me how much beer that she drinks. Patient appears undernourished, stats just does not feel like eating and no appetite, patient is encourage to increase food intake to gain strength seen by strategic partnership representative and added ensure and will add multiple vitamins, encourage family members to bring food from home, denies any pain, patient urine is suspicious for UTI and being treated with ceftriaxone, will follow up on urine culture. patient has history of depression and taking Paxil 10mg PO qd, patient was seen by a psychiatrist and suspect patient has dementia and lacks insight of her current illness, CT scan of the head was negative, will consult neurologist for further recommendation. patient is present in the room. Patient remain at her baseline and was seen by the neurologist suspect patient has dementia, also concerning for recent fall and urinary retention recommended to MRI of Cervical and thoracic spine, which are pending, CT scan of thoracic spine was concerning for a liver mass, to further evaluate will do MRI of the liver will follow up and further recommendation to follow. patient's is present in the room gave updates. Review of Systems Review of Systems: Review of systems is not reliable due to the patient's mental status. Exam Narrative: Appears malnourished Patient is comfortable, NAD HEENT: eyes are clear and none icteric LUNGS:CTA HEART: RR S1S2 ABD: BS+, Soft and nontender Lower extremities: no edema SKIN: nonjaundiced Neuro: grossly intact. Somewhat confused Objective Data Vital Signs Vital Signs: Vital Signs - 24 hr 06/22/25 14:00 06/22/25 20:00 06/22/25 21:59 Temperature 36.8 C 36.6 C Pulse Rate 98 69 Respiratory Rate 16 18 Blood Pressure 135/98 H 155/81 H Pulse Oximetry 100 95 Oxygen Delivery Room Air 06/23/25 06:00 06/23/25 08:00 Temperature 36.6 C Pulse Rate 94 Respiratory Rate 18 Blood Pressure 124/97 H Pulse Oximetry 99 Oxygen Delivery Room Air Intake/Output Intake/Output: Intake & Output 06/20/25 06/21/25 06/22/25 06/23/25 23:59 23:59 23:59 23:59 Intake Total 225 330 570 560 Output Total 1000 1400 1150 400 Balance -775 1070 -580 160 Meds/Results Medications: Active Medications Generic Name Dose Route Start Last Admin Trade Name Freq PRN Reason Stop Dose Admin Ceftriaxone Sodium 1 gm/ 50 mls @ 100 mls/hr 06/19/25 18:00 06/22/25 17:45 Sodium Chloride IVPB 06/24/25 18:29 Infused Q24H ELEAZAR Infusion Magnesium Oxide 400 mg 06/23/25 09:00 06/23/25 09:38 Magnesium Oxide 400 Mg Tablet PO 400 mg QAM ELEAZAR Administration Pantoprazole Sodium 40 mg 06/18/25 21:00 06/23/25 09:37 Pantoprazole Sodium Iv 40 Mg Vial IV PUSH 40 mg Q12HR ELEAZAR Administration Paroxetine HCl 10 mg 06/19/25 10:00 06/23/25 09:38 Paroxetine 10 Mg Tablet PO 10 mg DAILY ELEAZAR Administration Potassium Chloride 10 meq 06/19/25 10:00 06/23/25 09:38 Potassium Chloride 10 Meq Er Tablet PO 10 meq DAILY ELEAZAR Administration Pyridoxine HCl 100 mg 06/19/25 10:05 06/23/25 09:37 Pyridoxine Hcl 50 Mg Tablet PO 07/20/25 10:04 100 mg DAILY ELEAZAR Administration Sodium Chloride 1 gm 06/19/25 10:05 06/23/25 09:37 Sodium Chloride 1 Gm Tablet PO 1 gm BID ELEAZAR Administration Sucralfate 1,000 mg 06/18/25 21:00 06/23/25 11:21 Sucralfate Susp 100 Mg/Ml 10 Ml Udc PO 1,000 mg ACHS ELEAZAR Administration Thiamine HCl 100 mg 06/19/25 09:45 06/23/25 09:38 Thiamine Hcl 100 Mg Tablet PO 100 mg QAM ELEAZAR Administration Vitamin B Complex 1 cap 06/19/25 09:45 06/23/25 09:37 Vitamin B Complex Capsule PO 1 cap QAM ELEAZAR Administration Radiology Results: ITS Impressions Head CT 06/18/25 15:47 IMPRESSION: No acute intracranial process. Chest X-Ray 06/18/25 15:51 IMPRESSION: No acute cardiopulmonary process. Chest/Abdomen/Pelvis CT 06/18/25 17:06 IMPRESSION: Mild descending thoracic aortic ectasia. Scattered sub-6 mm pulmonary nodules, requiring no additional follow-up unless the patient is at high risk, in which case consider low-dose noncontrast CT of the chest in one year. Diffuse esophagitis. Moderate gastritis. Hepatomegaly. Hyperenhancing areas along the falciform ligament and gallbladder fossa may represent transient hepatic attenuation differences and/or irregular parenchymal enhancement from steatosis. No discrete mass identified. Recommend MRI of the liver. Hyperemic gallbladder wall may reflect a component of mild/early inflammatory change versus artifact from contrast phase. No biliary duct dilatation or inflammation to suggest cholangitis. Cystitis. Possible sacral soft tissue defect, correlate clinically for decubitus ulcer. Thoracic Spine CT 06/22/25 15:53 IMPRESSION: 1. No compression fracture in the thoracic spine. 2. Mild degenerative change scattered throughout the thoracic spine. If symptoms persist or worsen, consider an MRI of the thoracic spine for further assessment. Abdomen Ultrasound 06/23/25 10:17 IMPRESSION: 1: The liver is hyperechoic likely due to fatty infiltration and/or hepatocellular disease. 2. There is a 2.9 x 2.2 cm hypoechoic region in the left lobe of the liver. Differential includes focal fatty sparing versus liver mass. A liver mass MRI is recommended. Labs Labs: Laboratory Results - last 24 hr 06/23/25 05:59 WBC 6.3 RBC 3.16 L Hgb 10.9 L Hct 32.1 L MCV 101.6 H MCH 34.5 H MCHC 34.0 RDW 14.0 Plt Count 397 H MPV 9.3 Sodium 126 L Potassium 3.7 Chloride 96 L Carbon Dioxide 27 Anion Gap 3 L BUN 8 Creatinine 0.36 L Estim Creat Clear Calc 81 Estimated GFR > 60 Glucose 91 Calcium 8.8 Magnesium 1.8 Total Bilirubin 0.9 AST 63 H ALT 37 H Alkaline Phosphatase 116 Total Protein 5.5 L Albumin 3.1 L Quality VTE Prophylaxis VTE prophylaxis: mechanical ordered (SCDs)
[2025-06-23 14:00] VITALS: BP 110/60; PULSE 100; RESP 20; TEMP 36.3; O2SAT 100
[2025-06-23] MEDS: cefTRIAXone 1 GM in SODIUM CHLORIDE 0.9% IV 50 ML 100 ML IVPB (17:06)
[2025-06-23 22:00] VITALS: BP 116/62; PULSE 98; RESP 18; TEMP 36.4; O2SAT 99
[2025-06-23 22:39] VITALS: O2SAT 97
[2025-06-24 06:00] VITALS: BP 121/73; PULSE 92; RESP 18; TEMP 36.3; O2SAT 99
[2025-06-24 06:03] LABS: Hematocrit 30.7 % (37.0-47.0); Hemoglobin 10.5 g/dL (12.0-15.0); Mean Corpuscular HGB Conc 34.2 g/dl (32-36); Mean Corpuscular Hemoglobin 34.8 pg (26-34); Mean Corpuscular Volume 101.7 fl (80-100); Platelet Count Result 367 k/mm3 (150-375); Red Blood Count 3.02 M/mm3 (4.2-5.4); White Blood Count 5.1 K/mm3 (4.5-10.0)
[2025-06-24 06:34] LABS: Alanine Aminotransferase 32 U/L (6-35); Albumin Level 3.0 g/dL (3.5-5.1); Alkaline Phosphatase 104 U/L (38-126); Anion Gap 3 mmol/L (4-12); Aspartate Amino Transferase 57 U/L (14-36); Bilirubin,Total 0.8 mg/dL (0.2-1.3); Blood Urea Nitrogen 11 mg/dL (7-17); Calcium 9.0 mg/dL (8.4-10.2); Carbon Dioxide 26 mmol/L (22-30); Chloride 96 mmol/L (98-107); Estimated CRCL calculation 85 ml/min; Estimated Glomerular Filt Rate > 60; Glucose 99 mg/dL (65-110); Magnesium 1.6 mg/dL (1.6-2.3); Potassium 3.8 mmol/L (3.4-5.0); Sodium 125 mmol/L (137-145); Total Protein 5.2 g/dL (6.3-8.2)
[2025-06-24] MEDS: PANTOPRAZOLE SODIUM IV 40 MG VIAL IV PUSH ×2 (08:58→22:09)
[2025-06-24] MEDS: PYRIDOXINE HCL 50 MG TABLET 100 MG PO (10:24)
[2025-06-24] MEDS: MAGNESIUM OXIDE 400 MG TABLET PO (10:24)
[2025-06-24] MEDS: VITAMIN B COMPLEX CAPSULE 1 CAP PO (10:26)
[2025-06-24] MEDS: POTASSIUM CHLORIDE 10 MEQ ER TABLET PO (10:27)
[2025-06-24] MEDS: THIAMINE HCL 100 MG TABLET PO (10:27)
[2025-06-24] MEDS: SODIUM CHLORIDE 1 GM TABLET PO ×2 (10:27→19:07)
[2025-06-24] MEDS: SUCRALFATE SUSP 100 MG/ML 10 ML UDC 1000 MG PO ×3 (11:58→22:09)
--- NOTE | 2025-06-24 13:51 | P.PNIM_ITS ---
Progress Note: A&P Assessment and Plan (1) Adult failure to thrive: Code(s): R62.7 - Adult failure to thrive Status: Acute (2) Severe protein-calorie malnutrition: Code(s): E43 - Unspecified severe protein-calorie malnutrition Status: Acute (3) Acute UTI: Code(s): N39.0 - Urinary tract infection, site not specified Status: Acute (4) Hypomagnesemia: Code(s): E83.42 - Hypomagnesemia Status: Acute (5) Chronic hyponatremia: Code(s): E87.1 - Hypo-osmolality and hyponatremia Status: Acute (6) Syndrome of inappropriate ADH (SIADH) secretion: Code(s): E22.2 - Syndrome of inappropriate secretion of antidiuretic hormone Status: Acute (7) Lactic acidosis: Code(s): E87.20 - Acidosis, unspecified Status: Acute (8) Acute hypokalemia: Code(s): E87.6 - Hypokalemia Status: Acute (9) Transaminitis: Code(s): R74.01 - Elevation of levels of liver transaminase levels Status: Acute (10) Hyperbilirubinemia: Code(s): E80.6 - Other disorders of bilirubin metabolism Status: Acute (11) Elevated troponin: Code(s): R79.89 - Other specified abnormal findings of blood chemistry Status: Acute (12) Urinary retention with incomplete bladder emptying: Code(s): R33.9 - Retention of urine, unspecified Status: Acute (13) GERD (gastroesophageal reflux disease): Qualifiers: Esophagitis presence: with esophagitis Esophagitis bleeding: without hemorrhage Qualified Code(s): K21.00 - Gastro-esophageal reflux disease with esophagitis, without bleeding Code(s): K21.9 - Gastro-esophageal reflux disease without esophagitis Status: Acute Plan Patient has failure to thrive with severe protein calorie malnutrition. Underlying causes likely multifactorial due to memory loss from likely dementia and or some component of gastritis and esophagitis given findings on CT scan. Will place patient on Protonix 40 mg p.o. b.i.d. and Carafate. Will request dietitian consult for nutritional supplements. Patient does have some hyponatremia likely due to SIADH in component of hypovolemic hyponatremia. Will place patient on maintenance IV fluids at 100 mL hour for 1 bag then repeat electrolyte panel and re-evaluate fluid status. Patient does have evidence of transaminitis with hyperbilirubinemia. Her transaminitis including AST and ALT appear to be chronically elevated in somewhat improved from prior values. However bilirubin is acutely elevated. Patient does have hepatomegaly with some hyper enhancing areas. Patient may benefit from MRI of liver if values do not improve with hydration. Patient also has some hyperemia to the gallbladder but no localizing pain to the right upper quadrant to suggest acute cholecystitis or cholangitis. Could be due to phase of contrast on imaging. Will repeat CMP in a.m.. Patient does have evidence of cystitis on imaging and abnormal urinalysis. She has been placed on empiric antibiotic therapy with Rocephin. Urine cultures have been obtained and are pending. Patient does have some lactic acidosis which could be due to her hepatomegaly and or starvation ketosis/dehydration. Will place patient on IV fluid hydration and repeat lactic acid level with a.m. labs. Will liberalize diet to regular diet. Patient did have hypo magnesium and hypokalemia with replacement given in the ER. Will repeat levels in a.m. give further supplementation if indicated Patient does have some mildly elevated troponin but troponin profile is flat. Values not indicative of acute myocardial ischemia. The patient was reporting that she felt like she needed to urinate but was unable to urinate. Bladder scan demonstrated 700 mL of retained urine. Nursing staff reports immediate return of 1.2 L of urine after Fuentes catheter placement. directory carrier protocol has been ordered. Patient's home medication reconciliation was not available for my review at the time of finishing this documentation. Will defer further management to daytime hospitalist service. Patient appears undernourished, stats just does not feel like eating and no appetite, patient is encourage to increase food intake to gain strength seen by web content & social media manager and added ensure and will add multiple vitamins, encourage family members to bring food from home, denies any pain, patient urine is suspicious for UTI and being treated with ceftriaxone, will follow up on urine culture. patient has history of depression and taking Paxil 10mg PO qd, patient was seen by a psychiatrist and suspect patient has dementia and lacks insight of her current illness, CT scan of the head was negative, will consult neurologist for further recommendation. patient is present in the room. Patient remain at her baseline and was seen by the neurologist suspect patient has dementia, also concerning for recent fall and urinary retention recommended to MRI of Cervical and thoracic spine, which are pending, CT scan of thoracic spine was concerning for a liver mass, to further evaluate will do MRI of the liver will follow up and further recommendation to follow. patient did not get MRI yesterday and today patient is refusing, I did explain to the patient it necessary to get MRI to further evaluation. Subjective Date/time seen: 06/24/25 13:51 Interval history: Fall yesterday and today due to legs being weak Narrative: 70-year-old female with a medical history of essential hypertension, peripheral neuropathy, GERD, chronic hyponatremia due to SIADH and suspected dementia who was brought to the ER by her due to a fall yesterday and again today. The patient's reports that the patient has lost over 50 lb and fell yesterday and today due to her legs giving out. Patient is evidently been undergoing outpatient evaluation for dementia and recent outpatient MRI the brain that was reportedly negative for significant process. At the time of my evaluation the patient was alert oriented only to self. She states that she goes by Cherise instead of Kristin. She asked nursing staff to her ex- instead of calling Blair who is her life partner. She could not recall her life partner's name. She thought the month was January and could not gas as to the year. She could not tell me who the president was and actually told nursing staff that the president was neck is in. She reports that she just does not have an appetite. She denies any pain in his pleasantly confused. She is otherwise unable to provide any meaningful history. Remainder of history was obtained from review of past medical records ER report and nursing report. Labs in the ER demonstrated normal white count and hemoglobin with respiratory alkalosis on VBG, stable chronic hyponatremia, mild hypokalemia, hypo magnesemia, chronic transaminitis and mildly elevated bilirubin. Her urine was also suspicious for possible UTI with greater than 100 wbc's 3+ leukocyte esterase and 4+ bacteria. Her urine drug screen was negative under alcohol level is less than 10. The patient reports that she does like to drink alcohol in drinks beer but she cannot tell me how much beer that she drinks. Patient appears undernourished, stats just does not feel like eating and no appetite, patient is encourage to increase food intake to gain strength seen by web content & social media manager and added ensure and will add multiple vitamins, encourage family members to bring food from home, denies any pain, patient urine is suspicious for UTI and being treated with ceftriaxone, will follow up on urine culture. patient has history of depression and taking Paxil 10mg PO qd, patient was seen by a psychiatrist and suspect patient has dementia and lacks insight of her current illness, CT scan of the head was negative, will consult neurologist for further recommendation. patient is present in the room. Patient remain at her baseline and was seen by the neurologist suspect patient has dementia, also concerning for recent fall and urinary retention recommended to MRI of Cervical and thoracic spine, which are pending, CT scan of thoracic spine was concerning for a liver mass, to further evaluate will do MRI of the liver will follow up and further recommendation to follow. patient did not get MRI yesterday and today patient is refusing, I did explain to the patient it necessary to get MRI to further evaluation. Review of Systems Review of Systems: Review of systems is not reliable due to the patient's mental status. Exam Narrative: Appears malnourished Patient is comfortable, NAD HEENT: eyes are clear and none icteric LUNGS:CTA HEART: RR S1S2 ABD: BS+, Soft and nontender Lower extremities: no edema SKIN: nonjaundiced Neuro: grossly intact. Somewhat confused Objective Data Vital Signs Vital Signs: Vital Signs - 24 hr 06/23/25 14:00 06/23/25 20:45 06/23/25 22:00 Temperature 36.3 C L 36.4 C Pulse Rate 100 98 Respiratory Rate 20 18 Blood Pressure 110/60 116/62 Pulse Oximetry 100 99 Oxygen Delivery Room Air 06/23/25 22:39 06/24/25 06:00 Temperature 36.3 C L Pulse Rate 92 Respiratory Rate 18 Blood Pressure 121/73 Pulse Oximetry 97 99 Oxygen Delivery Room Air Intake/Output Intake/Output: Intake & Output 06/21/25 06/22/25 06/23/25 06/24/25 23:59 23:59 23:59 23:59 Intake Total 330 570 680 120 Output Total 1400 1150 700 100 Balance -1070 -580 -20 20 Meds/Results Medications: Active Medications Generic Name Dose Route Start Last Admin Trade Name Freq PRN Reason Stop Dose Admin Ceftriaxone Sodium 1 gm/ 50 mls @ 100 mls/hr 06/19/25 18:00 06/23/25 17:06 Sodium Chloride IVPB 06/24/25 18:29 100 mls/hr Q24H ELEAZAR Administration Magnesium Oxide 400 mg 06/23/25 09:00 06/24/25 10:24 Magnesium Oxide 400 Mg Tablet PO 400 mg QAM ELEAZAR Administration Pantoprazole Sodium 40 mg 06/18/25 21:00 06/24/25 08:58 Pantoprazole Sodium Iv 40 Mg Vial IV PUSH 40 mg Q12HR ELEAZAR Administration Paroxetine HCl 10 mg 06/19/25 10:00 06/24/25 10:27 Paroxetine 10 Mg Tablet PO 10 mg DAILY ELEAZAR Administration Potassium Chloride 10 meq 06/19/25 10:00 06/24/25 10:27 Potassium Chloride 10 Meq Er Tablet PO 10 meq DAILY ELEAZAR Administration Pyridoxine HCl 100 mg 06/19/25 10:05 06/24/25 10:24 Pyridoxine Hcl 50 Mg Tablet PO 07/20/25 10:04 100 mg DAILY ELEAZAR Administration Sodium Chloride 1 gm 06/19/25 10:05 06/24/25 10:27 Sodium Chloride 1 Gm Tablet PO 1 gm BID ELEAZAR Administration Sucralfate 1,000 mg 06/18/25 21:00 06/24/25 11:58 Sucralfate Susp 100 Mg/Ml 10 Ml Udc PO 1,000 mg ACHS ELEAZAR Administration Thiamine HCl 100 mg 06/19/25 09:45 06/24/25 10:27 Thiamine Hcl 100 Mg Tablet PO 100 mg QAM ELEAZAR Administration Vitamin B Complex 1 cap 06/19/25 09:45 06/24/25 10:26 Vitamin B Complex Capsule PO 1 cap QAM ELEAZAR Administration Radiology Results: ITS Impressions Head CT 06/18/25 15:47 IMPRESSION: No acute intracranial process. Chest X-Ray 06/18/25 15:51 IMPRESSION: No acute cardiopulmonary process. Chest/Abdomen/Pelvis CT 06/18/25 17:06 IMPRESSION: Mild descending thoracic aortic ectasia. Scattered sub-6 mm pulmonary nodules, requiring no additional follow-up unless the patient is at high risk, in which case consider low-dose noncontrast CT of the chest in one year. Diffuse esophagitis. Moderate gastritis. Hepatomegaly. Hyperenhancing areas along the falciform ligament and gallbladder fossa may represent transient hepatic attenuation differences and/or irregular parenchymal enhancement from steatosis. No discrete mass identified. Recommend MRI of the liver. Hyperemic gallbladder wall may reflect a component of mild/early inflammatory change versus artifact from contrast phase. No biliary duct dilatation or inflammation to suggest cholangitis. Cystitis. Possible sacral soft tissue defect, correlate clinically for decubitus ulcer. Thoracic Spine CT 06/22/25 15:53 IMPRESSION: 1. No compression fracture in the thoracic spine. 2. Mild degenerative change scattered throughout the thoracic spine. If symptoms persist or worsen, consider an MRI of the thoracic spine for further assessment. Abdomen Ultrasound 06/23/25 10:17 IMPRESSION: 1: The liver is hyperechoic likely due to fatty infiltration and/or hepatocellular disease. 2. There is a 2.9 x 2.2 cm hypoechoic region in the left lobe of the liver. Differential includes focal fatty sparing versus liver mass. A liver mass MRI is recommended. Labs Labs: Laboratory Results - last 24 hr 06/24/25 05:48 WBC 5.1 RBC 3.02 L Hgb 10.5 L Hct 30.7 L MCV 101.7 H MCH 34.8 H MCHC 34.2 RDW 14.6 H Plt Count 367 MPV 9.5 Sodium 125 L Potassium 3.8 Chloride 96 L Carbon Dioxide 26 Anion Gap 3 L BUN 11 Creatinine 0.34 L Estim Creat Clear Calc 85 Estimated GFR > 60 Glucose 99 Calcium 9.0 Magnesium 1.6 Total Bilirubin 0.8 AST 57 H ALT 32 Alkaline Phosphatase 104 Total Protein 5.2 L Albumin 3.0 L Quality VTE Prophylaxis VTE prophylaxis: mechanical ordered (SCDs)
[2025-06-24 14:00] VITALS: BP 135/93; PULSE 93; RESP 20; TEMP 36.3; O2SAT 100
[2025-06-24] MEDS: cefTRIAXone 1 GM in SODIUM CHLORIDE 0.9% IV 50 ML 100 ML IVPB (19:07)
[2025-06-24 20:00] VITALS: PULSE 95; RESP 18; O2SAT 100
[2025-06-24 21:51] VITALS: O2SAT 97
[2025-06-24 22:00] VITALS: BP 109/72; PULSE 105; RESP 18; TEMP 36.8; O2SAT 99
[2025-06-25 06:00] VITALS: BP 120/87; PULSE 95; RESP 18; TEMP 36.3; O2SAT 100
[2025-06-25 06:09] LABS: Hematocrit 29.6 % (37.0-47.0); Hemoglobin 10.0 g/dL (12.0-15.0); Mean Corpuscular HGB Conc 33.8 g/dl (32-36); Mean Corpuscular Hemoglobin 34.7 pg (26-34); Mean Corpuscular Volume 102.8 fl (80-100); Platelet Count Result 369 k/mm3 (150-375); Red Blood Count 2.88 M/mm3 (4.2-5.4); White Blood Count 5.3 K/mm3 (4.5-10.0)
[2025-06-25 06:30] LABS: Alanine Aminotransferase 30 U/L (6-35); Albumin Level 2.7 g/dL (3.5-5.1); Alkaline Phosphatase 95 U/L (38-126); Anion Gap 3 mmol/L (4-12); Aspartate Amino Transferase 56 U/L (14-36); Bilirubin,Total 0.7 mg/dL (0.2-1.3); Blood Urea Nitrogen 12 mg/dL (7-17); Calcium 8.8 mg/dL (8.4-10.2); Carbon Dioxide 26 mmol/L (22-30); Chloride 98 mmol/L (98-107); Estimated CRCL calculation 86 ml/min; Estimated Glomerular Filt Rate > 60; Glucose 89 mg/dL (65-110); Magnesium 1.6 mg/dL (1.6-2.3); Potassium 3.7 mmol/L (3.4-5.0); Sodium 127 mmol/L (137-145); Total Protein 5.0 g/dL (6.3-8.2)
[2025-06-25] MEDS: VITAMIN B COMPLEX CAPSULE 1 CAP PO (10:05)
[2025-06-25] MEDS: THIAMINE HCL 100 MG TABLET PO (10:05)
[2025-06-25] MEDS: SODIUM CHLORIDE 1 GM TABLET PO ×2 (10:05→17:04)
[2025-06-25] MEDS: PYRIDOXINE HCL 50 MG TABLET 100 MG PO (10:05)
[2025-06-25] MEDS: MAGNESIUM OXIDE 400 MG TABLET PO (10:05)
[2025-06-25] MEDS: POTASSIUM CHLORIDE 10 MEQ ER TABLET PO (10:05)
[2025-06-25] MEDS: PANTOPRAZOLE SODIUM IV 40 MG VIAL IV PUSH ×2 (10:14→20:45)
[2025-06-25] MEDS: SUCRALFATE SUSP 100 MG/ML 10 ML UDC 1000 MG PO ×3 (11:40→20:45)
[2025-06-25 14:00] VITALS: BP 130/98; PULSE 92; RESP 16; TEMP 36.1; O2SAT 100
--- NOTE | 2025-06-25 14:13 | P.PNIM_ITS ---
Progress Note: A&P Assessment and Plan (1) Adult failure to thrive: Code(s): R62.7 - Adult failure to thrive Status: Acute (2) Severe protein-calorie malnutrition: Code(s): E43 - Unspecified severe protein-calorie malnutrition Status: Acute (3) Acute UTI: Code(s): N39.0 - Urinary tract infection, site not specified Status: Acute (4) Hypomagnesemia: Code(s): E83.42 - Hypomagnesemia Status: Acute (5) Chronic hyponatremia: Code(s): E87.1 - Hypo-osmolality and hyponatremia Status: Acute (6) Syndrome of inappropriate ADH (SIADH) secretion: Code(s): E22.2 - Syndrome of inappropriate secretion of antidiuretic hormone Status: Acute (7) Lactic acidosis: Code(s): E87.20 - Acidosis, unspecified Status: Acute (8) Acute hypokalemia: Code(s): E87.6 - Hypokalemia Status: Acute (9) Transaminitis: Code(s): R74.01 - Elevation of levels of liver transaminase levels Status: Acute (10) Hyperbilirubinemia: Code(s): E80.6 - Other disorders of bilirubin metabolism Status: Acute (11) Elevated troponin: Code(s): R79.89 - Other specified abnormal findings of blood chemistry Status: Acute (12) Urinary retention with incomplete bladder emptying: Code(s): R33.9 - Retention of urine, unspecified Status: Acute (13) GERD (gastroesophageal reflux disease): Qualifiers: Esophagitis presence: with esophagitis Esophagitis bleeding: without hemorrhage Qualified Code(s): K21.00 - Gastro-esophageal reflux disease with esophagitis, without bleeding Code(s): K21.9 - Gastro-esophageal reflux disease without esophagitis Status: Acute Plan Patient has failure to thrive with severe protein calorie malnutrition. Underlying causes likely multifactorial due to memory loss from likely dementia and or some component of gastritis and esophagitis given findings on CT scan. Will place patient on Protonix 40 mg p.o. b.i.d. and Carafate. Will request dietitian consult for nutritional supplements. Patient does have some hyponatremia likely due to SIADH in component of hypovolemic hyponatremia. Will place patient on maintenance IV fluids at 100 mL hour for 1 bag then repeat electrolyte panel and re-evaluate fluid status. Patient does have evidence of transaminitis with hyperbilirubinemia. Her transaminitis including AST and ALT appear to be chronically elevated in somewhat improved from prior values. However bilirubin is acutely elevated. Patient does have hepatomegaly with some hyper enhancing areas. Patient may benefit from MRI of liver if values do not improve with hydration. Patient also has some hyperemia to the gallbladder but no localizing pain to the right upper quadrant to suggest acute cholecystitis or cholangitis. Could be due to phase of contrast on imaging. Will repeat CMP in a.m.. Patient does have evidence of cystitis on imaging and abnormal urinalysis. She has been placed on empiric antibiotic therapy with Rocephin. Urine cultures have been obtained and are pending. Patient does have some lactic acidosis which could be due to her hepatomegaly and or starvation ketosis/dehydration. Will place patient on IV fluid hydration and repeat lactic acid level with a.m. labs. Will liberalize diet to regular diet. Patient did have hypo magnesium and hypokalemia with replacement given in the ER. Will repeat levels in a.m. give further supplementation if indicated Patient does have some mildly elevated troponin but troponin profile is flat. Values not indicative of acute myocardial ischemia. The patient was reporting that she felt like she needed to urinate but was unable to urinate. Bladder scan demonstrated 700 mL of retained urine. Nursing staff reports immediate return of 1.2 L of urine after Fuentes catheter placement. director of critical care protocol has been ordered. Patient's home medication reconciliation was not available for my review at the time of finishing this documentation. Will defer further management to daytime hospitalist service. Patient appears undernourished, stats just does not feel like eating and no appetite, patient is encourage to increase food intake to gain strength seen by production hand and added ensure and will add multiple vitamins, encourage family members to bring food from home, denies any pain, patient urine is suspicious for UTI and being treated with ceftriaxone, will follow up on urine culture. patient has history of depression and taking Paxil 10mg PO qd, patient was seen by a psychiatrist and suspect patient has dementia and lacks insight of her current illness, CT scan of the head was negative, will consult neurologist for further recommendation. patient is present in the room. Patient remain at her baseline and was seen by the neurologist suspect patient has dementia, also concerning for recent fall and urinary retention recommended to MRI of Cervical and thoracic spine, which are essentially normal, CT scan of thoracic spine was concerning for a liver mass, to further evaluate will do MRI of the liver will follow up and further recommendation to follow. patient remains her baseline, her is present and gave updates, enourage patient to increase food intake. patient with hypnatremia, most likely due to chronic SSRI, will add salt tab 500mg BID and monitor. Subjective Date/time seen: 06/25/25 14:13 Interval history: Fall yesterday and today due to legs being weak Narrative: 70-year-old female with a medical history of essential hypertension, peripheral neuropathy, GERD, chronic hyponatremia due to SIADH and suspected dementia who was brought to the ER by her due to a fall yesterday and again today. The patient's reports that the patient has lost over 50 lb and fell yesterday and today due to her legs giving out. Patient is evidently been undergoing outpatient evaluation for dementia and recent outpatient MRI the brain that was reportedly negative for significant process. At the time of my evaluation the patient was alert oriented only to self. She states that she goes by Cherise instead of Kristin. She asked nursing staff to her ex- instead of calling Blair who is her life partner. She could not recall her life partner's name. She thought the month was January and could not gas as to the year. She could not tell me who the president was and actually told nursing staff that the president was neck is in. She reports that she just does not have an appetite. She denies any pain in his pleasantly confused. She is otherwise unable to provide any meaningful history. Remainder of history was obtained from review of past medical records ER report and nursing report. Labs in the ER demonstrated normal white count and hemoglobin with respiratory alkalosis on VBG, stable chronic hyponatremia, mild hypokalemia, hypo magnesemia, chronic transaminitis and mildly elevated bilirubin. Her urine was also suspicious for possible UTI with greater than 100 wbc's 3+ leukocyte esterase and 4+ bacteria. Her urine drug screen was negative under alcohol level is less than 10. The patient reports that she does like to drink alcohol in drinks beer but she cannot tell me how much beer that she drinks. Patient appears undernourished, stats just does not feel like eating and no emperatriz etite, patient is encourage to increase food intake to gain strength seen by production hand and added ensure and will add multiple vitamins, encourage family members to bring food from home, denies any pain, patient urine is suspicious for UTI and being treated with ceftriaxone, will follow up on urine culture. patient has history of depression and taking Paxil 10mg PO qd, patient was seen by a psychiatrist and suspect patient has dementia and lacks insight of her current illness, CT scan of the head was negative, will consult neurologist for further recommendation. patient is present in the room. Patient remain at her baseline and was seen by the neurologist suspect patient has dementia, also concerning for recent fall and urinary retention recommended to MRI of Cervical and thoracic spine, which are essentially normal, CT scan of thoracic spine was concerning for a liver mass, to further evaluate will do MRI of the liver will follow up and further recommendation to follow. patient remains her baseline, her is present and gave updates, enourage patient to increase food intake. patient with hypnatremia, most likely due to chronic SSRI, will add salt tab 500mg BID and monitor. Review of Systems Review of Systems: Review of systems is not reliable due to the patient's mental status. Exam Narrative: Appears malnourished Patient is comfortable, NAD HEENT: eyes are clear and none icteric LUNGS:CTA HEART: RR S1S2 ABD: BS+, Soft and nontender Lower extremities: no edema SKIN: nonjaundiced Neuro: grossly intact. Somewhat confused Objective Data Vital Signs Vital Signs: Vital Signs - 24 hr 06/24/25 20:00 06/24/25 21:51 06/24/25 22:00 Temperature 36.8 C Pulse Rate 95 105 H Respiratory Rate 18 18 Blood Pressure 109/72 Pulse Oximetry 100 97 99 Oxygen Delivery Room Air Room Air Fraction of Inspired Oxygen 21 06/25/25 06:00 06/25/25 08:00 Temperature 36.3 C L Pulse Rate 95 Respiratory Rate 18 Blood Pressure 120/87 Pulse Oximetry 100 Oxygen Delivery Room Air Fraction of Inspired Oxygen Intake/Output Intake/Output: Intake & Output 06/22/25 06/23/25 06/24/25 06/25/25 23:59 23:59 23:59 23:59 Intake Total 570 730 120 Output Total 1150 488 456 7501 Balance -580 30 20 -1000 Meds/Results Medications: Active Medications Generic Name Dose Route Start Last Admin Trade Name Freq PRN Reason Stop Dose Admin Magnesium Oxide 400 mg 06/23/25 09:00 06/25/25 10:05 Magnesium Oxide 400 Mg Tablet PO 400 mg QAM ELEAZAR Administration Pantoprazole Sodium 40 mg 06/18/25 21:00 06/25/25 10:14 Pantoprazole Sodium Iv 40 Mg Vial IV PUSH 40 mg Q12HR ELEAZAR Administration Paroxetine HCl 10 mg 06/19/25 10:00 06/25/25 10:06 Paroxetine 10 Mg Tablet PO 10 mg DAILY ELEAZAR Administration Potassium Chloride 10 meq 06/19/25 10:00 06/25/25 10:05 Potassium Chloride 10 Meq Er Tablet PO 10 meq DAILY ELEAZAR Administration Pyridoxine HCl 100 mg 06/19/25 10:05 06/25/25 10:05 Pyridoxine Hcl 50 Mg Tablet PO 07/20/25 10:04 100 mg DAILY ELEAZAR Administration Sodium Chloride 1 gm 06/19/25 10:05 06/25/25 10:05 Sodium Chloride 1 Gm Tablet PO 1 gm BID ELEAZAR Administration Sucralfate 1,000 mg 06/18/25 21:00 06/25/25 11:40 Sucralfate Susp 100 Mg/Ml 10 Ml Udc PO 1,000 mg ACHS ELEAZAR Administration Thiamine HCl 100 mg 06/19/25 09:45 06/25/25 10:05 Thiamine Hcl 100 Mg Tablet PO 100 mg QAM ELEAZAR Administration Vitamin B Complex 1 cap 06/19/25 09:45 06/25/25 10:05 Vitamin B Complex Capsule PO 1 cap QAM ELEAZAR Administration Radiology Results: ITS Impressions Head CT 06/18/25 15:47 IMPRESSION: No acute intracranial process. Chest X-Ray 06/18/25 15:51 IMPRESSION: No acute cardiopulmonary process. Chest/Abdomen/Pelvis CT 06/18/25 17:06 IMPRESSION: Mild descending thoracic aortic ectasia. Scattered sub-6 mm pulmonary nodules, requiring no additional follow-up unless the patient is at high risk, in which case consider low-dose noncontrast CT of the chest in one year. Diffuse esophagitis. Moderate gastritis. Hepatomegaly. Hyperenhancing areas along the falciform ligament and gallbladder fossa may represent transient hepatic attenuation differences and/or irregular parenchymal enhancement from steatosis. No discrete mass identified. Recommend MRI of the liver. Hyperemic gallbladder wall may reflect a component of mild/early inflammatory change versus artifact from contrast phase. No biliary duct dilatation or inflammation to suggest cholangitis. Cystitis. Possible sacral soft tissue defect, correlate clinically for decubitus ulcer. Thoracic Spine CT 06/22/25 15:53 IMPRESSION: 1. No compression fracture in the thoracic spine. 2. Mild degenerative change scattered throughout the thoracic spine. If symptoms persist or worsen, consider an MRI of the thoracic spine for further assessment. Abdomen Ultrasound 06/23/25 10:17 IMPRESSION: 1: The liver is hyperechoic likely due to fatty infiltration and/or hepatocellular disease. 2. There is a 2.9 x 2.2 cm hypoechoic region in the left lobe of the liver. Differential includes focal fatty sparing versus liver mass. A liver mass MRI is recommended. Cervical Spine MRI 06/25/25 05:56 Impression: Mild degenerative spondylitic changes overall, as detailed above. Thoracic Spine MRI 06/25/25 05:59 Impression: No significant abnormality. Lumbar Spine MRI 06/25/25 06:01 Impression: Acute mild compression fracture at the superior endplate region of L5, as detailed above. Mild chronic compression deformity of L2, as detailed above. 6 mm retrolisthesis of L2 over L3. Moderate degenerative spondylosis overall throughout the lumbar spine, as above. Sacrum/Coccyx MRI 06/25/25 06:09 IMPRESSION: Acute, mild compression fracture deformity of L5, as above. No other significant findings. Labs Labs: Laboratory Results - last 24 hr 06/25/25 05:57 WBC 5.3 RBC 2.88 L Hgb 10.0 L Hct 29.6 L MCV 102.8 H MCH 34.7 H MCHC 33.8 RDW 14.6 H Plt Count 369 MPV 9.5 Sodium 127 L Potassium 3.7 Chloride 98 Carbon Dioxide 26 Anion Gap 3 L BUN 12 Creatinine 0.35 L Estim Creat Clear Calc 86 Estimated GFR > 60 Glucose 89 Calcium 8.8 Magnesium 1.6 Total Bilirubin 0.7 AST 56 H ALT 30 Alkaline Phosphatase 95 Total Protein 5.0 L Albumin 2.7 L Quality VTE Prophylaxis VTE prophylaxis: mechanical ordered (SCDs)
--- NOTE | 2025-06-25 15:56 | PC.NURSE ---
To MRI per stretcher.
--- NOTE | 2025-06-25 16:50 | PC.NURSE ---
Returned to room from MRI per stretcher.
[2025-06-25 20:00] VITALS: PULSE 84; RESP 12; O2SAT 96
[2025-06-25 21:11] VITALS: BP 136/92; PULSE 84; RESP 12; TEMP 36.8; O2SAT 96
[2025-06-26] MEDS: SUCRALFATE SUSP 100 MG/ML 10 ML UDC 1000 MG PO ×4 (05:52→21:11)
[2025-06-26 06:00] VITALS: BP 137/104; PULSE 94; RESP 12; TEMP 36.6; O2SAT 100
[2025-06-26 06:18] LABS: Hematocrit 28.8 % (37.0-47.0); Hemoglobin 9.9 g/dL (12.0-15.0); Mean Corpuscular HGB Conc 34.4 g/dl (32-36); Mean Corpuscular Hemoglobin 35.0 pg (26-34); Mean Corpuscular Volume 101.8 fl (80-100); Platelet Count Result 392 k/mm3 (150-375); Red Blood Count 2.83 M/mm3 (4.2-5.4); White Blood Count 5.5 K/mm3 (4.5-10.0)
[2025-06-26 06:42] LABS: Alanine Aminotransferase 28 U/L (6-35); Albumin Level 2.7 g/dL (3.5-5.1); Alkaline Phosphatase 96 U/L (38-126); Anion Gap 3 mmol/L (4-12); Aspartate Amino Transferase 54 U/L (14-36); Bilirubin,Total 0.9 mg/dL (0.2-1.3); Blood Urea Nitrogen 13 mg/dL (7-17); Calcium 8.9 mg/dL (8.4-10.2); Carbon Dioxide 27 mmol/L (22-30); Chloride 98 mmol/L (98-107); Estimated CRCL calculation 91 ml/min; Estimated Glomerular Filt Rate > 60; Glucose 86 mg/dL (65-110); Magnesium 1.6 mg/dL (1.6-2.3); Potassium 3.6 mmol/L (3.4-5.0); Sodium 128 mmol/L (137-145); Total Protein 5.0 g/dL (6.3-8.2)
[2025-06-26] MEDS: POTASSIUM CHLORIDE 10 MEQ ER TABLET PO (09:05)
[2025-06-26] MEDS: PANTOPRAZOLE SODIUM IV 40 MG VIAL IV PUSH (09:05)
[2025-06-26] MEDS: SODIUM CHLORIDE 1 GM TABLET PO ×2 (09:05→16:38)
[2025-06-26] MEDS: PYRIDOXINE HCL 50 MG TABLET 100 MG PO (09:05)
[2025-06-26] MEDS: VITAMIN B COMPLEX CAPSULE 1 CAP PO (09:05)
[2025-06-26] MEDS: THIAMINE HCL 100 MG TABLET PO (09:05)
[2025-06-26] MEDS: MAGNESIUM OXIDE 400 MG TABLET PO (09:05)
--- NOTE | 2025-06-26 12:29 | PCNFU ---
Nutrition Follow-Up Complete: Severe protein calorie malnutrition related to loss of appetite as evidenced by intakes <75% needs >1 month; weight loss 30%/4 months; severe muscle wasting and fat loss Goal:Improve PO intake at least 50% Pt not meeting goal, continue with same goal Pt current nutrition is Regular, Ensure shakes BID, nutrition ice cream cups BID. Nutrition recommendation: Increased Ensure to TID, consider appetite stimulant Last recorded weight is 45.4 kg. Bowel Motility: +BM 06/25 Labs Reviewed: Hgb:9.9, HCT:28.9, Alb:2.7, NA:128, Cr:0.33 Meds Noted: protonix, KCL, B complex Skin: WNL Additional Notes: Pt continues on a regular diet. Intake poor at 0-25%. Pt shows little interest in food. Partner present states she sips on the Ensure. Also asking about a potential feeding tube. Recommend trying an appetite stimulant for pt to try and increase intake via PO first. Monitoring intakes, weights, labs, supplement intake, plan of care Follow up in 3 days
--- NOTE | 2025-06-26 13:43 | P.PNIM_ITS ---
Progress Note: A&P Assessment and Plan (1) Adult failure to thrive: Code(s): R62.7 - Adult failure to thrive Status: Acute (2) Severe protein-calorie malnutrition: Code(s): E43 - Unspecified severe protein-calorie malnutrition Status: Acute (3) Acute UTI: Code(s): N39.0 - Urinary tract infection, site not specified Status: Acute (4) Hypomagnesemia: Code(s): E83.42 - Hypomagnesemia Status: Acute (5) Chronic hyponatremia: Code(s): E87.1 - Hypo-osmolality and hyponatremia Status: Acute (6) Syndrome of inappropriate ADH (SIADH) secretion: Code(s): E22.2 - Syndrome of inappropriate secretion of antidiuretic hormone Status: Acute (7) Lactic acidosis: Code(s): E87.20 - Acidosis, unspecified Status: Acute (8) Acute hypokalemia: Code(s): E87.6 - Hypokalemia Status: Acute (9) Transaminitis: Code(s): R74.01 - Elevation of levels of liver transaminase levels Status: Acute (10) Hyperbilirubinemia: Code(s): E80.6 - Other disorders of bilirubin metabolism Status: Acute (11) Elevated troponin: Code(s): R79.89 - Other specified abnormal findings of blood chemistry Status: Acute (12) Urinary retention with incomplete bladder emptying: Code(s): R33.9 - Retention of urine, unspecified Status: Acute (13) GERD (gastroesophageal reflux disease): Qualifiers: Esophagitis presence: with esophagitis Esophagitis bleeding: without hemorrhage Qualified Code(s): K21.00 - Gastro-esophageal reflux disease with esophagitis, without bleeding Code(s): K21.9 - Gastro-esophageal reflux disease without esophagitis Status: Acute Plan Comfortable at bedside MRI abd showed possible Cholangiocarcinoma and L5 compression fracture FTT/Severe protein energy malnutrition oral intake still poor Discussed tube feeding at bedside, she will deliberate with the partner and get back to us Dietitian on board Cystitis noted on imaging continue Rocephin monitor cultures Possible cholangiocarcinoma MRI abd reviewed GI consulted Hypokalemia and Hypomagnesemia K 3.6 and Mg 1.6 replaced monitor Hyponatremia Na 128 IVF and monitor L5 compression MRI reviewed Neurosurgery consulted DVT prophylaxis on Sq Lovenox Subjective Date/time seen: 06/26/25 13:43 Interval history: Comfortable at bedside Review of Systems Review of Systems: Review of systems is not reliable due to the patient's mental status. Exam Narrative: Appears malnourished Patient is comfortable, NAD HEENT: eyes are clear and none icteric LUNGS:CTA HEART: RR S1S2 ABD: BS+, Soft and nontender Lower extremities: no edema SKIN: nonjaundiced Neuro: grossly intact. Somewhat confused Const: Other: Chronically ill-appearing, frail, appears older than stated age HENMT: Other: Upper and lower dentures in place, mucous membranes are tacky, no oral pharyngeal erythema, head is normocephalic atraumatic, temporal wasting Eyes: Other: Pupils are equal and reactive, no scleral icterus, positive conjunctival pallor Neck: Other: No JVD, no lymphadenopathy, trachea midline Resp: Other: Clear to auscultation bilaterally, no increased work of breathing Cardio: Other: Regular rate, regular rhythm, no murmurs, 2+ bilateral radial and pedal pulses, no JVD GI: Other: Soft, nontender, nondistended, normoactive bowel sounds Skin: Other: Generalized pallor, non jaundice, cold to touch feet greater than hands Neuro: Other: Alert oriented to self only, conversational and pleasantly confused, follow simple commands, no localizing neurologic deficits noted, normal tone Extrem: Other: Generalized muscle wasting, moves all extremities equally Psych: Other: Pleasantly confused, cooperative, poor judgment and insight Objective Data Vital Signs Vital Signs: Vital Signs - 24 hr 06/25/25 14:00 06/25/25 20:00 06/25/25 21:11 Temperature 96.9 F L 98.2 F Pulse Rate 92 84 84 Respiratory Rate 16 12 12 Blood Pressure 130/98 H 136/92 H Pulse Oximetry 100 96 96 Oxygen Delivery Room Air Fraction of Inspired Oxygen 21 06/26/25 06:00 06/26/25 09:00 Temperature 97.9 F Pulse Rate 94 Respiratory Rate 12 Blood Pressure 137/104 H Pulse Oximetry 100 Oxygen Delivery Room Air Fraction of Inspired Oxygen Intake/Output Intake/Output: Intake & Output 06/23/25 06/24/25 06/25/25 06/26/25 23:59 23:59 23:59 23:59 Intake Total 730 120 200 0 Output Total 546 138 2144 200 Balance 30 20 -1250 -200 Meds/Results Medications: Active Medications Generic Name Dose Route Start Last Admin Trade Name Tezq PRN Reason Stop Dose Admin Magnesium Oxide 400 mg 06/23/25 09:00 06/26/25 09:05 Magnesium Oxide 400 Mg Tablet PO 400 mg QAM ELEAZAR Administration Pantoprazole Sodium 40 mg 06/18/25 21:00 06/26/25 09:05 Pantoprazole Sodium Iv 40 Mg Vial IV PUSH 40 mg Q12HR ELEAZAR Administration Paroxetine HCl 10 mg 06/19/25 10:00 06/26/25 09:05 Paroxetine 10 Mg Tablet PO 10 mg DAILY ELEAZAR Administration Potassium Chloride 10 meq 06/19/25 10:00 06/26/25 09:05 Potassium Chloride 10 Meq Er Tablet PO 10 meq DAILY ELEAZAR Administration Pyridoxine HCl 100 mg 06/19/25 10:05 06/26/25 09:05 Pyridoxine Hcl 50 Mg Tablet PO 07/20/25 10:04 100 mg DAILY ELEAZAR Administration Sodium Chloride 1 gm 06/19/25 10:05 06/26/25 09:05 Sodium Chloride 1 Gm Tablet PO 1 gm BID ELEAZAR Administration Sucralfate 1,000 mg 06/18/25 21:00 06/26/25 11:35 Sucralfate Susp 100 Mg/Ml 10 Ml Udc PO 1,000 mg ACHS ELEAZAR Administration Thiamine HCl 100 mg 06/19/25 09:45 06/26/25 09:05 Thiamine Hcl 100 Mg Tablet PO 100 mg QAM ELEAZAR Administration Vitamin B Complex 1 cap 06/19/25 09:45 06/26/25 09:05 Vitamin B Complex Capsule PO 1 cap QAM ELEAZAR Administration Radiology Results: ITS Impressions Head CT 06/18/25 15:47 IMPRESSION: No acute intracranial process. Chest X-Ray 06/18/25 15:51 IMPRESSION: No acute cardiopulmonary process. Chest/Abdomen/Pelvis CT 06/18/25 17:06 IMPRESSION: Mild descending thoracic aortic ectasia. Scattered sub-6 mm pulmonary nodules, requiring no additional follow-up unless the patient is at high risk, in which case consider low-dose noncontrast CT of the chest in one year. Diffuse esophagitis. Moderate gastritis. Hepatomegaly. Hyperenhancing areas along the falciform ligament and gallbladder fossa may represent transient hepatic attenuation differences and/or irregular parenchymal enhancement from steatosis. No discrete mass identified. Recommend MRI of the liver. Hyperemic gallbladder wall may reflect a component of mild/early inflammatory change versus artifact from contrast phase. No biliary duct dilatation or in flammation to suggest cholangitis. Cystitis. Possible sacral soft tissue defect, correlate clinically for decubitus ulcer. Thoracic Spine CT 06/22/25 15:53 IMPRESSION: 1. No compression fracture in the thoracic spine. 2. Mild degenerative change scattered throughout the thoracic spine. If symptoms persist or worsen, consider an MRI of the thoracic spine for further assessment. Abdomen Ultrasound 06/23/25 10:17 IMPRESSION: 1: The liver is hyperechoic likely due to fatty infiltration and/or hepatocellular disease. 2. There is a 2.9 x 2.2 cm hypoechoic region in the left lobe of the liver. Differential includes focal fatty sparing versus liver mass. A liver mass MRI is recommended. Cervical Spine MRI 06/25/25 05:56 Impression: Mild degenerative spondylitic changes overall, as detailed above. Thoracic Spine MRI 06/25/25 05:59 Impression: No significant abnormality. Lumbar Spine MRI 06/25/25 06:01 Impression: Acute mild compression fracture at the superior endplate region of L5, as detailed above. Mild chronic compression deformity of L2, as detailed above. 6 mm retrolisthesis of L2 over L3. Moderate degenerative spondylosis overall throughout the lumbar spine, as above. Sacrum/Coccyx MRI 06/25/25 06:09 IMPRESSION: Acute, mild compression fracture deformity of L5, as above. No other significant findings. Abdomen MRI 06/26/25 09:24 IMPRESSION: 1. Diffuse hepatic steatosis with geographic region differing signal intensity on T1 and T2 imaging and without the signal loss on opposed phase imaging as a be seen with hepatic steatosis. This would be atypical pattern for focal fatty sparing however there is significant enhancement persisting well beyond all be expected for focal transient hepatic intensity difference which persists through the 5 and 10 minutes of imaging which would not be atypical feature for focal hepatic steatosis for which differential would include focal nodular hyperplasia or cholangiocarcinoma. Recommend ultrasound-guided biopsy for more definitive determination. 2. Acute to subacute L5 compression fracture. 3. Small right and tiny left pleural effusions. Labs Labs: Laboratory Results - last 24 hr 06/26/25 06:01 WBC 5.5 RBC 2.83 L Hgb 9.9 L Hct 28.8 L MCV 101.8 H MCH 35.0 H MCHC 34.4 RDW 14.5 Plt Count 392 H MPV 9.5 Sodium 128 L Potassium 3.6 Chloride 98 Carbon Dioxide 27 Anion Gap 3 L BUN 13 Creatinine 0.33 L Estim Creat Clear Calc 91 Estimated GFR > 60 Glucose 86 Calcium 8.9 Magnesium 1.6 Total Bilirubin 0.9 AST 54 H ALT 28 Alkaline Phosphatase 96 Total Protein 5.0 L Albumin 2.7 L Quality VTE Prophylaxis VTE prophylaxis: mechanical ordered (SCDs)
[2025-06-26 13:53] VITALS: BP 110/85; PULSE 12; RESP 12; TEMP 36.6; O2SAT 100
--- NOTE | 2025-06-26 14:07 | WPDNEUROSGCN ---
Assessment and Plan Assessment and plan (1) Lumbar compression fracture: Code(s): S32.000A - Wedge compression fracture of unspecified lumbar vertebra, initial encounter for closed fracture Status: Acute Plan 70-year-old female with incidental finding of lumbar compression fracture. She is asymptomatic from this. I would recommend medical workup for evaluation of her bone density with a DEXA scan as well as endocrinology consult and nutrition consult for management of bone health. She does not need any acute neurosurgical intervention. Because she is asymptomatic I do not think bracing is necessary. She may follow-up with our nurse practitioner as an outpatient in 6 weeks with AP lateral lumbar spine x-rays. Neurosurgery will sign off please contact on-call Neurosurgery with any questions. Consult date: 06/26/25 Reason for consult: evaluation of lumbar compression fracture HPI: Fiorella Baker is a 70 year old female with a history of essential hypertension, peripheral neuropathy, chronic hyponatremia, dementia who was brought to the emergency room secondary to a fall. Apparently she has had significant weight loss recently. She has had loss of appetite and is currently being worked up for malignancy. During this workup she underwent an MRI scan of the lumbar spine which indicated a mild compression fracture of the superior endplate region of L5. Her surgery was consulted as in for an inpatient consultation due to this finding. The patient denies any back pain numbness tingling weakness saddle anesthesia or pain in her extremities. Review of Systems Review of Systems: Patient did not cooperate with full review of systems secondary to altered mental status PMFSH Past Medical History Medical History (Updated 06/26/25 @ 14:10 by Ayan Douglas MD) Abnormal liver enzymes Frequent falls Dementia Syndrome of inappropriate ADH (SIADH) secretion Chronic hyponatremia Gastroesophageal reflux disease Hypertension Anxiety Neck fracture Surgical History Surgical History History of vein stripping History of arthroscopy of right knee History of tonsillectomy History of foot surgery Left History of hysterectomy Family History Family History Father No problems noted. Mother Hypertension Social History Social History Social History: Surrogate medical decision maker: Blair Lopez, significant other. Code status: Full code. Smoking packs per day: 0.5 Smoking cigarettes per day: 10.0 Years smoked: 20 Smoking pack-years: 10.00 Smoking status: Former smoker Tobacco type: cigarettes Second hand tobacco smoke exposure: No Alcohol intake: current Drinks per week: 14 Substance use: never Substance use type: does not use Do You Feel Safe in your Home?: Yes Lack of Transportation: No Lack of Food: Never True Current Housing: I Have Housing Concerned About Future Housing: No Difficulty Paying Gas/Electric Bills: No Difficulty Paying for Meds: No Currently Unemployed: No Education: High School Diploma/GED Difficulty w/ Childcare or Family Care: No Living arrangements: with family Spiritual care concerns: No Meds Home Medications and Allergies Home Medications ?Medication ?Instructions ?Recorded ?Confirmed ?Type omeprazole 20 mg capsule,delayed 20 mg PO DAILY 10/03/21 06/19/25 History release paroxetine HCl 10 mg tablet 10 mg PO DAILY 07/06/23 06/19/25 History potassium chloride 10 mEq 10 meq PO DAILY 01/11/24 06/19/25 History tablet,extended release pyridoxine (vitamin B6) 100 mg 100 mg PO DAILY 01/11/24 06/19/25 History tablet tramadol 50 mg tablet 50 mg PO Q6H PRN Pain 01/11/24 06/19/25 History metoprolol succinate 50 mg 50 mg PO DAILY 06/19/25 06/19/25 History tablet,extended release 24 hr sodium chloride 1,000 mg soluble 1,000 mg PO BID 06/19/25 06/19/25 History tablet sucralfate 1 gram tablet 1 g PO TIDWM 06/19/25 06/19/25 History Allergies Allergy/AdvReac Type Severity Reaction Status Date / Time No Known Allergies Allergy Verified 07/26/24 13:57 Vital Signs Vital Signs - 24 hr 06/25/25 20:00 06/25/25 21:11 06/26/25 06:00 Temperature 98.2 F 97.9 F Pulse Rate 84 84 94 Respiratory Rate 12 12 12 Blood Pressure 136/92 H 137/104 H Pulse Oximetry 96 96 100 Oxygen Delivery Room Air Fraction of Inspired Oxygen 06/26/25 09:00 06/26/25 13:53 Temperature 97.9 F Pulse Rate 12 L Respiratory Rate 12 Blood Pressure 110/85 Pulse Oximetry 100 Oxygen Delivery Room Air Fraction of Inspired Oxygen Exam Narrative: the patient is awake alert no acute distress she moves all extremities well 5/5 strength including iliopsoas, quadriceps, hamstrings, plantar flexors, dorsiflexors, EHL. She has no clonus. She has no pain upon palpation of her lumbar spine. Results Labs 06/26/25 06:01 06/26/25 06:01 Labs: Short CBC 06/26/25 Range/Units 06:01 WBC 5.5 (4.5-10.0) K/mm3 Hgb 9.9 L (12.0-15.0) g/dL Hct 28.8 L (37.0-47.0) % Plt Count 392 H (150-375) k/mm3 BMP 06/26/25 06:01 Sodium 128 L Potassium 3.6 Chloride 98 Carbon Dioxide 27 BUN 13 Creatinine 0.33 L Glucose 86 Calcium 8.9 Liver Function 06/26/25 Range/Units 06:01 Total Bilirubin 0.9 (0.2-1.3) mg/dL AST 54 H (14-36) U/L ALT 28 (6-35) U/L Alkaline Phosphatase 96 (38-126) U/L Albumin 2.7 L (3.5-5.1) g/dL
[2025-06-26] MEDS: SODIUM CHLORIDE 0.9% IV 1,000 ML 75 ML IV CONT (14:31)
--- NOTE | 2025-06-26 17:20 | WPDGICN ---
Assessment and Plan Assessment and plan (1) Liver mass: Code(s): R16.0 - Hepatomegaly, not elsewhere classified Status: Acute Assessment and Plan: The incidental finding described on MRI, does not fit within any classic category of either benign lesion such as hemangioma or focal nodular hyperplasia or hepatocellular carcinoma. Tumor markers were sent today, including AFP, CA 19-9, and CEA. Case discussed with the who agrees to pursue a percutaneous ultrasound-guided biopsy of the mass early next week. GI Consult Note Consult date/time: 06/26/25 17:20 Reason for consult: liver mass HPI: Fiorella Baker is a 70 year old female admitted on 06/18/2025 due to a severe weight loss of 50 lb and decrease oral ingestion for approximately 3-4 months. She is currently being worked up for altered mental status, possible dementia also considering other triggering factors such as hyponatremia and infection. The reason for consultation is the incidental finding of an indeterminate, ill-defined mass in the right side of the ligament of teres along the gallbladder fossa, measuring 4.4 x 3.3 cm. Differential diagnosis by radiology reading includes cholangiocarcinoma versus focal nodular hyperplasia. The patient is asymptomatic from a GI standpoint. Her most relevant labs include AST 54, ALT 28, there is no jaundice or hyperbilirubinemia. Review of Systems Review of Systems: All systems reviewed & are unremarkable except as noted in HPI and below PMFSH Past Medical History Medical History (Updated 06/26/25 @ 17:23 by Claude Villanueva MD) Abnormal liver enzymes Frequent falls Dementia Syndrome of inappropriate ADH (SIADH) secretion Chronic hyponatremia Gastroesophageal reflux disease Hypertension Anxiety Neck fracture Surgical History Surgical History History of vein stripping History of arthroscopy of right knee History of tonsillectomy History of foot surgery Left History of hysterectomy Family History Family History Father No problems noted. Mother Hypertension Social History Social History Social History: Surrogate medical decision maker: Blair Lopez, significant other. Code status: Full code. Smoking packs per day: 0.5 Smoking cigarettes per day: 10.0 Years smoked: 20 Smoking pack-years: 10.00 Smoking status: Former smoker Tobacco type: cigarettes Second hand tobacco smoke exposure: No Alcohol intake: current Drinks per week: 14 Substance use: never Substance use type: does not use Do You Feel Safe in your Home?: Yes Lack of Transportation: No Lack of Food: Never True Current Housing: I Have Housing Concerned About Future Housing: No Difficulty Paying Gas/Electric Bills: No Difficulty Paying for Meds: No Currently Unemployed: No Education: High School Diploma/GED Difficulty w/ Childcare or Family Care: No Living arrangements: with family Spiritual care concerns: No Meds Home Medications and Allergies Home Medications ?Medication ?Instructions ?Recorded ?Confirmed ?Type omeprazole 20 mg capsule,delayed 20 mg PO DAILY 10/03/21 06/19/25 History release paroxetine HCl 10 mg tablet 10 mg PO DAILY 07/06/23 06/19/25 History potassium chloride 10 mEq 10 meq PO DAILY 01/11/24 06/19/25 History tablet,extended release pyridoxine (vitamin B6) 100 mg 100 mg PO DAILY 01/11/24 06/19/25 History tablet tramadol 50 mg tablet 50 mg PO Q6H PRN Pain 01/11/24 06/19/25 History metoprolol succinate 50 mg 50 mg PO DAILY 06/19/25 06/19/25 History tablet,extended release 24 hr sodium chloride 1,000 mg soluble 1,000 mg PO BID 06/19/25 06/19/25 History tablet sucralfate 1 gram tablet 1 g PO TIDWM 06/19/25 06/19/25 History Allergies Allergy/AdvReac Type Severity Reaction Status Date / Time No Known Allergies Allergy Verified 07/26/24 13:57 Vital Signs Vital Signs - 24 hr 06/25/25 20:00 06/25/25 21:11 06/26/25 06:00 Temperature 98.2 F 97.9 F Pulse Rate 84 84 94 Respiratory Rate 12 12 12 Blood Pressure 136/92 H 137/104 H Pulse Oximetry 96 96 100 Oxygen Delivery Room Air Fraction of Inspired Oxygen 06/26/25 09:00 06/26/25 13:53 Temperature 97.9 F Pulse Rate 12 L Respiratory Rate 12 Blood Pressure 110/85 Pulse Oximetry 100 Oxygen Delivery Room Air Fraction of Inspired Oxygen Exam Narrative: Alert and awake, oriented x2, cooperative. No jaundice. Looks chronically ill, cachectic. Abdomen: Soft, nontender, nondistended, no hepatosplenomegaly, no masses. Rest of the exam within normal limits. Results Labs 06/26/25 06:01 06/26/25 06:01 Labs: Short CBC 06/26/25 Range/Units 06:01 WBC 5.5 (4.5-10.0) K/mm3 Hgb 9.9 L (12.0-15.0) g/dL Hct 28.8 L (37.0-47.0) % Plt Count 392 H (150-375) k/mm3 BMP 06/26/25 06:01 Sodium 128 L Potassium 3.6 Chloride 98 Carbon Dioxide 27 BUN 13 Creatinine 0.33 L Glucose 86 Calcium 8.9 Liver Function 06/26/25 Range/Units 06:01 Total Bilirubin 0.9 (0.2-1.3) mg/dL AST 54 H (14-36) U/L ALT 28 (6-35) U/L Alkaline Phosphatase 96 (38-126) U/L Albumin 2.7 L (3.5-5.1) g/dL
[2025-06-26 17:26] LABS: Carcinoembryonic Antigen 4.5 ng/mL (0.0-3.0)
[2025-06-26 20:00] VITALS: PULSE 90; RESP 16; O2SAT 100
[2025-06-26 21:02] VITALS: BP 143/96; PULSE 90; RESP 16; TEMP 36.7; O2SAT 100
[2025-06-27] MEDS: SODIUM CHLORIDE 0.9% IV 1,000 ML 75 ML IV CONT ×2 (04:34→18:04)
[2025-06-27 05:57] VITALS: BP 153/110; PULSE 89; RESP 12; TEMP 36.6; O2SAT 100
[2025-06-27 06:29] LABS: Hematocrit 27.9 % (37.0-47.0); Hemoglobin 9.3 g/dL (12.0-15.0); Immature Granulocyte Percent A 0.6 % (0-0.5); Lymphocytes Absolute Auto 0.77 K/mm3 (0.9-3.2); Mean Corpuscular HGB Conc 33.3 g/dl (32-36); Mean Corpuscular Hemoglobin 34.7 pg (26-34); Mean Corpuscular Volume 104.1 fl (80-100); Nucleated Red Blood Cells Absolute Auto 0.000 K/mm3 (0.0-0.012); Nucleated Red Blood Cells Perc 0.0 % (0.0-0.2); Platelet Count Result 356 k/mm3 (150-375); Red Blood Count 2.68 M/mm3 (4.2-5.4); White Blood Count 5.1 K/mm3 (4.5-10.0)
[2025-06-27 06:51] LABS: Alanine Aminotransferase 25 U/L (6-35); Albumin Level 2.5 g/dL (3.5-5.1); Alkaline Phosphatase 81 U/L (38-126); Anion Gap 2 mmol/L (4-12); Aspartate Amino Transferase 46 U/L (14-36); Bilirubin,Total 0.7 mg/dL (0.2-1.3); Blood Urea Nitrogen 14 mg/dL (7-17); Calcium 8.7 mg/dL (8.4-10.2); Carbon Dioxide 27 mmol/L (22-30); Chloride 102 mmol/L (98-107); Estimated CRCL calculation 92 ml/min; Estimated Glomerular Filt Rate > 60; Glucose 88 mg/dL (65-110); Magnesium 1.6 mg/dL (1.6-2.3); Potassium 3.5 mmol/L (3.4-5.0); Sodium 131 mmol/L (137-145); Total Protein 4.7 g/dL (6.3-8.2)
[2025-06-27] MEDS: MAGNESIUM OXIDE 400 MG TABLET PO (09:02)
[2025-06-27] MEDS: THIAMINE HCL 100 MG TABLET PO (09:02)
[2025-06-27] MEDS: SODIUM CHLORIDE 1 GM TABLET PO ×2 (09:02→16:41)
[2025-06-27] MEDS: POTASSIUM CHLORIDE 10 MEQ ER TABLET PO (09:02)
[2025-06-27] MEDS: VITAMIN B COMPLEX CAPSULE 1 CAP PO (09:02)
[2025-06-27] MEDS: ENOXAPARIN 40 MG/0.4 ML SYRINGE SUB-Q (09:03)
[2025-06-27] MEDS: PYRIDOXINE HCL 50 MG TABLET 100 MG PO (09:03)
--- NOTE | 2025-06-27 10:38 | P.PNGI_ITS ---
Progress Note: A&P Assessment and Plan (1) Liver mass: Code(s): R16.0 - Hepatomegaly, not elsewhere classified Status: Acute Assessment and Plan: Incidental finding of liver mass probably benign in origin. Order placed for percutaneous biopsy of the lesion for Sunday. to obtain consent for patient. Subjective Date/time seen: 06/27/25 10:38 Objective Data Vital Signs Vital Signs: Vital Signs - 24 hr 06/26/25 13:53 06/26/25 20:00 06/26/25 21:02 Temperature 97.9 F 98.1 F Pulse Rate 12 L 90 90 Respiratory Rate 12 16 16 Blood Pressure 110/85 143/96 H Pulse Oximetry 100 100 100 Oxygen Delivery Room Air Fraction of Inspired Oxygen 21 06/27/25 05:57 Temperature 97.9 F Pulse Rate 89 Respiratory Rate 12 Blood Pressure 153/110 H Pulse Oximetry 100 Oxygen Delivery Fraction of Inspired Oxygen Intake/Output Intake/Output: Intake & Output 06/24/25 06/25/25 06/26/25 06/27/25 23:59 23:59 23:59 23:59 Intake Total 120 731 018 4144 Output Total 100 1450 350 300 Balance 20 -1250 -250 750 Meds/Results Medications: Active Medications Generic Name Dose Route Start Last Admin Trade Name Freq PRN Reason Stop Dose Admin Enoxaparin Sodium 40 mg 06/27/25 09:00 06/27/25 09:03 Enoxaparin 40 Mg/0.4 Ml Syringe SUB-Q 40 mg DAILY ELEAZAR Administration Sodium Chloride 1,000 mls @ 75 mls/hr 06/26/25 14:00 06/27/25 04:34 Normal Saline Iv IV CONT 75 mls/hr .[id number] ELEAZAR Administration Magnesium Oxide 400 mg 06/23/25 09:00 06/27/25 09:02 Magnesium Oxide 400 Mg Tablet PO 400 mg QAM ELEAZAR Administration Paroxetine HCl 10 mg 06/19/25 10:00 06/27/25 09:02 Paroxetine 10 Mg Tablet PO 10 mg DAILY ELEAZAR Administration Potassium Chloride 10 meq 06/19/25 10:00 06/27/25 09:02 Potassium Chloride 10 Meq Er Tablet PO 10 meq DAILY ELEAZAR Administration Pyridoxine HCl 100 mg 06/19/25 10:05 06/27/25 09:03 Pyridoxine Hcl 50 Mg Tablet PO 07/20/25 10:04 100 mg DAILY ELEAZAR Administration Sodium Chloride 1 gm 06/19/25 10:05 06/27/25 09:02 Sodium Chloride 1 Gm Tablet PO 1 gm BID ELEAZAR Administration Sucralfate 1,000 mg 06/18/25 21:00 06/27/25 06:32 Sucralfate Susp 100 Mg/Ml 10 Ml Udc PO Not Given ACHS ELEAZAR Thiamine HCl 100 mg 06/19/25 09:45 06/27/25 09:02 Thiamine Hcl 100 Mg Tablet PO 100 mg QAM ELEAZAR Administration Vitamin B Complex 1 cap 06/19/25 09:45 06/27/25 09:02 Vitamin B Complex Capsule PO 1 cap QAM ELEAZAR Administration Radiology Results: ITS Impressions Head CT 06/18/25 15:47 IMPRESSION: No acute intracranial process. Chest X-Ray 06/18/25 15:51 IMPRESSION: No acute cardiopulmonary process. Chest/Abdomen/Pelvis CT 06/18/25 17:06 IMPRESSION: Mild descending thoracic aortic ectasia. Scattered sub-6 mm pulmonary nodules, requiring no additional follow-up unless the patient is at high risk, in which case consider low-dose noncontrast CT of the chest in one year. Diffuse esophagitis. Moderate gastritis. Hepatomegaly. Hyperenhancing areas along the falciform ligament and gallbladder fossa may represent transient hepatic attenuation differences and/or irregular parenchymal enhancement from steatosis. No discrete mass identified. Recommend MRI of the liver. Hyperemic gallbladder wall may reflect a component of mild/early inflammatory change versus artifact from contrast phase. No biliary duct dilatation or inflammation to suggest cholangitis. Cystitis. Possible sacral soft tissue defect, correlate clinically for decubitus ulcer. Thoracic Spine CT 06/22/25 15:53 IMPRESSION: 1. No compression fracture in the thoracic spine. 2. Mild degenerative change scattered throughout the thoracic spine. If symptoms persist or worsen, consider an MRI of the thoracic spine for further assessment. Abdomen Ultrasound 06/23/25 10:17 IMPRESSION: 1: The liver is hyperechoic likely due to fatty infiltration and/or hepatocellular disease. 2. There is a 2.9 x 2.2 cm hypoechoic region in the left lobe of the liver. Differential includes focal fatty sparing versus liver mass. A liver mass MRI is recommended. Cervical Spine MRI 06/25/25 05:56 Impression: Mild degenerative spondylitic changes overall, as detailed above. Thoracic Spine MRI 06/25/25 05:59 Impression: No significant abnormality. Lumbar Spine MRI 06/25/25 06:01 Impression: Acute mild compression fracture at the superior endplate region of L5, as detailed above. Mild chronic compression deformity of L2, as detailed above. 6 mm retrolisthesis of L2 over L3. Moderate degenerative spondylosis overall throughout the lumbar spine, as above. Sacrum/Coccyx MRI 06/25/25 06:09 IMPRESSION: Acute, mild compression fracture deformity of L5, as above. No other significant findings. Abdomen MRI 06/26/25 09:24 IMPRESSION: 1. Diffuse hepatic steatosis with geographic region differing signal intensity on T1 and T2 imaging and without the signal loss on opposed phase imaging as a be seen with hepatic steatosis. This would be atypical pattern for focal fatty sparing however there is significant enhancement persisting well beyond all be expected for focal transient hepatic intensity difference which persists through the 5 and 10 minutes of imaging which would not be atypical feature for focal hepatic steatosis for which differential would include focal nodular hyperplasia or cholangiocarcinoma. Recommend ultrasound-guided biopsy for more definitive determination. 2. Acute to subacute L5 compression fracture. 3. Small right and tiny left pleural effusions. Labs Labs: Laboratory Results - last 24 hr 06/26/25 06/27/25 06:01 06:04 WBC 5.1 RBC 2.68 L Hgb 9.3 L Hct 27.9 L MCV 104.1 H MCH 34.7 H MCHC 33.3 RDW 14.8 H Plt Count 356 MPV 9.7 Immature Gran % (Auto) 0.6 H Neut % (Auto) 75.3 H Lymph % (Auto) 15.2 L [place] % (Auto) 6.9 Eos % (Auto) 1.4 Baso % (Auto) 0.6 Lymph # (Auto) 0.77 L [place] # (Auto) 0.4 Eos # (Auto) 0.1 Baso # (Auto) 0.0 Abs Immat Gran (auto) 0.03 Absolute Neuts (auto) 3.8 Absolute Nucleated RBC 0.000 Nucleated RBC % 0.0 Sodium 131 L Potassium 3.5 Chloride 102 Carbon Dioxide 27 Anion Gap 2 L BUN 14 Creatinine 0.31 L Estim Creat Clear Calc 92 Estimated GFR > 60 Glucose 88 Calcium 8.7 Magnesium 1.6 Total Bilirubin 0.7 AST 46 H ALT 25 Alkaline Phosphatase 81 Total Protein 4.7 L Albumin 2.5 L Carcinoembryonic Ag 4.5 H
--- NOTE | 2025-06-27 11:43 | P.PNIM_ITS ---
Progress Note: A&P Assessment and Plan (1) Adult failure to thrive: Code(s): R62.7 - Adult failure to thrive Status: Acute (2) Severe protein-calorie malnutrition: Code(s): E43 - Unspecified severe protein-calorie malnutrition Status: Acute (3) Acute UTI: Code(s): N39.0 - Urinary tract infection, site not specified Status: Acute (4) Hypomagnesemia: Code(s): E83.42 - Hypomagnesemia Status: Acute (5) Chronic hyponatremia: Code(s): E87.1 - Hypo-osmolality and hyponatremia Status: Acute (6) Syndrome of inappropriate ADH (SIADH) secretion: Code(s): E22.2 - Syndrome of inappropriate secretion of antidiuretic hormone Status: Acute (7) Lactic acidosis: Code(s): E87.20 - Acidosis, unspecified Status: Acute (8) Acute hypokalemia: Code(s): E87.6 - Hypokalemia Status: Acute (9) Transaminitis: Code(s): R74.01 - Elevation of levels of liver transaminase levels Status: Acute (10) Hyperbilirubinemia: Code(s): E80.6 - Other disorders of bilirubin metabolism Status: Acute (11) Elevated troponin: Code(s): R79.89 - Other specified abnormal findings of blood chemistry Status: Acute (12) Urinary retention with incomplete bladder emptying: Code(s): R33.9 - Retention of urine, unspecified Status: Acute (13) GERD (gastroesophageal reflux disease): Qualifiers: Esophagitis presence: with esophagitis Esophagitis bleeding: without hemorrhage Qualified Code(s): K21.00 - Gastro-esophageal reflux disease with esophagitis, without bleeding Code(s): K21.9 - Gastro-esophageal reflux disease without esophagitis Status: Acute Plan Comfortable at bedside MRI abd showed possible Cholangiocarcinoma and L5 compression fracture FTT/Severe protein energy malnutrition oral intake still poor Declined tube again today Dietitian on board Proteus mirabilis Cystitis noted on imaging urine culture reviewed continue Rocephin day 1/3 monitor cultures Possible cholangiocarcinoma MRI abd reviewed CEA elevated for biopsy next week GI following Hypokalemia and Hypomagnesemia K 3.6 and Mg 1.6 replaced monitor Hyponatremia Na 131 IVF and monitor L5 compression MRI reviewed No pain, neurosurgery reviewed and no intervention needed Neurosurgery will follow up outpatient DVT prophylaxis on Sq Lovenox Subjective Date/time seen: 06/27/25 11:43 Interval history: Comfortable at bedside For Biopsy next by GI Declined tube feeding again today Review of Systems Review of Systems: Review of systems is not reliable due to the patient's mental status. Exam Narrative: Appears malnourished Patient is comfortable, NAD HEENT: eyes are clear and none icteric LUNGS:CTA HEART: RR S1S2 ABD: BS+, Soft and nontender Lower extremities: no edema SKIN: nonjaundiced Neuro: grossly intact. Somewhat confused Const: Other: Chronically ill-appearing, frail, appears older than stated age HENMT: Other: Upper and lower dentures in place, mucous membranes are tacky, no oral pharyngeal erythema, head is normocephalic atraumatic, temporal wasting Eyes: Other: Pupils are equal and reactive, no scleral icterus, positive conjunctival pallor Neck: Other: No JVD, no lymphadenopathy, trachea midline Resp: Other: Clear to auscultation bilaterally, no increased work of breathing Cardio: Other: Regular rate, regular rhythm, no murmurs, 2+ bilateral radial and pedal pulses, no JVD GI: Other: Soft, nontender, nondistended, normoactive bowel sounds Skin: Other: Generalized pallor, non jaundice, cold to touch feet greater than hands Neuro: Other: Alert oriented to self only, conversational and pleasantly confused, follow simple commands, no localizing neurologic deficits noted, normal tone Extrem: Other: Generalized muscle wasting, moves all extremities equally Psych: Other: Pleasantly confused, cooperative, poor judgment and insight Objective Data Vital Signs Vital Signs: Vital Signs - 24 hr 06/26/25 13:53 06/26/25 20:00 06/26/25 21:02 Temperature 97.9 F 98.1 F Pulse Rate 12 L 90 90 Respiratory Rate 12 16 16 Blood Pressure 110/85 143/96 H Pulse Oximetry 100 100 100 Oxygen Delivery Room Air Fraction of Inspired Oxygen 21 06/27/25 05:57 06/27/25 08:50 Temperature 97.9 F Pulse Rate 89 Respiratory Rate 12 Blood Pressure 153/110 H Pulse Oximetry 100 Oxygen Delivery Room Air Fraction of Inspired Oxygen Intake/Output Intake/Output: Intake & Output 06/24/25 06/25/25 06/26/25 06/27/25 23:59 23:59 23:59 23:59 Intake Total 120 520 132 7669 Output Total 100 1450 350 300 Balance 20 -1250 -250 750 Meds/Results Medications: Active Medications Generic Name Dose Route Start Last Admin Trade Name Tezq PRN Reason Stop Dose Admin Enoxaparin Sodium 40 mg 06/27/25 09:00 06/27/25 09:03 Enoxaparin 40 Mg/0.4 Ml Syringe SUB-Q 40 mg DAILY ELEAZAR Administration Sodium Chloride 1,000 mls @ 75 mls/hr 06/26/25 14:00 06/27/25 04:34 Normal Saline Iv IV CONT 75 mls/hr .[id number] ELEAZAR Administration Magnesium Oxide 400 mg 06/23/25 09:00 06/27/25 09:02 Magnesium Oxide 400 Mg Tablet PO 400 mg QAM ELEAZAR Administration Paroxetine HCl 10 mg 06/19/25 10:00 06/27/25 09:02 Paroxetine 10 Mg Tablet PO 10 mg DAILY ELEAZAR Administration Potassium Chloride 10 meq 06/19/25 10:00 06/27/25 09:02 Potassium Chloride 10 Meq Er Tablet PO 10 meq DAILY ELEAZAR Administration Pyridoxine HCl 100 mg 06/19/25 10:05 06/27/25 09:03 Pyridoxine Hcl 50 Mg Tablet PO 07/20/25 10:04 100 mg DAILY ELEAZAR Administration Sodium Chloride 1 gm 06/19/25 10:05 06/27/25 09:02 Sodium Chloride 1 Gm Tablet PO 1 gm BID ELEAZAR Administration Sucralfate 1,000 mg 06/18/25 21:00 06/27/25 11:34 Sucralfate Susp 100 Mg/Ml 10 Ml Udc PO 1,000 mg ACHS ELEAZAR Administration Thiamine HCl 100 mg 06/19/25 09:45 06/27/25 09:02 Thiamine Hcl 100 Mg Tablet PO 100 mg QAM ELEAZAR Administration Vitamin B Complex 1 cap 06/19/25 09:45 06/27/25 09:02 Vitamin B Complex Capsule PO 1 cap QAM ELEAZAR Administration Radiology Results: ITS Impressions Head CT 06/18/25 15:47 IMPRESSION: No acute intracranial process. Chest X-Ray 06/18/25 15:51 IMPRESSION: No acute cardiopulmonary process. Chest/Abdomen/Pelvis CT 06/18/25 17:06 IMPRESSION: Mild descending thoracic aortic ectasia. Scattered sub-6 mm pulmonary nodules, requiring no additional follow-up unless the patient is at high risk, in which case consider low-dose noncontrast CT of the chest in one year. Diffuse esophagitis. Moderate gastritis. Hepatomegaly. Hyperenhancing areas along the falciform ligament and gallbladder fossa may represent transient hepatic attenuation differences and/or irregular parenchymal enhancement from steatosis. No discrete mass identified. Recommend MRI of the liver. Hyperemic gallbladder wall may reflect a component of mild/early inflammatory change versus artifact from contrast phase. No biliary duct dilatation or inflammation to suggest cholangitis. Cystitis. Possible sacral soft tissue defect, correlate clinically for decubitus ulcer. Thoracic Spine CT 06/22/25 15:53 IMPRESSION: 1. No compression fracture in the thoracic spine. 2. Mild degenerative change scattered throughout the thoracic spine. If symptoms persist or worsen, consider an MRI of the thoracic spine for further assessment. Abdomen Ultrasound 06/23/25 10:17 IMPRESSION: 1: The liver is hyperechoic likely due to fatty infiltration and/or hepatocellular disease. 2. There is a 2.9 x 2.2 cm hypoechoic region in the left lobe of the liver. Differential includes focal fatty sparing versus liver mass. A liver mass MRI is recommended. Cervical Spine MRI 06/25/25 05:56 Impression: Mild degenerative spondylitic changes overall, as detailed above. Thoracic Spine MRI 06/25/25 05:59 Impression: No significant abnormality. Lumbar Spine MRI 06/25/25 06:01 Impression: Acute mild compression fracture at the superior endplate region of L5, as detailed above. Mild chronic compression deformity of L2, as detailed above. 6 mm retrolisthesis of L2 over L3. Moderate degenerative spondylosis overall throughout the lumbar spine, as above. Sacrum/Coccyx MRI 06/25/25 06:09 IMPRESSION: Acute, mild compression fracture deformity of L5, as above. No other significant findings. Abdomen MRI 06/26/25 09:24 IMPRESSION: 1. Diffuse hepatic steatosis with geographic region differing signal intensity on T1 and T2 imaging and without the signal loss on opposed phase imaging as a be seen with hepatic steatosis. This would be atypical pattern for focal fatty sparing however there is significant enhancement persisting well beyond all be expected for focal transient hepatic intensity difference which persists through the 5 and 10 minutes of imaging which would not be atypical feature for focal hepatic steatosis for which differential would include focal nodular hyperplasia or cholangiocarcinoma. Recommend ultrasound-guided biopsy for more definitive determination. 2. Acute to subacute L5 compression fracture. 3. Small right and tiny left pleural effusions. Labs Labs: Laboratory Results - last 24 hr 06/26/25 06/27/25 06:01 06:04 WBC 5.1 RBC 2.68 L Hgb 9.3 L Hct 27.9 L MCV 104.1 H MCH 34.7 H MCHC 33.3 RDW 14.8 H Plt Count 356 MPV 9.7 Immature Gran % (Auto) 0.6 H Neut % (Auto) 75.3 H Lymph % (Auto) 15.2 L [place] % (Auto) 6.9 Eos % (Auto) 1.4 Baso % (Auto) 0.6 Lymph # (Auto) 0.77 L [place] # (Auto) 0.4 Eos # (Auto) 0.1 Baso # (Auto) 0.0 Abs Immat Gran (auto) 0.03 Absolute Neuts (auto) 3.8 Absolute Nucleated RBC 0.000 Nucleated RBC % 0.0 Sodium 131 L Potassium 3.5 Chloride 102 Carbon Dioxide 27 Anion Gap 2 L BUN 14 Creatinine 0.31 L Estim Creat Clear Calc 92 Estimated GFR > 60 Glucose 88 Calcium 8.7 Magnesium 1.6 Total Bilirubin 0.7 AST 46 H ALT 25 Alkaline Phosphatase 81 Total Protein 4.7 L Albumin 2.5 L Carcinoembryonic Ag 4.5 H Quality VTE Prophylaxis VTE prophylaxis: mechanical ordered (SCDs)
[2025-06-27] MEDS: cefTRIAXone 1 GM in SODIUM CHLORIDE 0.9% IV 50 ML 100 ML IVPB (12:10)
[2025-06-27 14:00] VITALS: BP 142/95
[2025-06-27] MEDS: SUCRALFATE SUSP 100 MG/ML 10 ML UDC 1000 MG PO (16:41)
[2025-06-27 21:47] VITALS: BP 149/89; PULSE 87; RESP 19; TEMP 36.2; O2SAT 96
[2025-06-27 22:15] VITALS: PULSE 58; RESP 20; O2SAT 97
[2025-06-28 05:47] VITALS: BP 130/90; PULSE 82; RESP 13; TEMP 36.5; O2SAT 100
[2025-06-28 05:57] LABS: Hematocrit 27.3 % (37.0-47.0); Hemoglobin 8.8 g/dL (12.0-15.0); Immature Granulocyte Percent A 0.4 % (0-0.5); Lymphocytes Absolute Auto 0.75 K/mm3 (0.9-3.2); Mean Corpuscular HGB Conc 32.2 g/dl (32-36); Mean Corpuscular Hemoglobin 34.0 pg (26-34); Mean Corpuscular Volume 105.4 fl (80-100); Nucleated Red Blood Cells Absolute Auto 0.000 K/mm3 (0.0-0.012); Nucleated Red Blood Cells Perc 0.0 % (0.0-0.2); Platelet Count Result 356 k/mm3 (150-375); Red Blood Count 2.59 M/mm3 (4.2-5.4); White Blood Count 5.1 K/mm3 (4.5-10.0)
[2025-06-28 06:23] LABS: Alanine Aminotransferase 24 U/L (6-35); Albumin Level 2.6 g/dL (3.5-5.1); Alkaline Phosphatase 85 U/L (38-126); Anion Gap 3 mmol/L (4-12); Aspartate Amino Transferase 53 U/L (14-36); Bilirubin,Total 0.8 mg/dL (0.2-1.3); Blood Urea Nitrogen 8 mg/dL (7-17); Calcium 8.3 mg/dL (8.4-10.2); Carbon Dioxide 24 mmol/L (22-30); Chloride 101 mmol/L (98-107); Estimated CRCL calculation 119 ml/min; Estimated Glomerular Filt Rate > 60; Glucose 81 mg/dL (65-110); Magnesium 1.6 mg/dL (1.6-2.3); Potassium 3.2 mmol/L (3.4-5.0); Sodium 128 mmol/L (137-145); Total Protein 4.7 g/dL (6.3-8.2)
[2025-06-28 06:35] LABS: Macrocytosis 1+ (NORMAL); Schistocytes None Seen
[2025-06-28 07:59] LABS: Vitamin B12 > 1000.0 pg/mL (239-931)
[2025-06-28] MEDS: SODIUM CHLORIDE 0.9% IV 1,000 ML 75 ML IV CONT (09:04)
[2025-06-28] MEDS: POTASSIUM CHLORIDE 20 MEQ PACKET (FOR LIQUID) 40 MEQ PO (09:04)
[2025-06-28] MEDS: MAGNESIUM SULF 2 GM/WATER 50ML 2 GM/50 ML BAG IVPB (09:04)
[2025-06-28] MEDS: MAGNESIUM OXIDE 400 MG TABLET PO (09:05)
[2025-06-28] MEDS: SODIUM CHLORIDE 1 GM TABLET PO ×2 (09:05→16:12)
[2025-06-28] MEDS: POTASSIUM CHLORIDE 10 MEQ ER TABLET PO (09:05)
[2025-06-28] MEDS: PYRIDOXINE HCL 50 MG TABLET 100 MG PO (09:05)
[2025-06-28] MEDS: THIAMINE HCL 100 MG TABLET PO (09:05)
[2025-06-28] MEDS: ENOXAPARIN 40 MG/0.4 ML SYRINGE SUB-Q (09:06)
--- NOTE | 2025-06-28 10:36 | PM.IMPN ---
Progress Note: A&P Assessment and Plan (1) Adult failure to thrive: Code(s): R62.7 - Adult failure to thrive Status: Acute (2) Severe protein-calorie malnutrition: Code(s): E43 - Unspecified severe protein-calorie malnutrition Status: Acute (3) Acute UTI: Code(s): N39.0 - Urinary tract infection, site not specified Status: Acute (4) Hypomagnesemia: Code(s): E83.42 - Hypomagnesemia Status: Acute (5) Chronic hyponatremia: Code(s): E87.1 - Hypo-osmolality and hyponatremia Status: Acute (6) Syndrome of inappropriate ADH (SIADH) secretion: Code(s): E22.2 - Syndrome of inappropriate secretion of antidiuretic hormone Status: Acute (7) Lactic acidosis: Code(s): E87.20 - Acidosis, unspecified Status: Acute (8) Acute hypokalemia: Code(s): E87.6 - Hypokalemia Status: Acute (9) Transaminitis: Code(s): R74.01 - Elevation of levels of liver transaminase levels Status: Acute (10) Hyperbilirubinemia: Code(s): E80.6 - Other disorders of bilirubin metabolism Status: Acute (11) Elevated troponin: Code(s): R79.89 - Other specified abnormal findings of blood chemistry Status: Acute (12) Urinary retention with incomplete bladder emptying: Code(s): R33.9 - Retention of urine, unspecified Status: Acute (13) GERD (gastroesophageal reflux disease): Qualifiers: Esophagitis presence: with esophagitis Esophagitis bleeding: without hemorrhage Qualified Code(s): K21.00 - Gastro-esophageal reflux disease with esophagitis, without bleeding Code(s): K21.9 - Gastro-esophageal reflux disease without esophagitis Status: Acute Plan Comfortable at bedside MRI abd showed possible Cholangiocarcinoma and L5 compression fracture FTT/Severe protein energy malnutrition oral intake still poor Declined tube again today Dietitian on board Proteus mirabilis Cystitis noted on imaging urine culture reviewed continue Rocephin day 2/3 monitor cultures Possible cholangiocarcinoma MRI abd reviewed CEA elevated for biopsy tomorrow GI following Hypokalemia and Hypomagnesemia K 3.6 and Mg 1.6 replaced monitor Hyponatremia Na 128 Likely from poor oral intake IVF and monitor L5 compression MRI reviewed No pain, neurosurgery reviewed and no intervention needed Neurosurgery will follow up outpatient DVT prophylaxis on Sq Lovenox Subjective Date/time seen: 06/28/25 10:36 Interval history: Comfortable at bedside For Biopsy tomorrow Review of Systems Review of Systems: Review of systems is not reliable due to the patient's mental status. Exam Narrative: Appears malnourished Patient is comfortable, NAD HEENT: eyes are clear and none icteric LUNGS:CTA HEART: RR S1S2 ABD: BS+, Soft and nontender Lower extremities: no edema SKIN: nonjaundiced Neuro: grossly intact. Somewhat confused Const: Other: Chronically ill-appearing, frail, appears older than stated age HENMT: Other: Upper and lower dentures in place, mucous membranes are tacky, no oral pharyngeal erythema, head is normocephalic atraumatic, temporal wasting Eyes: Other: Pupils are equal and reactive, no scleral icterus, positive conjunctival pallor Neck: Other: No JVD, no lymphadenopathy, trachea midline Resp: Other: Clear to auscultation bilaterally, no increased work of breathing Cardio: Other: Regular rate, regular rhythm, no murmurs, 2+ bilateral radial and pedal pulses, no JVD GI: Other: Soft, nontender, nondistended, normoactive bowel sounds Skin: Other: Generalized pallor, non jaundice, cold to touch feet greater than hands Neuro: Other: Alert oriented to self only, conversational and pleasantly confused, follow simple commands, no localizing neurologic deficits noted, normal tone Extrem: Other: Generalized muscle wasting, moves all extremities equally Psych: Other: Pleasantly confused, cooperative, poor judgment and insight Objective Data Vital Signs Vital Signs: Vital Signs - 24 hr 06/27/25 11:15 06/27/25 11:31 06/27/25 14:00 Temperature Pulse Rate Respiratory Rate Blood Pressure 142/95 H Pulse Oximetry Oxygen Delivery Room Air Room Air Fraction of Inspired Oxygen 06/27/25 21:47 06/27/25 22:15 06/28/25 05:47 Temperature 97.1 F L 97.7 F Pulse Rate 87 58 L 82 Respiratory Rate 19 20 13 Blood Pressure 149/89 H 130/90 Pulse Oximetry 96 97 100 Oxygen Delivery Room Air Fraction of Inspired Oxygen 21 Intake/Output Intake/Output: Intake & Output 06/25/25 06/26/25 06/27/2506/28/25 23:59 23:59 23:59 23:59 Intake Total 481 968 8919 270 Output Total 1450 193 170 9553 Balance -1250 -250 1895 -730 Meds/Results Medications: Active Medications Generic Name Dose Route Start Last Admin Trade Name Renee PRN Reason Stop Dose Admin Enoxaparin Sodium 40 mg 06/27/25 09:00 06/28/25 09:06 Enoxaparin 40 Mg/0.4 Ml Syringe SUB-Q 40 mg DAILY ELEAZAR Administration Ceftriaxone Sodium 1 gm/ 50 mls @ 100 mls/hr 06/27/25 12:00 06/27/25 12:10 Sodium Chloride IVPB 100 mls/hr Q24H ELEAZAR Administration Sodium Chloride 1,000 mls @ 75 mls/hr 06/28/25 08:15 06/28/25 09:04 Normal Saline Iv IV CONT 75 mls/hr .[id number] ELEAZAR Administration Magnesium Oxide 400 mg 06/23/25 09:00 06/28/25 09:05 Magnesium Oxide 400 Mg Tablet PO 400 mg QAM ELEAZAR Administration Paroxetine HCl 10 mg 06/19/25 10:00 06/28/25 09:04 Paroxetine 10 Mg Tablet PO 10 mg DAILY ELEAZAR Administration Potassium Chloride 10 meq 06/19/25 10:00 06/28/25 09:05 Potassium Chloride 10 Meq Er Tablet PO 10 meq DAILY ELEAZAR Administration Pyridoxine HCl 100 mg 06/19/25 10:05 06/28/25 09:05 Pyridoxine Hcl 50 Mg Tablet PO 07/20/25 10:04 100 mg DAILY ELEAZAR Administration Sodium Chloride 1 gm 06/19/25 10:05 06/28/25 09:05 Sodium Chloride 1 Gm Tablet PO 1 gm BID ELEAZAR Administration Sucralfate 1,000 mg 06/18/25 21:00 06/28/25 05:57 Sucralfate Susp 100 Mg/Ml 10 Ml Udc PO Not Given ACHS ELEAZAR Thiamine HCl 100 mg 06/19/25 09:45 06/28/25 09:05 Thiamine Hcl 100 Mg Tablet PO 100 mg QAM ELEAZAR Administration Radiology Results: ITS Impressions Head CT 06/18/25 15:47 IMPRESSION: No acute intracranial process. Chest X-Ray 06/18/25 15:51 IMPRESSION: No acute cardiopulmonary process. Chest/Abdomen/Pelvis CT 06/18/25 17:06 IMPRESSION: Mild descending thoracic aortic ectasia. Scattered sub-6 mm pulmonary nodules, requiring no additional follow-up unless the patient is at high risk, in which case consider low-dose noncontrast CT of the chest in one year. Diffuse esophagitis. Moderate gastritis. Hepatomegaly. Hyperenhancing areas along the falciform ligament and gallbladder fossa may represent transient hepatic attenuation differences and/or irregular parenchymal enhancement from steatosis. No discrete mass identified. Recommend MRI of the liver. Hyperemic gallbladder wall may reflect a component of mild/early inflammatory change versus artifact from contrast phase. No biliary duct dilatation or inflammation to suggest cholangitis. Cystitis. Possible sacral soft tissue defect, correlate clinically for decubitus ulcer. Thoracic Spine CT 06/22/25 15:53 IMPRESSION: 1. No compression fracture in the thoracic spine. 2. Mild degenerative change scattered throughout the thoracic spine. If symptoms persist or worsen, consider an MRI of the thoracic spine for further assessment. Abdomen Ultrasound 06/23/25 10:17 IMPRESSION: 1: The liver is hyperechoic likely due to fatty infiltration and/or hepatocellular disease. 2. There is a 2.9 x 2.2 cm hypoechoic region in the left lobe of the liver. Differential includes focal fatty sparing versus liver mass. A liver mass MRI is recommended. Cervical Spine MRI 06/25/25 05:56 Impression: Mild degenerative spondylitic changes overall, as detailed above. Thoracic Spine MRI 06/25/25 05:59 Impression: No significant abnormality. Lumbar Spine MRI 06/25/25 06:01 Impression: Acute mild compression fracture at the superior endplate region of L5, as detailed above. Mild chronic compression deformity of L2, as detailed above. 6 mm retrolisthesis of L2 over L3. Moderate degenerative spondylosis overall throughout the lumbar spine, as above. Sacrum/Coccyx MRI 06/25/25 06:09 IMPRESSION: Acute, mild compression fracture deformity of L5, as above. No other significant findings. Abdomen MRI 06/26/25 09:24 IMPRESSION: 1. Diffuse hepatic steatosis with geographic region differing signal intensity on T1 and T2 imaging and without the signal loss on opposed phase imaging as a be seen with hepatic steatosis. This would be atypical pattern for focal fatty sparing however there is significant enhancement persisting well beyond all be expected for focal transient hepatic intensity difference which persists through the 5 and 10 minutes of imaging which would not be atypical feature for focal hepatic steatosis for which differential would include focal nodular hyperplasia or cholangiocarcinoma. Recommend ultrasound-guided biopsy for more definitive determination. 2. Acute to subacute L5 compression fracture. 3. Small right and tiny left pleural effusions. Labs Labs: Laboratory Results - last 24 hr 06/28/25 05:17 WBC 5.1 RBC 2.59 L Hgb 8.8 L Hct 27.3 L MCV 105.4 H MCH 34.0 MCHC 32.2 RDW 15.0 H Plt Count 356 MPV 9.9 Immature Gran % (Auto) 0.4 Neut % (Auto) 74.7 H Lymph % (Auto) 14.7 L [place] % (Auto) 7.4 Eos % (Auto) 1.8 Baso % (Auto) 1.0 Lymph # (Auto) 0.75 L [place] # (Auto) 0.4 Eos # (Auto) 0.1 Baso # (Auto) 0.1 Abs Immat Gran (auto) 0.02 Absolute Neuts (auto) 3.8 Absolute Nucleated RBC 0.000 Band Neutrophils % Not Reportable Nucleated RBC % 0.0 Platelet Estimate Adequate Macrocytosis 1+ Schistocytes None seen Sodium 128 L Potassium 3.2 L Chloride 101 Carbon Dioxide 24 Anion Gap 3 L BUN 8 D Creatinine 0.23 L Estim Creat Clear Calc 119 Estimated GFR > 60 Glucose 81 Calcium 8.3 L Magnesium 1.6 Total Bilirubin 0.8 AST 53 H ALT 24 Alkaline Phosphatase 85 Total Protein 4.7 L Albumin 2.6 L Vitamin B12 > 1000.0 H Folate 3.2 Quality VTE Prophylaxis VTE prophylaxis: mechanical ordered (SCDs)
--- NOTE | 2025-06-28 10:56 | WPDGIPROGNO ---
Progress Note: A&P Assessment and Plan (1) Liver mass: Code(s): R16.0 - Hepatomegaly, not elsewhere classified Status: Acute Assessment and Plan: Patient with multiple medical problems, specifically consulted our service for the finding of an undefined liver mass on MRI. Differential diagnosis includes cholangiocarcinoma, therefore a liver biopsy will be performed tomorrow by Interventional Radiology. Subjective Date/time seen: 06/28/25 10:56 Objective Data Vital Signs Vital Signs: Vital Signs - 24 hr 06/27/25 11:15 06/27/25 11:31 06/27/25 14:00 Temperature Pulse Rate Respiratory Rate Blood Pressure 142/95 H Pulse Oximetry Oxygen Delivery Room Air Room Air Fraction of Inspired Oxygen 06/27/25 21:47 06/27/25 22:15 06/28/25 05:47 Temperature 97.1 F L 97.7 F Pulse Rate 87 58 L 82 Respiratory Rate 19 20 13 Blood Pressure 149/89 H 130/90 Pulse Oximetry 96 97 100 Oxygen Delivery Room Air Fraction of Inspired Oxygen 21 Intake/Output Intake/Output: Intake & Output 06/25/25 06/26/25 06/27/25 06/28/25 23:59 23:59 23:59 23:59 Intake Total 987 641 9705 270 Output Total 1450 836 093 3633 Balance -1250 -250 1895 -730 Meds/Results Medications: Active Medications Generic Name Dose Route Start Last Admin Trade Name Freq PRN Reason Stop Dose Admin Enoxaparin Sodium 40 mg 06/27/25 09:00 06/28/25 09:06 Enoxaparin 40 Mg/0.4 Ml Syringe SUB-Q 40 mg DAILY ELEAZAR Administration Ceftriaxone Sodium 1 gm/ 50 mls @ 100 mls/hr 06/27/25 12:00 06/27/25 12:10 Sodium Chloride IVPB 100 mls/hr Q24H ELEAZAR Administration Sodium Chloride 1,000 mls @ 75 mls/hr 06/28/25 08:15 06/28/25 09:04 Normal Saline Iv IV CONT 75 mls/hr .[id number] ELEAZAR Administration Magnesium Oxide 400 mg 06/23/25 09:00 06/28/25 09:05 Magnesium Oxide 400 Mg Tablet PO 400 mg QAM ELEAZAR Administration Paroxetine HCl 10 mg 06/19/25 10:00 06/28/25 09:04 Paroxetine 10 Mg Tablet PO 10 mg DAILY ELEAZAR Administration Potassium Chloride 10 meq 06/19/25 10:00 06/28/25 09:05 Potassium Chloride 10 Meq Er Tablet PO 10 meq DAILY ELEAZAR Administration Pyridoxine HCl 100 mg 06/19/25 10:05 06/28/25 09:05 Pyridoxine Hcl 50 Mg Tablet PO 07/20/25 10:04 100 mg DAILY ELEAZAR Administration Sodium Chloride 1 gm 06/19/25 10:05 06/28/25 09:05 Sodium Chloride 1 Gm Tablet PO 1 gm BID ELEAZAR Administration Sucralfate 1,000 mg 06/18/25 21:00 06/28/25 05:57 Sucralfate Susp 100 Mg/Ml 10 Ml Udc PO Not Given ACHS ELEAZAR Thiamine HCl 100 mg 06/19/25 09:45 06/28/25 09:05 Thiamine Hcl 100 Mg Tablet PO 100 mg QAM ELEAZAR Administration Radiology Results: ITS Impressions Head CT 06/18/25 15:47 IMPRESSION: No acute intracranial process. Chest X-Ray 06/18/25 15:51 IMPRESSION: No acute cardiopulmonary process. Chest/Abdomen/Pelvis CT 06/18/25 17:06 IMPRESSION: Mild descending thoracic aortic ectasia. Scattered sub-6 mm pulmonary nodules, requiring no additional follow-up unless the patient is at high risk, in which case consider low-dose noncontrast CT of the chest in one year. Diffuse esophagitis. Moderate gastritis. Hepatomegaly. Hyperenhancing areas along the falciform ligament and gallbladder fossa may represent transient hepatic attenuation differences and/or irregular parenchymal enhancement from steatosis. No discrete mass identified. Recommend MRI of the liver. Hyperemic gallbladder wall may reflect a component of mild/early inflammatory change versus artifact from contrast phase. No biliary duct dilatation or inflammation to suggest cholangitis. Cystitis. Possible sacral soft tissue defect, correlate clinically for decubitus ulcer. Thoracic Spine CT 06/22/25 15:53 IMPRESSION: 1. No compression fracture in the thoracic spine. 2. Mild degenerative change scattered throughout the thoracic spine. If symptoms persist or worsen, consider an MRI of the thoracic spine for further assessment. Abdomen Ultrasound 06/23/25 10:17 IMPRESSION: 1: The liver is hyperechoic likely due to fatty infiltration and/or hepatocellular disease. 2. There is a 2.9 x 2.2 cm hypoechoic region in the left lobe of the liver. Differential includes focal fatty sparing versus liver mass. A liver mass MRI is recommended. Cervical Spine MRI 06/25/25 05:56 Impression: Mild degenerative spondylitic changes overall, as detailed above. Thoracic Spine MRI 06/25/25 05:59 Impression: No significant abnormality. Lumbar Spine MRI 06/25/25 06:01 Impression: Acute mild compression fracture at the superior endplate region of L5, as detailed above. Mild chronic compression deformity of L2, as detailed above. 6 mm retrolisthesis of L2 over L3. Moderate degenerative spondylosis overall throughout the lumbar spine, as above. Sacrum/Coccyx MRI 06/25/25 06:09 IMPRESSION: Acute, mild compression fracture deformity of L5, as above. No other significant findings. Abdomen MRI 06/26/25 09:24 IMPRESSION: 1. Diffuse hepatic steatosis with geographic region differing signal intensity on T1 and T2 imaging and without the signal loss on opposed phase imaging as a be seen with hepatic steatosis. This would be atypical pattern for focal fatty sparing however there is significant enhancement persisting well beyond all be expected for focal transient hepatic intensity difference which persists through the 5 and 10 minutes of imaging which would not be atypical feature for focal hepatic steatosis for which differential would include focal nodular hyperplasia or cholangiocarcinoma. Recommend ultrasound-guided biopsy for more definitive determination. 2. Acute to subacute L5 compression fracture. 3. Small right and tiny left pleural effusions. Labs Labs: Laboratory Results - last 24 hr 06/28/25 05:17 WBC 5.1 RBC 2.59 L Hgb 8.8 L Hct 27.3 L MCV 105.4 H MCH 34.0 MCHC 32.2 RDW 15.0 H Plt Count 356 MPV 9.9 Immature Gran % (Auto) 0.4 Neut % (Auto) 74.7 H Lymph % (Auto) 14.7 L [place] % (Auto) 7.4 Eos % (Auto) 1.8 Baso % (Auto) 1.0 Lymph # (Auto) 0.75 L [place] # (Auto) 0.4 Eos # (Auto) 0.1 Baso # (Auto) 0.1 Abs Immat Gran (auto) 0.02 Absolute Neuts (auto) 3.8 Absolute Nucleated RBC 0.000 Band Neutrophils % Not Reportable Nucleated RBC % 0.0 Platelet Estimate Adequate Macrocytosis 1+ Schistocytes None seen Sodium 128 L Potassium 3.2 L Chloride 101 Carbon Dioxide 24 Anion Gap 3 L BUN 8 D Creatinine 0.23 L Estim Creat Clear Calc 119 Estimated GFR > 60 Glucose 81 Calcium 8.3 L Magnesium 1.6 Total Bilirubin 0.8 AST 53 H ALT 24 Alkaline Phosphatase 85 Total Protein 4.7 L Albumin 2.6 L Vitamin B12 > 1000.0 H Folate 3.2
[2025-06-28] MEDS: cefTRIAXone 1 GM in SODIUM CHLORIDE 0.9% IV 50 ML 100 ML IVPB (11:21)
[2025-06-28] MEDS: SUCRALFATE SUSP 100 MG/ML 10 ML UDC 1000 MG PO ×3 (11:21→21:08)
[2025-06-28 14:00] VITALS: BP 142/97; PULSE 84; RESP 18; TEMP 36.8; O2SAT 100
[2025-06-28 21:42] VITALS: BP 143/86; PULSE 89; RESP 13; TEMP 36.1; O2SAT 98
[2025-06-29] MEDS: SODIUM CHLORIDE 0.9% IV 1,000 ML 75 ML IV CONT ×2 (00:48→15:27)
[2025-06-29 06:00] VITALS: BP 150/90; PULSE 76; RESP 16; TEMP 36.5; O2SAT 99
[2025-06-29 06:04] LABS: Alanine Aminotransferase 26 U/L (6-35); Albumin Level 2.8 g/dL (3.5-5.1); Alkaline Phosphatase 94 U/L (38-126); Anion Gap 2 mmol/L (4-12); Aspartate Amino Transferase 48 U/L (14-36); Bilirubin,Total 0.9 mg/dL (0.2-1.3); Blood Urea Nitrogen 4 mg/dL (7-17); Calcium 8.6 mg/dL (8.4-10.2); Carbon Dioxide 26 mmol/L (22-30); Chloride 99 mmol/L (98-107); Estimated CRCL calculation 119 ml/min; Estimated Glomerular Filt Rate > 60; Glucose 85 mg/dL (65-110); Magnesium 1.7 mg/dL (1.6-2.3); Potassium 3.5 mmol/L (3.4-5.0); Sodium 127 mmol/L (137-145); Total Protein 5.1 g/dL (6.3-8.2)
[2025-06-29 06:05] LABS: Hematocrit 29.3 % (37.0-47.0); Hemoglobin 9.8 g/dL (12.0-15.0); Immature Granulocyte Percent A 0.6 % (0-0.5); Lymphocytes Absolute Auto 0.77 K/mm3 (0.9-3.2); Mean Corpuscular HGB Conc 33.4 g/dl (32-36); Mean Corpuscular Hemoglobin 34.9 pg (26-34); Mean Corpuscular Volume 104.3 fl (80-100); Nucleated Red Blood Cells Absolute Auto 0.000 K/mm3 (0.0-0.012); Nucleated Red Blood Cells Perc 0.0 % (0.0-0.2); Platelet Count Result 352 k/mm3 (150-375); Red Blood Count 2.81 M/mm3 (4.2-5.4); White Blood Count 6.8 K/mm3 (4.5-10.0)
[2025-06-29 06:06] LABS: INR 1.1; Partial Thromboplastin Time 33.3 Seconds (22.3-36.8); Prothrombin Time 13.7 Seconds (11.1-14.7)
[2025-06-29] MEDS: SUCRALFATE SUSP 100 MG/ML 10 ML UDC 1000 MG PO ×3 (06:17→20:19)
--- NOTE | 2025-06-29 11:00 | S_PTH ---
PATIENT: Fiorella Baker LOC: [id number] U#:[id number] AGE/SX: 70/F ROOM: 330 RE06/18/[address]: Denisse Shah MD : 1955 BED: 02 DIS: 07/05/2025 SPEC #: [id number] RECD: 06/29/25 12:48 STATUS: TRUDY REFreda #: [id number] JANIS: 06/29/25 11:[address]: Claude Villanueva DEPT: [facility] Surgical RECD BY: Harleen Turner ENTERED: 06/29/25 12:48 SP TYPE: Surgical OTHR DR: MD Ac Read MD David P. Lebeau, MD Mane Abreu MD Tissues: A - Liver Biopsy Procedures: Pas with Diastase Unstained Slides Hematoxylin and Eosin Stain Periodic Acid Swati Reticulum Stain Trichrome Stain Gross and Microscopic Level 5 Iron Stain
--- NOTE | 2025-06-29 11:46 | PCOTNOTE ---
Patient out od the room at this time. Patient went down for a liver biopsy. Will check back at a later time.
--- NOTE | 2025-06-29 12:00 | PCNFU ---
Nutrition Follow-Up Complete: Severe protein calorie malnutrition related to loss of appetite as evidenced by intakes <75% needs >1 month; weight loss 30%/4 months; severe muscle wasting and fat loss Goal:Improve PO intake at least 50% Pt not meeting goal Pt current nutrition is Regular, Ensure shakes TID, nutrition ice cream cups. Nutrition recommendation: consider an appetite stimulant Last recorded weight is 46.7 kg. Bowel Motility: +BM 06/29 Labs Reviewed: Hgb:9.9, HCT:28.8, Alb:2.7, NA:128, Cr:0.33 Meds Noted: protonix, KCL, B complex Skin: WNL Additional Notes: Pt continues on a regular diet, intake 25%. Ensure and nutrition ice cream cups in place. PEG tube offered but declined at this time per provider notes. Recommend an appetite stimulant to try and increase po intake. Encourage po intake of meals and supplements Monitoring intakes, weights, labs, supplement intake, plan of care Follow up in 3 days
--- NOTE | 2025-06-29 13:05 | PCOTNOTE ---
Attempted to see Patient at this time, Patient had returned from having a procedure, Per RN, unable at this time, must lay flat for a while.
[2025-06-29 14:00] VITALS: BP 144/98; PULSE 93; RESP 18; TEMP 36.3; O2SAT 98
--- NOTE | 2025-06-29 14:12 | P.PNIM_ITS ---
Progress Note: A&P Assessment and Plan (1) Adult failure to thrive: Code(s): R62.7 - Adult failure to thrive Status: Acute (2) Severe protein-calorie malnutrition: Code(s): E43 - Unspecified severe protein-calorie malnutrition Status: Acute (3) Acute UTI: Code(s): N39.0 - Urinary tract infection, site not specified Status: Acute (4) Hypomagnesemia: Code(s): E83.42 - Hypomagnesemia Status: Acute (5) Chronic hyponatremia: Code(s): E87.1 - Hypo-osmolality and hyponatremia Status: Acute (6) Syndrome of inappropriate ADH (SIADH) secretion: Code(s): E22.2 - Syndrome of inappropriate secretion of antidiuretic hormone Status: Acute (7) Lactic acidosis: Code(s): E87.20 - Acidosis, unspecified Status: Acute (8) Acute hypokalemia: Code(s): E87.6 - Hypokalemia Status: Acute (9) Transaminitis: Code(s): R74.01 - Elevation of levels of liver transaminase levels Status: Acute (10) Hyperbilirubinemia: Code(s): E80.6 - Other disorders of bilirubin metabolism Status: Acute (11) Elevated troponin: Code(s): R79.89 - Other specified abnormal findings of blood chemistry Status: Acute (12) Urinary retention with incomplete bladder emptying: Code(s): R33.9 - Retention of urine, unspecified Status: Acute (13) GERD (gastroesophageal reflux disease): Qualifiers: Esophagitis presence: with esophagitis Esophagitis bleeding: without hemorrhage Qualified Code(s): K21.00 - Gastro-esophageal reflux disease with esophagitis, without bleeding Code(s): K21.9 - Gastro-esophageal reflux disease without esophagitis Status: Acute Plan Comfortable at bedside MRI abd showed possible Cholangiocarcinoma and L5 compression fracture FTT/Severe protein energy malnutrition oral intake still poor Declined tube again Dietitian on board Proteus mirabilis Cystitis noted on imaging urine culture reviewed Completed Rocephin monitor cultures Possible cholangiocarcinoma MRI abd reviewed CEA elevated for biopsy tomorrow GI following Hypokalemia and Hypomagnesemia K 3.6 and Mg 1.6 replaced monitor Hyponatremia Na 127 Likely from poor oral intake encorage oral intake after biopsy Continue IVF and monitor L5 compression MRI reviewed No pain, neurosurgery reviewed and no intervention needed Neurosurgery will follow up outpatient DVT prophylaxis on Sq Lovenox Subjective Date/time seen: 06/29/25 14:12 Interval history: Comfortable at bedside For Biopsy today Review of Systems Review of Systems: Review of systems is not reliable due to the patient's mental status. Exam Narrative: Appears malnourished Patient is comfortable, NAD HEENT: eyes are clear and none icteric LUNGS:CTA HEART: RR S1S2 ABD: BS+, Soft and nontender Lower extremities: no edema SKIN: nonjaundiced Neuro: grossly intact. Somewhat confused Const: Other: Chronically ill-appearing, frail, appears older than stated age HENMT: Other: Upper and lower dentures in place, mucous membranes are tacky, no oral pharyngeal erythema, head is normocephalic atraumatic, temporal wasting Eyes: Other: Pupils are equal and reactive, no scleral icterus, positive conjunctival pallor Neck: Other: No JVD, no lymphadenopathy, trachea midline Resp: Other: Clear to auscultation bilaterally, no increased work of breathing Cardio: Other: Regular rate, regular rhythm, no murmurs, 2+ bilateral radial and pedal pulses, no JVD GI: Other: Soft, nontender, nondistended, normoactive bowel sounds Skin: Other: Generalized pallor, non jaundice, cold to touch feet greater than hands Neuro: Other: Alert oriented to self only, conversational and pleasantly confused, follow simple commands, no localizing neurologic deficits noted, normal tone Extrem: Other: Generalized muscle wasting, moves all extremities equally Psych: Other: Pleasantly confused, cooperative, poor judgment and insight Objective Data Vital Signs Vital Signs: Vital Signs - 24 hr 06/28/25 20:00 06/28/25 21:42 06/29/25 06:00 Temperature 97.0 F L 97.7 F Pulse Rate 89 76 Respiratory Rate 13 16 Blood Pressure 143/86 H 150/90 H Pulse Oximetry 98 99 Oxygen Delivery Room Air Fraction of Inspired Oxygen 06/29/25 09:30 Temperature Pulse Rate Respiratory Rate Blood Pressure Pulse Oximetry Oxygen Delivery Room Air Fraction of Inspired Oxygen Intake/Output Intake/Output: Intake & Output 06/26/25 06/27/25 06/28/25 06/29/25 23:59 23:59 23:59 23:59 Intake Total 100 2420 1910 100 Output Total 553 587 0840 1500 Balance -250 1945 460 -1400 Meds/Results Medications: Active Medications Generic Name Dose Route Start Last Admin Trade Name Renee PRN Reason Stop Dose Admin Enoxaparin Sodium 40 mg 06/27/25 09:00 06/28/25 09:06 Enoxaparin 40 Mg/0.4 Ml Syringe SUB-Q 40 mg On Hold: 06/29/25 04:57 DAILY ELEAZAR Administration Resume: 06/30/25 09:00 Sodium Chloride 1,000 mls @ 75 mls/hr 06/28/25 08:15 06/29/25 00:48 Normal Saline Iv IV CONT 75 mls/hr .[id number] ELEAZAR Administration Magnesium Oxide 400 mg 06/23/25 09:00 06/28/25 09:05 Magnesium Oxide 400 Mg Tablet PO 400 mg QAM ELEAZAR Administration Paroxetine HCl 10 mg 06/19/25 10:00 06/28/25 09:04 Paroxetine 10 Mg Tablet PO 10 mg DAILY ELEAZAR Administration Potassium Chloride 10 meq 06/19/25 10:00 06/28/25 09:05 Potassium Chloride 10 Meq Er Tablet PO 10 meq DAILY ELEAZAR Administration Pyridoxine HCl 100 mg 06/19/25 10:05 06/28/25 09:05 Pyridoxine Hcl 50 Mg Tablet PO 07/20/25 10:04 100 mg DAILY ELEAZAR Administration Sodium Chloride 1 gm 06/19/25 10:05 06/29/25 12:50 Sodium Chloride 1 Gm Tablet PO Not Given BID ELEAZAR Sucralfate 1,000 mg 06/18/25 21:00 06/29/25 12:51 Sucralfate Susp 100 Mg/Ml 10 Ml Udc PO Not Given ACHS ELEAZAR Thiamine HCl 100 mg 06/19/25 09:45 06/28/25 09:05 Thiamine Hcl 100 Mg Tablet PO 100 mg QAM ELEAZAR Administration Radiology Results: ITS Impressions Head CT 06/18/25 15:47 IMPRESSION: No acute intracranial process. Chest X-Ray 06/18/25 15:51 IMPRESSION: No acute cardiopulmonary process. Chest/Abdomen/Pelvis CT 06/18/25 17:06 IMPRESSION: Mild descending thoracic aortic ectasia. Scattered sub-6 mm pulmonary nodules, requiring no additional follow-up unless the patient is at high risk, in which case consider low-dose noncontrast CT of the chest in one year. Diffuse esophagitis. Moderate gastritis. Hepatomegaly. Hyperenhancing areas along the falciform ligament and gallbladder fossa may represent transient hepatic attenuation differences and/or irregular parenchymal enhancement from steatosis. No discrete mass identified. Recommend MRI of the liver. Hyperemic gallbladder wall may reflect a component of mild/early inflammatory change versus artifact from contrast phase. No biliary duct dilatation or inflammation to suggest cholangitis. Cystitis. Possible sacral soft tissue defect, correlate clinically for decubitus ulcer. Thoracic Spine CT 06/22/25 15:53 IMPRESSION: 1. No compression fracture in the thoracic spine. 2. Mild degenerative change scattered throughout the thoracic spine. If symptoms persist or worsen, consider an MRI of the thoracic spine for further assessment. Abdomen Ultrasound 06/23/25 10:17 IMPRESSION: 1: The liver is hyperechoic likely due to fatty infiltration and/or hepatocellular disease. 2. There is a 2.9 x 2.2 cm hypoechoic region in the left lobe of the liver. Dif ferential includes focal fatty sparing versus liver mass. A liver mass MRI is recommended. Cervical Spine MRI 06/25/25 05:56 Impression: Mild degenerative spondylitic changes overall, as detailed above. Thoracic Spine MRI 06/25/25 05:59 Impression: No significant abnormality. Lumbar Spine MRI 06/25/25 06:01 Impression: Acute mild compression fracture at the superior endplate region of L5, as detailed above. Mild chronic compression deformity of L2, as detailed above. 6 mm retrolisthesis of L2 over L3. Moderate degenerative spondylosis overall throughout the lumbar spine, as above. Sacrum/Coccyx MRI 06/25/25 06:09 IMPRESSION: Acute, mild compression fracture deformity of L5, as above. No other significant findings. Abdomen MRI 06/26/25 09:24 IMPRESSION: 1. Diffuse hepatic steatosis with geographic region differing signal intensity on T1 and T2 imaging and without the signal loss on opposed phase imaging as a be seen with hepatic steatosis. This would be atypical pattern for focal fatty sparing however there is significant enhancement persisting well beyond all be expected for focal transient hepatic intensity difference which persists through the 5 and 10 minutes of imaging which would not be atypical feature for focal hepatic steatosis for which differential would include focal nodular hyperplasia or cholangiocarcinoma. Recommend ultrasound-guided biopsy for more definitive determination. 2. Acute to subacute L5 compression fracture. 3. Small right and tiny left pleural effusions. Liver Biopsy Ultrasound 06/29/25 12:43 IMPRESSION: 1. Successful Ultrasound-guided biopsy of an indeterminate hypoechoic region in segment 4A and 4B of the liver along the falciform ligament. Labs Labs: Laboratory Results - last 24 hr 06/29/25 05:25 WBC 6.8 RBC 2.81 L Hgb 9.8 L Hct 29.3 L MCV 104.3 H MCH 34.9 H MCHC 33.4 RDW 14.9 H Plt Count 352 MPV 9.8 Immature Gran % (Auto) 0.6 H Neut % (Auto) 80.2 H Lymph % (Auto) 11.3 L [place] % (Auto) 6.3 Eos % (Auto) 1.0 Baso % (Auto) 0.6 Lymph # (Auto) 0.77 L [place] # (Auto) 0.4 Eos # (Auto) 0.1 Baso # (Auto) 0.0 Abs Immat Gran (auto) 0.04 H Absolute Neuts (auto) 5.4 Absolute Nucleated RBC 0.000 Nucleated RBC % 0.0 PT 13.7 INR 1.1 APTT 33.3 Sodium 127 L Potassium 3.5 Chloride 99 Carbon Dioxide 26 Anion Gap 2 L BUN 4 L Creatinine 0.23 L Estim Creat Clear Calc 119 Estimated GFR > 60 Glucose 85 Calcium 8.6 Magnesium 1.7 Total Bilirubin 0.9 AST 48 H ALT 26 Alkaline Phosphatase 94 Total Protein 5.1 L Albumin 2.8 L Quality VTE Prophylaxis VTE prophylaxis: mechanical ordered (SCDs)
[2025-06-29] MEDS: THIAMINE HCL 100 MG TABLET PO (15:22)
[2025-06-29] MEDS: PYRIDOXINE HCL 50 MG TABLET 100 MG PO (15:22)
[2025-06-29] MEDS: POTASSIUM CHLORIDE 10 MEQ ER TABLET PO (15:22)
[2025-06-29] MEDS: MAGNESIUM OXIDE 400 MG TABLET PO (15:22)
--- NOTE | 2025-06-29 17:05 | WPDGIPROGNO ---
Progress Note: A&P Assessment and Plan (1) Liver mass: Code(s): R16.0 - Hepatomegaly, not elsewhere classified Status: Acute Assessment and Plan: biopsy of the previously discussed focal liver lesion obtained the day. Will wait for biopsy results within the next 24-48 hours. Subjective Date/time seen: 06/29/25 17:05 Objective Data Vital Signs Vital Signs: Vital Signs - 24 hr 06/28/25 20:00 06/28/25 21:42 06/29/25 06:00 Temperature 97.0 F L 97.7 F Pulse Rate 89 76 Respiratory Rate 13 16 Blood Pressure 143/86 H 150/90 H Pulse Oximetry 98 99 Oxygen Delivery Room Air Fraction of Inspired Oxygen 21 06/29/25 09:30 06/29/25 14:00 Temperature 97.3 F L Pulse Rate 93 Respiratory Rate 18 Blood Pressure 144/98 H Pulse Oximetry 98 Oxygen Delivery Room Air Fraction of Inspired Oxygen Intake/Output Intake/Output: Intake & Output 06/26/25 06/27/25 06/28/25 06/29/25 23:59 23:59 23:59 23:59 Intake Total 100 2420 1910 1100 Output Total 658 195 2484 1500 Balance -250 1945 460 -400 Meds/Results Medications: Active Medications Generic Name Dose Route Start Last Admin Trade Name Freq PRN Reason Stop Dose Admin Dronabinol 5 mg 06/29/25 17:05 Dronabinol (*Crx) 2.5 Mg Capsule PO BID ELEAZAR Enoxaparin Sodium 40 mg 06/27/25 09:00 06/28/25 09:06 Enoxaparin 40 Mg/0.4 Ml Syringe SUB-Q 40 mg On Hold: 06/29/25 04:57 DAILY ELEAZAR Administration Resume: 06/30/25 09:00 Sodium Chloride 1,000 mls @ 75 mls/hr 06/28/25 08:15 06/29/25 15:27 Normal Saline Iv IV CONT 75 mls/hr .[id number] ELEAZAR Administration Magnesium Oxide 400 mg 06/23/25 09:00 06/29/25 15:22 Magnesium Oxide 400 Mg Tablet PO 400 mg QAM ELEAZAR Administration Paroxetine HCl 10 mg 06/19/25 10:00 06/29/25 15:22 Paroxetine 10 Mg Tablet PO 10 mg DAILY ELEAZAR Administration Potassium Chloride 10 meq 06/19/25 10:00 06/29/25 15:22 Potassium Chloride 10 Meq Er Tablet PO 10 meq DAILY ELEAZAR Administration Pyridoxine HCl 100 mg 06/19/25 10:05 06/29/25 15:22 Pyridoxine Hcl 50 Mg Tablet PO 07/20/25 10:04 100 mg DAILY ELEAZAR Administration Sodium Chloride 1 gm 06/19/25 10:05 06/29/25 12:50 Sodium Chloride 1 Gm Tablet PO Not Given BID ELEAZAR Sucralfate 1,000 mg 06/18/25 21:00 06/29/25 12:51 Sucralfate Susp 100 Mg/Ml 10 Ml Udc PO Not Given ACHS ELEAZAR Thiamine HCl 100 mg 06/19/25 09:45 06/29/25 15:22 Thiamine Hcl 100 Mg Tablet PO 100 mg QAM ELEAZAR Administration Radiology Results: ITS Impressions Head CT 06/18/25 15:47 IMPRESSION: No acute intracranial process. Chest X-Ray 06/18/25 15:51 IMPRESSION: No acute cardiopulmonary process. Chest/Abdomen/Pelvis CT 06/18/25 17:06 IMPRESSION: Mild descending thoracic aortic ectasia. Scattered sub-6 mm pulmonary nodules, requiring no additional follow-up unless the patient is at high risk, in which case consider low-dose noncontrast CT of the chest in one year. Diffuse esophagitis. Moderate gastritis. Hepatomegaly. Hyperenhancing areas along the falciform ligament and gallbladder fossa may represent transient hepatic attenuation differences and/or irregular parenchymal enhancement from steatosis. No discrete mass identified. Recommend MRI of the liver. Hyperemic gallbladder wall may reflect a component of mild/early inflammatory change versus artifact from contrast phase. No biliary duct dilatation or inflammation to suggest cholangitis. Cystitis. Possible sacral soft tissue defect, correlate clinically for decubitus ulcer. Thoracic Spine CT 06/22/25 15:53 IMPRESSION: 1. No compression fracture in the thoracic spine. 2. Mild degenerative change scattered throughout the thoracic spine. If symptoms persist or worsen, consider an MRI of the thoracic spine for further assessment. Abdomen Ultrasound 06/23/25 10:17 IMPRESSION: 1: The liver is hyperechoic likely due to fatty infiltration and/or hepatocellular disease. 2. There is a 2.9 x 2.2 cm hypoechoic region in the left lobe of the liver. Differential includes focal fatty sparing versus liver mass. A liver mass MRI is recommended. Cervical Spine MRI 06/25/25 05:56 Impression: Mild degenerative spondylitic changes overall, as detailed above. Thoracic Spine MRI 06/25/25 05:59 Impression: No significant abnormality. Lumbar Spine MRI 06/25/25 06:01 Impression: Acute mild compression fracture at the superior endplate region of L5, as detailed above. Mild chronic compression deformity of L2, as detailed above. 6 mm retrolisthesis of L2 over L3. Moderate degenerative spondylosis overall throughout the lumbar spine, as above. Sacrum/Coccyx MRI 06/25/25 06:09 IMPRESSION: Acute, mild compression fracture deformity of L5, as above. No other significant findings. Abdomen MRI 06/26/25 09:24 IMPRESSION: 1. Diffuse hepatic steatosis with geographic region differing signal intensity on T1 and T2 imaging and without the signal loss on opposed phase imaging as a be seen with hepatic steatosis. This would be atypical pattern for focal fatty sparing however there is significant enhancement persisting well beyond all be expected for focal transient hepatic intensity difference which persists through the 5 and 10 minutes of imaging which would not be atypical feature for focal hepatic steatosis for which differential would include focal nodular hyperplasia or cholangiocarcinoma. Recommend ultrasound-guided biopsy for more definitive determination. 2. Acute to subacute L5 compression fracture. 3. Small right and tiny left pleural effusions. Liver Biopsy Ultrasound 06/29/25 12:43 IMPRESSION: 1. Successful Ultrasound-guided biopsy of an indeterminate hypoechoic region in segment 4A and 4B of the liver along the falciform ligament. Labs Labs: Laboratory Results - last 24 hr 06/29/25 05:25 WBC 6.8 RBC 2.81 L Hgb 9.8 L Hct 29.3 L MCV 104.3 H MCH 34.9 H MCHC 33.4 RDW 14.9 H Plt Count 352 MPV 9.8 Immature Gran % (Auto) 0.6 H Neut % (Auto) 80.2 H Lymph % (Auto) 11.3 L [place] % (Auto) 6.3 Eos % (Auto) 1.0 Baso % (Auto) 0.6 Lymph # (Auto) 0.77 L [place] # (Auto) 0.4 Eos # (Auto) 0.1 Baso # (Auto) 0.0 Abs Immat Gran (auto) 0.04 H Absolute Neuts (auto) 5.4 Absolute Nucleated RBC 0.000 Nucleated RBC % 0.0 PT 13.7 INR 1.1 APTT 33.3 Sodium 127 L Potassium 3.5 Chloride 99 Carbon Dioxide 26 Anion Gap 2 L BUN 4 L Creatinine 0.23 L Estim Creat Clear Calc 119 Estimated GFR > 60 Glucose 85 Calcium 8.6 Magnesium 1.7 Total Bilirubin 0.9 AST 48 H ALT 26 Alkaline Phosphatase 94 Total Protein 5.1 L Albumin 2.8 L
[2025-06-29] MEDS: droNABinol (*CRX) 2.5 MG CAPSULE 5 MG PO (17:21)
[2025-06-29] MEDS: SODIUM CHLORIDE 1 GM TABLET PO (17:21)
[2025-06-29 21:57] VITALS: BP 106/22; PULSE 91; RESP 16; TEMP 36.1; O2SAT 99
[2025-06-30] MEDS: SUCRALFATE SUSP 100 MG/ML 10 ML UDC 1000 MG PO ×3 (05:58→20:53)
[2025-06-30 06:00] VITALS: BP 134/64; PULSE 99; RESP 20; TEMP 36; O2SAT 99
[2025-06-30] MEDS: SODIUM CHLORIDE 0.9% IV 1,000 ML 75 ML IV CONT ×2 (06:02→17:57)
[2025-06-30 06:23] LABS: Hematocrit 30.3 % (37.0-47.0); Hemoglobin 10.2 g/dL (12.0-15.0); Immature Granulocyte Percent A 0.6 % (0-0.5); Lymphocytes Absolute Auto 0.83 K/mm3 (0.9-3.2); Mean Corpuscular HGB Conc 33.7 g/dl (32-36); Mean Corpuscular Hemoglobin 34.9 pg (26-34); Mean Corpuscular Volume 103.8 fl (80-100); Nucleated Red Blood Cells Absolute Auto 0.000 K/mm3 (0.0-0.012); Nucleated Red Blood Cells Perc 0.0 % (0.0-0.2); Platelet Count Result 362 k/mm3 (150-375); Red Blood Count 2.92 M/mm3 (4.2-5.4); White Blood Count 6.6 K/mm3 (4.5-10.0)
[2025-06-30 06:48] LABS: Alanine Aminotransferase 28 U/L (6-35); Albumin Level 3.0 g/dL (3.5-5.1); Alkaline Phosphatase 94 U/L (38-126); Anion Gap 6 mmol/L (4-12); Aspartate Amino Transferase 53 U/L (14-36); Bilirubin,Total 0.9 mg/dL (0.2-1.3); Blood Urea Nitrogen 3 mg/dL (7-17); Calcium 8.9 mg/dL (8.4-10.2); Carbon Dioxide 25 mmol/L (22-30); Chloride 97 mmol/L (98-107); Estimated CRCL calculation 106 ml/min; Estimated Glomerular Filt Rate > 60; Glucose 87 mg/dL (65-110); Magnesium 1.6 mg/dL (1.6-2.3); Potassium 3.3 mmol/L (3.4-5.0); Sodium 128 mmol/L (137-145); Total Protein 5.3 g/dL (6.3-8.2)
[2025-06-30] MEDS: SODIUM CHLORIDE 1 GM TABLET PO ×2 (09:19→17:55)
[2025-06-30] MEDS: droNABinol (*CRX) 2.5 MG CAPSULE 5 MG PO ×2 (09:19→17:55)
[2025-06-30] MEDS: MAGNESIUM OXIDE 400 MG TABLET PO (09:19)
[2025-06-30] MEDS: POTASSIUM CHLORIDE 10 MEQ ER TABLET PO (09:19)
[2025-06-30] MEDS: THIAMINE HCL 100 MG TABLET PO (09:19)
[2025-06-30] MEDS: PYRIDOXINE HCL 50 MG TABLET 100 MG PO (09:20)
[2025-06-30] MEDS: ENOXAPARIN 40 MG/0.4 ML SYRINGE SUB-Q (09:22)
--- NOTE | 2025-06-30 12:05 | PCOTNOTE ---
Patient refused to participate at this time.
--- NOTE | 2025-06-30 13:59 | P.PNIM_ITS ---
Progress Note: A&P Assessment and Plan (1) Adult failure to thrive: Code(s): R62.7 - Adult failure to thrive Status: Acute (2) Severe protein-calorie malnutrition: Code(s): E43 - Unspecified severe protein-calorie malnutrition Status: Acute (3) Acute UTI: Code(s): N39.0 - Urinary tract infection, site not specified Status: Acute (4) Hypomagnesemia: Code(s): E83.42 - Hypomagnesemia Status: Acute (5) Chronic hyponatremia: Code(s): E87.1 - Hypo-osmolality and hyponatremia Status: Acute (6) Syndrome of inappropriate ADH (SIADH) secretion: Code(s): E22.2 - Syndrome of inappropriate secretion of antidiuretic hormone Status: Acute (7) Lactic acidosis: Code(s): E87.20 - Acidosis, unspecified Status: Acute (8) Acute hypokalemia: Code(s): E87.6 - Hypokalemia Status: Acute (9) Transaminitis: Code(s): R74.01 - Elevation of levels of liver transaminase levels Status: Acute (10) Hyperbilirubinemia: Code(s): E80.6 - Other disorders of bilirubin metabolism Status: Acute (11) Elevated troponin: Code(s): R79.89 - Other specified abnormal findings of blood chemistry Status: Acute (12) Urinary retention with incomplete bladder emptying: Code(s): R33.9 - Retention of urine, unspecified Status: Acute (13) GERD (gastroesophageal reflux disease): Qualifiers: Esophagitis presence: with esophagitis Esophagitis bleeding: without hemorrhage Qualified Code(s): K21.00 - Gastro-esophageal reflux disease with esophagitis, without bleeding Code(s): K21.9 - Gastro-esophageal reflux disease without esophagitis Status: Acute Plan Comfortable at bedside MRI abd showed possible Cholangiocarcinoma and L5 compression fracture FTT/Severe protein energy malnutrition oral intake still poor Declined tube again On Dronabinol, monitor oral intake Dietitian on board Proteus mirabilis Cystitis noted on imaging urine culture reviewed Completed Rocephin monitor cultures Liver mass/Cholangiocarcinoma MRI abd reviewed CEA elevated S/p Liver biopsy, awaiting Pathology GI following Hypokalemia and Hypomagnesemia K 3.3 and Mg 1.6 replaced monitor Hyponatremia Na 128 Likely from poor oral intake encourage oral intake after biopsy Continue IVF and monitor L5 compression MRI reviewed No pain, neurosurgery reviewed and no intervention needed Neurosurgery will follow up outpatient DVT prophylaxis on Sq Lovenox Awaiting Pathology result Subjective Date/time seen: 06/30/25 13:59 Interval history: Comfortable at bedside S/p liver biopsy awaiting pathology Review of Systems Review of Systems: Review of systems is not reliable due to the patient's mental status. Exam Narrative: Appears malnourished Patient is comfortable, NAD HEENT: eyes are clear and none icteric LUNGS:CTA HEART: RR S1S2 ABD: BS+, Soft and nontender Lower extremities: no edema SKIN: nonjaundiced Neuro: grossly intact. Somewhat confused Const: Other: Chronically ill-appearing, frail, appears older than stated age HENMT: Other: Upper and lower dentures in place, mucous membranes are tacky, no oral pharyngeal erythema, head is normocephalic atraumatic, temporal wasting Eyes: Other: Pupils are equal and reactive, no scleral icterus, positive conjunctival pallor Neck: Other: No JVD, no lymphadenopathy, trachea midline Resp: Other: Clear to auscultation bilaterally, no increased work of breathing Cardio: Other: Regular rate, regular rhythm, no murmurs, 2+ bilateral radial and pedal pulses, no JVD GI: Other: Soft, nontender, nondistended, normoactive bowel sounds Skin: Other: Generalized pallor, non jaundice, cold to touch feet greater than hands Neuro: Other: Alert oriented to self only, conversational and pleasantly confused, follow simple commands, no localizing neurologic deficits noted, normal tone Extrem: Other: Generalized muscle wasting, moves all extremities equally Psych: Other: Pleasantly confused, cooperative, poor judgment and insight Objective Data Vital Signs Vital Signs: Vital Signs - 24 hr 06/29/25 14:00 06/29/25 20:00 06/29/25 21:57 Temperature 97.3 F L 97.0 F L Pulse Rate 93 91 Respiratory Rate 18 16 Blood Pressure 144/98 H 106/22 L Pulse Oximetry 98 99 Oxygen Delivery Room Air Fraction of Inspired Oxygen 21 06/30/25 06:00 06/30/25 08:40 Temperature 96.8 F L Pulse Rate 99 Respiratory Rate 20 Blood Pressure 134/64 Pulse Oximetry 99 Oxygen Delivery Room Air Fraction of Inspired Oxygen Intake/Output Intake/Output: Intake & Output 06/27/25 06/28/25 06/29/25 06/30/25 23:59 23:59 23:59 23:59 Intake Total 2420 1910 1340 1390 Output Total 475 1450 1500 700 Balance 1945 460 -160 690 Meds/Results Medications: Active Medications Generic Name Dose Route Start Last Admin Trade Name Renee PRN Reason Stop Dose Admin Dronabinol 5 mg 06/29/25 17:05 06/30/25 09:19 Dronabinol (*Crx) 2.5 Mg Capsule PO 5 mg BID ELEAZAR Administration Enoxaparin Sodium 40 mg 06/27/25 09:00 06/30/25 09:22 Enoxaparin 40 Mg/0.4 Ml Syringe SUB-Q 40 mg DAILY ELEAZAR Administration Sodium Chloride 1,000 mls @ 75 mls/hr 06/28/25 08:15 06/30/25 06:02 Normal Saline Iv IV CONT 75 mls/hr .[id number] ELEAZAR Administration Magnesium Oxide 400 mg 06/23/25 09:00 06/30/25 09:19 Magnesium Oxide 400 Mg Tablet PO 400 mg QAM ELEAZAR Administration Paroxetine HCl 10 mg 06/19/25 10:00 06/30/25 09:19 Paroxetine 10 Mg Tablet PO 10 mg DAILY ELEAZAR Administration Potassium Chloride 10 meq 06/19/25 10:00 06/30/25 09:19 Potassium Chloride 10 Meq Er Tablet PO 10 meq DAILY ELEAZAR Administration Pyridoxine HCl 100 mg 06/19/25 10:05 06/30/25 09:20 Pyridoxine Hcl 50 Mg Tablet PO 07/20/25 10:04 100 mg DAILY ELEAZAR Administration Sodium Chloride 1 gm 06/19/25 10:05 06/30/25 09:19 Sodium Chloride 1 Gm Tablet PO 1 gm BID ELEAZAR Administration Sucralfate 1,000 mg 06/18/25 21:00 06/30/25 05:58 Sucralfate Susp 100 Mg/Ml 10 Ml Udc PO 1,000 mg ACHS ELEAZAR Administration Thiamine HCl 100 mg 06/19/25 09:45 06/30/25 09:19 Thiamine Hcl 100 Mg Tablet PO 100 mg QAM ELEAZAR Administration Radiology Results: ITS Impressions Head CT 06/18/25 15:47 IMPRESSION: No acute intracranial process. Chest X-Ray 06/18/25 15:51 IMPRESSION: No acute cardiopulmonary process. Chest/Abdomen/Pelvis CT 06/18/25 17:06 IMPRESSION: Mild descending thoracic aortic ectasia. Scattered sub-6 mm pulmonary nodules, requiring no additional follow-up unless the patient is at high risk, in which case consider low-dose noncontrast CT of the chest in one year. Diffuse esophagitis. Moderate gastritis. Hepatomegaly. Hyperenhancing areas along the falciform ligament and gallbladder fossa may represent transient hepatic attenuation differences and/or irregular parenchymal enhancement from steatosis. No discrete mass identified. Recommend MRI of the liver. Hyperemic gallbladder wall may reflect a component of mild/early inflammatory change versus artifact from contrast phase. No biliary duct dilatation or inflammation to suggest cholangitis. Cystitis. Possible sacral soft tissue defect, correlate clinically for decubitus ulcer. Thoracic Spine CT 06/22/25 15:53 IMPRESSION: 1. No compression fracture in the thoracic spine. 2. Mild degenerative change scattered throughout the thoracic spine. If symptoms persist or worsen, consider an MRI of the thoracic spine for further assessment. Abdomen Ultrasound 06/23/25 10:17 IMPRESSION: 1: The liver is hyperechoic likely due to fatty infiltration and/or hepatocellular disease. 2. There is a 2.9 x 2.2 cm hypoechoic region in the left lobe of the liver. Differential includes focal fatty sparing versus liver mass. A liver mass MRI is recommended. Cervical Spine MRI 06/25/25 05:56 Impression: Mild degenerative spondylitic changes overall, as detailed above. Thoracic Spine MRI 06/25/25 05:59 Impression: No significant abnormality. Lumbar Spine MRI 06/25/25 06:01 Impression: Acute mild compression fracture at the superior endplate region of L5, as detailed above. Mild chronic compression deformity of L2, as detailed above. 6 mm retrolisthesis of L2 over L3. Moderate degenerative spondylosis overall throughout the lumbar spine, as above. Sacrum/Coccyx MRI 06/25/25 06:09 IMPRESSION: Acute, mild compression fracture deformity of L5, as above. No other significant findings. Abdomen MRI 06/26/25 09:24 IMPRESSION: 1. Diffuse hepatic steatosis with geographic region differing signal intensity on T1 and T2 imaging and without the signal loss on opposed phase imaging as a be seen with hepatic steatosis. This would be atypical pattern for focal fatty sparing however there is significant enhancement persisting well beyond all be expected for focal transient hepatic intensity difference which persists through the 5 and 10 minutes of imaging which would not be atypical feature for focal hepatic steatosis for which differential would include focal nodular hyperplasia or cholangiocarcinoma. Recommend ultrasound-guided biopsy for more definitive determination. 2. Acute to subacute L5 compression fracture. 3. Small right and tiny left pleural effusions. Liver Biopsy Ultrasound 06/29/25 12:43 IMPRESSION: 1. Successful Ultrasound-guided biopsy of an indeterminate hypoechoic region in segment 4A and 4B of the liver along the falciform ligament. Labs Labs: Laboratory Results - last 24 hr 06/30/25 06:07 WBC 6.6 RBC 2.92 L Hgb 10.2 L Hct 30.3 L MCV 103.8 H MCH 34.9 H MCHC 33.7 RDW 14.6 H Plt Count 362 MPV 9.6 Immature Gran % (Auto) 0.6 H Neut % (Auto) 79.5 H Lymph % (Auto) 12.6 L [place] % (Auto) 5.0 Eos % (Auto) 2.0 Baso % (Auto) 0.3 Lymph # (Auto) 0.83 L [place] # (Auto) 0.3 Eos # (Auto) 0.1 Baso # (Auto) 0.0 Abs Immat Gran (auto) 0.04 H Absolute Neuts (auto) 5.3 Absolute Nucleated RBC 0.000 Nucleated RBC % 0.0 Sodium 128 L Potassium 3.3 L Chloride 97 L Carbon Dioxide 25 Anion Gap 6 BUN 3 L Creatinine 0.28 L Estim Creat Clear Calc 106 Estimated GFR > 60 Glucose 87 Calcium 8.9 Magnesium 1.6 Total Bilirubin 0.9 AST 53 H ALT 28 Alkaline Phosphatase 94 Total Protein 5.3 L Albumin 3.0 L Quality VTE Prophylaxis VTE prophylaxis: mechanical ordered (SCDs)
[2025-06-30 14:00] VITALS: BP 107/74; PULSE 100; RESP 18; TEMP 36.6; O2SAT 100
--- NOTE | 2025-06-30 16:03 | WPDGIPROGNO ---
Progress Note: A&P Assessment and Plan (1) Cirrhosis: Code(s): K74.60 - Unspecified cirrhosis of liver Status: Acute Assessment and Plan: Liver biopsy results noticed. There is no malignancy, rather, there is jackie cirrhosis. However, her synthetic function is preserved and she has no signs of chronic liver failure such as jaundice, ascites, encephalopathy or GI bleeding. Regardless, we can follow her up in our office as an outpatient obtaining a baseline FibroScan and obtaining ultrasound of the abdomen every 6 months to monitor for hepatocellular carcinoma. Will sign off for now, please let us know if there is any other matter pertaining to a specialty. Subjective Date/time seen: 06/30/25 16:03 Objective Data Vital Signs Vital Signs: Vital Signs - 24 hr 06/29/25 20:00 06/29/25 21:57 06/30/25 06:00 Temperature 97.0 F L 96.8 F L Pulse Rate 91 99 Respiratory Rate 16 20 Blood Pressure 106/22 L 134/64 Pulse Oximetry 99 99 Oxygen Delivery Room Air Fraction of Inspired Oxygen 21 06/30/25 08:40 06/30/25 14:00 Temperature 97.8 F Pulse Rate 100 Respiratory Rate 18 Blood Pressure 107/74 Pulse Oximetry 100 Oxygen Delivery Room Air Fraction of Inspired Oxygen Intake/Output Intake/Output: Intake & Output 06/27/25 06/28/25 06/29/25 06/30/25 23:59 23:59 23:59 23:59 Intake Total 2420 1910 1340 1630 Output Total 475 1450 1500 700 Balance 1945 460 -160 930 Meds/Results Medications: Active Medications Generic Name Dose Route Start Last Admin Trade Name Freq PRN Reason Stop Dose Admin Dronabinol 5 mg 06/29/25 17:05 06/30/25 09:19 Dronabinol (*Crx) 2.5 Mg Capsule PO 5 mg BID ELEAZAR Administration Enoxaparin Sodium 40 mg 06/27/25 09:00 06/30/25 09:22 Enoxaparin 40 Mg/0.4 Ml Syringe SUB-Q 40 mg DAILY ELEAZAR Administration Sodium Chloride 1,000 mls @ 75 mls/hr 06/28/25 08:15 06/30/25 06:02 Normal Saline Iv IV CONT 75 mls/hr .[id number] ELEAZAR Administration Magnesium Oxide 400 mg 06/23/25 09:00 06/30/25 09:19 Magnesium Oxide 400 Mg Tablet PO 400 mg QAM ELEAZAR Administration Paroxetine HCl 10 mg 06/19/25 10:00 06/30/25 09:19 Paroxetine 10 Mg Tablet PO 10 mg DAILY ELEAZAR Administration Potassium Chloride 10 meq 06/19/25 10:00 06/30/25 09:19 Potassium Chloride 10 Meq Er Tablet PO 10 meq DAILY ELEAZAR Administration Pyridoxine HCl 100 mg 06/19/25 10:05 06/30/25 09:20 Pyridoxine Hcl 50 Mg Tablet PO 07/20/25 10:04 100 mg DAILY ELEAZAR Administration Sodium Chloride 1 gm 06/19/25 10:05 06/30/25 09:19 Sodium Chloride 1 Gm Tablet PO 1 gm BID ELEAZAR Administration Sucralfate 1,000 mg 06/18/25 21:00 06/30/25 11:32 Sucralfate Susp 100 Mg/Ml 10 Ml Udc PO Not Given ACHS ELEAZAR Thiamine HCl 100 mg 06/19/25 09:45 06/30/25 09:19 Thiamine Hcl 100 Mg Tablet PO 100 mg QAM ELEAZAR Administration Radiology Results: ITS Impressions Head CT 06/18/25 15:47 IMPRESSION: No acute intracranial process. Chest X-Ray 06/18/25 15:51 IMPRESSION: No acute cardiopulmonary process. Chest/Abdomen/Pelvis CT 06/18/25 17:06 IMPRESSION: Mild descending thoracic aortic ectasia. Scattered sub-6 mm pulmonary nodules, requiring no additional follow-up unless the patient is at high risk, in which case consider low-dose noncontrast CT of the chest in one year. Diffuse esophagitis. Moderate gastritis. Hepatomegaly. Hyperenhancing areas along the falciform ligament and gallbladder fossa may represent transient hepatic attenuation differences and/or irregular parenchymal enhancement from steatosis. No discrete mass identified. Recommend MRI of the liver. Hyperemic gallbladder wall may reflect a component of mild/early inflammatory change versus artifact from contrast phase. No biliary duct dilatation or inflammation to suggest cholangitis. Cystitis. Possible sacral soft tissue defect, correlate clinically for decubitus ulcer. Thoracic Spine CT 06/22/25 15:53 IMPRESSION: 1. No compression fracture in the thoracic spine. 2. Mild degenerative change scattered throughout the thoracic spine. If symptoms persist or worsen, consider an MRI of the thoracic spine for further assessment. Abdomen Ultrasound 06/23/25 10:17 IMPRESSION: 1: The liver is hyperechoic likely due to fatty infiltration and/or hepatocellular disease. 2. There is a 2.9 x 2.2 cm hypoechoic region in the left lobe of the liver. Differential includes focal fatty sparing versus liver mass. A liver mass MRI is recommended. Cervical Spine MRI 06/25/25 05:56 Impression: Mild degenerative spondylitic changes overall, as detailed above. Thoracic Spine MRI 06/25/25 05:59 Impression: No significant abnormality. Lumbar Spine MRI 06/25/25 06:01 Impression: Acute mild compression fracture at the superior endplate region of L5, as detailed above. Mild chronic compression deformity of L2, as detailed above. 6 mm retrolisthesis of L2 over L3. Moderate degenerative spondylosis overall throughout the lumbar spine, as above. Sacrum/Coccyx MRI 06/25/25 06:09 IMPRESSION: Acute, mild compression fracture deformity of L5, as above. No other significant findings. Abdomen MRI 06/26/25 09:24 IMPRESSION: 1. Diffuse hepatic steatosis with geographic region differing signal intensity on T1 and T2 imaging and without the signal loss on opposed phase imaging as a be seen with hepatic steatosis. This would be atypical pattern for focal fatty sparing however there is significant enhancement persisting well beyond all be expected for focal transient hepatic intensity difference which persists through the 5 and 10 minutes of imaging which would not be atypical feature for focal hepatic steatosis for which differential would include focal nodular hyperplasia or cholangiocarcinoma. Recommend ultrasound-guided biopsy for more definitive determination. 2. Acute to subacute L5 compression fracture. 3. Small right and tiny left pleural effusions. Liver Biopsy Ultrasound 06/29/25 12:43 IMPRESSION: 1. Successful Ultrasound-guided biopsy of an indeterminate hypoechoic region in segment 4A and 4B of the liver along the falciform ligament. Labs Labs: Laboratory Results - last 24 hr 06/26/25 06/30/25 06:01 06:07 WBC 6.6 RBC 2.92 L Hgb 10.2 L Hct 30.3 L MCV 103.8 H MCH 34.9 H MCHC 33.7 RDW 14.6 H Plt Count 362 MPV 9.6 Immature Gran % (Auto) 0.6 H Neut % (Auto) 79.5 H Lymph % (Auto) 12.6 L [place] % (Auto) 5.0 Eos % (Auto) 2.0 Baso % (Auto) 0.3 Lymph # (Auto) 0.83 L [place] # (Auto) 0.3 Eos # (Auto) 0.1 Baso # (Auto) 0.0 Abs Immat Gran (auto) 0.04 H Absolute Neuts (auto) 5.3 Absolute Nucleated RBC 0.000 Nucleated RBC % 0.0 Sodium 128 L Potassium 3.3 L Chloride 97 L Carbon Dioxide 25 Anion Gap 6 BUN 3 L Creatinine 0.28 L Estim Creat Clear Calc 106 Estimated GFR > 60 Glucose 87 Calcium 8.9 Magnesium 1.6 Total Bilirubin 0.9 AST 53 H ALT 28 Alkaline Phosphatase 94 Total Protein 5.3 L Albumin 3.0 L Tumor Marker AFP 5.4
[2025-06-30 20:00] VITALS: O2SAT 100
[2025-06-30 20:26] VITALS: BP 148/88; PULSE 86; RESP 16; TEMP 36.6; O2SAT 100
[2025-07-01 04:55] VITALS: BP 140/90; PULSE 100; RESP 18; TEMP 36.1; O2SAT 99
[2025-07-01] MEDS: SUCRALFATE SUSP 100 MG/ML 10 ML UDC 1000 MG PO ×4 (05:31→21:00)
[2025-07-01 06:23] LABS: Hematocrit 28.7 % (37.0-47.0); Hemoglobin 9.8 g/dL (12.0-15.0); Immature Granulocyte Percent A 0.3 % (0-0.5); Lymphocytes Absolute Auto 0.66 K/mm3 (0.9-3.2); Mean Corpuscular HGB Conc 34.1 g/dl (32-36); Mean Corpuscular Hemoglobin 34.6 pg (26-34); Mean Corpuscular Volume 101.4 fl (80-100); Nucleated Red Blood Cells Absolute Auto 0.000 K/mm3 (0.0-0.012); Nucleated Red Blood Cells Perc 0.0 % (0.0-0.2); Platelet Count Result 324 k/mm3 (150-375); Red Blood Count 2.83 M/mm3 (4.2-5.4); White Blood Count 6.8 K/mm3 (4.5-10.0)
[2025-07-01 06:59] LABS: Alanine Aminotransferase 23 U/L (6-35); Albumin Level 2.6 g/dL (3.5-5.1); Alkaline Phosphatase 85 U/L (38-126); Anion Gap 1 mmol/L (4-12); Aspartate Amino Transferase 44 U/L (14-36); Bilirubin,Total 0.8 mg/dL (0.2-1.3); Blood Urea Nitrogen 8 mg/dL (7-17); Calcium 8.6 mg/dL (8.4-10.2); Carbon Dioxide 27 mmol/L (22-30); Chloride 99 mmol/L (98-107); Estimated CRCL calculation 118 ml/min; Estimated Glomerular Filt Rate > 60; Glucose 96 mg/dL (65-110); Magnesium 1.5 mg/dL (1.6-2.3); Potassium 3.3 mmol/L (3.4-5.0); Sodium 127 mmol/L (137-145); Total Protein 4.8 g/dL (6.3-8.2)
[2025-07-01] MEDS: MAGNESIUM OXIDE 400 MG TABLET PO (10:30)
[2025-07-01] MEDS: POTASSIUM CHLORIDE 10 MEQ ER TABLET PO (10:30)
[2025-07-01] MEDS: ENOXAPARIN 40 MG/0.4 ML SYRINGE SUB-Q (10:31)
[2025-07-01] MEDS: droNABinol (*CRX) 2.5 MG CAPSULE 5 MG PO ×2 (10:31→16:48)
[2025-07-01] MEDS: PYRIDOXINE HCL 50 MG TABLET 100 MG PO (10:31)
[2025-07-01] MEDS: THIAMINE HCL 100 MG TABLET PO (10:31)
[2025-07-01] MEDS: SODIUM CHLORIDE 1 GM TABLET PO ×2 (10:31→16:48)
[2025-07-01 11:53] LABS: CA 19-9 174 U/mL (0-35)
--- NOTE | 2025-07-01 13:44 | P.PNIM_ITS ---
Progress Note: A&P Assessment and Plan (1) Adult failure to thrive: Code(s): R62.7 - Adult failure to thrive Status: Acute Assessment and Plan: * FTT/Severe protein energy malnutrition * oral intake still poor * Pt does not have the mental capacity to agree to feeding tube. She does not have a designated POA. * On Dronabinol, monitor oral intake * Dietitian on board * Daily weights ordered. (2) Severe protein-calorie malnutrition: Code(s): E43 - Unspecified severe protein-calorie malnutrition Status: Acute Assessment and Plan: * See #1 (3) Hypomagnesemia: Code(s): E83.42 - Hypomagnesemia Status: Acute Assessment and Plan: * General electrolyte abnormality secondary to #1 and #2. * Magnesium today is 1.5. 1G rider ordered. (4) Chronic hyponatremia: Code(s): E87.1 - Hypo-osmolality and hyponatremia Status: Acute Assessment and Plan: * Continued hyponatremia with Sodium of 127. * Continue IVF. * Start Salt tab 1G QAM and may increase dose as needed. (5) Syndrome of inappropriate ADH (SIADH) secretion: Code(s): E22.2 - Syndrome of inappropriate secretion of antidiuretic hormone Status: Acute Assessment and Plan: * See #4. * Consider fluid restriction (6) Lactic acidosis: Code(s): E87.20 - Acidosis, unspecified Status: Resolved Assessment and Plan: * Resolved (7) Acute hypokalemia: Code(s): E87.6 - Hypokalemia Status: Acute Assessment and Plan: * K+ today is 3.3. * Additional 40 mEq is ordered for today. (8) Transaminitis: Code(s): R74.01 - Elevation of levels of liver transaminase levels Status: Acute Assessment and Plan: * Most likely secondary to the findings of a cirrhotic liver. * Bx negative for cancer. * MRI abd reviewed * CEA elevated * GI following (9) Hyperbilirubinemia: Code(s): E80.6 - Other disorders of bilirubin metabolism Status: Acute Assessment and Plan: * Most likely secondary to the findings of a cirrhotic liver. * See #8. (10) Elevated troponin: Code(s): R79.89 - Other specified abnormal findings of blood chemistry Status: Acute Assessment and Plan: * Trop was trended and was flat. (11) Cystitis: Code(s): N30.90 - Cystitis, unspecified without hematuria Status: Acute Assessment and Plan: * Proteus mirabilis Cystitis * noted on imaging * urine culture reviewed * Completed Rocephin (12) Lumbar compression fracture: Code(s): S32.000A - Wedge compression fracture of unspecified lumbar vertebra, initial encounter for closed fracture Status: Acute Assessment and Plan: * L5 compression * MRI reviewed * No pain, neurosurgery reviewed and no intervention at this time is needed. * Follow up with [facility] as outpt. Time Spent With Patient Time with patient: 25 - 35 minutes Subjective Date/time seen: 07/01/25 13:44 Interval history: This pt was evaluated this morning in interval assessment. She is alert, but there is no orientation. She is acutely confused. No s/s of acute distress. She appears comfortable with decreased appetite. Review of Systems Review of Systems: All systems reviewed & are unremarkable except as noted in HPI and below Exam Const: Other: Chronically ill-appearing, frail, appears older than stated age HENMT: Other: Upper and lower dentures in place, mucous membranes are tacky, no oral pharyngeal erythema, head is normocephalic atraumatic, temporal wasting Eyes: Other: Pupils are equal and reactive, no scleral icterus, positive conjunctival pallor Neck: Other: No JVD, no lymphadenopathy, trachea midline Resp: Other: Clear to auscultation bilaterally, no increased work of breathing Cardio: Other: Regular rate, regular rhythm, no murmurs, 2+ bilateral radial and pedal pulses, no JVD GI: Other: Soft, nontender, nondistended, normoactive bowel sounds Skin: Other: Generalized pallor, non jaundice, cold to touch feet greater than hands Neuro: Other: Alert and confused to self, time, location and situation, conversational and pleasantly confused, follow simple commands, no localizing neurologic deficits noted, normal tone Extrem: Other: Generalized muscle wasting, moves all extremities equally Psych: Other: Pleasantly confused, cooperative, poor judgment and insight Objective Data Vital Signs Vital Signs: Vital Signs - 24 hr 06/30/25 14:00 06/30/25 20:00 06/30/25 20:26 Temperature 97.8 F 97.9 F Pulse Rate 100 86 Respiratory Rate 18 16 Blood Pressure 107/74 148/88 H Pulse Oximetry 100 100 100 Oxygen Delivery Room Air 07/01/25 04:55 07/01/25 08:00 Temperature 97 F L Pulse Rate 100 Respiratory Rate 18 Blood Pressure 140/90 Pulse Oximetry 99 Oxygen Delivery Room Air Intake/Output Intake/Output: Intake & Output 06/28/25 06/29/25 06/30/25 07/01/25 23:59 23:59 23:59 23:59 Intake Total 1910 1340 2763.8 340 Output Total 1450 1500 1000 450 Balance 460 -160 1763.8 -110 Meds/Results Medications: Active Medications Generic Name Dose Route Start Last Admin Trade Name Freq PRN Reason Stop Dose Admin Dronabinol 5 mg 06/29/25 17:05 07/01/25 10:31 Dronabinol (*Crx) 2.5 Mg Capsule PO 5 mg BID ELEAZAR Administration Enoxaparin Sodium 40 mg 06/27/25 09:00 07/01/25 10:31 Enoxaparin 40 Mg/0.4 Ml Syringe SUB-Q 40 mg DAILY ELEAZAR Administration Sodium Chloride 1,000 mls @ 75 mls/hr 06/28/25 08:15 06/30/25 17:57 Normal Saline Iv IV CONT 75 mls/hr .[id number] ELEAZAR Administration Magnesium Oxide 400 mg 06/23/25 09:00 07/01/25 10:30 Magnesium Oxide 400 Mg Tablet PO 400 mg QAM ELEAZAR Administration Paroxetine HCl 10 mg 06/19/25 10:00 07/01/25 10:30 Paroxetine 10 Mg Tablet PO 10 mg DAILY ELEAZAR Administration Potassium Chloride 10 meq 06/19/25 10:00 07/01/25 10:30 Potassium Chloride 10 Meq Er Tablet PO 10 meq DAILY ELEAZAR Administration Pyridoxine HCl 100 mg 06/19/25 10:05 07/01/25 10:31 Pyridoxine Hcl 50 Mg Tablet PO 07/20/25 10:04 100 mg DAILY ELEAZAR Administration Sodium Chloride 1 gm 06/19/25 10:05 07/01/25 10:31 Sodium Chloride 1 Gm Tablet PO 1 gm BID ELEAZAR Administration Sucralfate 1,000 mg 06/18/25 21:00 07/01/25 05:31 Sucralfate Susp 100 Mg/Ml 10 Ml Udc PO 1,000 mg ACHS ELEAZAR Administration Thiamine HCl 100 mg 06/19/25 09:45 07/01/25 10:31 Thiamine Hcl 100 Mg Tablet PO 100 mg QAM ELEAZAR Administration Radiology Results: ITS Impressions Head CT 06/18/25 15:47 IMPRESSION: No acute intracranial process. Chest X-Ray 06/18/25 15:51 IMPRESSION: No acute cardiopulmonary process. Chest/Abdomen/Pelvis CT 06/18/25 17:06 IMPRESSION: Mild descending thoracic aortic ectasia. Scattered sub-6 mm pulmonary nodules, requiring no additional follow-up unless the patient is at high risk, in which case consider low-dose noncontrast CT of the chest in one year. Diffuse esophagitis. Moderate gastritis. Hepatomegaly. Hyperenhancing areas along the falciform ligament and gallbladder fossa may represent transient hepatic attenuation differences and/or irregular parenchymal enhancement from steatosis. No discrete mass identified. Recommend MRI of the liver. Hyperemic gallbladder wall may reflect a component of mild/early inflammatory change versus artifact from contrast phase. No biliary duct dilatation or inflammation to suggest cholangitis. Cystitis. Possible sacral soft tissue defect, correlate clinically for decubitus ulcer. Thoracic Spine CT 06/22/25 15:53 IMPRESSION: 1. No compression fracture in the thoracic spine. 2. Mild degenerative change scattered throughout the thoracic spine. If symptoms persist or worsen, consider an MRI of the thoracic spine for further assessment. Abdomen Ultrasound 06/23/25 10:17 IMPRESSION: 1: The liver is hyperechoic likely due to fatty infiltration and/or hepatocellular disease. 2. There is a 2.9 x 2.2 cm hypoechoic region in the left lobe of the liver. Differential includes focal fatty sparing versus liver mass. A liver mass MRI is recommended. Cervical Spine MRI 06/25/25 05:56 Impression: Mild degenerative spondylitic changes overall, as detailed above. Thoracic Spine MRI 06/25/25 05:59 Impression: No significant abnormality. Lumbar Spine MRI 06/25/25 06:01 Impression: Acute mild compression fracture at the superior endplate region of L5, as detailed above. Mild chronic compression deformity of L2, as detailed above. 6 mm retrolisthesis of L2 over L3. Moderate degenerative spondylosis overall throughout the lumbar spine, as above. Sacrum/Coccyx MRI 06/25/25 06:09 IMPRESSION: Acute, mild compression fracture deformity of L5, as above. No other significant findings. Abdomen MRI 06/26/25 09:24 IMPRESSION: 1. Diffuse hepatic steatosis with geographic region differing signal intensity on T1 and T2 imaging and without the signal loss on opposed phase imaging as a be seen with hepatic steatosis. This would be atypical pattern for focal fatty sparing however there is significant enhancement persisting well beyond all be expected for focal transient hepatic intensity difference which persists through the 5 and 10 minutes of imaging which would not be atypical feature for focal hepatic steatosis for which differential would include focal nodular hyperplasia or cholangiocarcinoma. Recommend ultrasound-guided biopsy for more definitive determination. 2. Acute to subacute L5 compression fracture. 3. Small right and tiny left pleural effusions. Liver Biopsy Ultrasound 06/29/25 12:43 IMPRESSION: 1. Successful Ultrasound-guided biopsy of an indeterminate hypoechoic region in segment 4A and 4B of the liver along the falciform ligament. Labs Labs: Laboratory Results - last 24 hr 06/26/25 07/01/25 06:01 06:08 WBC 6.8 RBC 2.83 L Hgb 9.8 L Hct 28.7 L MCV 101.4 H MCH 34.6 H MCHC 34.1 RDW 14.6 H Plt Count 324 MPV 9.7 Immature Gran % (Auto) 0.3 Neut % (Auto) 83.3 H Lymph % (Auto) 9.7 L [place] % (Auto) 4.8 Eos % (Auto) 1.6 Baso % (Auto) 0.3 Lymph # (Auto) 0.66 L [place] # (Auto) 0.3 Eos # (Auto) 0.1 Baso # (Auto) 0.0 Abs Immat Gran (auto) 0.02 Absolute Neuts (auto) 5.7 Absolute Nucleated RBC 0.000 Nucleated RBC % 0.0 Sodium 127 L Potassium 3.3 L Chloride 99 Carbon Dioxide 27 Anion Gap 1 L BUN 8 D Creatinine 0.23 L Estim Creat Clear Calc 118 Estimated GFR > 60 Glucose 96 Calcium 8.6 Magnesium 1.5 L Total Bilirubin 0.8 AST 44 H ALT 23 Alkaline Phosphatase 85 Total Protein 4.8 L Albumin 2.6 L Tumor Marker AFP 5.4 CA 19-9 Antigen 174 H Quality VTE Prophylaxis VTE prophylaxis: pharmacologic ordered
[2025-07-01 14:00] VITALS: BP 130/86; PULSE 76; RESP 18; TEMP 36.3; O2SAT 97
[2025-07-01] MEDS: MAGNESIUM SULF 1 GM/D5W 100 ML 1 GM/100 ML BAG IVPB (14:00)
[2025-07-01] MEDS: POTASSIUM CHLORIDE 20 MEQ PACKET (FOR LIQUID) 40 MEQ PO (14:12)
[2025-07-01] MEDS: SODIUM CHLORIDE 0.9% IV 1,000 ML 75 ML IV CONT (14:14)
[2025-07-01 22:00] VITALS: BP 139/87; PULSE 98; RESP 14; TEMP 36.3; O2SAT 99
[2025-07-01 23:24] VITALS: O2SAT 99
[2025-07-02] MEDS: SODIUM CHLORIDE 0.9% IV 1,000 ML 75 ML IV CONT ×3 (05:18→20:05)
[2025-07-02 05:40] VITALS: BP 137/87; PULSE 100; RESP 14; TEMP 36.2; O2SAT 100
[2025-07-02] MEDS: SUCRALFATE SUSP 100 MG/ML 10 ML UDC 1000 MG PO ×4 (05:42→20:06)
[2025-07-02 06:42] LABS: Hematocrit 28.2 % (37.0-47.0); Hemoglobin 9.3 g/dL (12.0-15.0); Immature Granulocyte Percent A 0.3 % (0-0.5); Lymphocytes Absolute Auto 0.84 K/mm3 (0.9-3.2); Mean Corpuscular HGB Conc 33.0 g/dl (32-36); Mean Corpuscular Hemoglobin 34.4 pg (26-34); Mean Corpuscular Volume 104.4 fl (80-100); Nucleated Red Blood Cells Absolute Auto 0.000 K/mm3 (0.0-0.012); Nucleated Red Blood Cells Perc 0.0 % (0.0-0.2); Platelet Count Result 320 k/mm3 (150-375); Red Blood Count 2.70 M/mm3 (4.2-5.4); White Blood Count 5.7 K/mm3 (4.5-10.0)
[2025-07-02 07:08] LABS: Alanine Aminotransferase 23 U/L (6-35); Albumin Level 2.5 g/dL (3.5-5.1); Alkaline Phosphatase 84 U/L (38-126); Anion Gap 1 mmol/L (4-12); Aspartate Amino Transferase 54 U/L (14-36); Bilirubin,Total 0.7 mg/dL (0.2-1.3); Blood Urea Nitrogen 6 mg/dL (7-17); Calcium 8.5 mg/dL (8.4-10.2); Carbon Dioxide 28 mmol/L (22-30); Chloride 101 mmol/L (98-107); Estimated CRCL calculation 106 ml/min; Estimated Glomerular Filt Rate > 60; Glucose 84 mg/dL (65-110); Magnesium 1.7 mg/dL (1.6-2.3); Potassium 3.6 mmol/L (3.4-5.0); Sodium 130 mmol/L (137-145); Total Protein 4.7 g/dL (6.3-8.2)
[2025-07-02] MEDS: THIAMINE HCL 100 MG TABLET PO (08:50)
[2025-07-02] MEDS: POTASSIUM CHLORIDE 10 MEQ ER TABLET PO (08:50)
[2025-07-02] MEDS: ENOXAPARIN 40 MG/0.4 ML SYRINGE SUB-Q (08:51)
[2025-07-02] MEDS: SODIUM CHLORIDE 1 GM TABLET PO ×2 (08:51→16:08)
[2025-07-02] MEDS: droNABinol (*CRX) 2.5 MG CAPSULE 5 MG PO ×2 (08:51→16:08)
[2025-07-02] MEDS: PYRIDOXINE HCL 50 MG TABLET 100 MG PO (08:51)
[2025-07-02] MEDS: MAGNESIUM OXIDE 400 MG TABLET PO (08:51)
[2025-07-02 10:20] LABS: Iron 33 ug/dL (37-170)
--- NOTE | 2025-07-02 10:24 | PCNFU ---
Nutrition Follow-Up Complete: Severe protein calorie malnutrition related to loss of appetite as evidenced by intakes <75% needs >1 month; weight loss 30%/4 months; severe muscle wasting and fat loss Improve PO intake at least 50% - Slow progress toward goal. Continue with same goal Goal: Pt current nutrition is Regular diet. Ensure +HP TID (350 kcal, 20 g protein) and nutritional ice cream TID (270 kcal, 9 g protein). Nutrition recommendation: No new recommendations. Continue current nutrition care plan and orders. Last recorded weight is 44.2 kg. Bowel Motility: +1 BM 07/02 Labs Reviewed: Hgb 9.3, Hct 28.2, Alb 2.5, Na 130, BUN 6, Cre 0.26 Meds Noted: Marinol, carafate, B6, thiamine Skin: No pressure injuries Additional Notes: Started on appetite stimulant. Intakes improving 25-100% last 24 hours. Pt does not want PEG tube per notes. Continue to monitor Monitoring intakes, weights, labs, supplement intake, plan of care Follow up in 3 days
[2025-07-02 10:30] LABS: Percent Iron Saturation 19 % (20-50)
[2025-07-02 11:01] LABS: Ferritin 584.00 ng/mL (11.1-264)
[2025-07-02 14:00] VITALS: BP 125/83; PULSE 96; RESP 14; TEMP 36.2; O2SAT 100
--- NOTE | 2025-07-02 18:48 | P.PNIM_ITS ---
Progress Note: A&P Assessment and Plan (1) Adult failure to thrive: Code(s): R62.7 - Adult failure to thrive Status: Acute Assessment and Plan: * FTT/Severe protein energy malnutrition * oral intake still poor * Pt does not have the mental capacity to agree to feeding tube. She does not have a designated POA. * On Dronabinol, monitor oral intake * Dietitian on board * Daily weights ordered. (2) Severe protein-calorie malnutrition: Code(s): E43 - Unspecified severe protein-calorie malnutrition Status: Acute Assessment and Plan: * See #1 (3) Hypomagnesemia: Code(s): E83.42 - Hypomagnesemia Status: Acute Assessment and Plan: Nutritional deficiency Mag today of point (4) Chronic hyponatremia: Code(s): E87.1 - Hypo-osmolality and hyponatremia Status: Acute Assessment and Plan: On admission sodium was 127, today 130 Patient is is cirrhosis patient, 130 sodium is normal IV fluid for hydration, dietary consult for malnutrition Discontinued salt tab (5) Syndrome of inappropriate ADH (SIADH) secretion: Code(s): E22.2 - Syndrome of inappropriate secretion of antidiuretic hormone Status: Acute Assessment and Plan: Follow urine osmolarity/urine sodium and/serum osmolarity BMP daily (6) Lactic acidosis: Code(s): E87.20 - Acidosis, unspecified Status: Resolved Assessment and Plan: * Resolved (7) Acute hypokalemia: Code(s): E87.6 - Hypokalemia Status: Acute Assessment and Plan: Potassium 3.6 today BMP daily (8) Transaminitis: Code(s): R74.01 - Elevation of levels of liver transaminase levels Status: Acute Assessment and Plan: Elevated liver enzyme MRI shows cirrhosis liver CEA elevated, liver biopsy negative for cancer GI consulted, appreciate recs Follow hepatic panel (9) Hyperbilirubinemia: Code(s): E80.6 - Other disorders of bilirubin metabolism Status: Acute Assessment and Plan: Total bili is normal (10) Elevated troponin: Code(s): R79.89 - Other specified abnormal findings of blood chemistry Status: Acute Assessment and Plan: * Trop was trended and was flat. (11) Cystitis: Code(s): N30.90 - Cystitis, unspecified without hematuria Status: Acute Assessment and Plan: UA shows leukocyte esterase and greater than 100 WBC ua Completed Rocephin (12) Lumbar compression fracture: Code(s): S32.000A - Wedge compression fracture of unspecified lumbar vertebra, initial encounter for closed fracture Status: Acute Assessment and Plan: * L5 compression * MRI reviewed * No pain, neurosurgery reviewed and no intervention at this time is needed. * Follow up with [facility] as outpt. Plan Assessment for placement Time Spent With Patient Time: 30 minute Subjective Date/time seen: 07/02/25 18:48 Interval history: Patient is confused. She is only oriented x1. No fever or chills, no abdominal distension ,no jaundice. She did have bowel movement today. Exam Narrative: APPEARANCE: Not in acute distress EYES: EOMI HEENT: Normocephalic, atraumatic, OMM RESPIRATORY: No respiratory distress Clear to auscultation bilaterally with no rhonchi wheezing or rales. CARDIOVASCULAR: RRR, S1 and S2 without murmurs rubs or gallops. ABDOMINAL: Soft, nontender, nondistended, no rebound or guarding MSK: bilateral feet edema. No jaundice NEURO: Oriented to person. Following commands, fluent speech SKIN:: Warm, dry. No rashes lesions or abrasions PSYCHIATRIC: Cooperative Objective Data Vital Signs Vital Signs: Vital Signs - 24 hr 07/01/25 22:00 07/01/25 23:24 07/02/25 05:40 Temperature 36.3 C L 36.2 C L Pulse Rate 98 100 Respiratory Rate 14 14 Blood Pressure 139/87 137/87 Pulse Oximetry 99 99 100 Oxygen Delivery Room Air 07/02/25 08:00 Temperature Pulse Rate Respiratory Rate Blood Pressure Pulse Oximetry Oxygen Delivery Room Air Intake/Output Intake/Output: Intake & Output 06/29/25 06/30/25 07/01/25 07/02/25 23:59 23:59 23:59 23:59 Intake Total 1340 2763.8 1700 2045.7 Output Total 1500 9312 251 0490 Balance -160 1763.8 1250 945.7 Meds/Results Medications: Active Medications Generic Name Dose Route Start Last Admin Trade Name Freq PRN Reason Stop Dose Admin Dronabinol 5 mg 06/29/25 17:05 07/02/25 16:08 Dronabinol (*Crx) 2.5 Mg Capsule PO 5 mg BID ELEAZAR Administration Enoxaparin Sodium 40 mg 06/27/25 09:00 07/02/25 08:51 Enoxaparin 40 Mg/0.4 Ml Syringe SUB-Q 40 mg DAILY LEEAZAR Administration Sodium Chloride 1,000 mls @ 75 mls/hr 06/28/25 08:15 07/02/25 05:41 Normal Saline Iv IV CONT 75 mls/hr .[id number] ELEAZAR Administration Lactulose 20 gm 07/03/25 09:00 Lactulose 20 Gm/30 Ml Udc PO QAM ELEAZAR Magnesium Oxide 400 mg 06/23/25 09:00 07/02/25 08:51 Magnesium Oxide 400 Mg Tablet PO 400 mg QAM ELEAZAR Administration Paroxetine HCl 10 mg 06/19/25 10:00 07/02/25 08:50 Paroxetine 10 Mg Tablet PO 10 mg DAILY ELEAZAR Administration Potassium Chloride 10 meq 06/19/25 10:00 07/02/25 08:50 Potassium Chloride 10 Meq Er Tablet PO 10 meq DAILY ELEAZAR Administration Pyridoxine HCl 100 mg 06/19/25 10:05 07/02/25 08:51 Pyridoxine Hcl 50 Mg Tablet PO 07/20/25 10:04 100 mg DAILY ELEAZAR Administration Sodium Chloride 1 gm 06/19/25 10:05 07/02/25 16:08 Sodium Chloride 1 Gm Tablet PO 1 gm BID ELEAZAR Administration Sucralfate 1,000 mg 06/18/25 21:00 07/02/25 16:07 Sucralfate Susp 100 Mg/Ml 10 Ml Udc PO 1,000 mg ACHS ELEAZAR Administration Thiamine HCl 100 mg 06/19/25 09:45 07/02/25 08:50 Thiamine Hcl 100 Mg Tablet PO 100 mg QAM ELEAZAR Administration Radiology Results: ITS Impressions Head CT 06/18/25 15:47 IMPRESSION: No acute intracranial process. Chest X-Ray 06/18/25 15:51 IMPRESSION: No acute cardiopulmonary process. Chest/Abdomen/Pelvis CT 06/18/25 17:06 IMPRESSION: Mild descending thoracic aortic ectasia. Scattered sub-6 mm pulmonary nodules, requiring no additional follow-up unless the patient is at high risk, in which case consider low-dose noncontrast CT of the chest in one year. Diffuse esophagitis. Moderate gastritis. Hepatomegaly. Hyperenhancing areas along the falciform ligament and gallbladder fossa may represent transient hepatic attenuation differences and/or irregular parenchymal enhancement from steatosis. No discrete mass identified. Recommend MRI of the liver. Hyperemic gallbladder wall may reflect a component of mild/early inflammatory change versus artifact from contrast phase. No biliary duct dilatation or inflammation to suggest cholangitis. Cystitis. Possible sacral soft tissue defect, correlate clinically for decubitus ulcer. Thoracic Spine CT 06/22/25 15:53 IMPRESSION: 1. No compression fracture in the thoracic spine. 2. Mild degenerative change scattered throughout the thoracic spine. If symptoms persist or worsen, consider an MRI of the thoracic spine for further assessment. Abdomen Ultrasound 06/23/25 10:17 IMPRESSION: 1: The liver is hyperechoic likely due to fatty infiltration and/or hepatocellul ar disease. 2. There is a 2.9 x 2.2 cm hypoechoic region in the left lobe of the liver. Differential includes focal fatty sparing versus liver mass. A liver mass MRI is recommended. Cervical Spine MRI 06/25/25 05:56 Impression: Mild degenerative spondylitic changes overall, as detailed above. Thoracic Spine MRI 06/25/25 05:59 Impression: No significant abnormality. Lumbar Spine MRI 06/25/25 06:01 Impression: Acute mild compression fracture at the superior endplate region of L5, as detailed above. Mild chronic compression deformity of L2, as detailed above. 6 mm retrolisthesis of L2 over L3. Moderate degenerative spondylosis overall throughout the lumbar spine, as above. Sacrum/Coccyx MRI 06/25/25 06:09 IMPRESSION: Acute, mild compression fracture deformity of L5, as above. No other significant findings. Abdomen MRI 06/26/25 09:24 IMPRESSION: 1. Diffuse hepatic steatosis with geographic region differing signal intensity on T1 and T2 imaging and without the signal loss on opposed phase imaging as a be seen with hepatic steatosis. This would be atypical pattern for focal fatty sparing however there is significant enhancement persisting well beyond all be expected for focal transient hepatic intensity difference which persists through the 5 and 10 minutes of imaging which would not be atypical feature for focal hepatic steatosis for which differential would include focal nodular hyperplasia or cholangiocarcinoma. Recommend ultrasound-guided biopsy for more definitive determination. 2. Acute to subacute L5 compression fracture. 3. Small right and tiny left pleural effusions. Liver Biopsy Ultrasound 06/29/25 12:43 IMPRESSION: 1. Successful Ultrasound-guided biopsy of an indeterminate hypoechoic region in segment 4A and 4B of the liver along the falciform ligament. Labs Labs: Laboratory Results - last 24 hr 07/02/25 07/02/25 05:59 06:02 WBC 5.7 RBC 2.70 L Hgb 9.3 L Hct 28.2 L MCV 104.4 H MCH 34.4 H MCHC 33.0 RDW 14.7 H Plt Count 320 MPV 10.0 Immature Gran % (Auto) 0.3 Neut % (Auto) 77.4 H Lymph % (Auto) 14.7 L [place] % (Auto) 5.4 Eos % (Auto) 1.9 Baso % (Auto) 0.3 Lymph # (Auto) 0.84 L [place] # (Auto) 0.3 Eos # (Auto) 0.1 Baso # (Auto) 0.0 Abs Immat Gran (auto) 0.02 Absolute Neuts (auto) 4.4 Absolute Nucleated RBC 0.000 Nucleated RBC % 0.0 Sodium 130 L Potassium 3.6 Chloride 101 Carbon Dioxide 28 Anion Gap 1 L BUN 6 L Creatinine 0.26 L Estim Creat Clear Calc 106 Estimated GFR > 60 Glucose 84 Calcium 8.5 Magnesium 1.7 Iron 33 L TIBC 173 L % Saturation 19 L Ferritin 584.00 H Total Bilirubin 0.7 AST 54 H ALT 23 Alkaline Phosphatase 84 Total Protein 4.7 L Albumin 2.5 L Quality VTE Prophylaxis VTE prophylaxis: pharmacologic ordered
[2025-07-02 20:45] VITALS: PULSE 88; RESP 16; O2SAT 100
[2025-07-02 21:51] VITALS: BP 126/88; PULSE 88; RESP 16; TEMP 36.7; O2SAT 100
[2025-07-03 05:43] VITALS: BP 144/98; PULSE 95; RESP 16; TEMP 36.4; O2SAT 99
[2025-07-03] MEDS: SUCRALFATE SUSP 100 MG/ML 10 ML UDC 1000 MG PO ×4 (06:02→21:37)
[2025-07-03] MEDS: SODIUM CHLORIDE 0.9% IV 1,000 ML 75 ML IV CONT ×2 (06:04→21:36)
[2025-07-03 06:21] LABS: Hematocrit 26.4 % (37.0-47.0); Hemoglobin 8.7 g/dL (12.0-15.0); Mean Corpuscular HGB Conc 33.0 g/dl (32-36); Mean Corpuscular Hemoglobin 34.4 pg (26-34); Mean Corpuscular Volume 104.3 fl (80-100); Platelet Count Result 302 k/mm3 (150-375); Red Blood Count 2.53 M/mm3 (4.2-5.4); White Blood Count 5.9 K/mm3 (4.5-10.0)
[2025-07-03 06:40] LABS: Alanine Aminotransferase 21 U/L (6-35); Albumin Level 2.5 g/dL (3.5-5.1); Alkaline Phosphatase 83 U/L (38-126); Anion Gap 3 mmol/L (4-12); Aspartate Amino Transferase 39 U/L (14-36); Bilirubin,Total 0.7 mg/dL (0.2-1.3); Blood Urea Nitrogen 6 mg/dL (7-17); Calcium 8.4 mg/dL (8.4-10.2); Carbon Dioxide 25 mmol/L (22-30); Chloride 100 mmol/L (98-107); Estimated CRCL calculation 126 ml/min; Estimated Glomerular Filt Rate > 60; Glucose 83 mg/dL (65-110); Potassium 3.5 mmol/L (3.4-5.0); Sodium 128 mmol/L (137-145); Total Protein 4.6 g/dL (6.3-8.2)
--- NOTE | 2025-07-03 08:36 | P.PNIM_ITS ---
Progress Note: A&P Assessment and Plan (1) Adult failure to thrive: Code(s): R62.7 - Adult failure to thrive Status: Acute Assessment and Plan: * FTT/Severe protein energy malnutrition * oral intake still poor * Pt does not have the mental capacity to agree to feeding tube. She does not have a designated POA. * On Dronabinol, monitor oral intake * Dietitian on board * Daily weights ordered. (2) Severe protein-calorie malnutrition: Code(s): E43 - Unspecified severe protein-calorie malnutrition Status: Acute Assessment and Plan: * See #1 (3) Hypomagnesemia: Code(s): E83.42 - Hypomagnesemia Status: Acute Assessment and Plan: Nutritional deficiency Mag today of point (4) Chronic hyponatremia: Code(s): E87.1 - Hypo-osmolality and hyponatremia Status: Acute Assessment and Plan: On admission sodium was 127, today 128 Patient is with cirrhosis, around 130 sodium is normal IV fluid for hydration, dietary consult for malnutrition ensure ordered (5) Syndrome of inappropriate ADH (SIADH) secretion: Code(s): E22.2 - Syndrome of inappropriate secretion of antidiuretic hormone Status: Acute Assessment and Plan: Follow urine osmolarity/urine sodium and/serum osmolarity BMP daily (6) Lactic acidosis: Code(s): E87.20 - Acidosis, unspecified Status: Resolved Assessment and Plan: * Resolved (7) Acute hypokalemia: Code(s): E87.6 - Hypokalemia Status: Acute Assessment and Plan: Potassium 3.5 today BMP daily (8) Transaminitis: Code(s): R74.01 - Elevation of levels of liver transaminase levels Status: Acute Assessment and Plan: Elevated liver enzyme MRI shows cirrhosis liver CEA elevated, liver biopsy negative for cancer GI consulted, appreciate recs Follow hepatic panel (9) Hyperbilirubinemia: Code(s): E80.6 - Other disorders of bilirubin metabolism Status: Acute Assessment and Plan: Total bili is normal (10) Elevated troponin: Code(s): R79.89 - Other specified abnormal findings of blood chemistry Status: Acute Assessment and Plan: * Trop was trended and was flat. (11) Cystitis: Code(s): N30.90 - Cystitis, unspecified without hematuria Status: Acute Assessment and Plan: UA shows leukocyte esterase and greater than 100 WBC ua Completed Rocephin (12) Lumbar compression fracture: Code(s): S32.000A - Wedge compression fracture of unspecified lumbar vertebra, initial encounter for closed fracture Status: Acute Assessment and Plan: * L5 compression * MRI reviewed * No pain, neurosurgery reviewed and no intervention at this time is needed. * Follow up with [facility] as outpt. (13) Iron deficiency anemia due to dietary causes: Code(s): D50.8 - Other iron deficiency anemias Status: Acute Assessment and Plan: Study shows% saturation 19,TIBC 173 and Iron33 Iron deficiency anemia and the setting of cirrhosis and poor nutritional status Start IV iron 300 mg daily for 3 days (14) Metabolic encephalopathy: Code(s): G93.41 - Metabolic encephalopathy Status: Acute Assessment and Plan: Likely secondary to UTI, poor nutritional status, worsening of cirrhosis Start lactulose, goal bowel movement 2-3 a day (15) Macrocytic anemia: Code(s): D53.9 - Nutritional anemia, unspecified Status: Acute Assessment and Plan: Vitamin B-12 all and folate is normal Likely secondary to cirrhosis Continue iron daily (16) Cirrhosis: Code(s): K74.60 - Unspecified cirrhosis of liver Status: Acute Assessment and Plan: GI consulted, recommend outpatient follow-up Outpatient plan for ultrasound every 6 months and AFB for hepatocellular carcinoma evaluation She might need FibroScan at some point Plan Assessment for placement Subjective Date/time seen: 07/03/25 08:36 Interval history: Oriented to only person. Denies any complaints. She sleeps in the bed comfortably. Had 2 bowel movement yesterday. Exam Narrative: APPEARANCE: Not in acute distress EYES: EOMI HEENT: Normocephalic, atraumatic, OMM RESPIRATORY: No respiratory distress Clear to auscultation bilaterally with no rhonchi wheezing or rales. CARDIOVASCULAR: RRR, S1 and S2 without murmurs rubs or gallops. ABDOMINAL: Soft, nontender, nondistended, no rebound or guarding MSK: bilateral feet edema. No jaundice NEURO: Oriented to person. Following commands, fluent speech SKIN:: Warm, dry. No rashes lesions or abrasions PSYCHIATRIC: Cooperative Objective Data Vital Signs Vital Signs: Vital Signs - 24 hr 07/02/25 14:00 07/02/25 20:45 07/02/25 21:51 Temperature 36.2 C L 36.7 C Pulse Rate 96 88 88 Respiratory Rate 14 16 16 Blood Pressure 125/83 126/88 Pulse Oximetry 100 100 100 Oxygen Delivery Room Air Fraction of Inspired Oxygen 21 07/03/25 05:43 Temperature 36.4 C Pulse Rate 95 Respiratory Rate 16 Blood Pressure 144/98 H Pulse Oximetry 99 Oxygen Delivery Fraction of Inspired Oxygen Intake/Output Intake/Output: Intake & Output 06/30/25 07/01/25 07/02/25 07/03/25 23:59 23:59 23:59 23:59 Intake Total 2763.8 1700 3165.7 798.7 Output Total 7352 657 0126 1000 Balance 1763.8 1250 2065.7 -201.3 Meds/Results Medications: Active Medications Generic Name Dose Route Start Last Admin Trade Name Freq PRN Reason Stop Dose Admin Dronabinol 5 mg 06/29/25 17:05 07/02/25 16:08 Dronabinol (*Crx) 2.5 Mg Capsule PO 5 mg BID ELEAZAR Administration Enoxaparin Sodium 40 mg 06/27/25 09:00 07/02/25 08:51 Enoxaparin 40 Mg/0.4 Ml Syringe SUB-Q 40 mg DAILY ELEAZAR Administration Sodium Chloride 1,000 mls @ 75 mls/hr 06/28/25 08:15 07/03/25 06:04 Normal Saline Iv IV CONT 75 mls/hr .[id number] ELEAZAR Administration Lactulose 20 gm 07/03/25 09:00 Lactulose 20 Gm/30 Ml Udc PO QAM ELEAZAR Magnesium Oxide 400 mg 06/23/25 09:00 07/02/25 08:51 Magnesium Oxide 400 Mg Tablet PO 400 mg QAM ELEAZAR Administration Paroxetine HCl 10 mg 06/19/25 10:00 07/02/25 08:50 Paroxetine 10 Mg Tablet PO 10 mg DAILY ELEAZAR Administration Potassium Chloride 10 meq 06/19/25 10:00 07/02/25 08:50 Potassium Chloride 10 Meq Er Tablet PO 10 meq DAILY ELEAZAR Administration Pyridoxine HCl 100 mg 06/19/25 10:05 07/02/25 08:51 Pyridoxine Hcl 50 Mg Tablet PO 07/20/25 10:04 100 mg DAILY ELEAZAR Administration Sodium Chloride 1 gm 06/19/25 10:05 07/02/25 16:08 Sodium Chloride 1 Gm Tablet PO 1 gm BID ELEAZAR Administration Sucralfate 1,000 mg 06/18/25 21:00 07/03/25 06:02 Sucralfate Susp 100 Mg/Ml 10 Ml Udc PO 1,000 mg ACHS ELEAZAR Administration Thiamine HCl 100 mg 06/19/25 09:45 07/02/25 08:50 Thiamine Hcl 100 Mg Tablet PO 100 mg QAM ELEAZAR Administration Radiology Results: ITS Impressions Head CT 06/18/25 15:47 IMPRESSION: No acute intracranial process. Chest X-Ray 06/18/25 15:51 IMPRESSION: No acute cardiopulmonary process. Chest/Abdomen/Pelvis CT 06/18/25 17:06 IMPRESSION: Mild descending thoracic aortic ectasia. Scattered sub-6 mm pulmonary nodules, requiring no additional follow-up unless the patient is at high risk, in which case consider low-dose noncontrast CT of the chest in one year. Diffuse esophagitis. Moderate gastritis. Hepatomegaly. Hyperenhancing areas along the falciform ligament and gallbladder fossa may represent transient hepatic attenuation differences and/or irregular parenchymal enhancement from steatosis. No discrete mass identified. Recommend MRI of the liver. Hyperemic gallbladder wall may reflect a component of mild/early inflammatory change versus artifact from contrast phase. No biliary duct dilatation or inflammation to suggest cholangitis. Cystitis. Possible sacral soft tissue defect, correlate clinically for decubitus ulcer. Thoracic Spine CT 06/22/25 15:53 IMPRESSION: 1. No compression fracture in the thoracic spine. 2. Mild degenerative change scattered throughout the thoracic spine. If symptoms persist or worsen, consider an MRI of the thoracic spine for further assessment. Abdomen Ultrasound 06/23/25 10:17 IMPRESSION: 1: The liver is hyperechoic likely due to fatty infiltration and/or hepatocellular disease. 2. There is a 2.9 x 2.2 cm hypoechoic region in the left lobe of the liver. Differential includes focal fatty sparing versus liver mass. A liver mass MRI is recommended. Cervical Spine MRI 06/25/25 05:56 Impression: Mild degenerative spondylitic changes overall, as detailed above. Thoracic Spine MRI 06/25/25 05:59 Impression: No significant abnormality. Lumbar Spine MRI 06/25/25 06:01 Impression: Acute mild compression fracture at the superior endplate region of L5, as detailed above. Mild chronic compression deformity of L2, as detailed above. 6 mm retrolisthesis of L2 over L3. Moderate degenerative spondylosis overall throughout the lumbar spine, as above. Sacrum/Coccyx MRI 06/25/25 06:09 IMPRESSION: Acute, mild compression fracture deformity of L5, as above. No other significant findings. Abdomen MRI 06/26/25 09:24 IMPRESSION: 1. Diffuse hepatic steatosis with geographic region differing signal intensity on T1 and T2 imaging and without the signal loss on opposed phase imaging as a be seen with hepatic steatosis. This would be atypical pattern for focal fatty sparing however there is significant enhancement persisting well beyond all be expected for focal transient hepatic intensity difference which persists through the 5 and 10 minutes of imaging which would not be atypical feature for focal hepatic steatosis for which differential would include focal nodular hyperplasia or cholangiocarcinoma. Recommend ultrasound-guided biopsy for more definitive determination. 2. Acute to subacute L5 compression fracture. 3. Small right and tiny left pleural effusions. Liver Biopsy Ultrasound 06/29/25 12:43 IMPRESSION: 1. Successful Ultrasound-guided biopsy of an indeterminate hypoechoic region in segment 4A and 4B of the liver along the falciform ligament. Labs Labs: Laboratory Results - last 24 hr 07/02/25 07/02/25 07/03/25 05:59 20:59 05:56 WBC 5.9 RBC 2.53 L Hgb 8.7 L Hct 26.4 L MCV 104.3 H MCH 34.4 H MCHC 33.0 RDW 14.8 H Plt Count 302 MPV 9.7 Sodium 128 L Potassium 3.5 Chloride 100 Carbon Dioxide 25 Anion Gap 3 L BUN 6 L Creatinine 0.22 L Estim Creat Clear Calc 126 Estimated GFR > 60 Glucose 83 Calcium 8.4 Iron 33 L TIBC 173 L % Saturation 19 L Ferritin 584.00 H Total Bilirubin 0.7 AST 39 H ALT 21 Alkaline Phosphatase 83 Total Protein 4.6 L Albumin 2.5 L Ur Random Sodium 219 Quality VTE Prophylaxis VTE prophylaxis: pharmacologic ordered
[2025-07-03] MEDS: droNABinol (*CRX) 2.5 MG CAPSULE 5 MG PO ×2 (10:25→17:31)
[2025-07-03] MEDS: LACTULOSE 20 GM/30 ML UDC PO (10:26)
[2025-07-03] MEDS: THIAMINE HCL 100 MG TABLET PO (10:26)
[2025-07-03] MEDS: ENOXAPARIN 40 MG/0.4 ML SYRINGE SUB-Q (10:26)
[2025-07-03] MEDS: MAGNESIUM OXIDE 400 MG TABLET PO (10:26)
[2025-07-03] MEDS: IRON SUCROSE COMPLEX 300 MG in SODIUM CHLORIDE 0.9% IV 250 ML 176.67 MG IVPB (10:26)
[2025-07-03] MEDS: SODIUM CHLORIDE 1 GM TABLET PO ×2 (10:26→17:31)
[2025-07-03] MEDS: POTASSIUM CHLORIDE 10 MEQ ER TABLET PO (10:27)
[2025-07-03] MEDS: PYRIDOXINE HCL 50 MG TABLET 100 MG PO (10:27)
[2025-07-03 14:00] VITALS: BP 122/86; PULSE 95; RESP 18; TEMP 36.6; O2SAT 100
[2025-07-03 20:14] VITALS: BP 140/88; PULSE 83; RESP 18; TEMP 36.9; O2SAT 96
[2025-07-04 04:52] VITALS: BP 134/91; PULSE 73; RESP 16; TEMP 36.7; O2SAT 99
[2025-07-04] MEDS: SUCRALFATE SUSP 100 MG/ML 10 ML UDC 1000 MG PO ×4 (05:49→20:27)
[2025-07-04 05:53] LABS: Hematocrit 27.9 % (37.0-47.0); Hemoglobin 9.3 g/dL (12.0-15.0); Mean Corpuscular HGB Conc 33.3 g/dl (32-36); Mean Corpuscular Hemoglobin 34.1 pg (26-34); Mean Corpuscular Volume 102.2 fl (80-100); Platelet Count Result 287 k/mm3 (150-375); Red Blood Count 2.73 M/mm3 (4.2-5.4); White Blood Count 5.1 K/mm3 (4.5-10.0)
[2025-07-04 06:17] LABS: Alanine Aminotransferase 21 U/L (6-35); Albumin Level 2.6 g/dL (3.5-5.1); Alkaline Phosphatase 85 U/L (38-126); Anion Gap 2 mmol/L (4-12); Aspartate Amino Transferase 41 U/L (14-36); Bilirubin,Total 0.8 mg/dL (0.2-1.3); Blood Urea Nitrogen 3 mg/dL (7-17); Calcium 8.6 mg/dL (8.4-10.2); Carbon Dioxide 28 mmol/L (22-30); Chloride 98 mmol/L (98-107); Estimated CRCL calculation 128 ml/min; Estimated Glomerular Filt Rate > 60; Glucose 87 mg/dL (65-110); Potassium 3.1 mmol/L (3.4-5.0); Sodium 128 mmol/L (137-145); Total Protein 4.8 g/dL (6.3-8.2)
[2025-07-04] MEDS: THIAMINE HCL 100 MG TABLET PO (09:57)
[2025-07-04] MEDS: SODIUM CHLORIDE 1 GM TABLET PO ×2 (09:57→16:51)
[2025-07-04] MEDS: PYRIDOXINE HCL 50 MG TABLET 100 MG PO (09:57)
[2025-07-04] MEDS: IRON SUCROSE COMPLEX 300 MG in SODIUM CHLORIDE 0.9% IV 250 ML 176.67 MG IVPB (09:57)
[2025-07-04] MEDS: droNABinol (*CRX) 2.5 MG CAPSULE 5 MG PO ×2 (09:57→16:51)
[2025-07-04] MEDS: LACTULOSE 20 GM/30 ML UDC PO (09:57)
[2025-07-04] MEDS: POTASSIUM CHLORIDE 10 MEQ ER TABLET PO (09:58)
[2025-07-04] MEDS: ENOXAPARIN 40 MG/0.4 ML SYRINGE SUB-Q (09:58)
[2025-07-04] MEDS: MAGNESIUM OXIDE 400 MG TABLET PO (09:58)
--- NOTE | 2025-07-04 11:25 | P.PNIM_ITS ---
Progress Note: A&P Assessment and Plan (1) Adult failure to thrive: Code(s): R62.7 - Adult failure to thrive Status: Acute Assessment and Plan: * FTT/Severe protein energy malnutrition * oral intake still poor * Pt does not have the mental capacity to agree to feeding tube. She does not have a designated POA. * On Dronabinol, monitor oral intake * Dietitian on board * Daily weights ordered. (2) Severe protein-calorie malnutrition: Code(s): E43 - Unspecified severe protein-calorie malnutrition Status: Acute Assessment and Plan: * See #1 (3) Hypomagnesemia: Code(s): E83.42 - Hypomagnesemia Status: Acute Assessment and Plan: Nutritional deficiency Mag 1.7 07/02 check Mag today (4) Chronic hyponatremia: Code(s): E87.1 - Hypo-osmolality and hyponatremia Status: Acute Assessment and Plan: On admission sodium was 127, today 128 Patient is with cirrhosis, around 130 sodium is normal IV fluid for hydration, dietary consult for malnutrition ensure ordered (5) Syndrome of inappropriate ADH (SIADH) secretion: Code(s): E22.2 - Syndrome of inappropriate secretion of antidiuretic hormone Status: Acute Assessment and Plan: Follow urine osmolarity/urine sodium and/serum osmolarity BMP daily (6) Lactic acidosis: Code(s): E87.20 - Acidosis, unspecified Status: Resolved Assessment and Plan: * Resolved (7) Acute hypokalemia: Code(s): E87.6 - Hypokalemia Status: Acute Assessment and Plan: Potassium 3.1 today give 40 mEq potassium chloride BMP daily (8) Transaminitis: Code(s): R74.01 - Elevation of levels of liver transaminase levels Status: Acute Assessment and Plan: Elevated liver enzyme MRI shows cirrhosis liver CEA elevated, liver biopsy negative for cancer GI consulted, appreciate recs Follow hepatic panel (9) Hyperbilirubinemia: Code(s): E80.6 - Other disorders of bilirubin metabolism Status: Acute Assessment and Plan: Total bili is normal (10) Elevated troponin: Code(s): R79.89 - Other specified abnormal findings of blood chemistry Status: Acute Assessment and Plan: * Trop was trended and was flat. (11) Cystitis: Code(s): N30.90 - Cystitis, unspecified without hematuria Status: Acute Assessment and Plan: UA shows leukocyte esterase and greater than 100 WBC ua Completed Rocephin (12) Lumbar compression fracture: Code(s): S32.000A - Wedge compression fracture of unspecified lumbar vertebra, initial encounter for closed fracture Status: Acute Assessment and Plan: * L5 compression * MRI reviewed * No pain, neurosurgery reviewed and no intervention at this time is needed. * Follow up with NeuroSgy as outpt. (13) Iron deficiency anemia due to dietary causes: Code(s): D50.8 - Other iron deficiency anemias Status: Acute Assessment and Plan: Study shows% saturation 19,TIBC 173 and Iron33 Iron deficiency anemia and the setting of cirrhosis and poor nutritional status IV iron 300 mg daily for 3 days (14) Metabolic encephalopathy: Code(s): G93.41 - Metabolic encephalopathy Status: Acute Assessment and Plan: Likely secondary to UTI, poor nutritional status, worsening of cirrhosis Start lactulose, goal bowel movement 2-3 a day (15) Macrocytic anemia: Code(s): D53.9 - Nutritional anemia, unspecified Status: Acute Assessment and Plan: Vitamin B-12 all and folate is normal Likely secondary to cirrhosis Continue iron daily supplemental protein is added (16) Cirrhosis: Code(s): K74.60 - Unspecified cirrhosis of liver Status: Acute Assessment and Plan: GI consulted, recommend outpatient follow-up Outpatient plan for ultrasound every 6 months and AFB for hepatocellular carcinoma evaluation She might need FibroScan at some point Plan Assessment for placement- home with his home halls or SNF Time Spent With Patient Time: 20 minutes Subjective Date/time seen: 07/04/25 11:25 Interval history: only oriented to person. she reports lack of appetite. she does not eat more than 10% of her meal. no fever or chills. Exam Narrative: APPEARANCE: Not in acute distress EYES: EOMI HEENT: Normocephalic, atraumatic, OMM RESPIRATORY: No respiratory distress Clear to auscultation bilaterally with no rhonchi wheezing or rales. CARDIOVASCULAR: RRR, S1 and S2 without murmurs rubs or gallops. ABDOMINAL: Soft, nontender, nondistended, no rebound or guarding MSK: bilateral feet edema. No jaundice NEURO: Oriented to person. Following commands, fluent speech SKIN:: Warm, dry. No rashes lesions or abrasions PSYCHIATRIC: Cooperative Objective Data Vital Signs Vital Signs: Vital Signs - 24 hr 07/03/25 14:00 07/03/25 20:00 07/03/25 20:14 Temperature 36.6 C 36.9 C Pulse Rate 95 83 Respiratory Rate 18 18 Blood Pressure 122/86 140/88 Pulse Oximetry 100 96 Oxygen Delivery Room Air 07/04/25 04:52 Temperature 36.7 C Pulse Rate 73 Respiratory Rate 16 Blood Pressure 134/91 H Pulse Oximetry 99 Oxygen Delivery Intake/Output Intake/Output: Intake & Output 07/01/25 07/02/25 07/03/25 07/04/25 23:59 23:59 23:59 23:59 Intake Total 1700 3165.7 2603.7 100 Output Total 450 1100 2350 1650 Balance 1250 2065.7 253.7 -1550 Meds/Results Medications: Active Medications Generic Name Dose Route Start Last Admin Trade Name Freq PRN Reason Stop Dose Admin Dronabinol 5 mg 06/29/25 17:05 07/04/25 09:57 Dronabinol (*Crx) 2.5 Mg Capsule PO 5 mg BID ELEAZAR Administration Enoxaparin Sodium 40 mg 06/27/25 09:00 07/04/25 09:58 Enoxaparin 40 Mg/0.4 Ml Syringe SUB-Q 40 mg DAILY ELEAZAR Administration Sodium Chloride 1,000 mls @ 75 mls/hr 06/28/25 08:15 07/03/25 21:36 Normal Saline Iv IV CONT 75 mls/hr .[id number] ELEAZAR Administration Iron Sucrose 300 mg/ Sodium 265 mls @ 176.667 mls/hr 07/03/25 09:00 07/04/25 09:57 Chloride IVPB 176.67 mls/hr DAILY ELEAZAR Administration Lactulose 20 gm 07/03/25 09:00 07/04/25 09:57 Lactulose 20 Gm/30 Ml Udc PO 20 gm QAM ELEAZAR Administration Magnesium Oxide 400 mg 06/23/25 09:00 07/04/25 09:58 Magnesium Oxide 400 Mg Tablet PO 400 mg QAM ELEAZAR Administration Paroxetine HCl 10 mg 06/19/25 10:00 07/04/25 09:58 Paroxetine 10 Mg Tablet PO 10 mg DAILY ELEAZAR Administration Potassium Chloride 10 meq 06/19/25 10:00 07/04/25 09:58 Potassium Chloride 10 Meq Er Tablet PO 10 meq DAILY ELEAZAR Administration Pyridoxine HCl 100 mg 06/19/25 10:05 07/04/25 09:57 Pyridoxine Hcl 50 Mg Tablet PO 07/20/25 10:04 100 mg DAILY ELEAZAR Administration Sodium Chloride 1 gm 06/19/25 10:05 07/04/25 09:57 Sodium Chloride 1 Gm Tablet PO 1 gm BID ELEAZAR Administration Sucralfate 1,000 mg 06/18/25 21:00 07/04/25 05:49 Sucralfate Susp 100 Mg/Ml 10 Ml Udc PO 1,000 mg ACHS ELEAZAR Administration Thiamine HCl 100 mg 06/19/25 09:45 07/04/25 09:57 Thiamine Hcl 100 Mg Tablet PO 100 mg QAM ELEAZAR Administration Radiology Results: ITS Impressions Head CT 06/18/25 15:47 IMPRESSION: No acute intracranial process. Chest X-Ray 06/18/25 15:51 IMPRESSION: No acute cardiopulmonary process. Chest/Abdomen/Pelvis CT 06/18/25 17:06 IMPRESSION: Mild descending thoracic aortic ectasia. Scattered sub-6 mm pulmonary nodules, requiring no additional follow-up unless the patient is at high risk, in which case consider low-dose noncontrast CT of the chest in one year. Diffuse esophagitis. Moderate gastritis. Hepatomegaly. Hyperenhancing areas along the falciform ligament and gallbladder fossa may represent transient hepatic attenuation differences and/or irregular parenchymal enhancement from steatosis. No discrete mass identified. Recommend MRI of the liver. Hyperemic gallbladder wall may reflect a component of mild/early inflammatory change versus artifact from contrast phase. No biliary duct dilatation or inflammation to suggest cholangitis. Cystitis. Possible sacral soft tissue defect, correlate clinically for decubitus ulcer. Thoracic Spine CT 06/22/25 15:53 IMPRESSION: 1. No compression fracture in the thoracic spine. 2. Mild degenerative change scattered throughout the thoracic spine. If symptoms persist or worsen, consider an MRI of the thoracic spine for further assessment. Abdomen Ultrasound 06/23/25 10:17 IMPRESSION: 1: The liver is hyperechoic likely due to fatty infiltration and/or hepatocellular disease. 2. There is a 2.9 x 2.2 cm hypoechoic region in the left lobe of the liver. Differential includes focal fatty sparing versus liver mass. A liver mass MRI is recommended. Cervical Spine MRI 06/25/25 05:56 Impression: Mild degenerative spondylitic changes overall, as detailed above. Thoracic Spine MRI 06/25/25 05:59 Impression: No significant abnormality. Lumbar Spine MRI 06/25/25 06:01 Impression: Acute mild compression fracture at the superior endplate region of L5, as detailed above. Mild chronic compression deformity of L2, as detailed above. 6 mm retrolisthesis of L2 over L3. Moderate degenerative spondylosis overall throughout the lumbar spine, as above. Sacrum/Coccyx MRI 06/25/25 06:09 IMPRESSION: Acute, mild compression fracture deformity of L5, as above. No other significant findings. Abdomen MRI 06/26/25 09:24 IMPRESSION: 1. Diffuse hepatic steatosis with geographic region differing signal intensity on T1 and T2 imaging and without the signal loss on opposed phase imaging as a be seen with hepatic steatosis. This would be atypical pattern for focal fatty sparing however there is significant enhancement persisting well beyond all be expected for focal transient hepatic intensity difference which persists through the 5 and 10 minutes of imaging which would not be atypical feature for focal hepatic steatosis for which differential would include focal nodular hyperplasia or cholangiocarcinoma. Recommend ultrasound-guided biopsy for more definitive determination. 2. Acute to subacute L5 compression fracture. 3. Small right and tiny left pleural effusions. Liver Biopsy Ultrasound 06/29/25 12:43 IMPRESSION: 1. Successful Ultrasound-guided biopsy of an indeterminate hypoechoic region in segment 4A and 4B of the liver along the falciform ligament. Labs Labs: Laboratory Results - last 24 hr 07/04/25 05:41 WBC 5.1 RBC 2.73 L Hgb 9.3 L Hct 27.9 L MCV 102.2 H MCH 34.1 H MCHC 33.3 RDW 14.6 H Plt Count 287 MPV 9.5 Sodium 128 L Potassium 3.1 L Chloride 98 Carbon Dioxide 28 Anion Gap 2 L BUN 3 L Creatinine 0.22 L Estim Creat Clear Calc 128 Estimated GFR > 60 Glucose 87 Calcium 8.6 Total Bilirubin 0.8 AST 41 H ALT 21 Alkaline Phosphatase 85 Total Protein 4.8 L Albumin 2.6 L Quality VTE Prophylaxis VTE prophylaxis: pharmacologic ordered ( Lovenox)
[2025-07-04] MEDS: POTASSIUM CHLORIDE 20 MEQ ER TABLET 40 MEQ PO (11:45)
[2025-07-04] MEDS: SODIUM CHLORIDE 0.9% IV 1,000 ML 75 ML IV CONT (13:38)
--- NOTE | 2025-07-04 13:49 | PCNFU ---
Nutrition Follow-Up Complete: Severe protein calorie malnutrition related to loss of appetite as evidenced by intakes <75% needs >1 month; weight loss 30%/4 months; severe muscle wasting and fat loss Goal:Improve PO intake at least 50% Pt not meeting goal Pt current nutrition is Regular, Ensure BID, nutrition ice cream BID. Nutrition recommendation: Increase Ensure to TID Last recorded weight is 46.5 kg. Bowel Motility: +BM 07/04 Labs Reviewed: Hgb:9.3, HCT:27.9, Alb:2.6, Na:128, K:3.1, BUN:3, Cr:0.2 Meds Noted: KCL, lovenox, marinol Skin: WNL Additional Notes: Pt continues on a regular diet, intake 25% of meals. Family states she drinks the ensure fairly well, will increase to TID. Monitoring intakes, weights, labs, supplement intake, plan of care Follow up in 5 days
[2025-07-04 14:00] VITALS: BP 127/92; PULSE 92; RESP 16; TEMP 37; O2SAT 100
[2025-07-04 17:33] LABS: Potassium 3.5 mmol/L (3.4-5.0)
[2025-07-04 21:21] VITALS: BP 125/90; PULSE 106; RESP 20; TEMP 37.1; O2SAT 100
[2025-07-05] MEDS: SODIUM CHLORIDE 0.9% IV 1,000 ML 75 ML IV CONT (03:20)
[2025-07-05 05:44] LABS: Hematocrit 27.1 % (37.0-47.0); Hemoglobin 9.1 g/dL (12.0-15.0); Mean Corpuscular HGB Conc 33.6 g/dl (32-36); Mean Corpuscular Hemoglobin 34.2 pg (26-34); Mean Corpuscular Volume 101.9 fl (80-100); Platelet Count Result 308 k/mm3 (150-375); Red Blood Count 2.66 M/mm3 (4.2-5.4); White Blood Count 5.9 K/mm3 (4.5-10.0)
[2025-07-05] MEDS: SUCRALFATE SUSP 100 MG/ML 10 ML UDC 1000 MG PO ×2 (05:44→11:39)
[2025-07-05 06:00] VITALS: BP 149/95; PULSE 94; RESP 20; TEMP 36.8; O2SAT 97
[2025-07-05 06:13] LABS: Alanine Aminotransferase 20 U/L (6-35); Albumin Level 2.6 g/dL (3.5-5.1); Alkaline Phosphatase 85 U/L (38-126); Anion Gap 1 mmol/L (4-12); Aspartate Amino Transferase 37 U/L (14-36); Bilirubin,Total 0.8 mg/dL (0.2-1.3); Blood Urea Nitrogen 3 mg/dL (7-17); Calcium 8.6 mg/dL (8.4-10.2); Carbon Dioxide 27 mmol/L (22-30); Chloride 101 mmol/L (98-107); Estimated CRCL calculation 130 ml/min; Estimated Glomerular Filt Rate > 60; Glucose 85 mg/dL (65-110); Magnesium 1.5 mg/dL (1.6-2.3); Potassium 3.2 mmol/L (3.4-5.0); Sodium 129 mmol/L (137-145); Total Protein 4.8 g/dL (6.3-8.2)
[2025-07-05] MEDS: droNABinol (*CRX) 2.5 MG CAPSULE 5 MG PO (09:19)
[2025-07-05] MEDS: PYRIDOXINE HCL 50 MG TABLET 100 MG PO (09:20)
[2025-07-05] MEDS: POTASSIUM CHLORIDE 20 MEQ ER TABLET 40 MEQ PO (09:20)
[2025-07-05] MEDS: SODIUM CHLORIDE 1 GM TABLET PO (09:20)
[2025-07-05] MEDS: ENOXAPARIN 40 MG/0.4 ML SYRINGE SUB-Q (09:20)
[2025-07-05] MEDS: MAGNESIUM OXIDE 400 MG TABLET PO (09:20)
[2025-07-05] MEDS: LACTULOSE 20 GM/30 ML UDC PO (09:20)
[2025-07-05] MEDS: THIAMINE HCL 100 MG TABLET PO (09:20)
[2025-07-05] MEDS: IRON SUCROSE COMPLEX 300 MG in SODIUM CHLORIDE 0.9% IV 250 ML 176.67 MG IVPB (09:21)
[2025-07-05] MEDS: MAGNESIUM SULFATE IV CONT (11:31)
[2025-07-05] MEDS: THIAMINE HCL IV CONT (11:31)
[2025-07-05] MEDS: FOLIC ACID IV CONT (11:31)
[2025-07-05] MEDS: [UNRECOGNIZED DRUG - OTHER] IV CONT (11:31)
--- NOTE | 2025-07-05 12:38 | P.PNIM_ITS ---
Progress Note: A&P Assessment and Plan (1) Adult failure to thrive: Code(s): R62.7 - Adult failure to thrive Status: Acute Assessment and Plan: * FTT/Severe protein energy malnutrition * oral intake still poor * Pt does not have the mental capacity to agree to feeding tube. She does not have a designated POA. * On Dronabinol, monitor oral intake * Dietitian on board * Daily weights ordered. * Banana bag today (2) Severe protein-calorie malnutrition: Code(s): E43 - Unspecified severe protein-calorie malnutrition Status: Acute Assessment and Plan: * See #1 (3) Hypomagnesemia: Code(s): E83.42 - Hypomagnesemia Status: Acute Assessment and Plan: Nutritional deficiency Mag 1.5 07/05 Replace per protocol (4) Chronic hyponatremia: Code(s): E87.1 - Hypo-osmolality and hyponatremia Status: Acute Assessment and Plan: On admission sodium was 127, today 128 Patient is with cirrhosis, around 130 sodium is normal IV fluid for hydration, dietary consult for malnutrition She did not finish her breakfast, Ensure supplement Will give her slow IV folic/Thiamine/MAg (5) Syndrome of inappropriate ADH (SIADH) secretion: Code(s): E22.2 - Syndrome of inappropriate secretion of antidiuretic hormone Status: Acute Assessment and Plan: Follow urine osmolarity/urine sodium and/serum osmolarity BMP daily (6) Lactic acidosis: Code(s): E87.20 - Acidosis, unspecified Status: Resolved Assessment and Plan: * Resolved (7) Acute hypokalemia: Code(s): E87.6 - Hypokalemia Status: Acute Assessment and Plan: Potassium 3.2 today On replacement protocol BMP daily (8) Transaminitis: Code(s): R74.01 - Elevation of levels of liver transaminase levels Status: Acute Assessment and Plan: Elevated liver enzyme MRI shows cirrhosis liver CEA elevated, liver biopsy negative for cancer GI consulted, appreciate recs Follow hepatic panel (9) Hyperbilirubinemia: Code(s): E80.6 - Other disorders of bilirubin metabolism Status: Acute Assessment and Plan: Total bili is normal (10) Elevated troponin: Code(s): R79.89 - Other specified abnormal findings of blood chemistry Status: Acute Assessment and Plan: * Trop was trended and was flat. (11) Cystitis: Code(s): N30.90 - Cystitis, unspecified without hematuria Status: Acute Assessment and Plan: UA shows leukocyte esterase and greater than 100 WBC ua Completed Rocephiflorencio (12) Lumbar compression fracture: Code(s): S32.000A - Wedge compression fracture of unspecified lumbar vertebra, initial encounter for closed fracture Status: Acute Assessment and Plan: * L5 compression * MRI reviewed * No pain, neurosurgery reviewed and no intervention at this time is needed. * Follow up with [facility] as outpt. (13) Iron deficiency anemia due to dietary causes: Code(s): D50.8 - Other iron deficiency anemias Status: Acute Assessment and Plan: Study shows% saturation 19,TIBC 173 and Iron33 Iron deficiency anemia and the setting of cirrhosis and poor nutritional status Completed thee doses of IV iron (14) Metabolic encephalopathy: Code(s): G93.41 - Metabolic encephalopathy Status: Acute Assessment and Plan: Likely secondary to UTI, poor nutritional status, worsening of cirrhosis Continue lactulose, goal bowel movement 2-3 a day (15) Macrocytic anemia: Code(s): D53.9 - Nutritional anemia, unspecified Status: Acute Assessment and Plan: Vitamin B-12 all and folate is normal Likely secondary to cirrhosis Continue iron daily supplemental protein is added (16) Cirrhosis: Code(s): K74.60 - Unspecified cirrhosis of liver Status: Acute Assessment and Plan: GI consulted, recommend outpatient follow-up Outpatient plan for ultrasound every 6 months and AFB for hepatocellular carcinoma evaluation She might need FibroScan at some point Plan Assessment for placement- home with his home halls or SNF Pending insurance authorization Time Spent With Patient Time: 35 minutes Subjective Date/time seen: 07/05/25 12:38 Interval history: Fiorella is a more awake today. Shows oriented to person and time. She recognized her boyfriend today. She is more conversant. She did have bowel movement overnight. No fever or chills. Review of Systems Review of Systems: All systems reviewed & are unremarkable except as noted in HPI and below Exam Narrative: APPEARANCE: Not in acute distress EYES: EOMI HEENT: Normocephalic, atraumatic, OMM RESPIRATORY: No respiratory distress Clear to auscultation bilaterally with no rhonchi wheezing or rales. CARDIOVASCULAR: RRR, S1 and S2 without murmurs rubs or gallops. ABDOMINAL: Soft, nontender, nondistended, no rebound or guarding MSK: bilateral feet edema. No jaundice NEURO: Oriented to person. Following commands, fluent speech SKIN:: Warm, dry. No rashes lesions or abrasions PSYCHIATRIC: Cooperative Objective Data Vital Signs Vital Signs: Vital Signs - 24 hr 07/04/25 14:00 07/04/25 20:00 07/04/25 21:21 Temperature 37.0 C 37.1 C Pulse Rate 92 106 H Respiratory Rate 16 20 Blood Pressure 127/92 H 125/90 Pulse Oximetry 100 100 Oxygen Delivery Room Air 07/05/25 06:00 07/05/25 08:00 Temperature 36.8 C Pulse Rate 94 Respiratory Rate 20 Blood Pressure 149/95 H Pulse Oximetry 97 Oxygen Delivery Room Air Intake/Output Intake/Output: Intake & Output 07/02/25 07/03/25 07/04/25 07/05/25 23:59 23:59 23:59 23:59 Intake Total 3165.7 2603.7 2395 1080 Output Total 1100 2350 2250 800 Balance 2065.7 253.7 145 280 Meds/Results Medications: Active Medications Generic Name Dose Route Start Last Admin Trade Name Freq PRN Reason Stop Dose Admin Dronabinol 5 mg 06/29/25 17:05 07/05/25 09:19 Dronabinol (*Crx) 2.5 Mg Capsule PO 5 mg BID ELEAZAR Administration Enoxaparin Sodium 40 mg 06/27/25 09:00 07/05/25 09:20 Enoxaparin 40 Mg/0.4 Ml Syringe SUB-Q 40 mg DAILY ELEAZAR Administration Sodium Chloride 1,000 mls @ 75 mls/hr 06/28/25 08:15 07/05/25 03:20 Normal Saline Iv IV CONT 75 mls/hr .[id number] ELEAZAR Administration Iron Sucrose 300 mg/ Sodium 265 mls @ 176.667 mls/hr 07/03/25 09:00 07/05/25 09:21 Chloride IVPB 176.67 mls/hr DAILY ELEAZAR Administration Thiamine HCl 100 mg/ Folic 1,015.2 mls @ 125 mls/hr 07/05/25 08:28 07/05/25 11:31 Acid 1 mg/ Magnesium Sulfate 2 IV CONT 07/05/25 16:35 125 mls/hr gm/ Multivitamins 5 ml/ .[id number] ONE Administration Multivitamins 5 ml/ Dextrose/ Lactated Ringer's Lactulose 20 gm 07/03/25 09:00 07/05/25 09:20 Lactulose 20 Gm/30 Ml Udc PO 20 gm QAM ELEAZAR Administration Magnesium Oxide 400 mg 06/23/25 09:00 07/05/25 09:20 Magnesium Oxide 400 Mg Tablet PO 400 mg QAM ELEAZAR Administration Paroxetine HCl 10 mg 06/19/25 10:00 07/05/25 09:20 Paroxetine 10 Mg Tablet PO 10 mg DAILY ELEAZAR Administration Potassium Chloride 40 meq 07/04/25 11:35 07/05/25 09:20 Potassium Chloride 20 Meq Er Tablet PO 40 meq DAILY ELEAZAR Administration Pyridoxine HCl 100 mg 06/19/25 10:05 07/05/25 09:20 Pyridoxine Hcl 50 Mg Tablet PO 07/20/25 10:04 100 mg DAILY ELEAZAR Administration Sodium Chloride 1 gm 06/19/25 10:05 07/05/25 09:20 Sodium Chloride 1 Gm Tablet PO 1 gm BID ELEAZAR Administration Sucralfate 1,000 mg 06/18/25 21:00 07/05/25 11:39 Sucralfate Susp 100 Mg/Ml 10 Ml Udc PO 1,000 mg ACHS ELEAZAR Administration Thiamine HCl 100 mg 06/19/25 09:45 07/05/25 09:20 Thiamine Hcl 100 Mg Tablet PO 100 mg QAM ELEAZAR Administration Radiology Results: ITS Impressions Head CT 06/18/25 15:47 IMPRESSION: No acute intracranial process. Chest X-Ray 06/18/25 15:51 IMPRESSION: No acute cardiopulmonary process. Chest/Abdomen/Pelvis CT 06/18/25 17:06 IMPRESSION: Mild descending thoracic aortic ectasia. Scattered sub-6 mm pulmonary nodules, requiring no additional follow-up unless the patient is at high risk, in which case consider low-dose noncontrast CT of the chest in one year. Diffuse esophagitis. Moderate gastritis. Hepatomegaly. Hyperenhancing areas along the falciform ligament and gallbladder fossa may represent transient hepatic attenuation differences and/or irregular parenchymal enhancement from steatosis. No discrete mass identified. Recommend MRI of the liver. Hyperemic gallbladder wall may reflect a component of mild/early inflammatory change versus artifact from contrast phase. No biliary duct dilatation or inflammation to suggest cholangitis. Cystitis. Possible sacral soft tissue defect, correlate clinically for decubitus ulcer. Thoracic Spine CT 06/22/25 15:53 IMPRESSION: 1. No compression fracture in the thoracic spine. 2. Mild degenerative change scattered throughout the thoracic spine. If symptoms persist or worsen, consider an MRI of the thoracic spine for further assessment. Abdomen Ultrasound 06/23/25 10:17 IMPRESSION: 1: The liver is hyperechoic likely due to fatty infiltration and/or hepatocellular disease. 2. There is a 2.9 x 2.2 cm hypoechoic region in the left lobe of the liver. Differential includes focal fatty sparing versus liver mass. A liver mass MRI is recommended. Cervical Spine MRI 06/25/25 05:56 Impression: Mild degenerative spondylitic changes overall, as detailed above. Thoracic Spine MRI 06/25/25 05:59 Impression: No significant abnormality. Lumbar Spine MRI 06/25/25 06:01 Impression: Acute mild compression fracture at the superior endplate region of L5, as detailed above. Mild chronic compression deformity of L2, as detailed above. 6 mm retrolisthesis of L2 over L3. Moderate degenerative spondylosis overall throughout the lumbar spine, as above. Sacrum/Coccyx MRI 06/25/25 06:09 IMPRESSION: Acute, mild compression fracture deformity of L5, as above. No other significant findings. Abdomen MRI 06/26/25 09:24 IMPRESSION: 1. Diffuse hepatic steatosis with geographic region differing signal intensity on T1 and T2 imaging and without the signal loss on opposed phase imaging as a be seen with hepatic steatosis. This would be atypical pattern for focal fatty sparing however there is significant enhancement persisting well beyond all be expected for focal transient hepatic intensity difference which persists through the 5 and 10 minutes of imaging which would not be atypical feature for focal hepatic steatosis for which differential would include focal nodular hyperplasia or cholangiocarcinoma. Recommend ultrasound-guided biopsy for more definitive determination. 2. Acute to subacute L5 compression fracture. 3. Small right and tiny left pleural effusions. Liver Biopsy Ultrasound 06/29/25 12:43 IMPRESSION: 1. Successful Ultrasound-guided biopsy of an indeterminate hypoechoic region in segment 4A and 4B of the liver along the falciform ligament. Labs Labs: Laboratory Results - last 24 hr 07/04/25 07/05/25 17:09 05:22 WBC 5.9 RBC 2.66 L Hgb 9.1 L Hct 27.1 L MCV 101.9 H MCH 34.2 H MCHC 33.6 RDW 14.7 H Plt Count 308 MPV 9.6 Sodium 129 L Potassium 3.5 3.2 L Chloride 101 Carbon Dioxide 27 Anion Gap 1 L BUN 3 L Creatinine 0.21 L Estim Creat Clear Calc 130 Estimated GFR > 60 Glucose 85 Calcium 8.6 Magnesium 1.5 L Total Bilirubin 0.8 AST 37 H ALT 20 Alkaline Phosphatase 85 Total Protein 4.8 L Albumin 2.6 L Quality VTE Prophylaxis VTE prophylaxis: pharmacologic ordered ( Lovenox)
--- NOTE | 2025-07-05 13:44 | P.DS_ITS ---
DS: Admitting Diagnosis Discharge Date 07/05/2025 Admitting Diagnosis Failure to thrive Lack of appetite over 3-4 months associated with 50 lb weight loss DS: Discharge Diagnosis Discharge Diagnosis (1) Macrocytic anemia: Code(s): D53.9 - Nutritional anemia, unspecified Status: Acute (2) Metabolic encephalopathy: Code(s): G93.41 - Metabolic encephalopathy Status: Acute (3) Iron deficiency anemia due to dietary causes: Code(s): D50.8 - Other iron deficiency anemias Status: Acute (4) Cystitis: Code(s): N30.90 - Cystitis, unspecified without hematuria Status: Acute (5) Cirrhosis: Code(s): K74.60 - Unspecified cirrhosis of liver Status: Acute (6) Frequent falls: Code(s): R29.6 - Repeated falls Status: Acute (7) Dementia: Code(s): F03.90 - Unspecified dementia, unspecified severity, without behavioral disturbance, psychotic disturbance, mood disturbance, and anxiety Status: Acute (8) GERD (gastroesophageal reflux disease): Qualifiers: Esophagitis presence: with esophagitis Esophagitis bleeding: without hemorrhage Qualified Code(s): K21.00 - Gastro-esophageal reflux disease with e sophagitis, without bleeding Code(s): K21.9 - Gastro-esophageal reflux disease without esophagitis Status: Acute (9) Urinary retention with incomplete bladder emptying: Code(s): R33.9 - Retention of urine, unspecified Status: Acute (10) Severe protein-calorie malnutrition: Code(s): E43 - Unspecified severe protein-calorie malnutrition Status: Acute (11) Syndrome of inappropriate ADH (SIADH) secretion: Code(s): E22.2 - Syndrome of inappropriate secretion of antidiuretic hormone Status: Acute (12) Hypomagnesemia: Code(s): E83.42 - Hypomagnesemia Status: Acute (13) Electrolyte abnormality: Code(s): E87.8 - Other disorders of electrolyte and fluid balance, not elsewhere classified Status: Acute Plan (1) Adult failure to thrive: Code(s): R62.7 - Adult failure to thrive Status: Acute Assessment and Plan: * FTT/Severe protein energy malnutrition * oral intake still poor * Pt does not have the mental capacity to agree to feeding tube. She does not have a designated POA. * On Dronabinol, monitor oral intake * Dietitian on board * Daily weights ordered. * Banana bag today(2) Severe protein-calorie malnutrition: Code(s): E43 - Unspecified severe protein-calorie malnutrition Status: Acute Assessment and Plan: * See #1(3) Hypomagnesemia: Code(s): E83.42 - Hypomagnesemia Status: Acute Assessment and Plan: Nutritional deficiency Mag 1.5 07/05 Replace per protocol (4) Chronic hyponatremia: Code(s): E87.1 - Hypo-osmolality and hyponatremia Status: Acute Assessment and Plan: On admission sodium was 127, today 128 Patient is with cirrhosis, around 130 sodium is normal IV fluid for hydration, dietary consult for malnutrition She did not finish her breakfast, Ensure supplement Will give her slow IV folic/Thiamine/MAg (5) Syndrome of inappropriate ADH (SIADH) secretion: Code(s): E22.2 - Syndrome of inappropriate secretion of antidiuretic hormone Status: Acute Assessment and Plan: Follow urine osmolarity/urine sodium and/serum osmolarity BMP daily (6) Lactic acidosis: Code(s): E87.20 - Acidosis, unspecified Status: Resolved Assessment and Plan: * Resolved(7) Acute hypokalemia: Code(s): E87.6 - Hypokalemia Status: Acute Assessment and Plan: Potassium 3.2 today On replacement protocol BMP daily (8) Transaminitis: Code(s): R74.01 - Elevation of levels of liver transaminase levels Status: Acute Assessment and Plan: Elevated liver enzyme MRI shows cirrhosis liver CEA elevated, liver biopsy negative for cancer GI consulted, appreciate recs Follow hepatic panel (9) Hyperbilirubinemia: Code(s): E80.6 - Other disorders of bilirubin metabolism Status: Acute Assessment and Plan: Total bili is normal (10) Elevated troponin: Code(s): R79.89 - Other specified abnormal findings of blood chemistry Status: Acute Assessment and Plan: * Trop was trended and was flat.(11) Cystitis: Code(s): N30.90 - Cystitis, unspecified without hematuria Status: Acute Assessment and Plan: UA shows leukocyte esterase and greater than 100 WBC ua Completed Rocephin (12) Lumbar compression fracture: Code(s): S32.000A - Wedge compression fracture of unspecified lumbar vertebra, initial encounter for closed fracture Status: Acute Assessment and Plan: * L5 compression * MRI reviewed * No pain, neurosurgery reviewed and no intervention at this time is needed. * Follow up with [facility] as outpt.(13) Iron deficiency anemia due to dietary causes: Code(s): D50.8 - Other iron deficiency anemias Status: Acute Assessment and Plan: Study shows% saturation 19,TIBC 173 and Iron33 Iron deficiency anemia and the setting of cirrhosis and poor nutritional status Completed thee doses of IV iron (14) Metabolic encephalopathy: Code(s): G93.41 - Metabolic encephalopathy Status: Acute Assessment and Plan: Likely secondary to UTI, poor nutritional status, worsening of cirrhosis Continue lactulose, goal bowel movement 2-3 a day (15) Macrocytic anemia: Code(s): D53.9 - Nutritional anemia, unspecified Status: Acute Assessment and Plan: Vitamin B-12 all and folate is normal Likely secondary to cirrhosis Continue iron daily supplemental protein is added (16) Cirrhosis: Code(s): K74.60 - Unspecified cirrhosis of liver Status: Acute Assessment and Plan: GI consulted, recommend outpatient follow-up Outpatient plan for ultrasound every 6 months and AFB for hepatocellular carcinoma evaluation She might need FibroScan at some point DS: Summary Hospital Course Reason for hospitalization: Lack appetite Weight loss Failure to thrive Hospital Course: Fiorella Baker is a 70 year old female with pmhx of essential hypertension, GERD, chronic hyponatremia likely secondary to SIADH, peripheral nephropathy, suspected dementia who presented to the ED for frequent fall and lack of appetite associated with 50 lb lows over 4 months. Patient was admitted for possible failure to thrive. Prior to a bout 2 months of this admission, she was unable to ambulate independently and she was wheelchair bound. She was only oriented to person during admission. Patient completed ceftriaxone for UTI. In this admission, the following imaging study was obtained. 06/18/[address] shows; no acute intracranial hemorrhage or externa a she of fluid collection, no hydrocephalus, mass or herniation, no acute ischemic infarct, unremarkable dural venous sinus attenuation, no acute osseous abnormality 06/18/25, chest/abdomen/pelvis CT IMPRESSION: Mild descending thoracic aortic ectasia. Scattered sub-6 mm pulmonary nodules, requiring no additional follow-up unless the patient is at high risk, in which case consider low-dose noncontrast CT of the chest in one year. Diffuse esophagitis. Moderate gastritis. Hepatomegaly. Hyperenhancing areas along the falciform ligament and gallbladder fossa may represent transient hepatic attenuation differences and/or irregular parenchymal enhancement from steatosis. No discrete mass identified. Recommend MRI of the liver. Hyperemic gallbladder wall may reflect a component of mild/early inflammatory change versus artifact from contrast phase. No biliary duct dilatation or inflammation to suggest cholangitis. Cystitis. Possible sacral soft tissue defect, correlate clinically for decubitus ulcer. 06/22/[address] IMPRESSION: 1. No compression fracture in the thoracic spine. 2. Mild degenerative change scattered throughout the thoracic spine. If symptoms persist or worsen, consider an MRI of the thoracic spine for further assessment. 06/23/2025 abdominal ultrasound IMPRESSION: 1: The liver is hyperechoic likely due to fatty infiltration and/or hepatocellular disease. 2. There is a 2.9 x 2.2 cm hypoechoic region in the left lobe of the liver. Differential includes focal fatty sparing versus liver mass. A liver mass MRI is recommended. 06/25/2025, cervical spine MRI Impression: Mild degenerative spondylitic changes overall, as detailed above. 06/25/2025 thoracic spine MRI-no significant abnormalities 06/25/2025 Lumbar spine MRI Impression: Acute mild compression fracture at the superior endplate region of L5, as detailed above. Mild chronic compression deformity of L2, as detailed above. 6 mm retrolisthesis of L2 over L3. Moderate degenerative spondylosis overall throughout the lumbar spine, as above. 06/25/2025 sacrum/coccyx MRI Impression: Acute mild compression fracture at the superior endplate region of L5, as detailed above. Mild chronic compression deformity of L2, as detailed above. 6 mm retrolisthesis of L2 over L3. Moderate degenerative spondylosis overall throughout the lumbar spine, as above. 06/26/2025 abdomen MRI IMPRESSION: 1. Diffuse hepatic steatosis with geographic region differing signal intensity on T1 and T2 imaging and without the signal loss on opposed phase imaging as a be seen with hepatic steatosis. This would be atypical pattern for focal fatty sparing however there is significant enhancement persisting well beyond all be expected for focal transient hepatic intensity difference which persists through the 5 and 10 minutes of imaging which would not be atypical feature for focal hepatic steatosis for which differential would include focal nodular hyperplasia or cholangiocarcinoma. Recommend ultrasound-guided biopsy for more definitive determination. 2. Acute to subacute L5 compression fracture. 3. Small right and tiny left pleural effusions. 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 - Trichrome stain with positive control shows shows extensive fibrosis with bridging - Reticulin stain with positive control shows focal areas of architectural retention with 1-2 cells/hepatic plate - Iron stain with positive control shows increased iron stores within the fibrous tissue - PAS stain with and without diastase stain with positive control shows adequate glycogen storage. - No diastase resistant PAS positive material is identified Status at Discharge Functional status at discharge: wheelchair bound Time Spent with Patient Time attestation: 35 minutes Total time spent providing and/or coordinating discharge services: Exam Narrative: APPEARANCE: Comfortable, cachexia EYES: EOMI HEENT: Normocephalic, atraumatic, OMM RESPIRATORY: No respiratory distress Clear to auscultation bilaterally with no rhonchi wheezing or rales. CARDIOVASCULAR: RRR, S1 and S2 without murmurs rubs or gallops. ABDOMINAL: Soft, nontender, nondistended, no rebound or guarding MUSCULOSKELETAl: Moves her extremities spontaneously NEURO: Alert and oriented to person and place. Following commands, speech normal, no focal deficits SKIN:: Warm, dry. No rashes lesions or abrasions PSYCHIATRIC: Bright affect today DS: Data Data Completed and Pending Completed studies during hospitalization: Pending at discharge 06/29/25 11:00 Surgical [PTH] Routine Labs on day of discharge: Labs from last 24 hours 07/05/25 07/04/25 05:22 17:09 WBC 5.9 RBC 2.66 L Hgb 9.1 L Hct 27.1 L MCV 101.9 H MCH 34.2 H MCHC 33.6 RDW 14.7 H Plt Count 308 MPV 9.6 Sodium 129 L Potassium 3.2 L 3.5 Chloride 101 Carbon Dioxide 27 Anion Gap 1 L BUN 3 L Creatinine 0.21 L Estim Creat Clear Calc 130 Estimated GFR > 60 Glucose 85 Calcium 8.6 Magnesium 1.5 L Total Bilirubin 0.8 AST 37 H ALT 20 Alkaline Phosphatase 85 Total Protein 4.8 L Albumin 2.6 L Discharge Plan Discharge Attending physician on discharge: Ac Lawrence Consulting providers: Mane Bland; Anil Kothari; Ayan Douglas; Marixa Beltrán Discharging Clinician: Denisse Shah Anticipated Discharge Date/Time: 07/05/25 13:38 Patient Disposition: SNF Activity: unlimited Diet: regular Discharge Instructions: Take precautions to avoid falls. Rise slowly from a lying or sitting position. Pause before standing or walking. Avoid NSAIDs (ibuprofen, naproxen, Aleve). Tylenol is safe to take. Follow-up with your primary care physician. Follow-up with his GI doctor You will need ultrasound of abdomen and AFP every 6 months for cancer screening because of cirrhotic diseases Patient Instructions: High Troponin Levels (GEN) Patient Language: Urdu Stand Alone Forms: General Discharge Information Follow-up/Referrals: Annetta,Blair Calvin MD [Primary Care Provider] - 1 Week Referral Note: Please connect her with Gastroenterology Discharge Medications: New lactulose 10 gram/15 mL Solution 20 g PO QAM Qty: 10 0RF Continued paroxetine HCl 10 mg tablet 10 mg PO DAILY potassium chloride 10 mEq tablet extended release 10 meq PO DAILY pyridoxine (vitamin B6) 100 mg tablet 100 mg PO DAILY omeprazole 20 mg capsule,delayed release(DR/EC) 20 mg PO DAILY tramadol 50 mg Tablet 50 mg PO Q6H PRN (Reason: Pain) sucralfate 1 gram tablet 1 g PO TIDWM sodium chloride 1,000 mg tablet,soluble 1,000 mg PO BID Discontinued metoprolol succinate 50 mg tablet extended release 24 hr 50 mg PO DAILY Date of admission: 06/18/25 19:51 Primary Care Provider: AnnettaBlair Admitting Provider: Ac Lawrence Attending physician on admission: Ac Lawrence Condition: Stable
[2025-07-07 10:08] LABS: Osmolality, Urine 623 mOsmol/kg (.)
[2025-07-07 16:07] LABS: Osmolality, Serum 267 mOsmol/kg (280-301)
== END 2025-07-05 16:10 | DRG 432 ==
LOC: ANHED 18:29 → ANHIMU 20:47 → ANH3MEDSUR 06-20 20:14
PROVIDERS: Family Medicine; Internal Medicine; Internal Medicine Gastroenterology; Nurse Practitioner Adult Health; Admitting Provider General Practice; Emergency Provider Emergency Medicine; PCP Family Medicine; Visit Provider Student in an Organized Health Care Education/Training Program
DX: K74.60 Unspecified cirrhosis of liver (principal); E43 Unspecified severe protein-calorie malnutrition; Z68.1 Body mass index [BMI] 19.9 or less, adult; N39.0 Urinary tract infection, site not specified; E22.2 Syndrome of inappropriate secretion of antidiuretic hormone; E87.20 Acidosis, unspecified; S32.059A Unspecified fracture of fifth lumbar vertebra, initial encounter for closed fracture; R62.7 Adult failure to thrive; I10 Essential (primary) hypertension; E86.0 Dehydration; E87.6 Hypokalemia; E83.42 Hypomagnesemia; D50.8 Other iron deficiency anemias; D53.9 Nutritional anemia, unspecified; K21.9 Gastro-esophageal reflux disease without esophagitis; R29.6 Repeated falls; R79.89 Other specified abnormal findings of blood chemistry; R33.9 Retention of urine, unspecified; B96.4 Proteus (mirabilis) (morganii) as the cause of diseases classified elsewhere; G62.9 Polyneuropathy, unspecified; F41.9 Anxiety disorder, unspecified; F03.90 Unspecified dementia, unspecified severity, without behavioral disturbance, psychotic disturbance, mood disturbance, and anxiety; Z20.822 Contact with and (suspected) exposure to COVID-19; Z87.891 Personal history of nicotine dependence
CPT/HCPCS: 36415; 47000; 70450; 71045; 71260; 72128; 72156; 72157; 72158; 72197; 74177; 74183; 76705; 76942; 80053; 80307; 81001; 82077; 82105; 82378; 82607; 82728; 82746; 82803; 82948; 83540; 83550; 83605; 83690; 83735; 83930; 83935; 84100; 84132; 84300; 84443; 84484; 85025; 85027; 85610; 85730; 86301; 87040; 87086; 87637; 88307; 88312; 88313; 93005; 96361; 96365; 96367; 97110; 97162; 97165; 97530; 97535; 99285; A9270; A9577; A9579; J0696; J1650; J1756; J2470; J3411; J3475; J7030; J7050; J7121; Q9967

== ENCOUNTER 2025-08-26 13:36 | Outpatient (CLI) | payer MEDICARE, SELFPAY ==
--- NOTE | ~2025-08-26 | CT_ITS ---
CT abdomen pelvis w con INDICATION:Abn weight loss . COMPARISON: None. TECHNIQUE: Axial images of the abdomen and pelvis were obtained following infusion of 100 mL Isovue 300. Dose optimization technique was utilized. FINDINGS: The lung bases are clear. Moderate hiatal hernia noted. The liver parenchyma is unremarkable. No intrahepatic mass or ductal dilatation is evident. The gallbladder is unremarkable. The pancreas and spleen are normal in appearance. The adrenal glands are symmetric in size. The kidneys demonstrate symmetric uptake and excretion of contrast. No cystic mass is evident. There is no solid mass. There is no hydronephrosis. Evaluation of the stomach and bowel loops are limited due to lack of oral contrast. The appendix is normal in appearance. The bladder and rectum are normal. No free intraperitoneal fluid or air is evident. There is no significant retroperitoneal lymphadenopathy. The aorta, visceral vessels and renal arteries demonstrate normal caliber and patency. There is chronic-appearing fracture deformity of the right seventh rib. IMPRESSION: Chronic-appearing fracture of the right-sided ribs. Moderate sized hiatal hernia. All CT scans at this facility are performed using low dose modulation techniques as appropriate to perform exam including the following: automated exposure control; use of iterative reconstruction technique; adjustment of the mA and/or kV according to patient size (this includes techniques or standardized protocols for targeted exams where dose is matched to indication/reason for exam). Reviewed, dictated and finalized at location S. IMPRESSION: Chronic-appearing fracture of the right-sided ribs. Moderate sized hiatal hernia. All CT scans at this facility are performed using low dose modulation techniqu es as appropriate to perform exam including the following: automated exposure c ontrol; use of iterative reconstruction technique; adjustment of the mA and/or kV according to patient size (this includes techniques or standardized protocol s for targeted exams where dose is matched to indication/reason for exam).
[2025-08-26 13:58] LABS: Estimated Glomerular Filt Rate > 60
== END 2025-08-26 13:37 | disposition home or self-care (01) ==
PROVIDERS: PCP Family Medicine; Visit Provider Internal Medicine Gastroenterology
DX: R63.4 Abnormal weight loss (principal); R74.8 Abnormal levels of other serum enzymes; K44.9 Diaphragmatic hernia without obstruction or gangrene; S22.31XA Fracture of one rib, right side, initial encounter for closed fracture; X58.XXXA Exposure to other specified factors, initial encounter
CPT/HCPCS: 74177; Q9967